=== PATIENT | female | born 1935 | race Caucasian/White ===

== ENCOUNTER 2016-12-05 07:04 | Emergency (ER) | payer OTHER ==
[~2016-12-05] VITALS: Ht 165.1 cm; Wt 64.5 kg
[~2016-12-05 07:04] MED LIST: ACET-1182 PO; ALL100 PO; CHOL100027 PO; GLC/500 PO; GLC5 PO; LISI20TA PO; LPR25 PO; MELO15TA3 PO; SIMV40TA2 PO; WARF2TAB PO
[2016-12-05 07:16] VITALS: TEMP 36.6; Ht 165.1 cm; Wt 64.5 kg
[2016-12-05] MEDS ORDERED: WARF2TAB8 PO (07:37)
[2016-12-05] MEDS ORDERED: LISI-787 PO (07:37)
[2016-12-05] MEDS ORDERED: ZCRT/40 PO (07:37)
[2016-12-05] MEDS ORDERED: ALL100 PO (07:37)
[2016-12-05] MEDS ORDERED: METO25TA56 PO (07:37)
[2016-12-05] MEDS ORDERED: GLIP-199 PO (07:37)
[2016-12-05] MEDS ORDERED: METF500T5 PO (07:37)
[2016-12-05 08:11] LABS: HEMATOCRIT 36.4 % (37-47); MEAN CELL VOLUME 86.7 fL (80-100); MEAN CORPUSCULAR HEMOGLOBIN 29.8 pg (25-34); MEAN CORPUSCULAR HGB CONC 34.3 g/dl (32-36); MEAN PLATELET VOLUME 10.5 fL (7.4-10.4); PLATELET COUNT 131 K/uL (130-400); WHITE BLOOD COUNT 8.12 K/uL (4.8-10.8)
[2016-12-05 08:21] LABS: BLOOD UREA NITROGEN 32 mg/dl (7-18); BUN/CREATININE RATIO 22.7 (10-20); C-REACTIVE PROTEIN < 0.29 mg/dl (0-0.29); CALCIUM 9.8 mg/dl (8.5-10.1); CARBON DIOXIDE 24 mmol/L (21-32); CHLORIDE 105 mmol/L (98-107); GLUCOSE 218 mg/dl (70-99); POTASSIUM 4.7 mmol/L (3.5-5.1); SODIUM 140 mmol/L (136-145); URIC ACID 5.3 mg/dl (2.6-7.2)
--- NOTE | 2016-12-05 08:21 | EMERGENCY ROOM VISIT NOTE ---
History First contact with patient: 07:24 Chief Complaint: FALL Stated Complaint: FELL DOWN STEPS- SWELLING BOTH LEGS R ANKLE R THIG History of Present Illness The patient is a 81 year old female who presents to the Emergency Department by private vehicle for evaluation of her RIGHT ankle pain and swelling. She reports that she fell 2 weeks ago resulting in minimal injury. She reports that she was ambulating down approximately 4 steps when she missed a step residential down causing her to fall onto her buttocks. She denies striking her head or any loss of consciousness. She denies any prefall headaches, dizziness , lightheadedness, chest pain, nausea, or vomiting. She reports she was having no discomfort until yesterday. She noticed pain and swelling to the RIGHT ankle. Her pain is worse with ambulation. She describes some pain to the anterior portion of the RIGHT thigh earlier this morning at approximately 5 AM. She use warm heat and a topical medication with minimal relief of symptoms. She denies any new falls or injuries otherwise. The patient does take Coumadin daily. She is unaware of her last INR. Patient denies any numbness or tingling into the distal extremity. She denies fevers or chills. She denies any redness, discharge, or drainage. She rates her current discomfort as a 6/ 10. She denies any headaches, dizziness, lightheadedness, chest pain, abdominal pain, back pain, hip pain, or knee pain. Review of Systems A complete 10-point Review of Systems was discussed with the patient, with pertinent positives and negatives listed in the History of Present Illness. All remaining Review of Systems questions can be considered negative unless otherwise specified. Past Medical/Surgical History Medical Problems: (1) Atherosclerosis Nos (2) Cholelithiasis Nos (3) Diab Tatyana Wo Compl, Type Ii Or Unspec Type, Not Uncntrld (4) Gouty Arthropathy, Unspecified (5) Hypertension Nos Social History Smoking Status: Never Smoker Smokeless Tobacco Use: No Drug Use: none Marital Status: Housing Status: lives with family Occupation Status: retired Current/Historical Medications Scheduled Allopurinol (Allopurinol), 200 MG PO DAILY Glipizide (Glipizide Er), 1 TAB PO DAILY Lisinopril/Hctz (Zestoretic 20MG/12.5MG), 1 TAB PO DAILY Metformin Hcl Er (Glucophage Er), 500 MG PO BID Metoprolol Tartrate (Lopressor) (Lopressor), 25 MG PO BID Simvastatin (Zocor), 40 MG PO DAILY Warfarin Sod (Jantoven), 2 MG PO DAILY Scheduled PRN Tramadol (Ultram), 1 TAB PO Q6 PRN for Pain Allergies Coded Allergies: No Known Allergies (Unverified , 12/05/16) Physical Exam Vital Signs Date Time Temp Pulse Resp B/P Pulse Ox O2 Delivery O2 Flow Rate FiO2 12/05/16 10:20 55 157/55 96 12/05/16 07:16 36.6 56 18 152/74 97 Room Air Pain Rating (0-10): 6 Physical Exam VITAL SIGNS - Vital signs and nursing notes were reviewed. GENERAL - 81-year-old female appearing her stated age and in noticeable discomfort throughout the exam. EXTREMITIES - mild edema noted to the medial surface of the RIGHT ankle. Tenderness to palpation over this affected area. No tenderness to palpation extending proximally. Full range of motion of the RIGHT lower extremity appreciated. +5/5 strength appreciated bilaterally. Mild tenderness to palpation over the dorsal surface of the LEFT foot. No tenderness to palpation to the hips or lumbar spine bilaterally. NEUROLOGIC/VASCULAR - Neurovascularly intact distally with +3/5 dorsalis pedis pulses palpated bilaterally. Normal sensation to light and sharp touch appreciated distally. Medical Decision & Procedures ER Provider Diagnostic Interpretation: Radiological imaging and reports were reviewed by myself. Radiologist's Interpretation as follows: RIGHT ANKLE MIN 3 VIEWS ROUTINE CLINICAL HISTORY: Right ankle pain following fall. COMPARISON: None FINDINGS: Alignment of the right ankle is anatomic. There is cortical thickening of the distal shaft of the right fibula. This suggests an old fracture. No definite acute fracture is present. Talar dome is intact. There is moderate plantar calcaneal spurring. IMPRESSION: Cortical irregularity of the distal right fibula which favors an old, healed fracture. Associated lucency is likely chronic although an acute nondisplaced fracture would be difficult to exclude on this exam. If persistent pain, short-term radiographic follow up is recommended. RIGHT FEMUR 2 VIEWS ROUTINE CLINICAL HISTORY: Right leg pain following fall. COMPARISON: [employer] tomogram from CT September 17, 2013. FINDINGS: No acute fracture of the right femur is identified. Alignment of the right hip and knee is anatomic. There is mild arthritis of the right hip. There is moderate arthritis of the right knee. There is no right knee joint effusion. No fracture is identified within visualized portions of the right hemipelvis. IMPRESSION: No acute fracture of the right femur. LEFT FOOT MIN 3 VIEWS ROUTINE CLINICAL HISTORY: pain s/p fall trauma. Pain. COMPARISON: None. DISCUSSION: Generalized degenerative change. Heel spur. Degenerative change first metatarsophalangeal joint. IMPRESSION: Degenerative change. Heel spur. No acute bony abnormality. RIGHT LOWER EXTREMITY VENOUS DOPPLER CLINICAL HISTORY: Right lower extremity pain and swelling. COMPARISON STUDY: No previous studies for comparison. TECHNIQUE: Sonography of the deep venous system of the right lower extremity was performed. Compression and augmentation were evaluated. FINDINGS: The right common femoral, superficial femoral and popliteal veins were compressible. Augmentation was normal. Flow was shown within the deep calf vessels. IMPRESSION: No evidence of deep venous thrombus within the right lower extremity. Laboratory Results 12/05/16 07:55 Red Blood Count 4.20, Mean Corpuscular Volume 86.7, Mean Corpuscular Hemoglobin 29.8, Mean Corpuscular Hemoglobin Concent 34.3, Mean Platelet Volume 10.5, Neutrophils (%) (Auto) 72.3, Lymphocytes (%) (Auto) 16.5, Monocytes (%) (Auto) 10.7, Eosinophils (%) (Auto) 0.2, Basophils (%) (Auto) 0.1, Neutrophils # (Auto ) 5.86, Lymphocytes # (Auto) 1.34, Monocytes # (Auto) 0.87, Eosinophils # (Auto ) 0.02, Basophils # (Auto) 0.01 12/05/16 07:55 Test 12/05/16 07:55 White Blood Count 8.12 K/uL (4.8-10.8) Red Blood Count 4.20 M/uL (4.2-5.4) Hemoglobin 12.5 g/dL (12.0-16.0) Hematocrit 36.4 % (37-47) Mean Corpuscular Volume 86.7 fL (80-100) Mean Corpuscular Hemoglobin 29.8 pg (25-34) Mean Corpuscular Hemoglobin Concent 34.3 g/dl (32-36) Platelet Count 131 K/uL (130-400) Mean Platelet Volume 10.5 fL (7.4-10.4) Neutrophils (%) (Auto) 72.3 % Lymphocytes (%) (Auto) 16.5 % Monocytes (%) (Auto) 10.7 % Eosinophils (%) (Auto) 0.2 % Basophils (%) (Auto) 0.1 % Neutrophils # (Auto) 5.86 K/uL (1.4-6.5) Lymphocytes # (Auto) 1.34 K/uL (1.2-3.4) Monocytes # (Auto) 0.87 K/uL (0.11-0.59) Eosinophils # (Auto) 0.02 K/uL (0-0.5) Basophils # (Auto) 0.01 K/uL (0-0.2) RDW Standard Deviation 44.7 fL (36.4-46.3) RDW Coefficient of Variation 14.3 % (11.5-14.5) Immature Granulocyte % (Auto) 0.2 % Immature Granulocyte # (Auto) 0.02 K/uL (0.00-0.02) Erythrocyte Sedimentation Rate 35 mm/hr (0-21) Prothrombin Time 48.9 SECONDS (9.0-12.0) Prothromb Time International Ratio 4.3 (0.9-1.1) Activated Partial Thromboplast Time 47.5 SECONDS (21.0-31.0) Partial Thromboplastin Ratio 1.8 Anion Gap 11.0 mmol/L (3-11) Est Creatinine Clear Calc Drug Dose 27.4 ml/min Estimated GFR () 40.2 Estimated GFR (Non- 34.7 BUN/Creatinine Ratio 22.7 (10-20) Uric Acid 5.3 mg/dl (2.6-7.2) Calcium Level 9.8 mg/dl (8.5-10.1) C-Reactive Protein < 0.29 mg/dl (0-0.29) Medications Administered Medications (Trade) Dose Ordered Sig/Ruthy Route Start Time Stop Time Status Last Admin Dose Admin Acetaminophen (Tylenol Tab) 650 mg NOW STAT PO 12/05/16 09:50 12/05/16 09:51 DC 12/05/16 09:58 650 MG ED Course Patient was seen and evaluated by myself. Labs were drawn, saline lock in place. The patient declines anything for pain while in the emergency department. X-ray of the RIGHT ankle, RIGHT femur, LEFT foot, and ultrasound of the RIGHT lower extremity were obtained. Laboratory results demonstrate no acute leukocytosis, worrisome anemia, or bandemia. The patient has no significant electrolyte abnormalities. Her creatinine was mildly elevated at 1.4, however we've seen this previously. Her INR was significantly elevated at 4.3. She is uncertain of her next INR evaluation. She typically is managed by her primary care provider's office. Imaging results above. Laboratory results and imaging studies were reviewed with the patient who acknowledges understanding. Patient was provided Ultram for breakthrough pain at home. She has a walker to use for comfort. I did speak with case management who will contact the patient's primary care provider and let them know of her INR today as well as my current management for acute gouty arthropathy. Patient will follow-up with her primary care provider from today's visit. She will return for any changing/worsening symptoms. Patient discharged home afebrile and in good condition. Medical Decision Given the patient's presentation and stated complaint, I did elect to perform the above-mentioned workup. The patient resents today complaining of pain to the RIGHT ankle. She had cramping pain to the upper leg earlier this morning. She's had no fevers. There is no leukocytosis. ESR is minimally elevated. CRP is not elevated. Uric acid was not elevated. On review the patient's medications, she does take allopurinol as well as Mobic daily. When questioning , the patient does admit to history of gout, but reports that she typically only experiences it in her great toes. The patient has pain with ambulation. Her INR was found to be elevated at 4.3. This will be addressed by her primary care provider's office with case management facilitating conversation. At this point, I did not feel like placing the patient on prednisone as she currently has a blood glucose in excess of 200. She is not currently on her medications. I do not feel that steroids are the best approach in this situation. In addition, she is currently on a second-generation NSAID for ongoing arthritis. I would not wish to add a second NSAID, particularly in the setting of a patient who is currently taking Coumadin and has an INR of 1.3. Another option certainly could be colchicine, however the patient appears to have him to the store issues already and I would hate to have the patient have diarrhea which may cause a fall or worsening injury otherwise. The patient was provided Ultram for breakthrough pain at home. She'll follow-up with her primary care provider as discussed. She will return to the emergency department in the setting of any changing or worsening symptoms. Patient discharged home afebrile and in good condition. In the evaluation and treatment of this patient, the following differential diagnoses were considered: Ankle Fracture, Ankle Sprain, Distal Fibula Fracture , Distal Tibia Fracture, Foot Fracture, Maisonneuve Fracture. Impression Primary Impression: Acute gouty arthritis Departure Information Dispostion Home / Self-Care Condition GOOD Prescriptions Tramadol (Ultram) 50 Mg Tab 1 TAB PO Q6 Y for Pain, #14 TAB For Initial Treatment Prov: Sergio Mccallum, TOMMIE 12/05/16 Referrals Ned Tomlin M.D. (PCP) Patient Instructions Gout Attack Tx, My [facility] Additional Instructions You have been seen in the emergency department today for your RIGHT ankle pain - acute gouty arthritis. You have been prescribed Ultram to be used for pain control. You cannot drive or consume alcohol while on this medicine. This medicine should only be used for pain that cannot be controlled with [id number] pain medicines. You will be contacted by your primary care provider's office later this afternoon for recommendations on taking her Coumadin. If they do not contact you, please contact their office later today. Please do not take your Coumadin dose today. Use your walker to help with ambulation for the next few days. Watch for worrisome signs and symptoms including worsening pain, redness, fevers , chills, chest pain, shortness of breath, etc. Follow-up with your primary care provider from today's visit. Return for any changing or worsening symptoms.
[2016-12-05 08:28] LABS: PARTIAL THROMBOPLASTIN RATIO 1.8; PROTHROMBIN TIME (PATIENT) 48.9 SECONDS (9.0-12.0)
[2016-12-05 08:29] LABS: BASO % 0.1 %; BASO ABS # 0.01 K/uL (0-0.2); COMPLETE YES; EOS % 0.2 %; IG% 0.2 %; LYMPH % 16.5 %; LYMPH ABS # 1.34 K/uL (1.2-3.4); MONO % 10.7 %; NEUT % 72.3 %
[2016-12-05 08:31] LABS: INR 4.3 (0.9-1.1)
--- NOTE | 2016-12-05 08:59 | DIAGNOSTIC IMAGING REPORT ---
LEFT FOOT MIN 3 VIEWS ROUTINE CLINICAL HISTORY: pain s/p fall trauma. Pain. COMPARISON: None. DISCUSSION: Generalized degenerative change. Heel spur. Degenerative change first metatarsophalangeal joint. IMPRESSION: Degenerative change. Heel spur. No acute bony abnormality. Electronically signed by: Román Abrams M.D. 12/05/2016 8:58 AM Dictated Date/Time: 12/05/2016 8:57 AM
--- NOTE | 2016-12-05 09:00 | DIAGNOSTIC IMAGING REPORT ---
RIGHT ANKLE MIN 3 VIEWS ROUTINE CLINICAL HISTORY: Right ankle pain following fall. COMPARISON: None FINDINGS: Alignment of the right ankle is anatomic. There is cortical thickening of the distal shaft of the right fibula. This suggests an old fracture. No definite acute fracture is present. Talar dome is intact. There is moderate plantar calcaneal spurring. IMPRESSION: Cortical irregularity of the distal right fibula which favors an old, healed fracture. Associated lucency is likely chronic although an acute nondisplaced fracture would be difficult to exclude on this exam. If persistent pain, short-term radiographic follow up is recommended. Electronically signed by: Michael Isaacs M.D. 12/05/2016 8:59 AM Dictated Date/Time: 12/05/2016 8:55 AM
--- NOTE | 2016-12-05 09:02 | DIAGNOSTIC IMAGING REPORT ---
RIGHT FEMUR 2 VIEWS ROUTINE CLINICAL HISTORY: Right leg pain following fall. COMPARISON: [employer] tomogram from CT September 17, 2013. FINDINGS: No acute fracture of the right femur is identified. Alignment of the right hip and knee is anatomic. There is mild arthritis of the right hip. There is moderate arthritis of the right knee. There is no right knee joint effusion. No fracture is identified within visualized portions of the right hemipelvis. IMPRESSION: No acute fracture of the right femur. Electronically signed by: Michael Isaacs M.D. 12/05/2016 9:01 AM Dictated Date/Time: 12/05/2016 8:59 AM
--- NOTE | 2016-12-05 09:30 | DIAGNOSTIC IMAGING REPORT ---
RIGHT LOWER EXTREMITY VENOUS DOPPLER CLINICAL HISTORY: Right lower extremity pain and swelling. COMPARISON STUDY: No previous studies for comparison. TECHNIQUE: Sonography of the deep venous system of the right lower extremity was performed. Compression and augmentation were evaluated. FINDINGS: The right common femoral, superficial femoral and popliteal veins were compressible. Augmentation was normal. Flow was shown within the deep calf vessels. IMPRESSION: No evidence of deep venous thrombus within the right lower extremity. Electronically signed by: Michael Isaacs M.D. 12/05/2016 9:29 AM Dictated Date/Time: 12/05/2016 9:28 AM
[2016-12-05] MEDS ORDERED: ACETAMINOPHEN 325 MG TAB PO STA (09:50)
[2016-12-05] MEDS ORDERED: TRAM-10 PO (10:09)
[2016-12-05 10:20] VITALS: BP 157/55; PULSE 55; O2SAT 96
--- NOTE | 2016-12-06 19:47 | EMERGENCY ROOM VISIT NOTE ---
ED Visit Note First contact with patient: 07:24 I have personally seen and evaluated the patient with the PA. I agree with the diagnosis and management decisions and have been personally involved in the case. Please see Sergio Mccallum PA-C's notes for further details of the history, physical and visit.
== END 2016-12-05 10:22 | disposition home or self-care (01) ==
LOC: C.EDB 07:06 → C.EDA 10:22
DX: M10.9 Gout, unspecified (principal); I70.90 Unspecified atherosclerosis; E11.9 Type 2 diabetes mellitus without complications; I10 Essential (primary) hypertension; Z79.01 Long term (current) use of anticoagulants; M79.651 Pain in right thigh; Z79.899 Other long term (current) drug therapy

== ENCOUNTER 2016-12-11 18:39 | Emergency (ER) | payer OTHER ==
[~2016-12-11] VITALS: Ht 165.1 cm; Wt 65.0 kg
[~2016-12-11 18:39] MED LIST changes: -ACET-1182 PO; -CHOL100027 PO; -GLC/500 PO; -GLC5 PO; +GLIP-199 PO; +LISI-787 PO; -LISI20TA PO; -LPR25 PO; -MELO15TA3 PO; +METF500T5 PO; +METO25TA56 PO; -SIMV40TA2 PO; +TRAM-10 PO; -WARF2TAB PO; +WARF2TAB8 PO; +ZCRT/40 PO
[2016-12-11 18:52] VITALS: BP 138/77; PULSE 77; TEMP 37; O2SAT 93; Ht 165.1 cm; Wt 65.0 kg
--- NOTE | 2016-12-11 19:13 | EMERGENCY ROOM VISIT NOTE ---
History Report prepared by Samson: [place] Under the Supervision of: Dr. Barry Sánchez M.D. First contact with patient: 19:01 Chief Complaint: LEG PAIN,LEG INJURY Stated Complaint: LEG PAIN IN BOTH LEGS History of Present Illness The patient is an 81 year old female who presents to the Emergency Room with complaints of persistent bilateral leg pain that began prior to arrival. She currently rates her discomfort as a 6/10 in severity. The patient's son notes that the patient was evaluated in the emergency department one week ago after a fall and noted ankle swelling that has resolved. He notes that the patient was given Ultram for her discomfort. The patient states that she has been feeling nauseous, but denies any vomiting. She states that she has kept up on her fluid intake, but states that she has had a decrease in appetite. The patient denies any chest pain, shortness of breath, abdominal pain, or urinary symptoms. She notes a history of diabetes, atrial fibrillation, and gout. The patient notes that she has been ambulating with a walker since her last emergency department visit and denies any falls since then. She notes difficulty sleeping with her pain today. Source of History: patient, family, spouse/significant other Onset: prior to arrival Position: leg (bilateral) Symptom Intensity: 6/10 Timing: other (persistent) Associated Symptoms: + nausea, No SOB, No abdominal pain, No chest pain, No urinary symptoms, No vomiting Note: Associated Symptoms: decrease in appetite. Review of Systems See HPI for pertinent positives & negatives. A total of 10 systems reviewed and were otherwise negative. Past Medical & Surgical Medical Problems: (1) Atherosclerosis Nos (2) Cholelithiasis Nos (3) Diab Tatyana Wo Compl, Type Ii Or Unspec Type, Not Uncntrld (4) Gouty Arthropathy, Unspecified (5) Hypertension Nos Old medical records were reviewed. Nurse's notes were reviewed and I agree with. Family History Diabetes mellitus FHx: cancer Social History Smoking Status: Never Smoker Drug Use: none Marital Status: Housing Status: lives with family Occupation Status: retired Current/Historical Medications Scheduled Allopurinol (Allopurinol), 200 MG PO DAILY Glipizide (Glipizide Er), 1 TAB PO DAILY Lisinopril/Hctz (Zestoretic 20MG/12.5MG), 1 TAB PO DAILY Metoprolol Tartrate (Lopressor) (Lopressor), 25 MG PO BID Simvastatin (Zocor), 40 MG PO DAILY Warfarin Sod (Jantoven), 2 MG PO DAILY Scheduled PRN Tramadol (Ultram), 1 TABS PO Q6 PRN for Pain Allergies Coded Allergies: No Known Allergies (Unverified , 12/11/16) Physical Exam Vital Signs Date Time Temp Pulse Resp B/P Pulse Ox O2 Delivery O2 Flow Rate FiO2 12/11/16 18:52 37.0 77 20 138/77 93 Room Air Physical Exam General: Well developed well nourished, non-ill appearing older female in no acute distress, breathing comfortably on room air. Normal speech HEENT: Normal cephalic atraumatic. Pupils are equal round and reactive to light. Extraocular movements are intact. Oropharynx is pink with moist mucous membranes. No swelling of the mouth lips or tongue. Neck: Supple with a midline trachea. No meningeal signs or stiffness, no JVD or bruits. No Stridor. Chest: Clear to auscultation bilaterally. No wheezes or rhonchi. No increased work of breathing. Heart: regular rate and rhythm. Abdomen: Soft nontender, nondistended without rebound guarding or rigidity. Extremities: No tenderness or swelling to the thighs were she complains of pain. No redness or warmth to the ankles. No cyanosis clubbing or edema. No calf tenderness or assymetry Spine/Back. Non tender to palpation. No CVA tenderness Skin: Good turgor without rashes. Neurologic exam: Cranial nerves two through 12 are intact. Motor and sensation are intact and symmetrical throughout. Medical Decision & Procedures Laboratory Results 12/11/16 19:45 Red Blood Count 4.41, Mean Corpuscular Volume 88.9, Mean Corpuscular Hemoglobin 30.4, Mean Corpuscular Hemoglobin Concent 34.2, Mean Platelet Volume 10.8, Neutrophils (%) (Auto) 77.9, Lymphocytes (%) (Auto) 12.2, Monocytes (%) (Auto) 9.6, Eosinophils (%) (Auto) 0.1, Basophils (%) (Auto) 0.1, Neutrophils # (Auto) 5.93, Lymphocytes # (Auto) 0.93, Monocytes # (Auto) 0.73, Eosinophils # (Auto) 0.01, Basophils # (Auto) 0.01 12/11/16 19:45 Test 12/11/16 19:45 White Blood Count 7.62 K/uL (4.8-10.8) Red Blood Count 4.41 M/uL (4.2-5.4) Hemoglobin 13.4 g/dL (12.0-16.0) Hematocrit 39.2 % (37-47) Mean Corpuscular Volume 88.9 fL (80-100) Mean Corpuscular Hemoglobin 30.4 pg (25-34) Mean Corpuscular Hemoglobin Concent 34.2 g/dl (32-36) Platelet Count 128 K/uL (130-400) Mean Platelet Volume 10.8 fL (7.4-10.4) Neutrophils (%) (Auto) 77.9 % Lymphocytes (%) (Auto) 12.2 % Monocytes (%) (Auto) 9.6 % Eosinophils (%) (Auto) 0.1 % Basophils (%) (Auto) 0.1 % Neutrophils # (Auto) 5.93 K/uL (1.4-6.5) Lymphocytes # (Auto) 0.93 K/uL (1.2-3.4) Monocytes # (Auto) 0.73 K/uL (0.11-0.59) Eosinophils # (Auto) 0.01 K/uL (0-0.5) Basophils # (Auto) 0.01 K/uL (0-0.2) RDW Standard Deviation 46.2 fL (36.4-46.3) RDW Coefficient of Variation 14.1 % (11.5-14.5) Immature Granulocyte % (Auto) 0.1 % Immature Granulocyte # (Auto) 0.01 K/uL (0.00-0.02) Anion Gap 12.0 mmol/L (3-11) Est Creatinine Clear Calc Drug Dose 27.4 ml/min Estimated GFR () 40.2 Estimated GFR (Non- 34.7 BUN/Creatinine Ratio 26.0 (10-20) Uric Acid 5.3 mg/dl (2.6-7.2) Calcium Level 8.8 mg/dl (8.5-10.1) Total Bilirubin 1.2 mg/dl (0.2-1) Direct Bilirubin 0.3 mg/dl (0-0.2) Aspartate Amino Transf (AST/SGOT) 25 U/L (15-37) Alanine Aminotransferase (ALT/SGPT) 27 U/L (12-78) Alkaline Phosphatase 111 U/L (45-117) Total Creatine Kinase 59 U/L (26-192) Creatine Kinase MB 0.8 ng/ml (0.5-3.6) Creatine Kinase MB Ratio 1.4 (0-3.0) Total Protein 8.3 gm/dl (6.4-8.2) Albumin 3.9 gm/dl (3.4-5.0) Lipase 292 U/L (73-393) Laboratory studies as stated above per my review. 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 The patient was evaluated in room B6, and a complete history and physical examination were performed. 1917: Ordered Ultram Tab 50 mg PO. 2036: I reevaluated the patient and she is feeling better. I discussed the exam findings with her and I discussed the treatment plan. She verbalized complete understanding and agreement. She is ready to go home. Medical Decision Differentials include, but are not limited to; gout, musculoskeletal pain, infection, electrolyte or metabolic abnormality, rheumatologic process. This patient comes in as described above. She was placed room B6. She's been having leg pain mostly in her thighs bilaterally. She was seen recently for the same and had extensive workup including ultrasound of her right leg. She have any well Ultram but ran out yesterday. Her son thinks that this is why she is having pain. She has an appointment with her doctor on Monday. She's had no fever or chills, chest pain shortness of was breath or any systemic complaints. No bowel or bladder problems. She's had no fall or trauma. No numbness or weakness. Her legs on exam are not swollen and around the thighs there is no hematoma. She is neurologically and neurovascularly intact. She has bounding distal pulses and no arterial compromise. She was given Ultram here and was resting comfortably asking to go home .I did blood work and she has no white count or fever to suggest infection. She has chronic renal insufficiency but nothing acute. This seems a more musculoskeletal pain along her thighs .she will use the Ultram and follow up with her regular doctor and return if: increasing pain, worsening of symptoms, numbness or weakness, any new problems or concerns. Impression Primary Impression: Bilateral leg pain Scribe Attestation The scribe's documentation has been prepared under my direction and personally reviewed by me in its entirety. I confirm that the note above accurately reflects all work, treatment, procedures, and medical decision making performed by me. Departure Information Dispostion Home / Self-Care Prescriptions Tramadol (Ultram) 50 Mg Tab 1 TABS PO Q6 Y for Pain, #20 TAB Prov: Barry Sánchez M.D. 12/11/16 Referrals Ned Tomlin M.D. (PCP) Forms HOME CARE DOCUMENTATION FORM, IMPORTANT VISIT INFORMATION Patient Instructions My [facility] Additional Instructions Rest. Drink plenty of fluids. Use your Ultram 50 mg every 6 hours, take with food Ultram may make you drowsy, be careful getting up and down. Return if: Increasing pain, worsening of symptoms, fever or chills, any new problems or concerns. Keep your appointment with Dr. Tomlin on Monday
[2016-12-11] MEDS ORDERED: TRAMADOL HCL 50 MG TAB PO STA (19:18)
[2016-12-11 19:56] LABS: HEMATOCRIT 39.2 % (37-47); MEAN CELL VOLUME 88.9 fL (80-100); MEAN CORPUSCULAR HEMOGLOBIN 30.4 pg (25-34); MEAN CORPUSCULAR HGB CONC 34.2 g/dl (32-36); MEAN PLATELET VOLUME 10.8 fL (7.4-10.4); PLATELET COUNT 128 K/uL (130-400); RED BLOOD COUNT 4.41 M/uL (4.2-5.4); WHITE BLOOD COUNT 7.62 K/uL (4.8-10.8)
[2016-12-11 20:13] LABS: CALCIUM 8.8 mg/dl (8.5-10.1); CREATININE 1.4 mg/dl (0.60-1.20); POTASSIUM 4.6 mmol/L (3.5-5.1); URIC ACID 5.3 mg/dl (2.6-7.2)
[2016-12-11 20:14] LABS: BASO % 0.1 %; BASO ABS # 0.01 K/uL (0-0.2); COMPLETE YES; EOS % 0.1 %; IG% 0.1 %; LYMPH % 12.2 %; LYMPH ABS # 0.93 K/uL (1.2-3.4); MONO % 9.6 %; NEUT % 77.9 %
[2016-12-11 20:19] LABS: CKMB/CK RATIO 1.4 (0-3.0)
[2016-12-11] MEDS ORDERED: TRAM-10 PO (20:55)
== END 2016-12-11 21:10 | disposition home or self-care (01) ==
LOC: C.EDB 18:39
DX: M79.604 Pain in right leg (principal); M79.605 Pain in left leg; I48.91 Unspecified atrial fibrillation; I10 Essential (primary) hypertension; E11.9 Type 2 diabetes mellitus without complications; M10.00 Idiopathic gout, unspecified site; I25.10 Atherosclerotic heart disease of native coronary artery without angina pectoris; Z79.01 Long term (current) use of anticoagulants; Z79.899 Other long term (current) drug therapy; Z83.3 Family history of diabetes mellitus; Z80.9 Family history of malignant neoplasm, unspecified

== ENCOUNTER → 2016-12-13 | Outpatient (CLI) | payer OTHER ==
[~2016-12-13] MED LIST changes: -METF500T5 PO
[2016-12-13 17:51] LABS: BLOOD UREA NITROGEN 45 mg/dl (7-18); CALCIUM 9.6 mg/dl (8.5-10.1); CARBON DIOXIDE 24 mmol/L (21-32); CHLORIDE 99 mmol/L (98-107); GLUCOSE 106 mg/dl (70-99); POTASSIUM 4.1 mmol/L (3.5-5.1); SODIUM 135 mmol/L (136-145)
[2016-12-14 06:31] LABS: ESTIMATED AVERAGE GLUCOSE 177 mg/dl; HA1C FLAG Normal (Normal)
== END | disposition home or self-care (01) ==
LOC: C.LABBFT 11:03
PROVIDERS: ATTEND Internal Medicine
DX: N18.3 Chronic kidney disease, stage 3 (moderate) (principal); E11.9 Type 2 diabetes mellitus without complications

== ENCOUNTER → 2017-01-27 | Outpatient (CLI) | payer OTHER ==
[2017-01-27 16:53] LABS: BLOOD UREA NITROGEN 16 mg/dl (7-18); BUN/CREATININE RATIO 15.9 (10-20); CALCIUM 9.7 mg/dl (8.5-10.1); CARBON DIOXIDE 24 mmol/L (21-32); CHLORIDE 105 mmol/L (98-107); GLUCOSE 140 mg/dl (70-99); POTASSIUM 4.3 mmol/L (3.5-5.1); SODIUM 140 mmol/L (136-145)
== END | disposition home or self-care (01) ==
LOC: C.LABBFT 15:52
PROVIDERS: ATTEND Physician Assistant Medical
DX: N18.3 Chronic kidney disease, stage 3 (moderate) (principal)

== ENCOUNTER → 2017-06-13 | Outpatient (CLI) | payer OTHER ==
[2017-06-13 17:23] LABS: COMPLETE YES; EOS % 1.2 %; HEMATOCRIT 38.3 % (37-47); IG% 0.2 %; MEAN CELL VOLUME 89.5 fL (80-100); MEAN CORPUSCULAR HEMOGLOBIN 28.3 pg (25-34); MEAN CORPUSCULAR HGB CONC 31.6 g/dl (32-36); MEAN PLATELET VOLUME 10.7 fL (7.4-10.4); MONO % 8.4 %; NEUT % 61.2 %; PLATELET COUNT 143 K/uL (130-400); RED BLOOD COUNT 4.28 M/uL (4.2-5.4); WHITE BLOOD COUNT 6.55 K/uL (4.8-10.8)
[2017-06-13 17:39] LABS: ALT/SGPT 20 U/L (12-78); AST/SGOT 17 U/L (15-37); BLOOD UREA NITROGEN 25 mg/dl (7-18); BUN/CREATININE RATIO 19.3 (10-20); CALCIUM 9.7 mg/dl (8.5-10.1); CARBON DIOXIDE 25 mmol/L (21-32); CHLORIDE 109 mmol/L (98-107); GLUCOSE 129 mg/dl (70-99); POTASSIUM 4.7 mmol/L (3.5-5.1); SODIUM 139 mmol/L (136-145)
[2017-06-13 17:41] LABS: ALB/GLOB RATIO 0.9 (0.9-2); ALKALINE PHOSPHATASE 102 U/L (45-117); CHOLESTEROL 119 mg/dl (0-200); CHOLESTEROL/HDL RATIO 3.2; HDL CHOLESTEROL 37 mg/dl; LDL CHOLESTEROL CALCULATED 42 mg/dl; TRIGLYCERIDES 202 mg/dl (0-150); VERY LOW DENSITY LIPOPROT CALC 40 mg/dl
[2017-06-14 06:39] LABS: ESTIMATED AVERAGE GLUCOSE 171 mg/dl; HA1C FLAG Normal (Normal)
== END | disposition home or self-care (01) ==
LOC: C.LABBFT 12:55
PROVIDERS: ATTEND Internal Medicine
DX: N18.3 Chronic kidney disease, stage 3 (moderate) (principal); E11.9 Type 2 diabetes mellitus without complications; E55.9 Vitamin D deficiency, unspecified

== ENCOUNTER → 2018-02-21 | Outpatient (CLI) | payer OTHER ==
[~2018-02-21] MED LIST changes: -TRAM-10 PO
[2018-02-21 16:47] LABS: ALBUMIN 4.1 gm/dl (3.4-5.0); BLOOD UREA NITROGEN 25 mg/dl (7-18); CARBON DIOXIDE 25 mmol/L (21-32); CREATININE 1.32 mg/dl (0.60-1.20); GLUCOSE 189 mg/dl (70-99); POTASSIUM 4.3 mmol/L (3.5-5.1); SODIUM 134 mmol/L (136-145)
[2018-02-21 16:49] LABS: URIC ACID 4.8 mg/dl (2.6-7.2)
[2018-02-22 06:27] LABS: HEMOGLOBIN A1C 7.2 % (4.5-5.6)
== END | disposition home or self-care (01) ==
LOC: C.LABBFT 12:09
PROVIDERS: ATTEND Internal Medicine
DX: N18.3 Chronic kidney disease, stage 3 (moderate) (principal); E11.9 Type 2 diabetes mellitus without complications; E55.9 Vitamin D deficiency, unspecified; M10.9 Gout, unspecified

== ENCOUNTER 2020-10-19 12:02 | Inpatient (IN) ==
[2020-10-19] MEDS ORDERED: ACETAMINOPHEN 1,000 MG/100 ML VIAL IV STA (12:50)
--- NOTE | 2020-10-19 12:57 | Emergency Department Note ---
Impression & Plan Weakness, Acute UTI, Acute dehydration, COVID-19, Sinusitis, Left leg pain, Fall ED Provider Note NAME: ELIZABETH GILBERT AGE: 85 SEX: F : 1935 ARRIVES VIA: Ambulance INFORMANT: [Patient][ems] ED PROVIDER(S): [Louie Chávez MD] CHIEF COMPLAINT: Leg pain HISTORY OF PRESENT ILLNESS: The patient is an 85-year-old female with dementia. She apparently fell around a week ago. She states that her legs went out from under her. She denies losing consciousness or hitting her head. Since the fall, she has had some left lower leg pain, primarily in the area of the left posterior calf. She is still able to ambulate with a walker from her bed to the bathroom but she is not able to walk as much as before. The patient is being sent in today for concern for fracture versus DVT. The patient herself feels this is may be a muscle pull. She is wondering if there is something that she could have to help give her some support when she tries to walk. The patient denies any headache or neck pain or chest pain. She is not short of breath, no abdominal pain or vomiting. She is asking for a pillow to raise her left leg as this makes it feel better. She also states that she did not receive her typical morning medications. The ambulance crew also mentions that the patient has had a potential Covid exposure although she is not symptomatic. REVIEW OF SYSTEMS: See HPI for pertinent positives and negatives. A total of ten systems were r eviewed and were otherwise negative. PMHx/PSHx: See Below SOCIAL HISTORY: See Below. PHYSICAL EXAM: GENERAL: Patient is in no acute distress. HEENT: No acute trauma, normocephalic atraumatic, mucous membranes dry, no nasal congestion, no scleral icterus. NECK: No stridor, no adenopathy, no meningismus, trachea is midline. Nontender posterior C-spine. LUNGS: Clear to auscultation bilaterally, no wheeze, no rhonchi, breath sounds equal. HEART: Irregular rhythm, normal rate, no obvious murmur. ABDOMEN: Soft, nontender, bowel sounds positive, no hernias, no peritonitis. EXTREMITIES: No cyanosis or edema. The patient does have a contusion that appears older to the back of the proximal left calf. This area is somewhat tender. There is no left lower extremity deformity. She has no real pain to move the area of the left hip, left knee or left ankle. I do not find evidence for neurovascular compromise. NEUROLOGIC: Awake and alert, no acute motor or sensory deficits, no focal weakness. SKIN: No rash, no jaundice, no diaphoresis. DIFFERENTIAL DIAGNOSIS: Infection, dehydration, metabolic abnormality, DVT, fracture, contusion, COVID- 19, intracranial bleeding, hypo/hyperglycemia, electrolyte disturbance, anemia, hypoxia, cardiac sources, intracerebral event, toxicologic, neurologic, as well as other pathologies. EMERGENCY DEPARTMENT COURSE/PROCEDURES: ECG: Indication was weakness. The ECG shows what appears to be atrial fibrillation. There is no ST elevation, there is some baseline artifact and some nonspecific ST change. The rate is 58. The QTc is 463. There is a potential old septal infarct. There is a potential old inferior infarct. Compared to an ECG from 11 December 2016, there is no significant change Continuous Cardiac Monitoring: An order was placed for continuous cardiac monitoring. The monitor shows a rate of 58 with atrial fibrillation. MEDICAL DECISION MAKING: There is no leukocytosis. The hemoglobin was somewhat low but the patient carries a history of anemia. There was a normal platelet count. INR was elevated at 4.2, she is somewhat over anticoagulated. No significant electrolyte abnormality or kidney failure. There were a few subtle liver enzyme elevations. Patient appeared to be in a euthyroid state. ECG shows atrial fibrillation, no acute ischemia. Cardiac enzyme testing x1 is not consistent with acute cardiac injury. Urinalysis does suggest infection. Covid testing returned positive. Left hip and pelvis films did not show any fractures. Left tib-fib film did not show any fracture. Chest film did not show pneumonia or CHF, some chronic findings were seen. Brain CT showed sinusitis, no acute bleed or mass-effect. Abdominal and pelvis CT showed bladder wall thickening consistent with UTI, there was no acute surgical process by CT, no bowel obstruction, no large hematoma within the abdomen. Left leg ultrasound did not show any evidence for DVT. The patient presents with weakness, falling, left leg pain. Work-up here shows a UTI, she appears dehydrated, she is Covid positive and has sinusitis. I suspect all of the above findings have contributed to her weakness and falling. I suspect the left leg pain is from the hematoma to the posterior left calf. The patient is in no condition to be discharged. Her family is aware of the findings. I did speak with the patient at length, I spoke with case management. The on-call hospitalist was consulted. The patient was given IV saline for hydration, a total of 500 cc was administered. She was given IV Tylenol for pain. She was given IV ceftriaxone as antibiotic coverage. Past Med/Surg History Medical History History of abnormal mammogram Pessary maintenance Surgical History (Updated 07/08/19 @ 11:22 by Lalitha Young) S/P cataract surgery Family History (Updated 07/08/19 @ 11:23 by Lalitha Young) Other No pertinent family history Social History Smoking Status: Never smoker Hx Alcohol Use: No Preferred Language: Bengali marital status: current occupational status: retired Feels Safe at Home: Yes Allergies Allergies Allergy/AdvReac Type Severity Reaction Status Date / Time acetaminophen [From [place]] AdvReac Nausea Verified 10/19/20 19:22 atorvastatin [From Lipitor] AdvReac NOT Verified 10/19/20 19:22 TOLERATED fluvastatin [From [place]] AdvReac NOT Verified 10/19/20 19:22 TOLERATED gabapentin AdvReac Nausea Verified 10/19/20 19:22 hydrocodone [From [place]] AdvReac Nausea Verified 10/19/20 19:22 sulfamethoxazole AdvReac Nausea Verified 10/19/20 19:22 [From Bactrim] trimethoprim [From Bactrim] AdvReac Nausea Verified 10/19/20 19:22 Home Meds Home Medications Medication Instructions Recorded Confirmed cholecalciferol (vitamin D3) 25 1,000 units PO DAILY 07/08/19 10/19/20 mcg (1,000 unit) capsule gabapentin 100 mg PO HS 10/19/20 10/19/20 warfarin 2 mg PO .UD 10/19/20 10/19/20 Previous Rx's Medication Instructions Recorded lisinopril 20 mg tablet 20 mg PO DAILY #90 tab 12/31/19 allopurinol 100 mg tablet 200 mg PO DAILY #180 tab 04/10/20 metoprolol tartrate 25 mg tablet 25 mg PO BID #180 tab 04/10/20 simvastatin 40 mg tablet 40 mg PO QPM #90 tab 04/10/20 glipizide 10 mg tablet, extended 10 mg PO BID #180 tab 07/21/20 release 24 hr nystatin 100,000 unit/gram topical 1 applic TOPICAL BID #30 g 09/24/20 powder Results & Data (ED) Vital Signs Vital Signs - 24 hr 10/19/20 12:14 10/19/20 12:26 10/19/20 12:27 Temperature 37.3 C Temperature Source Oral Pulse Rate 51 L 53 L 55 L Pulse Rate from SpO2 Sensor 49 L 53 L Respiratory Rate 21 18 20 Respiratory Effort / Characteristics Non-Labored Spontaneous Respiratory Depth Normal Respiratory Pattern Regular Blood Pressure 172/86 H 172/86 H Blood Pressure Mean 102 114 Pulse Oximetry 97 95 96 Oxygen Delivery Method Room Air Sepsis Recent Fever Within 48 Hours No Sepsis New/Unexplained Change in Mental Status No Sepsis Action Taken by Nursing No Action Required 10/19/20 12:30 10/19/20 13:00 10/19/20 13:13 Temperature Temperature Source Pulse Rate 58 L 52 L 55 L Pulse Rate from SpO2 Sensor 56 L 53 L Respiratory Rate 12 15 20 Respiratory Effort / Characteristics Respiratory Depth Respiratory Pattern Blood Pressure Blood Pressure Mean Pulse Oximetry 97 98 96 Oxygen Delivery Method Room Air Sepsis Recent Fever Within 48 Hours Sepsis New/Unexplained Change in Mental Status Sepsis Action Taken by Nursing 10/19/20 13:30 10/19/20 13:31 10/19/20 14:00 Temperature Temperature Source Pulse Rate 54 L 49 L 74 Pulse Rate from SpO2 Sensor 65 70 Respiratory Rate 14 19 20 Respiratory Effort / Characteristics Respiratory Depth Respiratory Pattern Blood Pressure 176/104 H Blood Pressure Mean 141 Pulse Oximetry 95 95 Oxygen Delivery Method Sepsis Recent Fever Within 48 Hours Sepsis New/Unexplained Change in Mental Status Sepsis Action Taken by Nursing 10/19/20 14:02 10/19/20 14:03 10/19/20 14:43 Temperature Temperature Source Pulse Rate 62 63 92 H Pulse Rate from SpO2 Sensor Respiratory Rate 14 16 18 Respiratory Effort / Characteristics Respiratory Depth Respiratory Pattern Blood Pressure 138/81 Blood Pressure Mean 114 Pulse Oximetry Oxygen Delivery Method Sepsis Recent Fever Within 48 Hours Sepsis New/Unexplained Change in Mental Status Sepsis Action Taken by Nursing 10/19/20 15:00 10/19/20 15:01 10/19/20 15:02 Temperature Temperature Source Pulse Rate 54 L 51 L 55 L Pulse Rate from SpO2 Sensor 58 L 54 L 50 L Respiratory Rate 21 15 18 Respiratory Effort / Characteristics Respiratory Depth Respiratory Pattern Blood Pressure 158/89 H Blood Pressure Mean 105 Pulse Oximetry 98 99 98 Oxygen Delivery Method Sepsis Recent Fever Within 48 Hours Sepsis New/Unexplained Change in Mental Status Sepsis Action Taken by Nursing 10/19/20 15:30 10/19/20 15:31 10/19/20 15:32 Temperature Temperature Source Pulse Rate 55 L 53 L 55 L Pulse Rate from SpO2 Sensor 52 L 47 L 54 L Respiratory Rate 18 14 17 Respiratory Effort / Characteristics Respiratory Depth Respiratory Pattern Blood Pressure 177/80 H Blood Pressure Mean 104 Pulse Oximetry 97 97 97 Oxygen Delivery Method Sepsis Recent Fever Within 48 Hours Sepsis New/Unexplained Change in Mental Status Sepsis Action Taken by Nursing 10/19/20 16:00 10/19/20 16:01 10/19/20 16:02 Temperature Temperature Source Pulse Rate 52 L 57 L Pulse Rate from SpO2 Sensor 65 51 L 58 L Respiratory Rate 24 16 24 Respiratory Effort / Characteristics Respiratory Depth Respiratory Pattern Blood Pressure 149/58 H Blood Pressure Mean 113 Pulse Oximetry 97 98 95 Oxygen Delivery Method Sepsis Recent Fever Within 48 Hours Sepsis New/Unexplained Change in Mental Status Sepsis Action Taken by Nursing 10/19/20 16:30 10/19/20 16:31 10/19/20 16:32 Temperature Temperature Source Pulse Rate 59 L 59 L 69 Pulse Rate from SpO2 Sensor 61 53 L 65 Respiratory Rate 14 18 19 Respiratory Effort / Characteristics Respiratory Depth Respiratory Pattern Blood Pressure 114/50 L Blood Pressure Mean 73 Pulse Oximetry 98 98 98 Oxygen Delivery Method Sepsis Recent Fever Within 48 Hours Sepsis New/Unexplained Change in Mental Status Sepsis Action Taken by Nursing 10/19/20 17:00 10/19/20 17:01 10/19/20 17:30 Temperature Temperature Source Pulse Rate 55 L 52 L 67 Pulse Rate from SpO2 Sensor 60 59 L Respiratory Rate 17 18 14 Respiratory Effort / Characteristics Respiratory Depth Respiratory Pattern Blood Pressure 128/62 128/77 Blood Pressure Mean 81 92 Pulse Oximetry 98 98 98 Oxygen Delivery Method Sepsis Recent Fever Within 48 Hours Sepsis New/Unexplained Change in Mental Status Sepsis Action Taken by Nursing 10/19/20 17:31 Temperature Temperature Source Pulse Rate 55 L Pulse Rate from SpO2 Sensor 68 Respiratory Rate 16 Respiratory Effort / Characteristics Respiratory Depth Respiratory Pattern Blood Pressure Blood Pressure Mean Pulse Oximetry 98 Oxygen Delivery Method Sepsis Recent Fever Within 48 Hours Sepsis New/Unexplained Change in Mental Status Sepsis Action Taken by [facility] Medications Current Medication List: was personally reviewed by me Laboratory Data Attestation: I reviewed the patient's lab results. Result diagrams: 10/19/20 19:21 10/19/20 13:05 Lab Results 10/19/20 10/19/20 10/19/20 Range/Units 13:05 13:05 13:05 WBC 5.79 (4.8-10.8) K/uL RBC 3.77 L (4.2-5.4) M/uL Hgb 11.3 L (12.0-16.0) g/dL Hct 35.6 L (37-47) % MCV 94.4 (80-100) fL MCH 30.0 (25-34) pg MCHC 31.7 L (32-36) g/dL RDW Std Deviation 55.9 H (36.4-46.3) fL RDW Coeff of Benjamin 16.2 H (11.5-14.5) % Plt Count 136 (130-400) K/uL MPV 10.4 (7.4-10.4) fL Immature Gran % (Auto) 0.2 % Neut % (Auto) 67.2 % Lymph % (Auto) 21.9 % [place] % (Auto) 9.5 % Eos % (Auto) 1.0 % Baso % (Auto) 0.2 % Neut # (Auto) 3.89 (1.4-6.5) K/uL Lymph # (Auto) 1.27 (1.2-3.4) K/uL [place] # (Auto) 0.55 (0.11-0.59) K/uL Eos # (Auto) 0.06 (0-0.5) K/uL Baso # (Auto) 0.01 (0-0.2) K/uL Immature Gran # (Auto) 0.01 (0.00-0.02) K/uL PT 40.7 H (9.0-12.0) Seconds INR 4.2 H (0.9-1.1) APTT 47.1 H* (21.0-31.0) Seconds PTT Ratio 1.7 Sodium 143 (136-145) mmol/L Potassium 4.0 (3.5-5.1) mmol/L Chloride 112 H (98-107) mmol/L Carbon Dioxide 24 (21-32) mmol/L Anion Gap 7.0 (3-11) BUN 28 H (7-18) mg/dl Creatinine 1.19 (0.6-1.2) mg/dl Est Cr Clr Drug Dosing 29.8 ml/min Est GFR ( Amer) 47.5 Est GFR (Non-Af Amer) 41.0 BUN/Creatinine Ratio 23.4 H (10-20) Glucose 91 (70-99) mg/dl Calcium 9.2 (8.5-10.1) mg/dl Magnesium 2.0 (1.8-2.4) mg/dl Total Bilirubin 1.3 H (0.2-1) mg/dl AST 24 (15-37) U/L ALT 15 (12-78) U/L Alkaline Phosphatase 120 H (45-117) U/L Total Creatine Kinase 26 (26-192) U/L Troponin I < 0.015 (0-0.045) ng/ml Total Protein 8.0 (6.4-8.2) gm/dl Albumin 3.5 (3.4-5.0) gm/dl Globulin 4.5 H (2.5-4.0) gm/dl Albumin/Globulin Ratio 0.8 L (0.9-2) TSH 1.110 (0.300-4.500) uIu/ml Urine Color Urine Appearance (Clear) Urine pH (4.5-7.5) Ur Specific [place] (1.000-1.030) Urine Protein (Negative) Urine Glucose (UA) (Negative) Urine Ketones (Negative) Urine Blood (Negative) Urine Nitrite (Negative) Urine Bilirubin (Negative) Urine Urobilinogen (Negative) Ur Leukocyte Esterase (Negative) Urine WBC (Auto) (0-5) /hpf Urine RBC (Auto) (0-4) /hpf U Hyaline Cast (Auto) (0-5) /lpf U Epithel Cells (Auto) (0-5) /lpf Urine Bacteria (Auto) (Negative) COVID-19 Eval Order SARS-CoV-2, RNA, NAAT (NEGATIVE) 10/19/20 10/19/20 10/19/20 Range/Units 13:35 13:35 13:45 WBC (4.8-10.8) K/uL RBC (4.2-5.4) M/uL Hgb (12.0-16.0) g/dL Hct (37-47) % MCV (80-100) fL MCH (25-34) pg MCHC (32-36) g/dL RDW Std Deviation (36.4-46.3) fL RDW Coeff of Benjamin (11.5-14.5) % Plt Count (130-400) K/uL MPV (7.4-10.4) fL Immature Gran % (Auto) % Neut % (Auto) % Lymph % (Auto) % [place] % (Auto) % Eos % (Auto) % Baso % (Auto) % Neut # (Auto) (1.4-6.5) K/uL Lymph # (Auto) (1.2-3.4) K/uL [place] # (Auto) (0.11-0.59) K/uL Eos # (Auto) (0-0.5) K/uL Baso # (Auto) (0-0.2) K/uL Immature Gran # (Auto) (0.00-0.02) K/uL PT (9.0-12.0) Seconds INR (0.9-1.1) APTT (21.0-31.0) Seconds PTT Ratio Sodium (136-145) mmol/L Potassium (3.5-5.1) mmol/L Chloride (98-107) mmol/L Carbon Dioxide (21-32) mmol/L Anion Gap (3-11) BUN (7-18) mg/dl Creatinine (0.6-1.2) mg/dl Est Cr Clr Drug Dosing ml/min Est GFR ( Amer) Est GFR (Non-Af Amer) BUN/Creatinine Ratio (10-20) Glucose (70-99) mg/dl Calcium (8.5-10.1) mg/dl Magnesium (1.8-2.4) mg/dl Total Bilirubin (0.2-1) mg/dl AST (15-37) U/L ALT (12-78) U/L Alkaline Phosphatase (45-117) U/L Total Creatine Kinase (26-192) U/L Troponin I (0-0.045) ng/ml Total Protein (6.4-8.2) gm/dl Albumin (3.4-5.0) gm/dl Globulin (2.5-4.0) gm/dl Albumin/Globulin Ratio (0.9-2) TSH (0.300-4.500) uIu/ml Urine Color Yellow Urine Appearance Cloudy A (Clear) Urine pH 7.0 (4.5-7.5) Ur Specific [place] 1.020 (1.000-1.030) Urine Protein 3+ H (Negative) Urine Glucose (UA) Negative (Negative) Urine Ketones Negative (Negative) Urine Blood Trace H (Negative) Urine Nitrite Positive A (Negative) Urine Bilirubin Negative (Negative) Urine Urobilinogen Negative (Negative) Ur Leukocyte Esterase 2+ H (Negative) Urine WBC (Auto) >30 H (0-5) /hpf Urine RBC (Auto) 0-4 (0-4) /hpf U Hyaline Cast (Auto) 0 (0-5) /lpf U Epithel Cells (Auto) 0-5 (0-5) /lpf Urine Bacteria (Auto) 4+ H (Negative) COVID-19 Eval Order Covid19 IDNow atMPAC SARS-CoV-2, RNA, NAAT POSITIVE A* (NEGATIVE) Administered Medications Discontinued Medications Sodium Chloride (Nss) 500 mls @ 999 mls/hr IV .Q31M RHONA Stop: 10/19/20 13:30 Last Infusion: 10/19/20 14:00 Dose: 0 mls/hr Documented by: [id number] Admin: 10/19/20 13:28 Dose: 999 mls/hr Documented by: [id number] Acetaminophen (Ofirmev) 1,000 mg in 100 mls @ 400 mls/hr IV NOW STA Stop: 10/19/20 13:04 Last Infusion: 10/19/20 13:53 Dose: 0 mls/hr Documented by: [id number] Admin: 10/19/20 13:28 Dose: 400 mls/hr Documented by: [id number] Ceftriaxone Sodium (Rocephin) 1,000 mg in 50 mls @ 100 mls/hr IV NOW STA Stop: 10/19/20 14:55 Last Infusion: 10/19/20 16:00 Dose: 0 mls/hr Documented by: [id number] Admin: 10/19/20 15:06 Dose: 100 mls/hr Documented by: [id number] Ioversol (Ioversol 100ml) 94 ml IV ONCE ONE Stop: 10/19/20 14:29 Last Admin: 10/19/20 14:29 Dose: 94 ml Documented by: [id number] Imaging Data Radiologist's Impression: XR hip LT 2V w pelvis HISTORY: 85 years-old Female fall, pain acute pelvic pain status post fall COMPARISON: Left hip radiographs 04/13/2014 TECHNIQUE: AP view of the pelvis with 2 views of the left hip FINDINGS: Demineralized appearance the bones. Mild to moderate osteoarthritis of the hips. Multilevel degenerative changes of the spine. No acute fracture or dislocation identified. There is a T-shaped device projecting of the mid pelvis suggestive of a pessary. IMPRESSION: No acute fracture or dislocation. XR tibia fibula LT 2V HISTORY: 85 years-old Female fall, pain acute left lower leg pain status post fall COMPARISON: None TECHNIQUE: 2 views of the left tibia and fibula FINDINGS: Demineralized appearance of the bones. Arterial calcifications. 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 Spurring of the calcaneus. No acute fracture, dislocation or opaque foreign body. IMPRESSION: No acute fracture or dislocation. XR chest 1V portable CLINICAL HISTORY: weakness COMPARISON STUDY: No previous studies for comparison. FINDINGS: The heart is mildly enlarged. There is no overt failure. There is no lobar consolidation. Increased markings in the right suprahilar region, likely represent a vascular summation.[Linear opacities within the left mid to lower lung zone laterally likely represents subsegmental atelectasis. There is an old proximal right humeral deformity. IMPRESSION: AP portable study. Cardiomegaly. No evidence of focal pulmonary consolidation. HEAD CT NONCONTRAST CT DOSE: 690.05 mGycm HISTORY: fall, confusion TECHNIQUE: Multiaxial CT images of the head were performed without the use of intravenous contrast. Automated exposure control was utilized for this study. A dose lowering technique was utilized adhering to the principles of ALARA. Comparison: None. Findings: The mastoid air cells are clear. Opacified bilateral maxillary sinu ses, left sphenoid sinus, left frontal sinus with associated air-fluid levels. Findings suggest acute or chronic sinusitis. The calvarium and skull base are intact. There is no mass, hematoma, midline shift, acute infarct. White matter hypodensity is nonspecific but suggestive of microvascular ischemic change. The ventricles and sulci demonstrate mild age-related involutional changes. Impression: 1. No acute intracranial abnormality. 2. Acute on chronic sinusitis as described above. CT OF THE ABDOMEN AND PELVIS WITH CONTRAST CLINICAL HISTORY: Lower abdominal and rectal pain. COMPARISON STUDY: CT of the abdomen and pelvis April 11, 2008. TECHNIQUE: Following IV administration of 94 mL of Optiray-320, axial images of the abdomen and pelvis were obtained from the lung bases to the proximal femurs. Images were reviewed in the axial, sagittal, and coronal planes. IV contrast was administered without complication. Automated exposure control was utilized for the study. A dose lowering technique was utilized adhering to the principles of ALARA. CT DOSE: 894.71 mGycm FINDINGS: Moderate cardiomegaly is noted. No pneumatosis, free air or portal venous gas is present. There is no biliary or pancreatic ductal dilatation. There is no peripancreatic or pericholecystic infiltration. There are numerous gallstones within the gallbladder. This exam is mildly compromised by motion artifact. The liver, spleen and adrenal glands are unremarkable. A hypodense 1.7 cm right renal lesion is suboptimally assessed on this unenhanced exam but pro bably reflects a cyst. There are numerous subcentimeter bilateral renal lesions which are too small to characterize. There is no hydronephrosis. There are no ureteral calculi. Note is made of several peripherally calcified splenic artery aneurysms that measure up to 2.5 cm. These are similar to CT of April 11, 2018. Major vasculature is patent. There is colonic diverticulosis without evidence for acute diverticulitis. The appendix is normal. Fat-containing umbilical hernia is present. There are fat-containing bilateral inguinal hernias. Pessary device is in place. There is no lymphadenopathy or ascites. No acute fracture or suspicious lesion is identified within the visualized skeletal structures. Bladder wall thickening is noted. IMPRESSION: 1. Bladder wall thickening which could be correlated with urinalysis to exclude cystitis. 2. No significant change in peripherally calcified splenic artery aneurysms since CT of April 11, 2008. These measure up to 2.5 cm. 3. Colonic diverticulosis without evidence for acute diverticulitis. No bowel obstruction. No bowel wall thickening. 4. Fat-containing bilateral inguinal and umbilical hernias. US venous doppler LE LT CLINICAL HISTORY: Left leg pain COMPARISON STUDY: No previous studies for comparison. FINDINGS: Real-time and color flow Doppler imaging were performed. Flow was seen within the femoral, popliteal and calf veins with no intraluminal thrombus demonstrated. The saphenous vein is patent. IMPRESSION: No evidence of left lower extremity DVT. Discharge Plan Visit Data Chief Complaint: Leg Injury/Pain ED Provider: Louie Chávez Discharge Problem: Weakness, Acute UTI, Acute dehydration, COVID-19, Sinusitis, Left leg pain, Fall Patient Disposition: Admitted As Inpatient Condition: Fair Discharge Problem: Sinusitis Qualifiers: Sinusitis location: unspecified location Chronicity: acute Recurrence: not specified as recurrent Qualified Code(s): J01.90 - Acute sinusitis, unspecified Fall Qualifiers: Encounter type: initial encounter Qualified Code(s): W19.XXXA - Unspecified fall, initial encounter
[2020-10-19] MEDS ORDERED: SODIUM CHLORIDE 0.9% 500 ML IV SCH (13:00)
[2020-10-19 13:18] LABS: Basophils # (auto) 0.01 K/uL (0-0.2); Basophils % (auto) 0.2 %; Eosinophils # (auto) 0.06 K/uL (0-0.5); Hematocrit (blood only) 35.6 % (37-47); Hemoglobin 11.3 g/dL (12.0-16.0); Immature Granulocytes # (auto) 0.01 K/uL (0.00-0.02); Immature Granulocytes % (auto) 0.2 %; Lymphocytes # (auto) 1.27 K/uL (1.2-3.4); Lymphocytes % (auto) 21.9 %; Mean Corpuscular Hgb Conc 31.7 g/dL (32-36); Mean Corpuscular Volume 94.4 fL (80-100); Mean Platelet Volume 10.4 fL (7.4-10.4); Monocytes # (auto) 0.55 K/uL (0.11-0.59); Monocytes % (auto) 9.5 %; Neutrophils # (auto) 3.89 K/uL (1.4-6.5); Neutrophils % (auto) 67.2 %; Platelet Count 136 K/uL (130-400); RDW Coefficient of Variation 16.2 % (11.5-14.5); RDW Standard Deviation 55.9 fL (36.4-46.3); Red Blood Count 3.77 M/uL (4.2-5.4); White Blood Count 5.79 K/uL (4.8-10.8)
[2020-10-19 13:34] LABS: Alanine Aminotransferase 15 U/L (12-78); Albumin Level 3.5 gm/dl (3.4-5.0); Aspartate Aminotransferase 24 U/L (15-37); BUN Creatinine Ratio 23.4 (10-20); Blood Urea Nitrogen 28 mg/dl (7-18); Calcium 9.2 mg/dl (8.5-10.1); Carbon Dioxide 24 mmol/L (21-32); Chloride 112 mmol/L (98-107); Creatinine Clr Calc Pharmacy 29.8 ml/min; Est GFR (African American) 47.5; Glucose 91 mg/dl (70-99); Sodium 143 mmol/L (136-145)
[2020-10-19 13:38] LABS: INR 4.2 (0.9-1.1); Partial Thromboplastin Ratio 1.7; Prothrombin Time 40.7 Seconds (9.0-12.0)
[2020-10-19 13:41] LABS: Partial Thromboplastin Time 47.1 Seconds (21.0-31.0)
[2020-10-19 13:45] LABS: Albumin Globulin Ratio 0.8 (0.9-2); Alkaline Phosphatase 120 U/L (45-117); Bilirubin,Total 1.3 mg/dl (0.2-1); Creatine Kinase 26 U/L (26-192); Globulin 4.5 gm/dl (2.5-4.0); Troponin I < 0.015 ng/ml (0-0.045)
--- NOTE | 2020-10-19 14:11 | XRay Report ---
XR tibia fibula LT 2V HISTORY: 85 years-old Female fall, pain acute left lower leg pain status post fall COMPARISON: None TECHNIQUE: 2 views of the left tibia and fibula FINDINGS: Demineralized appearance of the bones. Arterial calcifications. Chondrocalcinosis of the knee with kn ee and ankle osteoarthritis. Spurring of the calcaneus. No acute fracture, dislocation or opaque fore ign body. IMPRESSION: No acute fracture or dislocation. ACT 112: Negative or not required by law. The above report was generated using voice recognition software. It may contain grammatical, syntax o r spelling errors. Electronically signed by: Dave Duarte M.D. 10/19/2020 2:10 PM
[2020-10-19 14:13] LABS: Appearance Urine Cloudy (Clear); Bacteria Urine Automated 4+ (Negative); Bilirubin Urine Negative (Negative); Blood Urine Trace (Negative); Cast Urine Automated 0 /lpf (0-5); Color Urine Yellow; Epithelial Cell Urine Auto 0-5 /lpf (0-5); Glucose Urine UA Negative (Negative); Ketones Urine Negative (Negative); Leukocyte Esterase Urine 2+ (Negative); Nitrite Urine Positive (Negative); Protein Urine 3+ (Negative); Urobilinogen Urine Negative (Negative); WBC Urine Automated >30 /hpf (0-5)
--- NOTE | 2020-10-19 14:13 | XRay Report ---
XR chest 1V portable CLINICAL HISTORY: weakness COMPARISON STUDY: No previous studies for comparison. FINDINGS: The heart is mildly enlarged. There is no overt failure. There is no lobar consolidation. I ncreased markings in the right suprahilar region, likely represent a vascular summation.[Linear opaci ties within the left mid to lower lung zone laterally likely represents subsegmental atelectasis. The re is an old proximal right humeral deformity. IMPRESSION: AP portable study. Cardiomegaly. No evidence of focal pulmonary consolidation. ACT 112: Negative or not required by law. Electronically signed by: Darryl Fagan M.D. 10/19/2020 2:12 PM
--- NOTE | 2020-10-19 14:15 | XRay Report ---
XR hip LT 2V w pelvis HISTORY: 85 years-old Female fall, pain acute pelvic pain status post fall COMPARISON: Left hip radiographs 04/13/2014 TECHNIQUE: AP view of the pelvis with 2 views of the left hip FINDINGS: Demineralized appearance the bones. Mild to moderate osteoarthritis of the hips. Multilevel degenerat fabby changes of the spine. No acute fracture or dislocation identified. There is a T-shaped device pro jecting of the mid pelvis suggestive of a pessary. IMPRESSION: No acute fracture or dislocation. ACT 112: Negative or not required by law. The above report was generated using voice recognition software. It may contain grammatical, syntax o r spelling errors. Electronically signed by: Dave Duarte M.D. 10/19/2020 2:14 PM
[2020-10-19] MEDS ORDERED: cefTRIAXone SODIUM 1,000 MG/50 ML BAG IV STA (14:26)
[2020-10-19] MEDS ORDERED: IOVERSOL 100ml IV ONE (14:28)
[2020-10-19 14:35] LABS: RBC Urine Automated 0-4 /hpf (0-4)
--- NOTE | 2020-10-19 14:53 | CT Scan Report ---
CT OF THE ABDOMEN AND PELVIS WITH CONTRAST CLINICAL HISTORY: Lower abdominal and rectal pain. COMPARISON STUDY: CT of the abdomen and pelvis April 11, 2008. TECHNIQUE: Following IV administration of 94 mL of Optiray-320, axial images of the abdomen and pelvi s were obtained from the lung bases to the proximal femurs. Images were reviewed in the axial, sagitt al, and coronal planes. IV contrast was administered without complication. Automated exposure contro l was utilized for the study. A dose lowering technique was utilized adhering to the principles of A DEEPAK. CT DOSE: 894.71 mGycm FINDINGS: Moderate cardiomegaly is noted. No pneumatosis, free air or portal venous gas is present. T here is no biliary or pancreatic ductal dilatation. There is no peripancreatic or pericholecystic inf iltration. There are numerous gallstones within the gallbladder. This exam is mildly compromised by m otion artifact. The liver, spleen and adrenal glands are unremarkable. A hypodense 1.7 cm right renal lesion is suboptimally assessed on this unenhanced exam but probably reflects a cyst. There are nume mayi subcentimeter bilateral renal lesions which are too small to characterize. There is no hydroneph rosis. There are no ureteral calculi. Note is made of several peripherally calcified splenic artery a neurysms that measure up to 2.5 cm. These are similar to CT of April 11, 2018. Major vasculature is pa tent. There is colonic diverticulosis without evidence for acute diverticulitis. The appendix is norm al. Fat-containing umbilical hernia is present. There are fat-containing bilateral inguinal hernias. Pessary device is in place. There is no lymphadenopathy or ascites. No acute fracture or suspicious l esion is identified within the visualized skeletal structures. Bladder wall thickening is noted. IMPRESSION: 1. Bladder wall thickening which could be correlated with urinalysis to exclude cystitis. 2. No significant change in peripherally calcified splenic artery aneurysms since CT of April 11, 2008 . These measure up to 2.5 cm. 3. Colonic diverticulosis without evidence for acute diverticulitis. No bowel obstruction. No bowel w all thickening. 4. Fat-containing bilateral inguinal and umbilical hernias. ACT 112: Negative or not required by law. Electronically signed by: Michael Isaacs M.D. 10/19/2020 2:51 PM
--- NOTE | 2020-10-19 14:57 | CT Scan Report ---
HEAD CT NONCONTRAST CT DOSE: 690.05 mGycm HISTORY: fall, confusion TECHNIQUE: Multiaxial CT images of the head were performed without the use of intravenous contrast. A utomated exposure control was utilized for this study. A dose lowering technique was utilized adheri ng to the principles of ALARA. Comparison: None. Findings: The mastoid air cells are clear. Opacified bilateral maxillary sinuses, left sphenoid sinus , left frontal sinus with associated air-fluid levels. Findings suggest acute or chronic sinusitis. T he calvarium and skull base are intact. There is no mass, hematoma, midline shift, acute infarct. Whi te matter hypodensity is nonspecific but suggestive of microvascular ischemic change. The ventricles and sulci demonstrate mild age-related involutional changes. Impression: 1. No acute intracranial abnormality. 2. Acute on chronic sinusitis as described above. ACT 112: Negative or not required by law. Electronically signed by: Justino Sanchez M.D. 10/19/2020 2:56 PM
--- NOTE | 2020-10-19 15:22 | Ultrasound Report ---
US venous doppler LE LT CLINICAL HISTORY: Left leg pain COMPARISON STUDY: No previous studies for comparison. FINDINGS: Real-time and color flow Doppler imaging were performed. Flow was seen within the femoral, popliteal and calf veins with no intraluminal thrombus demonstrated. The saphenous vein is patent. IMPRESSION: No evidence of left lower extremity DVT. ACT 112: Negative or not required by law. Electronically signed by: Darryl Fagan M.D. 10/19/2020 3:21 PM
--- NOTE | 2020-10-19 18:40 | Electrocardiogram Report ---
Test Reason : Blood Pressure : / mmHG Vent. Rate : 058 BPM Atrial Rate : 032 BPM P-R Int : 000 ms QRS Dur : 110 ms QT Int : 472 ms P-R-T Axes : 000 -59 -01 degrees QTc Int : 463 ms Poor data quality, interpretation may be adversely affected Atrial fibrillation Left anterior fascicular block Poor R wave progression, consider anterior FL vs. lead placement vs. LVH Cannot rule out Inferior infarct Abnormal ECG Confirmed by Ned Henry ([id number]) on 10/19/2020 6:39:58 PM Referred By: REFERRED SELF Confirmed By:Dipak Henry
[2020-10-19 19:32] LABS: Hematocrit (blood only) 33.7 % (37-47); Hemoglobin 10.8 g/dL (12.0-16.0)
[2020-10-19] MEDS: GABAPENTIN 100 MG CAP PO SCH (21:04)
[2020-10-19] MEDS: SIMVASTATIN 40 MG TAB PO SCH (21:04)
[2020-10-19] MEDS: METOPROLOL TARTRATE 25 MG TAB PO SCH (21:05)
[2020-10-19] MEDS: NYSTATIN POWDER 15GM BTL EXT SCH (21:05)
[2020-10-19 23:41] LABS: Hematocrit (blood only) 33.3 % (37-47); Hemoglobin 10.8 g/dL (12.0-16.0)
--- NOTE | 2020-10-19 23:46 | History & Physical Report ---
Date of Service October 19, 2020 Assessment & Plan (1) Anemia: Bright red blood per rectum as per son. Will consult GI for possible colonscopy. However this may be considered as an outpatient procedure if hemoglobin remains stable. (2) Weakness: Patient admitted with peceived weakness and falls Patient loida maldonado diagnosed with COVID19 which may be playing a ole. Currently does not require plasma, decadron or remdesevir as she is on room air and not having respiratory symptoms. (3) Acute dehydration: BUN is mildly elevated, with close to baseline creatinine. will give 500 ml of fluids (4) COVID-19: as stated above. (5) Acute UTI: No urinary symptoms, however her UA was positive. ER ordered ceftriaxone, will hold off further anitbiotics for now given lack of symptoms. (6) Atrial fibrillation: rate controlled. on coumadin. INR is eleavted. will old for now. (7) Chronic kidney disease, stage 3: creatine at baseline (8) Hypertension: BP at goal. (9) Anticoagulated on Coumadin: as stated above. Admission and Anticipated Discharge Date Admission Date: October 19, 2020 History of Present Illness Chief Complaint: Left leg pain Primary Care Provider: Ned Tomlin MD Patient is an 85 yo female with dementia. She is a poor hisotian and does not understand why she is in the hospital. She reports falling about a weak ago and she has justina having pain in her left lower leg. She reports though that she is able to ambulate with a walker. Family brought her in to workup her left lower leg pain. Her son also mentioned that she has 2 episodes of bright red blood per rectum when she went to the bathroom. He is unsure when her last colonoscopy was. The patient denies any headache or neck pain or chest pain. She is not short of breath, no abdominal pain or vomiting. She is asking for a pillow to raise her left leg as this makes it feel better. She also states that she did not receive her typical morning medications. The ambulance crew also mentioned to the ER that the patient has had a potential Covid exposure although she is not symptomatic. She did test positive while she was here. Allergies Allergy/AdvReac Type Severity Reaction Status Date / Time acetaminophen [From [place]] AdvReac Nausea Verified 10/19/20 19:22 atorvastatin [From Lipitor] AdvReac NOT Verified 10/19/20 19:22 TOLERATED fluvastatin [From [place]] AdvReac NOT Verified 10/19/20 19:22 TOLERATED gabapentin AdvReac Nausea Verified 10/19/20 19:22 hydrocodone [From [place]] AdvReac Nausea Verified 10/19/20 19:22 sulfamethoxazole AdvReac Nausea Verified 10/19/20 19:22 [From Bactrim] trimethoprim [From Bactrim] AdvReac Nausea Verified 10/19/20 19:22 Home Medications Medication Instructions Recorded Confirmed Type cholecalciferol (vitamin D3) 25 1,000 units PO DAILY 07/08/19 10/19/20 History mcg (1,000 unit) capsule lisinopril 20 mg tablet 20 mg PO DAILY #90 tab 12/31/19 10/19/20 Rx allopurinol 100 mg tablet 200 mg PO DAILY #180 tab 04/10/20 10/19/20 Rx metoprolol tartrate 25 mg tablet 25 mg PO BID #180 tab 04/10/20 10/19/20 Rx simvastatin 40 mg tablet 40 mg PO QPM #90 tab 04/10/20 10/19/20 Rx glipizide 10 mg tablet, extended 10 mg PO BID #180 tab 07/21/20 10/19/20 Rx release 24 hr nystatin 100,000 unit/gram topical 1 applic TOPICAL BID #30 g 09/24/20 10/19/20 Rx powder gabapentin 100 mg PO HS 10/19/20 10/19/20 History warfarin 2 mg PO .UD 10/19/20 10/19/20 History Past Med/Surg History Medical History History of abnormal mammogram Pessary maintenance Surgical History S/P cataract surgery Family History Other No pertinent family history Social History Smoking Status: Never smoker Do You Dip or Chew Tobacco: No; Hx Alcohol Use: No Hx Substance Use: No Preferred Language: Azeri Communication Ability: Effective Qa Auditor Required: No Beliefs That Will Affect Care: None marital status: Current Living Situation: Spouse current occupational status: retired Feels Safe at Home: Yes Safety Concerns: Feels Safe At This Time Assistive Devices: Denture - Upper, Glasses and Walker Review of Systems Review of Systems: Unobtainable due to cognitive status Physical Exam Constitutional: WD/WN, vitals as above Eyes: PERRL, conjunctivae normal, anicteric sclerae ENMT: external ear and nose normal, oropharynx normal Neck: trachea midline, no thyromegaly Respiratory: normal respiratory effort, lungs clear to auscultation Cardiovascular: RRR, no murmur, no edema Gastrointestinal (Abdomen): normal bowel sounds, soft, nontender, no hepatosplenomegaly Musculoskeletal: no cyanosis or clubbing, extremities motor strength 5/5 Skin: no rashes, warm and dry Neurologic: PERRL, EOMI, accommodation nl, no face palsy, no dysarthria Psychiatric: A+Ox3, euthymic affect Lymphatic: no cervical or axillary lymphadenopathy Results & Data Results & Data ([facility]) Vital Signs (Past 12 Hours) Vital Signs Temp Pulse Resp BP Pulse Ox 10/19/20 22:01 60 16 173/92 H 96 10/19/20 21:01 54 L 15 10/19/20 21:00 61 13 177/87 H 10/19/20 20:30 50 L 15 10/19/20 20:02 63 13 10/19/20 20:01 54 L 16 142/84 H 10/19/20 20:00 54 L 15 10/19/20 19:30 19 10/19/20 19:01 59 L 19 97 10/19/20 19:00 50 L 19 144/72 H 98 10/19/20 18:30 54 L 17 98 10/19/20 18:23 79 13 10/19/20 17:31 55 L 16 98 10/19/20 17:30 67 14 128/77 98 10/19/20 17:01 52 L 18 98 10/19/20 17:00 55 L 17 128/62 98 10/19/20 16:32 69 19 98 10/19/20 16:31 59 L 18 114/50 L 98 10/19/20 16:30 59 L 14 98 10/19/20 16:02 57 L 24 95 10/19/20 16:01 52 L 16 149/58 H 98 10/19/20 16:00 24 97 10/19/20 15:32 55 L 17 97 10/19/20 15:31 53 L 14 177/80 H 97 10/19/20 15:30 55 L 18 97 10/19/20 15:02 55 L 18 98 10/19/20 15:01 51 L 15 158/89 H 99 10/19/20 15:00 54 L 21 98 10/19/20 14:43 92 H 18 10/19/20 14:03 63 16 10/19/20 14:02 62 14 138/81 10/19/20 14:00 74 20 10/19/20 13:31 49 L 19 176/104 H 95 10/19/20 13:30 54 L 14 95 10/19/20 13:13 55 L 20 96 10/19/20 13:00 52 L 15 98 10/19/20 12:30 58 L 12 97 10/19/20 12:27 37.3 C 55 L 20 172/86 H 96 10/19/20 12:26 53 L 18 95 10/19/20 12:14 51 L 21 172/86 H 97 PG Care Time/CCT Total # of Minutes Spent Total Time Spent with Patient: Total time spent is greater than 50% in coordination of care (as documented) at patient's floor/unit and/or counseling patient: Coding Level of Care Code 71008 Initial Inpt Care Lvl 3 Diagnoses Anemia D64.9 Weakness R53.1 Acute dehydration E86.0 COVID-19 U07.1 Acute UTI N39.0 Atrial fibrillation I48.91 Chronic kidney disease, stage 3 N18.3 Hypertension I10 Anticoagulated on Coumadin Z79.01 Time Spent (min) 55
[2020-10-20 05:26] LABS: Basophils # (auto) 0.01 K/uL (0-0.2); Basophils % (auto) 0.2 %; Eosinophils # (auto) 0.07 K/uL (0-0.5); Eosinophils % (auto) 1.3 %; Hematocrit (blood only) 33.8 % (37-47); Hemoglobin 10.9 g/dL (12.0-16.0); Immature Granulocytes # (auto) 0.01 K/uL (0.00-0.02); Immature Granulocytes % (auto) 0.2 %; Lymphocytes # (auto) 1.26 K/uL (1.2-3.4); Lymphocytes % (auto) 23.7 %; Mean Corpuscular Hemoglobin 30.4 pg (25-34); Mean Corpuscular Hgb Conc 32.2 g/dL (32-36); Mean Corpuscular Volume 94.2 fL (80-100); Mean Platelet Volume 10.3 fL (7.4-10.4); Monocytes # (auto) 0.54 K/uL (0.11-0.59); Monocytes % (auto) 10.2 %; Neutrophils # (auto) 3.43 K/uL (1.4-6.5); Neutrophils % (auto) 64.4 %; Platelet Count 145 K/uL (130-400); RDW Coefficient of Variation 16.3 % (11.5-14.5); Red Blood Count 3.59 M/uL (4.2-5.4); White Blood Count 5.32 K/uL (4.8-10.8)
[2020-10-20 05:46] LABS: INR 4.3 (0.9-1.1); Partial Thromboplastin Ratio 1.8; Prothrombin Time 41.7 Seconds (9.0-12.0)
[2020-10-20 05:53] LABS: Albumin Globulin Ratio 0.7 (0.9-2); Albumin Level 3.3 gm/dl (3.4-5.0); BUN Creatinine Ratio 21.5 (10-20); Bilirubin,Total 1.1 mg/dl (0.2-1); Calcium 8.7 mg/dl (8.5-10.1); Creatinine Clr Calc Pharmacy 31.4 ml/min; Est GFR (African American) 50.6; Est GFR (Non-African American) 43.7; Globulin 4.4 gm/dl (2.5-4.0); Potassium 3.4 mmol/L (3.5-5.1); Total Protein 7.7 gm/dl (6.4-8.2)
[2020-10-20 06:02] LABS: Partial Thromboplastin Time 50.4 Seconds (21.0-31.0)
--- NOTE | 2020-10-20 08:32 | Communication Note ---
Date of Service: October 20, 2020 GI brief consultation note: 85 yo female with dementia who presented with leg pains and weakness. Found to be covid positive. GI consulted for hematochezia, patient's family reported 2 episodes of BRBPR in the bathroom, hgb is currently stable at baseline 10.9. INR is noted to be supratherapeutic over 4. Recs: --would correct INR and keep within therapeutic range --conservative management, trend H/H, transfuse prn hgb <7 --patient can follow up with us in 1-2 weeks as an outpatient, can discuss the benefits of possible outpatient colonoscopy at that time -PPI protonix daily Thank you for allowing me to participate in the care of this patient. Neto Keyes MD Gastroenterology
[2020-10-20] MEDS: NYSTATIN POWDER 15GM BTL EXT SCH (09:22)
[2020-10-20] MEDS: lisinopril 20 MG TAB PO SCH (09:23)
[2020-10-20] MEDS: CHOLECALCIFEROL 1,000 UNITS 25 MCG TAB PO SCH (09:23)
[2020-10-20] MEDS: allopurinoL 100 MG TAB PO SCH (09:23)
[2020-10-20] MEDS: METOPROLOL TARTRATE 25 MG TAB PO SCH ×3 (09:23→22:39)
--- NOTE | 2020-10-20 11:32 | Hospitalist Progress Note ---
Date of Service October 20, 2020 Assessment & Plan (1) COVID-19: Tested positive 10/19/2020 Primary complaint on admission was weakness and anemia from possible GI Bleed Currently on room air and with SaO2 of 96% and no respiratory complaints No indication for remdesivir, steroids, or convalescent plasma Continue supportive care (2) Weakness: 85 year old with admission for anemia and bright red blood per rectum Hemoglobin has been stable Blood pressure stable Patient will need physical therapy and Occupational Therapy evaluation I spoke with the patient's daughter and she feels the patient will also need some home health attention on discharge Await therapy evaluation reports (3) Anemia: Patient with bright red blood per rectum and toilet I spoke to the daughter and she states that this has been an ongoing problem Hemoglobin is stable No invasive procedures per gastroenterology but patient should follow-up in 1 to 2 weeks after discharge We will trend H&H Patient currently with supratherapeutic INR If patient has bleeding overnight, PRN order for vitamin K is in the MAR (4) Atrial fibrillation: In atrial fibrillation at the time of my exam but rate controlled Patient anticoagulated with Coumadin as an outpatient INR is supratherapeutic at 4.3 Follow daily INR Reversed with vitamin K if further bleeding (5) Chronic kidney disease, stage 3: Creatinine is at baseline Slight elevation in BUN Follow ins and outs Follow serial labs (6) Hypertension: Hemodynamically stable Continue lisinopril, Lopressor Follow on telemetry (7) Type 2 diabetes mellitus: Managed with glipizide at home Random glucose 113 Ordered insulin sliding scale and Accu-Cheks (8) Left leg pain: Strain to the muscle after a fall prior to admission Venous Doppler negative for DVT, x-rays negative for fracture PT/OT Tylenol as needed for pain (9) DVT prophylaxis: Patient currently supratherapeutic on Coumadin Trend daily INR Disposition-await PT/OT evaluations, possibly discharged home versus rehab tomorrow Admission and Anticipated Discharge Date Admission Date: October 19, 2020 Supervising Physician Co-Signing Physician Notes PA Supervision Note: I did not personally see or examine the patient today, but I verified all huntley points of KAMALJIT Harris's assessment and plan with the following exceptions/additions: None Subjective Attending: Dr. Snowden This is a 85-year-old female the lives with her at home. Her currently has a dental case here for subdural hematoma status post fall. The patient presented with pain of her left leg. She was incidentally found to be positive for Covid 10/19/2020. It was also reported that she had bright red blood per rectum with significant blood loss. Hemoglobin this morning is stable at 10.9. INR is supratherapeutic at 4.3. Daughter reports that patient has hemorrhoids that occasionally "open up". When she bleeds, daughter reports that she bleeds heavily. Currently blood pressure is stable at 159/75. Patient reports some minimal bleeding. Patient states that she walks at home with a walker and has no reported falls. She is anxious to be discharged to go home. Patient denies any shortness of breath. She has no complaints of fever or sw eats. She has no nausea or vomiting. She denies any abdominal pain. She has not been out of bed yet today. She has no other acute complaints. Review of Systems Review of Systems: All systems reviewed & are unremarkable except as noted in Subjective Physical Exam Physical Exam: GENERAL : No acute distress EYES: No icterus, gaze conjugate NOSE: No evidence of epistaxis MOUTH: No lesions or candidiasis NECK: Supple LUNGS: CTA B/L, no wheezes, rales or rhonchi. Good inspiratory effort. 96% on room air. HEART: Regular, rate controlled ABDOMEN: Soft, NT, ND, BS Present EXTREMITIES: +3 pitting bilateral LE edema, pedal pulses intact and equal bilaterally NEURO: A&OX3 Results & Data Results & Data ([facility]) Vital Signs (Past 12 Hours) Vital Signs Temp Pulse Resp BP Pulse Ox 10/20/20 08:04 36.8 C 49 L 17 159/75 H 96 10/20/20 04:07 36.9 C 53 L 17 160/99 H 97 10/20/20 00:25 36.9 C 55 L 15 167/82 H 98 Laboratory Results 10/20/20 15:08 10/20/20 05:08 PG Care Time/CCT Total # of Minutes Spent Total Time Spent with Patient: Total time spent is greater than 50% in c oordination of care (as documented) at patient's floor/unit and/or counseling patient: Coding Level of Care Code 94119 Subseq Hosp Care Lvl 2 Diagnoses COVID-19 U07.1 Weakness R53.1 Anemia D64.9 Atrial fibrillation I48.91 Chronic kidney disease, stage 3 N18.3 Hypertension I10 Type 2 diabetes mellitus E11.9 Left leg pain M79.605 DVT prophylaxis Z29.9
[2020-10-20 15:14] LABS: Hemoglobin 10.7 g/dL (12.0-16.0)
[2020-10-20] MEDS ORDERED: PHYTONADIONE 5 MG in SODIUM CHLORIDE 0.9% 50 ML IV ONE (17:26)
[2020-10-20] MEDS: ACETAMINOPHEN 325 MG TAB PO PRN (21:40)
[2020-10-20] MEDS: SIMVASTATIN 40 MG TAB PO SCH (22:36)
[2020-10-20] MEDS: GABAPENTIN 100 MG CAP PO SCH (22:36)
[2020-10-20] MEDS ORDERED: GLUCOSE 10 TABS/TUBE PO PRN (22:38)
[2020-10-20] MEDS ORDERED: GLUCOSE 40% GEL 15 GM TUBE PO PRN (22:38)
[2020-10-20] MEDS ORDERED: GLUCAGON FOR INJ 1 MG VIAL SQ PRN (22:38)
[2020-10-20] MEDS ORDERED: CARBOHYDRATES FOR HYPOGLYCEMIA PO PRN (22:38)
[2020-10-20] MEDS ORDERED: DEXTROSE 50% 50 ML SYRINGE IV PRN (22:38)
[2020-10-20] MEDS: cefTRIAXone SODIUM 1,000 MG in DEXTROSE 5% 50 ML IV SCH (23:54)
[2020-10-21] MEDS: NYSTATIN POWDER 15GM BTL EXT SCH ×3 (00:09→20:10)
[2020-10-21 07:36] LABS: Hematocrit (blood only) 31.6 % (37-47); Hemoglobin 10.3 g/dL (12.0-16.0); Mean Corpuscular Hemoglobin 30.2 pg (25-34); Mean Corpuscular Hgb Conc 32.6 g/dL (32-36); Mean Corpuscular Volume 92.7 fL (80-100); Mean Platelet Volume 10.3 fL (7.4-10.4); Platelet Count 143 K/uL (130-400); RDW Coefficient of Variation 16.1 % (11.5-14.5); RDW Standard Deviation 54.9 fL (36.4-46.3); Red Blood Count 3.41 M/uL (4.2-5.4); White Blood Count 4.03 K/uL (4.8-10.8)
[2020-10-21 07:47] LABS: INR 1.6 (0.9-1.1); Prothrombin Time 16.7 Seconds (9.0-12.0)
[2020-10-21 07:59] LABS: Estimated Average Glucose 160 mg/dl; Hemoglobin A1C 7.2 % (4.5-5.6)
[2020-10-21 08:06] LABS: BUN Creatinine Ratio 27.3 (10-20); Creatinine Clr Calc Pharmacy 33.6 ml/min; Est GFR (African American) 54.7; Est GFR (Non-African American) 47.2; Potassium 3.1 mmol/L (3.5-5.1)
[2020-10-21] MEDS ORDERED: POTASSIUM CHLORIDE CRTAB 20 MEQ TABCR PO STA (08:16)
[2020-10-21] MEDS: METOPROLOL TARTRATE 25 MG TAB PO SCH (08:22)
[2020-10-21] MEDS: CHOLECALCIFEROL 1,000 UNITS 25 MCG TAB PO SCH (08:26)
[2020-10-21] MEDS: lisinopril 20 MG TAB PO SCH (08:26)
[2020-10-21] MEDS: allopurinoL 100 MG TAB PO SCH (08:26)
[2020-10-21] MEDS: ACETAMINOPHEN 325 MG TAB PO PRN (08:43)
[2020-10-21] MEDS: INSULIN ASPART 100 UNITS/ML 3 ML PEN SC SCH ×4 (08:45→21:15)
--- NOTE | 2020-10-21 13:24 | Hospitalist Progress Note ---
Date of Service October 21, 2020 Assessment & Plan (1) COVID-19: Tested positive 10/19/2020 Primary complaint on admission was weakness and anemia from possible GI Bleed Currently on room air and with SaO2 of 96% and no respiratory complaints No indication for remdesivir, steroids, or convalescent plasma Continue supportive care (2) Weakness: 85 year old with admission for anemia and bright red blood per rectum Hemoglobin has been stable Blood pressure stable Physical therapy and Occupational Therapy evaluations ordered and pending I spoke with the patient's daughter and she feels the patient will also need some home health attention on discharge Await therapy evaluation reports (3) Acute UTI: Patient reported be asymptomatic on admission so no antibiotics were started With weakness and some confusion patient was started on ceftriaxone 10/20/2020 but also had been given a dose of ceftriaxone in the ER on 10/19 Urine culture growing pansensitive E. coli Convert to p.o. antibiotics when reliably taking p.o. Follow expectantly (4) Anemia: Patient with bright red blood per rectum and toilet I spoke to the daughter and she states that this has been an ongoing problem Hemoglobin is stable No invasive procedures per gastroenterology but patient should follow-up in 1 to 2 weeks after discharge We will trend H&H -hemoglobin now is 10.3 with a hematocrit of 31.6%. Patient admitted with supratherapeutic INR. Received Vit K last night. INR is now 1.6 (5) Atrial fibrillation: Continues in atrial fibrillation with bradycardia overnight into the 20s with 3 to 4-second pauses Patient anticoagulated with Coumadin as an outpatient INR is now 1.6 Follow daily INR Controlled with metoprolol tartrate 25 mg p.o. twice daily Consider cutting dose to 12.5 mg and is much as patient has some bradycardia -await comment from cardiology (6) Chronic kidney disease, stage 3: Creatinine is at baseline Slight elevation in BUN Follow ins and outs -currently +750 mL this admission Follow serial labs (7) Hypertension: Hemodynamically stable Continue lisinopril, Lopressor may need to cut Lopressor due to bradycardia Follow on telemetry (8) Type 2 diabetes mellitus: Managed with glipizide at home Random glucose is 94 Hemoglobin A1c is 7.2% Follow labs (9) DVT prophylaxis: Patient currently with INR of 1.6 Trend daily INR Hold on further anticoagulation until work-up for bradycardia and pauses is completed Admission and Anticipated Discharge Date Admission Date: October 19, 2020 Supervising Physician Co-Signing Physician Notes PA Supervision Note: I did not personally see or examine the patient today, but I verified all huntley points of KAMALJIT Harris's assessment and plan with the following exceptions/additions: None Subjective Attending: Dr. Snowden Patient seen and examined at bedside in room 278 bed 1.Telemetry was reviewed and shows the patient is having pauses up to 3.3 seconds long. She is also in atrial fibrillation.Review of telemetry overnight shows similar causes 1 to 2 seconds long as well is some bradycardia down to the 20s.Patient denies any chest pain or tightness. She is unaware of any palpitations.She does have some moments of confusion during my discussion with her.She currently is not receiving any anticoagulation.I consulted cardiology and discussed the case with Dr. Henry who will see the patient this afternoon and review her telemetry. Patient denies any shortness of breath. She is oxygenating well on room air. She has no cough. She denies any fever, chills, rigors. She is eating well but states that she does not care for the quality of the food. She has no other acu te complaints. Review of Systems Review of Systems: All systems reviewed & are unremarkable except as noted in Subjective Physical Exam Physical Exam: GENERAL : No acute distress. Pleasant EYES: No icterus, gaze conjugate. Pupils equal round and reactive to light NOSE: No evidence of epistaxis MOUTH: No lesions or candidiasis. Mucosa is moist NECK: Supple LUNGS: CTA B/L, no wheezes, rales or rhonchi. Good inspiratory effort with no induced cough HEART: Irregular, irregular, bradycardic with pauses on telemetry ABDOMEN: Soft, NT, ND, BS Present EXTREMITIES: No LE edema, pedal pulses intact NEURO: Awake and alert. Some periods of confusion. Easily redirected. Moves all 4 extremities. Results & Data Results & Data ([facility]) Vital Signs (Past 12 Hours) Vital Signs Temp Pulse Resp BP BP Pulse Ox 10/21/20 11:30 36.5 C 50 L 18 133/73 97 10/21/20 08:33 37 C 64 16 167/83 H 97 10/21/20 02:37 36.6 C 50 L 20 165/77 H 97 Laboratory Results 10/21/20 07:11 10/21/20 07:11 10/19/20 13:05 Troponin I < 0.015 INR 1.6 (0.9-1.1) H 10/21/20 07:11 PG Care Time/CCT Total # of Minutes Spent Total Time Spent with Patient: Total time spent is greater than 50% in coordination of care (as documented) at patient's floor/unit and/or counseling patient: 40 minutes including discussion with consultants, attending, telemetry clerks, review of telemetry strips Coding Level of Care Code 28300 Subseq Hosp Care Lvl 3 Diagnoses COVID-19 U07.1 Weakness R53.1 Acute UTI N39.0 Anemia D64.9 Atrial fibrillation I48.91 Chronic kidney disease, stage 3 N18.3 Hypertension I10 Type 2 diabetes mellitus E11.9 DVT prophylaxis Z29.9 Time Spent (min) 40
--- NOTE | 2020-10-21 14:22 | XCELERA ---
[id number] \\[id number]_[id number]
--- NOTE | 2020-10-21 16:46 | Cardiology Consultation ---
Date of Consultation October 21, 2020 Assessment & Plan (1) Atrial fibrillation: She has permanent atrial fibrillation. Review of record reveals her to have been on metoprolol 25 mg twice daily for some time. I reviewed her telemetry suggests episodes of low ventricular rates and occasional pauses. She has not had notable symptoms. However, she may be a poor historian overall. There is no history of syncope. She has suffered multiple mechanical falls but no loss of consciousness has been documented. I think we can simply reduce or eliminate her metoprolol to see if her ventricular rates improve and can limit the bradycardia and pauses. For most patients, persistent symptomatic bradycardia in the absence of rate control medications would warrant pacemaker implantation. At this point she would not consent to pacemaker implantation. Currently she has some cognitive defects and if this were truly necessary we could discuss this in more detail. (2) Mitral regurgitation: Fairly significant on her echocardiogram. I do not believe this is resulted in any significant decompensation. Based on her comorbidities and cognitive status she appears to be a poor candidate for valve replacement. 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 She is not appear to have signs or symptoms consistent with an acute infection. In the absence of bacteremia or other concerning symptoms I do not believe this requires any additional evaluation History of Present Illness Reason for Consultation: Bradycardia Requesting Physician: Steven Attending Physician: Gris Snowden MD History of Present Illness The patient is an 85-year-old woman with a history of permanent atrial fibrillation who was admitted to the hospital for progressive weakness. It seems that the patient has been having some difficulty with ambulation. She has sustained some falls recently. At the time of admission she was noted to have a positive COVID-19 test. The patient has some cognitive difficulties, but did appear to answer questions appropriately. She states that she is occasionally aware of some palpitations. Generally speaking she is not. She did report rare episodes of dizziness or lightheadedness that she attributes to hyperglycemia. These episodes appear to be fairly rare and never resulted in syncope. Believes the last episode of that nature occurred over a month ago. She does very little ambulation at home. She has several assistive devices which he uses for ambulation. She has had more difficulty with ambulation due to weakness recently. She has not report symptoms of chest discomfort. She has not report any breathing difficulty. She has not report a cough recently. She denies any recent fevers or chills. She claims have a good appetite and be eating well. No change in her bowel habits. Allergies Allergy/AdvReac Type Severity Reaction Status Date / Time acetaminophen [From [facility]] AdvReac Nausea Verified 10/19/20 19:22 atorvastatin [From Lipitor] AdvReac NOT Verified 10/19/20 19:22 TOLERATED fluvastatin [From [facility]] AdvReac NOT Verified 10/19/20 19:22 TOLERATED gabapentin AdvReac Nausea Verified 10/19/20 19:22 hydrocodone [From [facility]] AdvReac Nausea Verified 10/19/20 19:22 sulfamethoxazole AdvReac Nausea Verified 10/19/20 19:22 [From Bactrim] trimethoprim [From Bactrim] AdvReac Nausea Verified 10/19/20 19:22 Home Medications Medication Instructions Recorded Confirmed Type cholecalciferol (vitamin D3) 25 1,000 units PO DAILY 07/08/19 10/19/20 History mcg (1,000 unit) capsule lisinopril 20 mg tablet 20 mg PO DAILY #90 tab 12/31/19 10/19/20 Rx allopurinol 100 mg tablet 200 mg PO DAILY #180 tab 04/10/20 10/19/20 Rx metoprolol tartrate 25 mg tablet 25 mg PO BID #180 tab 04/10/20 10/19/20 Rx simvastatin 40 mg tablet 40 mg PO QPM #90 tab 04/10/20 10/19/20 Rx glipizide 10 mg tablet, extended 10 mg PO BID #180 tab 07/21/20 10/19/20 Rx release 24 hr nystatin 100,000 unit/gram topical 1 applic TOPICAL BID #30 g 09/24/20 10/19/20 Rx powder gabapentin 100 mg PO HS 10/19/20 10/19/20 History warfarin 2 mg PO .UD 10/19/20 10/19/20 History Patient History Medical History History of abnormal mammogram Pessary maintenance Surgical History S/P cataract surgery Family History Other No pertinent family history Social History Smoking Status: Never smoker Do You Dip or Chew Tobacco: No; Hx Alcohol Use: No Hx Substance Use: No Preferred Language: Marshallese Communication Ability: Impaired Chemical Recovery Operator Required: No Beliefs That Will Affect Care: None marital status: Current Living Situation: Spouse current occupational status: retired Feels Safe at Home: Yes Safety Concerns: Feels Safe At This Time Assistive Devices: Walker Review of Systems Review of Systems: All systems reviewed & are unremarkable except as noted in HPI & below Physical Exam Physical Exam: She is alert and oriented to person only. Mood affect appear normal. She answered all questions appropriately but occasionally made inappropriate statements. HEENT: Sclerae are anicteric. Pupils are equal and reactive to light and accommodation. Extraocular movements were intact. Neuro: Cranial nerves intact Neck: Examination of the submandibular region did not reveal any significant lymphadenopathy. Carotids are palpable bilaterally and free of bruits on auscultation. There was no evidence of jugular venous distention. The thyroid was not enlarged. Lungs: Lungs are clear to auscultation bilaterally. There are no rales wheezes or rhonchi. She has normal respiratory effort without use of accessory muscles. There is normal pulmonary excursion. Cardiac: The rhythm was irregular. S1 and S2 were normal. Soft holosystolic murmur of variable intensity. The PMI was not markedly displaced on palpation. Abdomen: The abdomen was soft and nontender. Extremities: Patient has bilateral radial pulses that are equal in intensity. There is no evidence cyanosis or clubbing. There was no evidence of significant peripheral edema bilaterally. Skin: There are no rashes noted on examination today. Results & Data ([facility]) Vital Signs (Past 12 Hours) Vital Signs Temp Pulse Resp BP BP Pulse Ox 10/21/20 11:30 36.5 C 50 L 18 133/73 97 10/21/20 08:33 37 C 64 16 167/83 H 97 Laboratory Results Abnormal Lab Results 10/21/20 10/21/20 10/21/20 07:11 07:11 07:11 WBC 4.03 L RBC 3.41 L Hgb 10.3 L Hct 31.6 L MCV 92.7 MCH 30.2 MCHC 32.6 RDW Std Deviation 54.9 H RDW Coeff of Benjamin 16.1 H Plt Count 143 MPV 10.3 PT 16.7 H INR 1.6 H Sodium 142 Potassium 3.1 L Chloride 111 H Carbon Dioxide 23 Anion Gap 8.0 BUN 29 H Creatinine 1.06 Est Cr Clr Drug Dosing 33.6 Est GFR ( Amer) 54.7 Est GFR (Non-Af Amer) 47.2 BUN/Creatinine Ratio 27.3 H Glucose 94 POC Glucose Estimat Average Glucose Hemoglobin A1c Calcium 9.0 10/21/20 10/21/20 10/21/20 07:11 08:19 11:42 WBC RBC Hgb Hct MCV MCH MCHC RDW Std Deviation RDW Coeff of Benjamin Plt Count MPV PT INR Sodium Potassium Chloride Carbon Dioxide Anion Gap BUN Creatinine Est Cr Clr Drug Dosing Est GFR ( Amer) Est GFR (Non-Af Amer) BUN/Creatinine Ratio Glucose POC Glucose 100 H 196 H Estimat Average Glucose 160 Hemoglobin A1c 7.2 H Calcium Diagnostic Findings Echocardiogram performed today revealed preserved LV systolic function. Ejection fraction 60-65%. Moderate left atrial dilation. Moderate to severe mitral regurgitation. Pulmonary hypertension. Multiple imaging studies were performed including venous Dopplers of lower extremities, CT scanning of the head, abdomen and pelvis and a chest x-ray. 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 No other acute abnormalities. ECG Additional Comments: EKG obtained the time of admission revealed atrial fibrillation with controlled ventricular response. Poor R-wave progression in the precordial leads and left anterior fascicular block. PG Care Time/CCT Total # of Minutes Spent Total Time Spent with Patient: Total time spent is greater than 50% in coordination of care (as documented) at patient's floor/unit and/or counseling patient: Coding Level of Care Code 09128 Initial Inpt Care Lvl 3 Diagnoses Atrial fibrillation I48.91 Mitral regurgitation I34.0 Aortic valve defect I35.9
[2020-10-21] MEDS: GABAPENTIN 100 MG CAP PO SCH (20:09)
[2020-10-21] MEDS: SIMVASTATIN 40 MG TAB PO SCH (20:09)
[2020-10-21] MEDS: cefTRIAXone SODIUM 1,000 MG in DEXTROSE 5% 50 ML IV SCH (21:53)
[2020-10-22 06:58] LABS: Hematocrit (blood only) 30.7 % (37-47); Mean Corpuscular Hemoglobin 30.4 pg (25-34); Mean Corpuscular Hgb Conc 32.6 g/dL (32-36); Mean Corpuscular Volume 93.3 fL (80-100); Mean Platelet Volume 10.8 fL (7.4-10.4); Platelet Count 140 K/uL (130-400); RDW Coefficient of Variation 16.1 % (11.5-14.5); RDW Standard Deviation 55.2 fL (36.4-46.3); Red Blood Count 3.29 M/uL (4.2-5.4); White Blood Count 4.68 K/uL (4.8-10.8)
[2020-10-22 07:09] LABS: INR 1.2 (0.9-1.1); Prothrombin Time 12.7 Seconds (9.0-12.0)
[2020-10-22 07:32] LABS: BUN Creatinine Ratio 28.4 (10-20); Calcium 8.9 mg/dl (8.5-10.1); Creatinine Clr Calc Pharmacy 22.3 ml/min; Est GFR (African American) 36.8; Est GFR (Non-African American) 31.8; Potassium 4.1 mmol/L (3.5-5.1)
[2020-10-22] MEDS: INSULIN ASPART 100 UNITS/ML 3 ML PEN SC SCH ×2 (08:20→12:37)
[2020-10-22] MEDS: allopurinoL 100 MG TAB PO SCH (08:27)
[2020-10-22] MEDS: lisinopril 20 MG TAB PO SCH (08:30)
[2020-10-22] MEDS: CHOLECALCIFEROL 1,000 UNITS 25 MCG TAB PO SCH (08:30)
[2020-10-22] MEDS: NYSTATIN POWDER 15GM BTL EXT SCH (08:35)
[2020-10-22] MEDS: ACETAMINOPHEN 325 MG TAB PO PRN (09:28)
[2020-10-22 11:13] VITALS: TEMP 98.1; O2SAT 92
[2020-10-22 12:01] VITALS: BP 145/71; PULSE 55
--- NOTE | 2020-10-22 12:06 | Discharge Summary ---
Date of Service October 22, 2020 Admission HPI Per Admitting Provider Patient is an 85 yo female with dementia. She is a poor hisotian and does not understand why she is in the hospital. She reports falling about a weak ago and she has justina having pain in her left lower leg. She reports though that she is able to ambulate with a walker. Family brought her in to workup her left lower leg pain. Her son also mentioned that she has 2 episodes of bright red blood per rectum when she went to the bathroom. He is unsure when her last colonoscopy was. The patient denies any headache or neck pain or chest pain. She is not short of breath, no abdominal pain or vomiting. She is asking for a pillow to raise her left leg as this makes it feel better. She also states that she did not receive her typical morning medications. The ambulance crew also mentioned to the ER that the patient has had a potential Covid exposure although she is not symptomatic. She did test positive while she was here. Admission Exam Per Admitting Provider Constitutional: WD/WN, vitals as above Eyes: PERRL, conjunctivae normal, anicteric sclerae ENMT: external ear and nose normal, oropharynx normal Neck: trachea midline, no thyromegaly Respiratory: normal respiratory effort, lungs clear to auscultation Cardiovascular: RRR, no murmur, no edema Gastrointestinal (Abdomen): normal bowel sounds, soft, nontender, no hepatosplenomegaly Musculoskeletal: no cyanosis or clubbing, extremities motor strength 5/5 Skin: no rashes, warm and dry Neurologic: PERRL, EOMI, accommodation nl, no face palsy, no dysarthria Psychiatric: A+Ox3, euthymic affect Lymphatic: no cervical or axillary lymphadenopathy Principal Diagnosis COVID-19 positive Possible GI bleed Generalized weakness UTI-simple Discharge Exam GENERAL : No acute distress. Pleasant EYES: No icterus, gaze conjugate. Pupils equal round and reactive to light NOSE: No evidence of epistaxis MOUTH: No lesions or candidiasis. Mucosa is moist NECK: Supple LUNGS: CTA B/L, no wheezes, rales or rhonchi. Good inspiratory effort with no induced cough HEART: Irregular, irregular, bradycardic in the 50s ABDOMEN: Soft, NT, ND, BS Present EXTREMITIES: No LE edema, pedal pulses intact NEURO: Awake and alert. Some periods of confusion. Easily redirected. Moves all 4 extremities. Discharge Data Allergies Allergy/AdvReac Type Severity Reaction Status Date / Time acetaminophen [From [place]] AdvReac Nausea Verified 10/19/20 19:22 atorvastatin [From Lipitor] AdvReac NOT Verified 10/19/20 19:22 TOLERATED fluvastatin [From [place]] AdvReac NOT Verified 10/19/20 19:22 TOLERATED gabapentin AdvReac Nausea Verified 10/19/20 19:22 hydrocodone [From [place]] AdvReac Nausea Verified 10/19/20 19:22 sulfamethoxazole AdvReac Nausea Verified 10/19/20 19:22 [From Bactrim] trimethoprim [From Bactrim] AdvReac Nausea Verified 10/19/20 19:22 Consultations 10/19/20 16:22 ED Decision to Admit Stat 10/19/20 18:02 Consult Gastroenterology Routine 10/21/20 12:38 Consult Cardiology Routine Ordered Studies 10/19/20 12:50 CT abd pelvis IV con only Stat CT OF THE ABDOMEN AND PELVIS WITH CONTRAST CLINICAL HISTORY: Lower abdominal and rectal pain. COMPARISON STUDY: CT of the abdomen and pelvis April 11, 2008. TECHNIQUE: Following IV administration of 94 mL of Optiray-320, axial images of the abdomen and pelvis were obtained from the lung bases to the proximal femurs. Images were reviewed in the axial, sagittal, and coronal planes. IV contrast was administered without complication. Automated exposure control was utilized for the study. A dose lowering technique was utilized adhering to the principles of ALARA. CT DOSE: 894.71 mGycm FINDINGS: Moderate cardiomegaly is noted. No pneumatosis, free air or portal venous gas is present. There is no biliary or pancreatic ductal dilatation. There is no peripancreatic or pericholecystic infiltration. There are numerous gallstones within the gallbladder. This exam is mildly compromised by motion artifact. The liver, spleen and adrenal glands are unremarkable. A hypodense 1.7 cm right renal lesion is suboptimally assessed on this unenhanced exam but probably reflects a cyst. There are numerous subcentimeter bilateral renal les ions which are too small to characterize. There is no hydronephrosis. There are no ureteral calculi. Note is made of several peripherally calcified splenic artery aneurysms that measure up to 2.5 cm. These are similar to CT of April 11, 2018. Major vasculature is patent. There is colonic diverticulosis without evidence for acute diverticulitis. The appendix is normal. Fat-containing umbilical hernia is present. There are fat-containing bilateral inguinal hernias. Pessary device is in place. There is no lymphadenopathy or ascites. No acute fracture or suspicious lesion is identified within the visualized skeletal structures. Bladder wall thickening is noted. IMPRESSION: 1. Bladder wall thickening which could be correlated with urinalysis to exclude cystitis. 2. No significant change in peripherally calcified splenic artery aneurysms since CT of April 11, 2008. These measure up to 2.5 cm. 3. Colonic diverticulosis without evidence for acute diverticulitis. No bowel obstruction. No bowel wall thickening. 4. Fat-containing bilateral inguinal and umbilical hernias. ACT 112: Negative or not required by law. Electronically signed by: Michael Isaacs M.D. 10/19/2020 2:[address] head/brain wo con Stat HEAD CT NONCONTRAST CT DOSE: 690.05 mGycm HISTORY: fall, confusion TECHNIQUE: Multiaxial CT images of the head were performed without the use of intravenous contrast. Automated exposure control was utilized for this study. A dose lowering technique was utilized adhering to the principles of ALARA. Comparison: None. Findings: The mastoid air cells are clear. Opacified bilateral maxillary sinuses, left sphenoid sinus, left frontal sinus with associated air-fluid levels. Findings suggest acute or chronic sinusitis. The calvarium and skull base are intact. There is no mass, hematoma, midline shift, acute infarct. White matter hypodensity is nonspecific but suggestive of microvascular ischemic michelle e. The ventricles and sulci demonstrate mild age-related involutional changes. Impression: 1. No acute intracranial abnormality. 2. Acute on chronic sinusitis as described above. ACT 112: Negative or not required by law. Electronically signed by: Justino Sanchez M.D. 10/19/2020 2:56 PM 10/19/20 12:57 US venous doppler LE LT Stat US venous doppler LE LT CLINICAL HISTORY: Left leg pain COMPARISON STUDY: No previous studies for comparison. FINDINGS: Real-time and color flow Doppler imaging were performed. Flow was seen within the femoral, popliteal and calf veins with no intraluminal thrombus demonstrated. The saphenous vein is patent. IMPRESSION: No evidence of left lower extremity DVT. ACT 112: Negative or not required by law. Electronically signed by: Darryl Fagan M.D. 10/19/2020 3:21 PM Hospital Course (1) COVID-19: Tested positive 10/19/2020 Primary complaint on admission was weakness and anemia from possible GI Bleed Currently on room air and with SaO2 of 96% and no respiratory complaints No indication for remdesivir, steroids, or convalescent plasma Patient being discharged home today. Family to arrange home health services as needed [place] handouts were sent with the patient including how to care for Covid patient at home as well as COVID-19 information regarding the virus. (2) Weakness: 85 year old with admission for anemia and bright red blood per rectum Hemoglobin has been stable Blood pressure stable Physical therapy and Occupational Therapy completed. Patient with max assist out of bed but then does well. Patient may benefit from home health and physical therapy at home. This will be deferred to the family to arrange with primary care physician. (3) Acute UTI: Patient reported be asymptomatic on admission so no antibiotics were started With weakness and some confusion patient was started on ceftriaxone and received 3 days worth-no further antibiotics needed on discharge Urine cultures growing pansensitive E. coli (4) Anemia: Patient with bright red blood per rectum and toilet I spoke to the daughter and she states that this has been an ongoing problem Hemoglobin is stable No invasive procedures per gastroenterology but patient should follow-up in 1 to 2 weeks after discharge H&H remained stable during this hospital stay Patient admitted with supratherapeutic INR. Received Vit K last night. INR is now 1.2 Send home on Coumadin 1mg PO Daily which is a lower dose than her usual Discharge home on Colace to prevent straining if bleeding was from hemorrhoids D/C summary with advice to not sit on toilet for long periods of time (5) Atrial fibrillation: Continues in atrial fibrillation Patient anticoagulated with Coumadin as an outpatient INR is now 1.2 Follow INR as an outpatient Controlled with metoprolol tartrate 25 mg p.o. twice daily at home Patient had pauses and bradycardia into the 20s while on telemetry Will hold Lopressor on discharge and follow blood pressure and heart rate as an outpatient-rates were improved on the day of discharge Echocardiogram with no wall motion abnormalities Appreciate cardiology consultation (6) Chronic kidney disease, stage 3: Creatinine is at baseline Slight elevation in BUN and creatinine on the day of discharge Follow ins and outs -currently +1320 mL this admission Patient did not appear dehydrated at the time of discharge (7) Hypertension: Hemodynamically stable Continue lisinopril. Hold Lopressor on discharge secondary to bradycardia Was on telemetry in the hospital (8) Type 2 diabetes mellitus: Managed with glipizide at home Random glucose is 94 Hemoglobin A1c is 7.2% Resume Glipizide in discharge (9) DVT prophylaxis: Patient currently with INR of 1.2 Trend INR. Being discharged home today Total Time Total Time Spent Total Time Spent (In Minutes): 45 Total Time Includes: Examination of the Patient, Discharge Planning, Medication Reconciliation and Communication With Other Providers Discharge Plan Discharge Items Patient Disposition: Home - Home Health Services Reason For Visit: BLOOD IN STOOL,WEAKNESS Discharge Diagnosis: COVID-19 positive Generalized weakness Condition on Discharge: Fair Activity: Resume your previous activity Activity Comment: As tolerated Lifting: Gradually increase as tolerated Bathing: No limitations Driving/Machine Use: Do not drive until cleared by PCP Weightbearing: Full weightbearing Non-emergency contact: Primary Care Provider Call non-emergency contact if: you have a fever Follow-up/Referrals: Juan Tomlin MD [Primary Care Provider] - 10/29/20 2:30 pm (We have set up for vitrual appt with Dr. Tomlin on 10/29 at 2:30pm. The office will contact you for this appt. If for any reason this appt does not fit into your schedule, please call [phone] to reschedule. ) Diet: Heart Healthy Addtl Attending Provider Instructions: You were admitted for generalized weakness and found incidentally to have COVID- 19. During this hospital stay you did not require any steroids or any antiviral drugs. If you develop fever, chills, sweats or uncontrollable shakes, please go to the emergency department or contact your primary care provider for further evaluation. Sometimes symptoms for COVID-19 develop over 7 or 14 days and your symptoms could get worse once you are discharged home. Please continue to wear a mask and social distance see do not contaminate family members or friends. You should remain in isolation for 10 days starting 10/19/2020 (the date that you were found to be positive). You were also found to have bright red blood from the rectum. This most likely is from your hemorrhoids. We are suggesting you take stool softeners and do not sit on the toilet for long periods of time. You should have further follow-up with [facility] gastroenterology for consideration of colonoscopy and/or EGD within the next 1 to 2 weeks. He did not require blood transfusion and your blood levels remained stable throughout the course of your hospitalization. You were evaluated by physical therapy and Occupational Therapy and required maximal assist to get out of bed. Please be aware of this and ask for help before getting out of bed or out of a chair in order to avoid falls. Over the last 2 days you are also found to have some pauses on your EKG. You had an echocardiogram which did not show any heart damage. You are also seen by cardiology who recommended that we hold your Lopressor. Please do not take Lopressor (metoprolol tartrate) on discharge. Please follow-up with your primary care provider/cardiology for further advice on restarting your heart medicine. On admission, you were found to have a very high INR. You were given medicine to reverse that and when you were discharged your INR was 1.2. You should restart your Coumadin (warfarin) at 1 mg by mouth daily and follow up with your primary care physician. Pending Studies at Discharge: No Stand-Alone Forms: My [facility] management, Smoking Cessation Medications and DC Order Prescriptions: New warfarin 1 mg tablet 1 mg PO DAILY Qty: 30 RF: 0 docusate sodium [Colace] 100 mg capsule 100 mg PO BID Qty: 60 RF: 0 Continued lisinopril 20 mg tablet 20 mg PO DAILY Qty: 90 RF: 3 allopurinol 100 mg tablet 200 mg PO DAILY Qty: 180 RF: 3 simvastatin 40 mg tablet 40 mg PO QPM Qty: 90 RF: 3 glipizide 10 mg tablet extended release 24hr 10 mg PO BID Qty: 180 RF: 3 nystatin 100,000 unit/gram powder 1 applic topical BID Qty: 30 RF: 1 cholecalciferol (vitamin D3) 1,000 unit capsule 1,000 units PO DAILY RF: 0 gabapentin 100 mg capsule 100 mg PO HS RF: 0 Discontinued metoprolol tartrate 25 mg tablet 25 mg PO BID Qty: 180 RF: 3 warfarin 2 mg tablet 2 mg PO .UD RF: 0 Discharge Orders: Discharge Order (Routine); Ordered 10/22/20 Ordered By: Louie Zabala/Other Patient Handouts: 2019-nCoV, COVID-19 Home Care, High Blood Sugar (Hyperglycemia), Hypoglycemia (Low Blood Sugar), Managing Type 2 Diabetes, Caring for Someone Who Has COVID-19 Admission Data Admit Date/Time: 10/19/20 18:02 Attending Provider: Gris Snowden Admit Provider: Franky Bower Primary Care Provider: Juan Tomlin Other Providers: Franky Bower ; Aiden Mcdaniel ; Juan Henry ; [facility],Home Healthcare Other Interventions: Discharge Summary Assessment (RN) Last Done: 10/22/20 11:58 Supervising Physician Co-Signing Physician Notes PA Supervision Note: I personally saw and examined the patient. I verified all huntley points and agree with KAMALJIT elliott with the following exceptions and/or additions: Patient was doing very well, out of bed to chair, eating, no shortness of breath or chest pain. Reported her left leg pain was improved which was the original reason she came to the hospital. She is anxious to get home. No further bleeding Vitals reviewed Gen: Alert awake and oriented x2, NAD HEENT: Anicteric sclerae, EOMI CV: Irregularly irregular, normal rate no mgr nl S1S2 Pulm: CTAB no wcr Abd: +BS soft NT ND no masses or hernias Ext: No edema, no tenderness to palpation of the left calf Skin: No rashes, warm/dry Neuro: Full strength throughout 85-year-old female here with weakness in left leg pain after a recent fall. Found to also have rectal bleeding likely hemorrhoidal and Covid-19 infection. Significantly improved, bradycardia improved with holding metoprolol and this will be discontinued on discharge Continue stool softeners to prevent constipation and follow-up with GI as an outpatient Stable for discharge to home UTI was adequately treated with 3 days of IV antibiotics here Coding Level of Care Code D/C Day Management >30 mins Diagnoses COVID-19 U07.1 Weakness R53.1 Acute UTI N39.0 Anemia D64.9 Atrial fibrillation I48.91 Chronic kidney disease, stage 3 N18.3 Hypertension I10 Type 2 diabetes mellitus E11.9 DVT prophylaxis Z29.9 Time Spent (min) 45
== END 2020-10-22 13:00 | disposition home health service (06) | DRG 377 ==
LOC: ED 12:02 → SUATTDRO 18:02 → EDINP 18:02 → 2N 10-20 22:59

== ENCOUNTER 2022-02-05 23:56 | Inpatient (IN) ==
--- NOTE | 2022-02-06 00:34 | Emergency Department Note ---
Impression & Plan Hypoglycemia, Anemia Admit to the [facility]ist ED Provider Note NAME: ELIZABETH GILBERT AGE: 86 SEX: F ARRIVES VIA: Walk-In INFORMANT: Patient and the patient's son ED PROVIDER(S): Kathryn Carvalho DO CHIEF COMPLAINT: Hypo-glycemia PLAN: Disposition: Admit to the [facility] Condition: Stable MEDICAL DECISION MAKING: This is an 86-year-old female patient who presents to the emergency department with persistent hypoglycemia. The patient's son is concerned because the patient is having episodes of persistent hypoglycemia despite eating foods high in sugar and stopping her glipizide more than 24 hours ago. Upon arrival here in the emergency department, the patient's blood sugar was 58 and dropped into the 40s. She was encouraged to drink and eat foods high in sugar here and it rebounded into the 70s. Laboratory testing, the patient's hemoglobin had kobe pped below 8. She had recently had a blood loss from a pessary placement. On physical exam, the patient had no obvious blood coming from the vagina and her stool was heme-occult tested and found to be negative. She was typed and crossed for 1 unit of packed red blood cells and transfused. The patient describes taking 1000 mg of Tylenol every 4 hours for bilateral knee pain. I was somewhat concerned about the possibility of an acetaminophen overdose. However Tylenol level was within normal limits. On physical exam, the patient had 4-5+ pitting edema in both lower extremities and on chest x-ray, she had evidence of pulmonary edema. This is a new finding for the patient according to the patient's son. The patient may require diuretic therapy during the blood transfusion. I discussed the case with the [facility]ist and they will evaluate for further management. Triage Nursing notes reviewed and agree with them. Additional history obtained from the son who is at the bedside Prior medical records reviewed recent ER visit Vital Signs: reviewed and remarkable for hypertension Differential diagnosis: Medication mixup; Tylenol overdose ER treatment provided: Transfusion of packed red blood cells. Diagnostics interpreted by me: ECG: Atrial fibrillation at 75 bpm with a right bundle branch block. There is no ST segment elevation or signs of ischemia. There is no ectopy. Cardiac Monitoring: A. fib at a rate of 72 Laboratory studies: See below Imaging studies: As per my interpretation Chest x-ray: Pulmonary edema HPI: 86/F arrives for evaluation of hypoglycemia. The patient has been having episodes of hypoglycemia throughout the day today despite her family giving her foods high in glucose and not taking any of her glipizide. The son is also concerned about the patient's lower extremity edema and increasing weakness. ROS: See above HPI for pertinent positives & negatives. A total of 10 systems reviewed and were otherwise negative. PAST MEDICAL HISTORY:See Below PAST SURGICAL HISTORY:See Below FAMILY HISTORY:See Below SOCIAL HISTORY:See Below HOME MEDICATIONS:See list ALLERGIES:See list VITALS:See Below PHYSICAL EXAMINATION: HEENT: Head - normocephalic and atraumatic Pupils are equal, round, and reactive to light. Extraocular eye muscles are intact, and sclera are anicteric. Nose - moist nasal mucosa without discharge. Mouth - moist buccal mucosa. Oropharynx is nonerythematous and there is no tonsillar exudate or edema noted. Neck: Supple; no cervical lymphadenopathy or JVD Heart: Irregularly irregular rhythm with a controlled rate there is a normal S1 and S2 with no murmurs, clicks, or gallops appreciated. Lungs: Faint rales heard in all lung nunez Abdomen: Soft, completely nontender, nondistended, with good bowel sounds. There are no palpable pulsatile masses or hepatosplenomegaly. There is no guarding, rigidity, or rebound noted. Extremities: 4-5+ pitting edema both lower extremities. there are easily palpable peripheral pulses. Skin: Pale, warm and dry with good turgor and no rashes. GI/: A rectal exam was performed and there was brown stool present which was Hemoccult tested negative. A visual exam of the vagina was performed and was unremarkable. There was no bleeding. ED COURSE: Times/Reassessments: 0010: The patient was evaluated in room C7. A complete history and physical was performed. Laboratory studies were drawn as above. A twelve-lead EKG was obtained as described above. An order was placed for continuous cardiac monitoring. The patient was in atrial fibrillation at a rate of 72. Portable chest x-ray was performed. BSG's were performed every 30 minutes. Initially they had dropped down into the 40s but the patient was encouraged to drink orange juice and eat alcides crackers with peanut butter. This brought the blood sugars back up into the 70s. The patient was typed and crossed for 1 unit of packed red blood cells and this will be transfused. I discussed the case with the [facility] hospitalist and they will evaluate for further management. The patient was consented for blood transfusion and it was initiated. I have personally spent greater than 30 minutes of critical care time in the direct management of this patient. This includes bedside care, interpretation of diagnostic studies, and testing, discussion with consultants, patient, and family members, and other required patient management activities. This 30 minutes is in excess of all separately billable procedures. Kathryn Carvalho DO Past Med/Surg History Medical History Acute dehydration Acute UTI Atrial fibrillation Chronic kidney disease, stage 3 Fall History of abnormal mammogram Hypertension Pessary maintenance Second degree uterine prolapse Sinusitis Type 2 diabetes mellitus Surgical History S/P cataract surgery Family History Mother Diabetes Breast cancer Brother Stroke Denies family history of Ovarian cancer Prostate cancer Myocardial infarction Colorectal cancer Social History Smoking Status: Never smoker Second Hand Exposure: No; Hx Alcohol Use: No Hx Substance Use: No Preferred Language: Bolivian Communication Ability: Impaired Visual Impairment: No Limitations Hearing Ability: Normal Blocker Hand Required: No Beliefs That Will Affect Care: None marital status: / Current Living Situation: Alone and Spouse Current Living Situation Comment: Family lives nearby and checks on her current occupational status: retired current occupation: retired from working at [employer] How many Children do You have: 6 How many Children do You have Comment: 1 Feels Safe at Home: Yes Childhood Exposure to Second-Hand Smoke: Yes during the past year weight has: remained stable Dental Care, Regularly: No Physical Activity Frequency: Daily Seatbelt Use: never Sunscreen Use: Yes Assistive Devices: Walker Allergies Allergies Allergy/AdvReac Type Severity Reaction Status Date / Time acetaminophen [From Gallitzin] AdvReac Nausea Verified 02/06/22 02:05 atorvastatin [From Lipitor] AdvReac NOT Verified 02/06/22 02:05 TOLERATED fluvastatin [From Lescol] AdvReac NOT Verified 02/06/22 02:05 TOLERATED gabapentin AdvReac Nausea Verified 02/06/22 02:05 hydrocodone [From Gallitzin] AdvReac Nausea Verified 02/06/22 02:05 sulfamethoxazole AdvReac Nausea Verified 02/06/22 02:05 [From Bactrim] trimethoprim [From Bactrim] AdvReac Nausea Verified 02/06/22 02:05 Home Meds Previous Rx's Medication Instructions Recorded hydrocortisone 2.5 % topical cream 1 applic NH TID PRN 14 Days #30 g 12/28/20 with perineal applicator lisinopril 20 mg tablet 20 mg PO DAILY #90 tab 11/04/21 warfarin 1 mg tablet 1 mg PO DAILY #90 tab 11/05/21 allopurinol 100 mg tablet 200 mg PO DAILY #180 tab 11/19/21 simvastatin 40 mg tablet 40 mg PO QPM #90 tab 11/19/21 nystatin 100,000 unit/gram topical 1 applic TOPICAL BID #30 g 01/10/22 powder Results & Data (ED) Vital Signs Vital Signs - 24 hr 02/05/22 23:59 02/06/22 00:38 02/06/22 02:09 Temperature 37.2 C Temperature Source Temporal Artery Scan Pulse Rate 82 Pulse Rate [Finger] 80 81 Respiratory Rate 18 20 20 Respiratory Effort / Characteristics Non-Labored Spontaneous Non-Labored Non-Labored Spontaneous Respiratory Depth Normal Normal Normal Blood Pressure 160/71 H Blood Pressure [Right Arm] 155/73 H 169/77 H Blood Pressure Mean 100 Blood Pressure Mean [Right Arm] 100 107 Blood Pressure Position Sitting Blood Pressure Position [Right Arm] Sitting Lying Pulse Oximetry 98 95 94 Oxygen Delivery Method Room Air Room Air Room Air Sepsis Recent Fever Within 48 Hours No Sepsis New/Unexplained Change in Mental Status No Sepsis Action Taken by Nursing No Action Required 02/06/22 02:40 02/06/22 03:00 02/06/22 03:15 Temperature 36.6 C 36.5 C 36.6 C Temperature Source Oral Oral Oral Pulse Rate 79 78 73 Pulse Rate [Finger] Respiratory Rate 19 20 20 Respiratory Effort / Characteristics Respiratory Depth Blood Pressure 169/77 H 156/84 H 162/92 H Blood Pressure [Right Arm] Blood Pressure Mean 107 108 115 Blood Pressure Mean [Right Arm] Blood Pressure Position Lying Blood Pressure Position [Right Arm] Pulse Oximetry 96 95 95 Oxygen Delivery Method Sepsis Recent Fever Within 48 Hours Sepsis New/Unexplained Change in Mental Status Sepsis Action Taken by Nursing 02/06/22 03:32 02/06/22 03:45 Temperature 36.4 C L 36.4 C L Temperature Source Oral Oral Pulse Rate 73 78 Pulse Rate [Finger] Respiratory Rate 20 19 Respiratory Effort / Characteristics Respiratory Depth Blood Pressure 153/82 H 164/91 H Blood Pressure [Right Arm] Blood Pressure Mean 105 115 Blood Pressure Mean [Right Arm] Blood Pressure Position Lying Lying Blood Pressure Position [Right Arm] Pulse Oximetry 95 95 Oxygen Delivery Method Sepsis Recent Fever Within 48 Hours Sepsis New/Unexplained Change in Mental Status Sepsis Action Taken by Nursing Laboratory Data Result diagrams: 02/06/22 00:25 02/06/22 00:25 Lab Results 02/06/22 02/06/22 02/06/22 Range/Units 00:05 00:25 00:25 WBC 5.48 (4.8-10.8) K/uL RBC 2.83 L (4.2-5.4) M/uL Hgb 7.8 L (12.0-16.0) g/dL Hct 26.1 L (37-47) % MCV 92.2 (80-100) fL MCH 27.6 (25-34) pg MCHC 29.9 L (32-36) g/dL RDW Std Deviation 58.9 H (36.4-46.3) fL RDW Coeff of Benjamin 17.5 H (11.5-14.5) % Plt Count 101 L (130-400) K/uL MPV 9.1 (7.4-10.4) fL Immature Gran % (Auto) 0.2 % Neut % (Auto) 69.8 % Lymph % (Auto) 18.1 % Salem % (Auto) 9.9 % Eos % (Auto) 1.5 % Baso % (Auto) 0.5 % Neut # (Auto) 3.83 (1.4-6.5) K/uL Lymph # (Auto) 0.99 L (1.2-3.4) K/uL Salem # (Auto) 0.54 (0.11-0.59) K/uL Eos # (Auto) 0.08 (0-0.5) K/uL Baso # (Auto) 0.03 (0-0.2) K/uL Immature Gran # (Auto) 0.01 (0.00-0.02) K/uL Polychromasia 1+ Hypochromasia Present Schistocytes 1+ PT (9.0-12.0) Seconds INR (0.9-1.1) Sodium (136-145) mmol/L Potassium (3.5-5.1) mmol/L Chloride (98-107) mmol/L Carbon Dioxide (21-32) mmol/L Anion Gap (3-11) BUN (6-23) mg/dl Creatinine (0.6-1.2) mg/dl Est Cr Clr Drug Dosing ml/min Est GFR ( Amer) ml/min Est GFR (Non-Af Amer) ml/min BUN/Creatinine Ratio (10-20) Glucose (70-99(Fasting)) mg/dl POC Glucose 58 L* (70-99) mg/dl Calcium (8.5-10.1) mg/dl Total Bilirubin (0.2-1.0) mg/dl AST (13-39) U/L ALT (7-52) U/L Alkaline Phosphatase (34-104) U/L Total Protein (6.0-8.3) gm/dl Albumin (3.4-5.0) gm/dl Globulin (2.5-4.0) gm/dl Albumin/Globulin Ratio (0.9-2) TSH (0.300-4.500) uIu/ml Acetaminophen 24 (10-30) ug/ml Blood Type Blood Type Recheck Antibody Screen Crossmatch 02/06/22 02/06/22 02/06/22 Range/Units 00:25 00:25 01:11 WBC (4.8-10.8) K/uL RBC (4.2-5.4) M/uL Hgb (12.0-16.0) g/dL Hct (37-47) % MCV (80-100) fL MCH (25-34) pg MCHC (32-36) g/dL RDW Std Deviation (36.4-46.3) fL RDW Coeff of Benjamin (11.5-14.5) % Plt Count (130-400) K/uL MPV (7.4-10.4) fL Immature Gran % (Auto) % Neut % (Auto) % Lymph % (Auto) % Salem % (Auto) % Eos % (Auto) % Baso % (Auto) % Neut # (Auto) (1.4-6.5) K/uL Lymph # (Auto) (1.2-3.4) K/uL Salem # (Auto) (0.11-0.59) K/uL Eos # (Auto) (0-0.5) K/uL Baso # (Auto) (0-0.2) K/uL Immature Gran # (Auto) (0.00-0.02) K/uL Polychromasia Hypochromasia Schistocytes PT (9.0-12.0) Seconds INR (0.9-1.1) Sodium 142 (136-145) mmol/L Potassium 4.4 (3.5-5.1) mmol/L Chloride 115 H (98-107) mmol/L Carbon Dioxide 21 (21-32) mmol/L Anion Gap 6 (3-11) BUN 27 H (6-23) mg/dl Creatinine 1.34 H (0.6-1.2) mg/dl Est Cr Clr Drug Dosing 27.2 ml/min Est GFR ( Amer) 40.9 ml/min Est GFR (Non-Af Amer) 35.3 ml/min BUN/Creatinine Ratio 20.1 H (10-20) Glucose 45 L* (70-99(Fasting)) mg/dl POC Glucose 46 L* (70-99) mg/dl Calcium 9.2 (8.5-10.1) mg/dl Total Bilirubin 0.6 (0.2-1.0) mg/dl AST 28 (13-39) U/L ALT 16 (7-52) U/L Alkaline Phosphatase 116 H (34-104) U/L Total Protein 6.7 (6.0-8.3) gm/dl Albumin 3.6 (3.4-5.0) gm/dl Globulin 3.1 (2.5-4.0) gm/dl Albumin/Globulin Ratio 1.2 (0.9-2) TSH 3.930 (0.300-4.500) uIu/ml Acetaminophen (10-30) ug/ml Blood Type Blood Type Recheck Antibody Screen Crossmatch 02/06/22 02/06/22 02/06/22 Range/Units 01:26 01:32 02:08 WBC (4.8-10.8) K/uL RBC (4.2-5.4) M/uL Hgb (12.0-16.0) g/dL Hct (37-47) % MCV (80-100) fL MCH (25-34) pg MCHC (32-36) g/dL RDW Std Deviation (36.4-46.3) fL RDW Coeff of Benjamin (11.5-14.5) % Plt Count (130-400) K/uL MPV (7.4-10.4) fL Immature Gran % (Auto) % Neut % (Auto) % Lymph % (Auto) % [place] % (Auto) % Eos % (Auto) % Baso % (Auto) % Neut # (Auto) (1.4-6.5) K/uL Lymph # (Auto) (1.2-3.4) K/uL [place] # (Auto) (0.11-0.59) K/uL Eos # (Auto) (0-0.5) K/uL Baso # (Auto) (0-0.2) K/uL Immature Gran # (Auto) (0.00-0.02) K/uL Polychromasia Hypochromasia Schistocytes PT (9.0-12.0) Seconds INR (0.9-1.1) Sodium (136-145) mmol/L Potassium (3.5-5.1) mmol/L Chloride (98-107) mmol/L Carbon Dioxide (21-32) mmol/L Anion Gap (3-11) BUN (6-23) mg/dl Creatinine (0.6-1.2) mg/dl Est Cr Clr Drug Dosing ml/min Est GFR ( Amer) ml/min Est GFR (Non-Af Amer) ml/min BUN/Creatinine Ratio (10-20) Glucose (70-99(Fasting)) mg/dl POC Glucose 75 (70-99) mg/dl Calcium (8.5-10.1) mg/dl Total Bilirubin (0.2-1.0) mg/dl AST (13-39) U/L ALT (7-52) U/L Alkaline Phosphatase (34-104) U/L Total Protein (6.0-8.3) gm/dl Albumin (3.4-5.0) gm/dl Globulin (2.5-4.0) gm/dl Albumin/Globulin Ratio (0.9-2) TSH (0.300-4.500) uIu/ml Acetaminophen (10-30) ug/ml Blood Type O Negative Blood Type Recheck O Negative Antibody Screen NEGATIVE Crossmatch See Detail 02/06/22 02/06/22 Range/Units 02:40 03:48 WBC (4.8-10.8) K/uL RBC (4.2-5.4) M/uL Hgb (12.0-16.0) g/dL Hct (37-47) % MCV (80-100) fL MCH (25-34) pg MCHC (32-36) g/dL RDW Std Deviation (36.4-46.3) fL RDW Coeff of Benjamin (11.5-14.5) % Plt Count (130-400) K/uL MPV (7.4-10.4) fL Immature Gran % (Auto) % Neut % (Auto) % Lymph % (Auto) % [place] % (Auto) % Eos % (Auto) % Baso % (Auto) % Neut # (Auto) (1.4-6.5) K/uL Lymph # (Auto) (1.2-3.4) K/uL [place] # (Auto) (0.11-0.59) K/uL Eos # (Auto) (0-0.5) K/uL Baso # (Auto) (0-0.2) K/uL Immature Gran # (Auto) (0.00-0.02) K/uL Polychromasia Hypochromasia Schistocytes PT 47.8 H (9.0-12.0) Seconds INR 4.9 H (0.9-1.1) Sodium (136-145) mmol/L Potassium (3.5-5.1) mmol/L Chloride (98-107) mmol/L Carbon Dioxide (21-32) mmol/L Anion Gap (3-11) BUN (6-23) mg/dl Creatinine (0.6-1.2) mg/dl Est Cr Clr Drug Dosing ml/min Est GFR ( Amer) ml/min Est GFR (Non-Af Amer) ml/min BUN/Creatinine Ratio (10-20) Glucose (70-99(Fasting)) mg/dl POC Glucose 55 L* (70-99) mg/dl Calcium (8.5-10.1) mg/dl Total Bilirubin (0.2-1.0) mg/dl AST (13-39) U/L ALT (7-52) U/L Alkaline Phosphatase (34-104) U/L Total Protein (6.0-8.3) gm/dl Albumin (3.4-5.0) gm/dl Globulin (2.5-4.0) gm/dl Albumin/Globulin Ratio (0.9-2) TSH (0.300-4.500) uIu/ml Acetaminophen (10-30) ug/ml Blood Type Blood Type Recheck Antibody Screen Crossmatch Administered Medications Dextrose/Sodium Chloride (D5w And 1/2nss) 1,000 mls @ 80 mls/hr IV .[id number] Stop: 02/06/22 17:44 Last Admin: 02/06/22 06:10 Dose: 80 mls/hr Documented by: [id number] Discharge Plan Visit Data Chief Complaint: Hypoglycemia Stated Complaint: LOW SUGAR,SWOLLEN LEGS ED Provider: Kathryn Carvalho Discharge Problem: Hypoglycemia, Anemia Patient Disposition: Admitted As Inpatient Discharge Instructions Interventions: ED Discharge Assessment Last Done: 02/06/22 05:04 Discharge Problem: Anemia Qualifiers: Anemia type: unspecified type Qualified Code(s): D64.9 - Anemia, unspecified
[2022-02-06 00:35] LABS: Basophils # (auto) 0.03 K/uL (0-0.2); Basophils % (auto) 0.5 %; Eosinophils # (auto) 0.08 K/uL (0-0.5); Eosinophils % (auto) 1.5 %; Hematocrit (blood only) 26.1 % (37-47); Hemoglobin 7.8 g/dL (12.0-16.0); Immature Granulocytes # (auto) 0.01 K/uL (0.00-0.02); Immature Granulocytes % (auto) 0.2 %; Lymphocytes # (auto) 0.99 K/uL (1.2-3.4); Lymphocytes % (auto) 18.1 %; Mean Corpuscular Hemoglobin 27.6 pg (25-34); Mean Corpuscular Hgb Conc 29.9 g/dL (32-36); Mean Corpuscular Volume 92.2 fL (80-100); Mean Platelet Volume 9.1 fL (7.4-10.4); Monocytes # (auto) 0.54 K/uL (0.11-0.59); Monocytes % (auto) 9.9 %; Neutrophils # (auto) 3.83 K/uL (1.4-6.5); Neutrophils % (auto) 69.8 %; Platelet Count 101 K/uL (130-400); RDW Coefficient of Variation 17.5 % (11.5-14.5); RDW Standard Deviation 58.9 fL (36.4-46.3); Red Blood Count 2.83 M/uL (4.2-5.4); White Blood Count 5.48 K/uL (4.8-10.8)
[2022-02-06 00:53] LABS: Hypochromasia Present; Polychromasia 1+; Schistocytes 1+
[2022-02-06 00:58] LABS: Albumin Globulin Ratio 1.2 (0.9-2); Albumin Level 3.6 gm/dl (3.4-5.0); BUN Creatinine Ratio 20.1 (10-20); Bilirubin,Total 0.6 mg/dl (0.2-1.0); Calcium 9.2 mg/dl (8.5-10.1); Creatinine Clr Calc Pharmacy 27.2 ml/min; Est GFR (African American) 40.9 ml/min; Est GFR (Non-African American) 35.3 ml/min; Globulin 3.1 gm/dl (2.5-4.0); Potassium 4.4 mmol/L (3.5-5.1); Total Protein 6.7 gm/dl (6.0-8.3)
[2022-02-06] MEDS ORDERED: SODIUM CHLORIDE 0.9% 250 ML IV PRN (01:17)
--- NOTE | 2022-02-06 02:17 | History & Physical Report ---
Date of Service February 06, 2022 Assessment & Plan (1) Hypoglycemia: Plan: 86 year old female w/ DM2 on glipizide, afib on warfarin, and HLD here for hypoglycemia most likely secondary to sulfonylurea in context of CKD. Stable. Asymptomatic. - Considered 2/2 glipizide extended release use in context of CKD, last dose of 10mg was 8pm 02/04/22. Effects may last several days - Consider d/c glipizide upon discharge - Lower suspicion for infection. UA deferred in absence of urinary symptoms. Not suspecting insulinoma. - Hypoglycemia protocol ordered. - D5 1/2 NSS 80mL/hr x 1 bag as BSG 45->75->55->59. - DM2 diet. - Check BSG ACHS - Home glipizide held. No SSI ordered. - TSH wnl - check AM cortisol - check A1c (2) Type 2 diabetes mellitus: Plan: - last a1c 09/2020 7.2. - was decreased from glipizide ER 10mg BID to qam. per patient, last dose was 10mg 8pm of 02/04/22. may have increased levels 2/2 egfr of 30s (3) Anemia: Plan: - Hb 7.8. Downtrended from 9.9 (01/07/22), 8.5 (02/03/22). - transfused 1u prbc in ED for Hb<8 - etiology unknown at this time. asymptomatic. normocytic. - check iron studies - no symptoms or signs of active bleeding at this time. ordered fecal occult (4) Chronic kidney disease, stage 3: Plan: baseline ~1.3, egfr 30s. at baseline - follow BMP (5) Anticoagulated on Coumadin: Plan: - supratherapeutic INR 4.9 today, 4.7 on 02/03/22 - hold warfarin (6) Atrial fibrillation: Plan: - permanent afib. warfarin currently held (7) Hypertension: Plan: - ok to continue home lisinopril w/ CKD in absence of PAMELA (8) Vaginal bleeding: Plan: - had issues w/ bleeding 2/2 pessary change several weeks ago and required stitches. likely 2/2 supratherapeutic INR (9) External hemorrhoids: Plan: - had bleeding hemorrhoids several wks ago. likely 2/2 supratherapeutic INR. May be contributory to subacute drop in Hb Plan: FEN/GI: DM2 diet. D5 1/2 NSS 80/hr. Hypoglycemic protocol. Anticoag: Hold home warfarin. code: full dispo: med tele History of Present Illness Chief Complaint: hypoglycemia Primary Care Provider: Ned Tomlin MD 86 year old female w/ DM2 on glipizide, parox afib on warfarin, and HLD here for hypoglycemia. She was discharged from [facility] ED 02/03/22 for a similar hypoglycemia though was more fatigued at that visit. She denies any symptoms during her current round of episodes. Family had checked her sugars at least once a day since the last ED visit. Per PCP wagon winder telephone note on 02/05/22 plan was to decrease her glipizide 10mg ER BID to qam and to hold if bsg <130. Per patient and family, her last dose of glipizide was 8pm on 02/04/22. Patient was not hypoglycemic prior to going to bed. Patient has had multiple episodes of BSGs in the 40s on 02/05/22. Family gave juices but were largely unsuccessful in treating the hypoglycemia so they presented to the ED in the evening. In the ED, patient's BSG was 45 and increased to 75 after juices and crackers. Patient has had mild chronic memory impairment, but per son, there is low suspicion for inappropriate medication intake. Patient lives w/ daughter and has family prearrange her medications in a pill box. History obtained from patient and son at bedside. Allergies Allergy/AdvReac Type Severity Reaction Status Date / Time acetaminophen [From Buchtel] AdvReac Nausea Verified 02/06/22 02:05 atorvastatin [From Lipitor] AdvReac NOT Verified 02/06/22 02:05 TOLERATED fluvastatin [From Lescol] AdvReac NOT Verified 02/06/22 02:05 TOLERATED gabapentin AdvReac Nausea Verified 02/06/22 02:05 hydrocodone [From Buchtel] AdvReac Nausea Verified 02/06/22 02:05 sulfamethoxazole AdvReac Nausea Verified 02/06/22 02:05 [From Bactrim] trimethoprim [From Bactrim] AdvReac Nausea Verified 02/06/22 02:05 Home Medications Medication Instructions Recorded Confirmed Type hydrocortisone 2.5 % topical cream 1 applic [place] TID PRN 14 Days #30 g 12/28/20 02/06/22 Rx with perineal applicator lisinopril 20 mg tablet 20 mg PO DAILY #90 tab 11/04/21 02/06/22 Rx warfarin 1 mg tablet 1 mg PO DAILY #90 tab 11/05/21 02/06/22 Rx allopurinol 100 mg tablet 200 mg PO DAILY #180 tab 11/19/21 02/06/22 Rx simvastatin 40 mg tablet 40 mg PO QPM #90 tab 11/19/21 02/06/22 Rx nystatin 100,000 unit/gram topical 1 applic TOPICAL BID #30 g 01/10/22 02/06/22 Rx powder Past Med/Surg History Medical History Acute dehydration Acute UTI Atrial fibrillation Chronic kidney disease, stage 3 Fall History of abnormal mammogram Hypertension Pessary maintenance Second degree uterine prolapse Sinusitis Type 2 diabetes mellitus Surgical History S/P cataract surgery Family History Mother Diabetes Breast cancer Brother Stroke Denies family history of Ovarian cancer Prostate cancer Myocardial infarction Colorectal cancer Social History Smoking Status: Never smoker Second Hand Exposure: No; Hx Alcohol Use: No Hx Substance Use: No Preferred Language: Syriac Communication Ability: Impaired Visual Impairment: No Limitations Hearing Ability: Normal Sugar Reprocess Operator Head Required: No Beliefs That Will Affect Care: None marital status: / Current Living Situation: Alone and Spouse Current Living Situation Comment: Family lives nearby and checks on her current occupational status: retired current occupation: retired from working at [employer] How many Children do You have: 6 How many Children do You have Comment: 1 Other Information That Helps Us Care for You: No Feels Safe at Home: Yes Childhood Exposure to Second-Hand Smoke: Yes during the past year weight has: remained stable Dental Care, Regularly: No Physical Activity Frequency: Daily Seatbelt Use: never Sunscreen Use: Yes Assistive Devices: Walker Review of Systems Review of Systems: All systems reviewed & are unremarkable except as noted in HPI & below Physical Exam Physical Exam: General: A&Ox4. NAD. Cooperative. Conversational. No confusion. HEENT: Atraumatic, normocephalic. EOMI Pulm: CTAB. -wheezes, -rales, -rhonchi. No respiratory distress. Cardiac: RRR, -mrg. Radial pulses intact and symmetrical. 2+ LE pretibial edema on L. Abdominal: Nontender, nondistended, soft. Integ: Warm, dry, intact Msk: Moving all extremities Results & Data Results & Data ([facility]) Vital Signs (Past 12 Hours) Vital Signs Temp Pulse Pulse Resp BP BP Pulse Ox 02/06/22 02:09 81 20 169/77 H 94 02/06/22 00:38 80 20 155/73 H 95 02/05/22 23:59 37.2 C 82 18 160/71 H 98 Laboratory Results Hb 7.8. Downtrended from 9.9 (01/07/22), 8.5 (02/03/22). INR 4.9. TSH wnl. 02/06/22 00:25 02/06/22 00:25 Cardiac Enzymes 02/06/22 Range/Units 00:25 AST 28 (13-39) U/L CBC 02/06/22 Range/Units 00:25 WBC 5.48 (4.8-10.8) K/uL RBC 2.83 L (4.2-5.4) M/uL Hgb 7.8 L (12.0-16.0) g/dL Hct 26.1 L (37-47) % Plt Count 101 L (130-400) K/uL Neut # (Auto) 3.83 (1.4-6.5) K/uL Lymph # (Auto) 0.99 L (1.2-3.4) K/uL Woods # (Auto) 0.54 (0.11-0.59) K/uL Eos # (Auto) 0.08 (0-0.5) K/uL Baso # (Auto) 0.03 (0-0.2) K/uL Comprehensive Metabolic Panel 02/06/22 Range/Units 00:25 Sodium 142 (136-145) mmol/L Potassium 4.4 (3.5-5.1) mmol/L Chloride 115 H (98-107) mmol/L Carbon Dioxide 21 (21-32) mmol/L BUN 27 H (6-23) mg/dl Creatinine 1.34 H (0.6-1.2) mg/dl Glucose 45 L* (70-99(Fasting)) mg/dl Calcium 9.2 (8.5-10.1) mg/dl AST 28 (13-39) U/L ALT 16 (7-52) U/L Alkaline Phosphatase 116 H (34-104) U/L Total Protein 6.7 (6.0-8.3) gm/dl Albumin 3.6 (3.4-5.0) gm/dl Intake and Output 02/05/22 02/05/22 02/06/22 14:59 22:59 06:59 Other: Weight 70 kg Weight Measurement Method [facility] Patient Weight 02/06/22 06:59 Weight 70 kg Diagnostic Findings cxr reviewed. Slightly decreased inspiratory effort compared to 09/2020 cxr. ECG Additional Comments: afib rate ~75. Code Status & VTE Plan Code Status full VTE Prophylaxis Plan VTE Prophylaxis will be ordered: Yes Reason for no VTE mechanical prophylaxis: Contraindicated Supervising Physician Co-Signing Physician Notes Attending addendum: I have physically seen this patient, have supervised the medical residents ac tivities, and agree with the H&P unless as otherwise noted. Assessment and Plan: Hypoglycemia, persistent- Hold glipizide as the likely cause Continue every hour Accu-Cheks Due to persistent lowering her blood sugar in the 50s in spite of adequate oral intake, will place on D10 half-normal saline at 80 mils per hour, and continue until hypoglycemia resolved Check hemoglobin A1c Continue liberalize diet for now Chronic anticoagulation with warfarin- INR supratherapeutic at 4.9 Hold warfarin and check serially, resume when INR is between 2-2.5 Anemia- Hemoglobin 7.8 previously trending down from 9.9-8.5 now 7.8 May just be secondary to a chronically supratherapeutic INR Transfuse 1 unit PRBCs in the ED Check appropriate studies as noted Remaining orders and notations as noted Resident Activity Tracking Resident Involvement: Resident Care Provided Care Provided: Adult Hospital Medicine (1) Anemia Anemia type: unspecified type Qualified Code(s): D64.9 - Anemia, unspecified
[2022-02-06 03:09] LABS: INR 4.9 (0.9-1.1); Prothrombin Time 47.8 Seconds (9.0-12.0)
[2022-02-06] MEDS ORDERED: GLUCOSE 40% GEL 15 GM TUBE PO PRN ×2 (05:04→06:07)
[2022-02-06] MEDS ORDERED: DEXTROSE 50% 50 ML SYRINGE IV PRN ×2 (05:04→06:07)
[2022-02-06] MEDS ORDERED: GLUCOSE 10 TABS/TUBE PO PRN ×2 (05:04→06:07)
[2022-02-06] MEDS ORDERED: CARBOHYDRATES FOR HYPOGLYCEMIA PO PRN ×2 (05:04→06:07)
[2022-02-06] MEDS ORDERED: D5W AND 1/2NSS 1,000 ML IV SCH (05:15)
[2022-02-06] MEDS ORDERED: ONDANSETRON INJ 2 MG/ML 2 ML VIAL IV PRN (06:07)
--- NOTE | 2022-02-06 07:36 | Electrocardiogram Report ---
Test Reason : Blood Pressure : / mmHG Vent. Rate : 075 BPM Atrial Rate : 073 BPM P-R Int : 000 ms QRS Dur : 124 ms QT Int : 418 ms P-R-T Axes : 000 -54 024 degrees QTc Int : 466 ms Poor data quality, interpretation may be adversely affected Atrial fibrillation Left axis deviation Right bundle branch block Inferior infarct , age undetermined Abnormal ECG When compared with ECG of 03-FEB-2022 13:51, QRS duration has decreased T wave inversion no longer evident in Lateral leads Confirmed by Ned Henry ([id number]) on 02/06/2022 7:36:42 AM Referred By: REFERRED SELF Confirmed By:Dipak Henry
[2022-02-06 07:37] LABS: Hemoglobin 8.2 g/dL (12.0-16.0); Mean Corpuscular Hemoglobin 27.8 pg (25-34); Mean Corpuscular Hgb Conc 30.4 g/dL (32-36); Mean Corpuscular Volume 91.5 fL (80-100); RDW Coefficient of Variation 18.1 % (11.5-14.5); RDW Standard Deviation 60.6 fL (36.4-46.3); Red Blood Count 2.95 M/uL (4.2-5.4); White Blood Count 5.66 K/uL (4.8-10.8)
--- NOTE | 2022-02-06 07:41 | XRay Report ---
XR chest 1V portable CLINICAL HISTORY: weakness. Evaluate cardiopulmonary status COMPARISON STUDY: 10/11/2020 TECHNIQUE: 1 view of the chest FINDINGS: Single frontal view of the chest demonstrates the heart to be enlarged. There is a decreased inspirat ory effort with elevation of the hemidiaphragms and crowding of the bronchovascular markings at the l fransisco bases and centrally. There is haziness at the left lung base with blunting the left costophrenic angle characteristic of a small pleural effusion. There are no alveolar opacities. There is no defini te right pleural effusion. There is no evidence for vascular congestion. There is no acute osseous pa thology. IMPRESSION: 1. Decreased inspiration with suspicion of small left pleural effusion. Follow-up PA and lateral radi ographs would be helpful for further evaluation. ACT 112: Negative or not required by law. Electronically signed by: Patrick Kay M.D. 02/06/2022 7:40 AM
[2022-02-06 08:00] LABS: Platelet Count 96 K/uL (130-400); Platelet Estimate Decreased (Normal)
[2022-02-06 08:16] LABS: Troponin I High Sensitivity 19.8 pg/ml (0-14)
[2022-02-06 08:25] LABS: BUN Creatinine Ratio 20.7 (10-20); Calcium 8.9 mg/dl (8.5-10.1); Creatinine Clr Calc Pharmacy 30.2 ml/min; Est GFR (African American) 46.3 ml/min; Est GFR (Non-African American) 39.9 ml/min; Potassium 4.9 mmol/L (3.5-5.1)
[2022-02-06 08:29] LABS: Ferritin 43.4 ng/ml (8-388)
[2022-02-06] MEDS: lisinopril 20 MG TAB PO SCH (08:44)
[2022-02-06] MEDS ORDERED: DEXTROSE 50% 50 ML SYRINGE IV ONE (11:40)
[2022-02-06] MEDS: SODI CHLOR 2.5MEQ/ML 14.6% 77 MEQ in DEXTROSE 10% 1,000 ML IV SCH (12:03)
--- NOTE | 2022-02-06 12:17 | Hospitalist Progress Note ---
Date of Service February 06, 2022 Assessment & Plan (1) Hypoglycemia: Plan: 86 year old female w/ DM2 on glipizide, afib on warfarin, CKD and HLD here for hypoglycemia - Most likely due to sulfonylurea adverse effect. Workup and clinical history do not suggest infection or acute process - TSH, cortisol wnl - A1C pending, most recent 09/2020 of 7.2% - Holding home glipizide. No SSI or basal insulin ordered - Hypoglycemic protocol and PRNs ordered - Currently D10 1/2 NSS at maintenance with D50 ampule ordered for persistent hypoglycemia (2) Fluid overload: Plan: -Clinical exam significant for increased peripheral edema + mildly rhonchorous breath sounds. Suspect peripheral edema has element of venous stasis -CXR without pulmonary edema but small left pleural effusion -EF 09/2020 of 60-65% -Repeat echocardiogram ordered -Encouraged ambulation. Will begin diuresis pending volume status and echocardiogram results -Trend BMP -Daily weights, I's/O's (3) Type 2 diabetes mellitus: Plan: - last a1c 09/2020 7.2. - was decreased from glipizide ER 10mg BID to qam. per patient, last dose was 10mg 8pm of 02/04/22. may have increased levels 2/2 egfr of 30s - Currently holding basal + SSI insulin for hypoglycemia (4) Anemia: Plan: - Hb 7.8. Downtrended from 9.9 (01/07/22), 8.5 (02/03/22). - transfused 1u prbc in ED for Hb<8. 8.2 after transfusion - likely secondary to recent bleeding from pessary placement - currently asymptomatic. normocytic. no signs or symptoms of active bleeding now - iron studies, fecal occult blood pending - B12, folate ordered- also may be related to her thrombocytopenia of 96 (5) Chronic kidney disease, stage 3: Plan: baseline ~1.3, egfr 30s. at baseline - follow BMP (6) Anticoagulated on Coumadin: Plan: - supratherapeutic INR 4.9 today, 4.7 on 02/03/22 - hold warfarin - trend INR, resume warfarin once therapeutic range and stable (7) Atrial fibrillation: Plan: - permanent afib. warfarin currently held due to supratherapeutic INR (8) Hypertension: Plan: - ok to continue home lisinopril w/ CKD in absence of PAMELA (9) Vaginal bleeding: Plan: - had issues w/ bleeding 2/2 pessary change several weeks ago and required stitches. likely 2/2 supratherapeutic INR (10) External hemorrhoids: Plan: - had bleeding hemorrhoids several wks ago. likely 2/2 supratherapeutic INR. May be contributory to subacute drop in Hb Plan: FEN/GI: DM2 diet. D10 1/2 NSS 80/hr. Hypoglycemic protocol. Anticoag: Hold home warfarin. SCDs code: full dispo: med tele Admission and Anticipated Discharge Date Admission Date: February 06, 2022 Supervising Physician Co-Signing Physician Notes I personally examined the patient and verified all huntley points of history and exam, discussed case, and agree with decision making with Dr German. Notes that she ate okay, but did not 28 more because she was afraid it would make her nauseated. Otherwise feeling okay. Vitals noted, in general she is awake and alert otherwise no distress. HEENT normocephalic atraumatic mucous membranes moist. Breathing unlabored no accessory muscle use good effort. Skin shows no rashes no pallor or icterus. Neuro without focal deficits. Hypoglycemialikely sulfonylurea induced. It has been heldit may take a while to washoutwould definitely want quite a while of glucose stability before assuming she is safe for home. Continue IV dextrose titrating as needed to maintain euglycemia. Encourage diet. Appearance of CHFuncertain typeecho pending. Fortunately on room air. Otherwise as above. Thrombocytopeniauncertain etiology, consider further lab work-up for "building blocks" such as iron/B12/folate, consider follow and outpatient hematology. Supratherapeutic INRno bleedingcontinue to hold Coumadin and follow. Otherwise as above Subjective Had multiple incidents of hypoglycemia since admission- in 60s, no significant symptoms. Has been eating snacks, on D5 maintenance fluids. Pt evaluated with daughter at bedside. Pt denies any symptoms aside from some fatigue but otherwise feels well. Denies dyspnea but notes her legs have been more swollen over past few days- they improve with elevation and heating pad. Daughter concerned about pt's nutrition. Review of Systems Review of Systems: Per Subjective Physical Exam Physical Exam: General: A&Ox4. NAD. Cooperative. Conversational. No confusion. HEENT: Atraumatic, normocephalic. EOMI Pulm: Faint crackles along bases. -wheezes, -rales, -rhonchi. No respiratory distress. Cardiac: Irregularly irregular rate and rhythm, -mrg. Radial pulses intact and symmetrical. 2+ LE pretibial edema b/l Abdominal: Nontender, nondistended, soft. Integ: Warm, dry, intact Msk: Moving all extremities Results & Data Results & Data ([facility]) Vital Signs (Past 12 Hours) Vital Signs Temp Pulse Pulse Resp BP BP Pulse Ox 02/06/22 07:34 36.3 C L 81 16 166/92 H 93 02/06/22 07:30 36.3 C L 81 18 154/70 H 94 02/06/22 04:45 36.6 C 72 19 139/87 96 02/06/22 04:05 76 20 156/95 H 96 02/06/22 03:45 36.4 C L 78 19 164/91 H 95 02/06/22 03:32 36.4 C L 73 20 153/82 H 95 02/06/22 03:15 36.6 C 73 20 162/92 H 95 02/06/22 03:00 36.5 C 78 20 156/84 H 95 02/06/22 02:40 36.6 C 79 19 169/77 H 96 02/06/22 02:09 81 20 169/77 H 94 02/06/22 00:38 80 20 155/73 H 95 Resident Activity Tracking Resident Involvement: Resident Care Provided Care Provided: Adult Hospital Medicine (1) Anemia Anemia type: unspecified type Qualified Code(s): D64.9 - Anemia, unspecified
[2022-02-06 12:59] LABS: Folate (Folic Acid) > 22.30 ng/ml (>5.38)
[2022-02-06 13:00] LABS: Vitamin B12 442 pg/ml (180-914)
--- NOTE | 2022-02-06 17:17 | Billing Data ---
Date of Service February 06, 2022 Coding Level of Care Code 06279 Subseq Obs Care Lvl 3
--- NOTE | 2022-02-06 18:25 | XCELERA ---
[id number]
[2022-02-06] MEDS: SIMVASTATIN 40 MG TAB PO SCH (20:21)
[2022-02-07] MEDS: SODI CHLOR 2.5MEQ/ML 14.6% 77 MEQ in DEXTROSE 10% 1,000 ML IV SCH (00:14)
--- NOTE | 2022-02-07 05:21 | Billing Data ---
Date of Service February 07, 2022 Coding Level of Care Code INT OBSERVATION CARE 70M LVL 3
[2022-02-07 06:45] LABS: Hematocrit (blood only) 27.2 % (37-47); Hemoglobin 8.3 g/dL (12.0-16.0); Mean Corpuscular Hemoglobin 27.7 pg (25-34); Mean Corpuscular Hgb Conc 30.5 g/dL (32-36); Mean Corpuscular Volume 90.7 fL (80-100); RDW Coefficient of Variation 18.1 % (11.5-14.5); RDW Standard Deviation 59.8 fL (36.4-46.3); White Blood Count 5.46 K/uL (4.8-10.8)
[2022-02-07 06:58] LABS: Mean Platelet Volume 10.1 fL (7.4-10.4); Platelet Count 90 K/uL (130-400)
[2022-02-07 07:07] LABS: BUN Creatinine Ratio 17.2 (10-20); Calcium 8.7 mg/dl (8.5-10.1); Creatinine Clr Calc Pharmacy 29.9 ml/min; Est GFR (African American) 45.8 ml/min; Est GFR (Non-African American) 39.5 ml/min; Potassium 4.9 mmol/L (3.5-5.1)
[2022-02-07 07:27] LABS: Estimated Average Glucose 126 mg/dl
[2022-02-07 07:31] LABS: Prothrombin Time 39.7 Seconds (9.0-12.0)
[2022-02-07] MEDS: lisinopril 20 MG TAB PO SCH (07:58)
--- NOTE | 2022-02-07 09:45 | Hospitalist Progress Note ---
Date of Service February 07, 2022 Assessment & Plan (1) Hypoglycemia: Plan: 86 year old female w/ DM2 on glipizide, afib on warfarin, CKD and HLD here for hypoglycemia - Most likely due to sulfonylurea adverse effect. Workup and clinical history do not suggest infection or acute process - TSH, cortisol wnl - A1C of 6.0% - Holding home glipizide. No SSI or basal insulin ordered - Hypoglycemic protocol and PRNs ordered - Currently D10 1/2 NSS at maintenance with D50 ampule ordered for persistent hypoglycemia - Will order regular diet and decrease fluids pending improvement of PO intake, goal to stop IVF in evening if eating lunch/dinner fully - Will order SSI once PO intake adequate + sugars stable (2) Fluid overload: Plan: -Clinical exam on admission significant for increased peripheral edema + mildly rhonchorous breath sounds. Suspect peripheral edema has element of venous stasis -CXR without pulmonary edema but small left pleural effusion -EF 09/2020 of 60-65%. Repeat echo this admission with EF 50-55% and moderate to severe tricuspid regurgitation, this may have contributed to her pleural effusion -Encourage continued ambulation. Unlikely to require diuresis currently given improving fluid status without diuretic therapy -Trend BMP -Daily weights, I's/O's (3) Type 2 diabetes mellitus: Plan: - last a1c 09/2020 7.2. A1C currently 6.0% - was decreased from glipizide ER 10mg BID to qam. per patient, last dose was 10mg 8pm of 02/04/22. may have increased levels 2/2 egfr of 30s - Currently holding basal + SSI insulin for hypoglycemia - Will d/c glipizide on discharge, consider alternative oral diabetic agent with less risk of hypoglycemia (4) Anemia: Plan: - Hb 7.8, transfused 1u prbc in ED for Hb<8. 8.2 after transfusion. Stable now at 8.3 - likely secondary to recent bleeding from recent pessary placement - currently asymptomatic. normocytic. no signs or symptoms of active bleeding now - iron level, B12, folate wnl (5) Chronic kidney disease, stage 3: Plan: baseline ~1.3, egfr 30s. at baseline - continue lisinopril - follow BMP (6) Thrombocytopenia: Plan: -Plts 110 on admission, downtrending to 90 today -Do not suspect infection at this time -Currently no suspicion for bleeding or noted signs of bleeding/bruising on exam -B12, folate, iron wnl -Peripheral smear ordered (7) Anticoagulated on Coumadin: Plan: - supratherapeutic INR 4.9 today, remains supratherapeutic - hold warfarin - trend INR, resume warfarin once therapeutic range and stable (8) Atrial fibrillation: Plan: - permanent afib. warfarin currently held due to supratherapeutic INR - Currently rate controlled in 80s (9) Hypertension: Plan: - Continue home lisinopril w/ CKD in absence of PAMELA (10) Vaginal bleeding: Plan: - had issues w/ bleeding 2/2 pessary change several weeks ago and required stitches. likely 2/2 supratherapeutic INR (11) External hemorrhoids: Plan: - had bleeding hemorrhoids several wks ago. likely 2/2 supratherapeutic INR. May be contributory to subacute drop in Hb Plan: FEN/GI: Regular diet. D10 1/2 NSS 80/hr. Hypoglycemic protocol. Anticoag: Hold home warfarin. SCDs code: full dispo: med tele Admission and Anticipated Discharge Date Admission Date: February 06, 2022 Supervising Physician Co-Signing Physician Notes Patient seen and examined with PGY-1 Dr. German. Agree with history, exam findings, assessment and plan of care as outlined. In brief, Ms Woodard is an 86 year old female with hx of DM2, afib (AC with coumadin), CKD and HLD admitted with hypoglycemia. Today, feeling well. She was able to eat and tolerate both breakfast and lunch without nausea or vomiting. Mid-day glucose level was ~200 (she was on D10 and had just eaten breakfast). Her daughter, who is staying with her but typically lives in [place], is concerned about the lower extremity edema. Prior to 3 weeks ago, Rob legs were not swollen at all. Daughter reports that she noticed that mom also had swelling of the soft tissue around the abdomen. Vital signs and nursing notes reviewed. Alert and oriented. Heart with regular rate and rhythm. No murmur. +1 edema to the knee bilaterally. Lungs with decreased breath sounds at the bases. 1. Hypoglycemia. Likely secondary to sulfonylurea (on glipizide at home). Stop glipizide. Consider a different glycemic control agent to minimize risk of hypoglycemia. Liberalized diet today. 2. DM2. A1C 7.2%. Goal A1C for her would be ~8%. 3. Peripheral edema with small left pleural effusion on CXR. Likely secondary to right sided heart failure in the setting of moderate to severe tricuspid regurgitation. Will do 20mg IV Lasix today. Reassess volume status in the AM. She can follow up with outpatient shorer after discharge. 4. Anemia. Received 1unit PRBCs on admission. Iron studies, folate and B12 in a normal range. 5. CKD. Cr 1.21 (at baseline). 6. Thrombocytopenia. 7. Afib. Holding coumadin, INR at 4.9 on admission; now 4.0 8. HTN. Continue home lisinopril. Dispo: PT/OT eval; possible discharge in the next day or two. Subjective No acute events overnight, BSGs have been stable and in range. Still not eating too much, says she didn't have much for dinner but is eager for breakfast. Denies any chest pain, dyspnea. Was able to walk around unit a few times yesterday without much difficulty. Denies any acute complaints at present, states sleeping with her head elevated provides relief of the leg swelling she's had Review of Systems Review of Systems: Per Subjective Physical Exam Physical Exam: General: NAD. Cooperative. Conversational. No confusion. HEENT: Mildly dry mucous membranes, no lymphadenopathy b/l Pulm: Faint crackles along bases. -wheezes, -rales, -rhonchi. No respiratory distress. Cardiac: Irregularly irregular rate and rhythm, -mrg. Radial pulses intact and symmetrical. 1+ LE pretibial edema b/l Abdominal: Nontender, nondistended, soft. Skin: Warm, dry, intact Results & Data Results [facility] ([facility]) Vital Signs (Past 12 Hours) Vital Signs Temp Pulse Pulse Resp BP Pulse Ox 02/07/22 07:49 36.7 C 88 18 167/84 H 93 02/07/22 07:22 59 L 02/07/22 03:36 36.6 C 76 16 146/70 H 95 02/06/22 23:00 37 C 84 18 148/77 H 93 Resident Activity Tracking Resident Involvement: Resident Care Provided Care Provided: Adult Hospital Medicine (1) Anemia Anemia type: unspecified type Qualified Code(s): D64.9 - Anemia, unspecified
[2022-02-07] MEDS ORDERED: DEXTROSE 50% 50 ML SYRINGE IV PRN (12:53)
[2022-02-07] MEDS ORDERED: CARBOHYDRATES FOR HYPOGLYCEMIA PO PRN (12:53)
[2022-02-07] MEDS ORDERED: GLUCOSE 10 TABS/TUBE PO PRN (12:53)
[2022-02-07] MEDS ORDERED: GLUCAGON FOR INJ 1 MG VIAL SQ PRN (12:53)
[2022-02-07] MEDS ORDERED: GLUCOSE 40% GEL 15 GM TUBE PO PRN (12:53)
[2022-02-07] MEDS ORDERED: FUROSEMIDE INJ 20 MG/2 ML VIAL IV ONE (13:28)
[2022-02-07] MEDS: DICLOFENAC SOD 1% GEL 100 GM TUBE EXT SCH ×2 (15:01→20:40)
[2022-02-07] MEDS: INSULIN ASPART PER UNIT SC SCH ×2 (17:12→20:42)
[2022-02-07 17:49] LABS: Appearance Urine Clear (Clear); Bacteria Urine Automated 4+ (Negative); Bilirubin Urine Negative (Negative); Blood Urine Trace (Negative); Color Urine Yellow; Glucose Urine UA Negative (Negative); Ketones Urine Negative (Negative); Leukocyte Esterase Urine 2+ (Negative); Nitrite Urine Positive (Negative); Protein Urine 1+ (Negative); RBC Urine Automated 0-4 /hpf (0-4); Specific Gravity Urine 1.007 (1.000-1.030); Urobilinogen Urine Negative (Negative)
[2022-02-07] MEDS: SIMVASTATIN 40 MG TAB PO SCH (20:39)
[2022-02-07] MEDS: ACETAMINOPHEN 325 MG TAB PO PRN (22:22)
[2022-02-08] MEDS: DICLOFENAC SOD 1% GEL 100 GM TUBE EXT SCH ×4 (03:19→20:41)
[2022-02-08] MEDS: lisinopril 20 MG TAB PO SCH (08:12)
[2022-02-08] MEDS: ACETAMINOPHEN 325 MG TAB PO PRN (08:14)
[2022-02-08] MEDS: INSULIN ASPART PER UNIT SC SCH ×4 (08:15→20:46)
[2022-02-08 08:34] LABS: Hemoglobin 8.3 g/dL (12.0-16.0); Mean Corpuscular Hemoglobin 27.8 pg (25-34); Mean Corpuscular Hgb Conc 30.7 g/dL (32-36); Mean Corpuscular Volume 90.3 fL (80-100); RDW Coefficient of Variation 17.5 % (11.5-14.5); RDW Standard Deviation 57.8 fL (36.4-46.3); Red Blood Count 2.99 M/uL (4.2-5.4); White Blood Count 5.24 K/uL (4.8-10.8)
[2022-02-08 08:43] LABS: INR 2.5 (0.9-1.1); Prothrombin Time 25.8 Seconds (9.0-12.0)
[2022-02-08 08:52] LABS: BUN Creatinine Ratio 16.4 (10-20); Creatinine Clr Calc Pharmacy 24.9 ml/min; Est GFR (African American) 36.9 ml/min; Est GFR (Non-African American) 31.8 ml/min; Potassium 4.8 mmol/L (3.5-5.1)
[2022-02-08 09:08] LABS: Mean Platelet Volume 9.5 fL (7.4-10.4); Platelet Count 93 K/uL (130-400)
--- NOTE | 2022-02-08 11:34 | Hospitalist Progress Note ---
Date of Service February 08, 2022 Assessment & Plan (1) Hypoglycemia: Plan: 86 year old female w/ DM2 on glipizide, afib on warfarin, CKD and HLD here for hypoglycemia - Most likely due to sulfonylurea adverse effect. Workup and clinical history do not suggest infection or acute process - TSH, cortisol wnl - A1C of 6.0% - Holding home glipizide. Hypoglycemic protocol and PRNs ordered - Regular diet, SSI - BSGs in low-mid 100s, stable (2) Fluid overload: Plan: -Clinical exam on admission significant for increased peripheral edema + mildly rhonchorous breath sounds. Suspect peripheral edema has element of venous stasis -CXR without pulmonary edema but small left pleural effusion -EF 09/2020 of 60-65%. Repeat echo this admission with EF 50-55% and moderate to severe tricuspid regurgitation, this may have contributed to her pleural effusion -Encourage continued ambulation -Volume status improving but Cr 1.22 -> 1.46 today. ok to give lower dose of lasix 20mg PO. -Trend BMP -Daily weights, I's/O's (3) Type 2 diabetes mellitus: Plan: - last a1c 09/2020 7.2. A1C currently 6.0% - was decreased from glipizide ER 10mg BID to qam. per patient, last dose was 10mg 8pm of 02/04/22. may have increased levels 2/2 egfr of 30s - SSI, currently holding basal insulin - Will d/c glipizide on discharge, consider alternative oral diabetic agent with less risk of hypoglycemia. This can be decided by PCP (4) Anemia: Plan: - Hb 7.8, transfused 1u prbc in ED for Hb<8. 8.2 after transfusion. Stable now at 8.3 - likely secondary to recent bleeding from recent pessary placement - currently asymptomatic. normocytic. no signs or symptoms of active bleeding now - iron level, B12, folate wnl (5) Chronic kidney disease, stage 3: Plan: baseline ~1.3, egfr 30s. at baseline - Cr 1.22 -> 1.46 today, mild PAMELA 2/2 diuresis - continue lisinopril - follow BMP (6) Thrombocytopenia: Plan: -Plts 110 on admission, downtrending to 90 but 93 today -Do not suspect infection at this time -Currently no suspicion for bleeding or noted signs of bleeding/bruising on exam -B12, folate, iron studies wnl. Peripheral smear without acute findings (7) Anticoagulated on Coumadin: Plan: - warfarin 1 mg daily held on admission due to supratherapeutic INR 4.9 but INR 2.5 on 02/08 - Given thrombocytopenia, age and fall risk, there is concern about resuming warfarin despite its stroke risk reduction benefit - [id number] score of 6 with 9.7% risk per year of stroke - HAS-BLED score of 5 with 12.5% risk per year of major bleed - Risk/benefit discussion to be held with pt and family about continuing anticoagulation, will hold off on resuming warfarin until then - If warfarin will be resumed, will lower dose to 0.5 mg daily (8) Atrial fibrillation: Plan: - permanent afib, currently rate controlled in 80s - Anticoagulation as above (9) Hypertension: Plan: - Continue home lisinopril w/ CKD in absence of PAMELA (10) Vaginal bleeding: Plan: - had issues w/ bleeding 2/2 pessary change several weeks ago and required stitches. likely 2/2 supratherapeutic INR (11) External hemorrhoids: Plan: - had bleeding hemorrhoids several wks ago. likely 2/2 supratherapeutic INR. May be contributory to subacute drop in Hb Plan: FEN/GI: Regular diet. D10 1/2 NSS 80/hr. Hypoglycemic protocol. Anticoag: Hold home warfarin. SCDs code: full dispo: med tele Admission and Anticipated Discharge Date Admission Date: February 07, 2022 Supervising Physician Co-Signing Physician Notes Patient seen and examined with PGY-1 Dr. German. Agree with history, exam findings, assessment and plan of care as outlined. In brief, Ms Woodard is an 86 year old female with hx of DM2, afib (AC with coumadin), CKD and HLD admitted with hypoglycemia. Today, feeling well. She was able to eat and tolerate both breakfast and lunch without nausea or vomiting. Mid-day glucose level was ~140s. Daughter feels that the swelling in the legs and arms is improved following the IV Lasix dose yesterday. Vital signs and nursing notes reviewed. Alert and oriented. Heart with regular rate and rhythm. No murmur. +1 edema to the mid-gomez bilaterally. Lungs with decreased breath sounds at the bases. 1. Hypoglycemia. Likely secondary to sulfonylurea (on glipizide at home). Stop glipizide. Consider a different glycemic control agent to minimize risk of hypoglycemia. 2. DM2. A1C 7.2%. Goal A1C for her would be ~8%. 3. Peripheral edema with small left pleural effusion on CXR. Likely secondary to right sided heart failure/HFpEF in the setting of moderate to severe tricuspid regurgitation. s/p IV Lasix yesterday. She can follow up with outpatient contour path tape mill operator after discharge. Did have a small bump in Cr from 1.2 to 1.4 today following IV Lasix administration. 4. Anemia. Received 1unit PRBCs on admission. Iron studies, folate and B12 in a normal range. 5. CKD. Cr 1.21 (at baseline). 6. Thrombocytopenia. 7. Afib. Holding coumadin, INR at 4.9 on admission; now 2.5. Discussed with family risks/benefits of continuing anticoagulation. She has had prior admission with supratherapeutic INR and is on extremely low dose warfarin (1mg daily) and was still supratherapeutic on this admissionprobably due to decreased oral intake. CHADS-VASC score is 6, HAS-BLED score is 5. Will hold off on restarting warfarin for now, especially in light of recent episodes of supratherapeutic INRs. 8. HTN. Continue home lisinopril. Dispo: Possible discharge tomorrow with home health. Subjective No acute events overnight, BSGs have been stable and in range. Eating her meals fully. Denies any chest pain, dyspnea, lightheadedness. Notes her leg swelling has improved. Review of Systems Review of Systems: Per Subjective Physical Exam Physical Exam: General: NAD. Cooperative. Conversational. No confusion. HEENT: Mildly dry mucous membranes, no lymphadenopathy b/l Pulm: Faint crackles along bases. -wheezes, -rales, -rhonchi. No respiratory distress. Cardiac: Irregular rhythm, -mrg. Radial pulses intact and symmetrical. 1+ LE pretibial edema and trace peripheral edema b/l but R > L, improved from day prior Abdominal: Nontender, nondistended, soft. Skin: Warm, dry, intact Results & Data Results & Data ([facility]) Vital Signs (Past 12 Hours) Vital Signs Temp Pulse Pulse Pulse Resp BP Pulse Ox 02/08/22 08:00 36.7 C 61 18 134/62 97 02/08/22 07:07 50 L 02/08/22 03:00 36.5 C 63 20 163/86 H 95 02/07/22 23:40 36.9 C 74 16 146/80 H 93 Resident Activity Tracking Resident Involvement: Resident Care Provided Care Provided: Adult Hospital Medicine (1) Anemia Anemia type: unspecified type Qualified Code(s): D64.9 - Anemia, unspecified
[2022-02-08] MEDS: SIMVASTATIN 40 MG TAB PO SCH (20:44)
[2022-02-09] MEDS: DICLOFENAC SOD 1% GEL 100 GM TUBE EXT SCH ×3 (02:07→15:29)
[2022-02-09] MEDS: ACETAMINOPHEN 325 MG TAB PO PRN (05:06)
[2022-02-09] MEDS: lisinopril 20 MG TAB PO SCH (08:02)
[2022-02-09] MEDS: INSULIN ASPART PER UNIT SC SCH ×3 (08:05→16:55)
[2022-02-09 08:08] LABS: Hematocrit (blood only) 25.5 % (37-47); Hemoglobin 8.4 g/dL (12.0-16.0); Mean Corpuscular Hemoglobin 29.8 pg (25-34); Mean Corpuscular Hgb Conc 32.9 g/dL (32-36); Mean Corpuscular Volume 90.4 fL (80-100); RDW Coefficient of Variation 17.3 % (11.5-14.5); RDW Standard Deviation 57.4 fL (36.4-46.3); Red Blood Count 2.82 M/uL (4.2-5.4); White Blood Count 5.15 K/uL (4.8-10.8)
[2022-02-09 08:28] LABS: BUN Creatinine Ratio 21.1 (10-20); Calcium 8.5 mg/dl (8.5-10.1); Est GFR (African American) 35.1 ml/min; Est GFR (Non-African American) 30.3 ml/min; Potassium 4.5 mmol/L (3.5-5.1)
[2022-02-09 08:53] LABS: Mean Platelet Volume 10.7 fL (7.4-10.4); Platelet Count 99 K/uL (130-400)
[2022-02-09 08:54] LABS: Platelet Estimate Decreased (Normal)
[2022-02-09 08:57] LABS: INR 1.8 (0.9-1.1); Prothrombin Time 18.4 Seconds (9.0-12.0)
[2022-02-09] MEDS ORDERED: FUROSEMIDE 20 MG TAB PO SCH (09:00)
--- NOTE | 2022-02-09 13:29 | Discharge Summary ---
Date of Service February 09, 2022 Admission HPI Per Admitting Provider 86 year old female w/ DM2 on glipizide, parox afib on warfarin, and HLD here for hypoglycemia. She was discharged from [facility] ED 02/03/22 for a similar hypoglycemia though was more fatigued at that visit. She denies any symptoms during her current round of episodes. Family had checked her sugars at least once a day since the last ED visit. Per PCP news production supervisor telephone note on 02/05/22 plan was to decrease her glipizide 10mg ER BID to qam and to hold if bsg <130. Per patient and family, her last dose of glipizide was 8pm on 02/04/22. Patient was not hypoglycemic prior to going to bed. Patient has had multiple episodes of BSGs in the 40s on 02/05/22. Family gave juices but were largely unsuccessful in treating the hypoglycemia so they presented to the ED in the evening. In the ED, patient's BSG was 45 and increased to 75 after juices and crackers. Patient has had mild chronic memory impairment, but per son, there is low suspicion for inappropriate medication intake. Patient lives w/ daughter and has family prearrange her medications in a pill box. History obtained from patient and son at bedside. Admission Exam Per Admitting Provider General: A&Ox4. NAD. Cooperative. Conversational. No confusion. HEENT: Atraumatic, normocephalic. EOMI Pulm: CTAB. -wheezes, -rales, -rhonchi. No respiratory distress. Cardiac: RRR, -mrg. Radial pulses intact and symmetrical. 2+ LE pretibial edema on L. Abdominal: Nontender, nondistended, soft. Integ: Warm, dry, intact Msk: Moving all extremities Principal Diagnosis Hypoglycemia, fluid overload Discharge Exam General: NAD. Cooperative. Conversational. No confusion. HEENT: Mildly dry mucous membranes, no lymphadenopathy b/l Pulm: Faint crackles along bases. -wheezes, -rales, -rhonchi. No respiratory distress. Cardiac: Irregular rhythm, no murmurs, rubs or gallops. Radial pulses intact and symmetrical. 1+ LE pretibial edema b/l Abdominal: Nontender, nondistended, soft. Skin: Warm, dry, intact Discharge Data Allergies Allergy/AdvReac Type Severity Reaction Status Date / Time acetaminophen [From [place]] AdvReac Nausea Verified 02/06/22 02:05 atorvastatin [From Lipitor] AdvReac NOT Verified 02/06/22 02:05 TOLERATED fluvastatin [From [place]] AdvReac NOT Verified 02/06/22 02:05 TOLERATED gabapentin AdvReac Nausea Verified 02/06/22 02:05 hydrocodone [From [place]] AdvReac Nausea Verified 02/06/22 02:05 sulfamethoxazole AdvReac Nausea Verified 02/06/22 02:05 [From Bactrim] trimethoprim [From Bactrim] AdvReac Nausea Verified 02/06/22 02:05 Consultations 02/06/22 01:55 ED Decision to Admit Stat Hospital Course (1) Hypoglycemia: 86 year old female w/ DM2 on glipizide, afib on warfarin, CKD and HLD here for hypoglycemia - Most likely due to sulfonylurea adverse effect. Workup and clinical history do not suggest infection or acute process - TSH, cortisol wnl - A1C of 6.0% - S/p D10 IVF and one ampule of D50 during stay, transitioned to regular diet early in hospital course and noted no further incidents of hypoglycemia - BSGs have been stable in 100s - Discontinued home glipizide. Continue diabetic diet on discharge (2) Fluid overload: -Clinical exam on admission significant for increased peripheral edema + mildly rhonchorous breath sounds. Suspect peripheral edema has element of venous stasis -CXR without pulmonary edema but small left pleural effusion -EF 09/2020 of 60-65%. Repeat echo this admission with EF 50-55% and moderate to severe tricuspid regurgitation, this may have contributed to her pleural effusion -Minimal diuresis during stay, encouraged ambulation to help reduce volume overload -At time of discharge, still some significant 1+ pitting edema up to thighs b/l and attenuating abdominal wall firmness -Encouraged pt to continue ambulating to assist in clearing remainder of hypervolemia -Cr 1.46 -> 1.52 at time of discharge today. Hold off on continued diuresis at discharge -Repeat BMP on 02/11 -Close f/u with PCP on discharge, cardiology outpatient f/u as well (3) Type 2 diabetes mellitus: - last a1c 09/2020 7.2. A1C currently 6.0% - was decreased from glipizide ER 10mg BID to qam. per patient, last dose was 10mg 8pm of 02/04/22. may have increased levels 2/2 egfr of 30s - SSI, did not give any basal insulin during stay - D/c glipizide on discharge, consider alternative oral diabetic agent with less risk of hypoglycemia as outpatient (4) Anemia: - Hb 7.8, transfused 1u prbc in ED for Hb<8. 8.2 after transfusion. Stable now at 8.4 at time of discharge - likely secondary to recent bleeding from recent pessary placement - currently asymptomatic. normocytic. no signs or symptoms of active bleeding now - iron level, B12, folate wnl - Repeat CBC on 02/11 (5) Chronic kidney disease, stage 3: baseline ~1.3, egfr 30s. at baseline - Cr 1.46 -> 1.52 today, Cr stable - Continue home lisinopril on discharge due to CKD benefit - Repeat BMP on 02/11 (6) Thrombocytopenia: -Plts 110 on admission, downtrending to 90s -Do not suspect infection at this time -Currently no suspicion for bleeding or noted signs of bleeding/bruising on exam -B12, folate, iron studies wnl. Peripheral smear without acute findings -Platelets uptrending to 99 at time of discharge, repeat CBC as outpatient (7) Anticoagulated on Coumadin: - home warfarin 1 mg daily held on admission due to supratherapeutic INR 4.9 but INR 1.8 on 02/09 - Given thrombocytopenia, age and fall risk, there is concern about resuming warfarin despite its stroke risk reduction benefit - [id number] score of 6 with 9.7% risk per year of stroke - HAS-BLED score of 5 with 12.5% risk per year of major bleed - Risk/benefit discussion to be held with pt and family about continuing anticoagulation, family has decided to continue - Warfarin 1 mg reduced to 0.5 mg daily on discharge due to chronically supratherapeutic INR - Repeat INR on 02/11, will need weekly INR monitoring until therapeutic range (8) Atrial fibrillation: - permanent afib, was rate controlled in 80s - Anticoagulated with heparin during hospitalization. Home warfarin resumed on discharge. (9) Hypertension: - Continued home lisinopril w/ CKD in absence of PAMELA (10) Vaginal bleeding: - had issues w/ bleeding 2/2 pessary change several weeks ago and required stitches. likely 2/2 supratherapeutic INR (11) External hemorrhoids: - had bleeding hemorrhoids several wks ago. likely 2/2 supratherapeutic INR. May have been contributory to subacute drop in Hgb on presentation (12) Asymptomatic bacteriuria: -UA 02/07 grossly infected with +nitrites, leukocyte esterase, epithelial cells, WBCs, bacteria -Positive UCx for E Coli -No urinary symptoms noted as pt denied dysuria, urgency -Deferred treatment given lack of symptoms Total Time Total Time Spent Total Time Spent (In Minutes): 30 Discharge Plan Discharge Items Patient Disposition: Home - Home Health Services Reason For Visit: HYPOGLYCEMIA Discharge Diagnosis: Hypoglycemia, fluid overload Activity: Resume your previous activity Non-emergency contact: Primary Care Provider and [facility] Call non-emergency contact if: you have any medication questions, your symptoms worsen, your pain is worsening and you have a fever Follow-up/Referrals: Ned Tomlin MD [Primary Care Provider] - 02/10/22 4:00 pm Ned Henry MD [Physician] - 02/16/22 11:15 am (F/u in 1-2 weeks) Diet: Carb Consistent or DM2 Ambulatory Orders: Basic Metabolic Panel (Routine) Timeframe: 2 Days Location: Determined by Patient Ordered By: Lavonne Lassiter Complete Blood Count with Diff (Routine) Timeframe: 2 Days Location: Determined by Patient Ordered By: Lavonne Lassiter Prothrombin Time INR (Routine) Timeframe: 2 Days Location: Determined by Patient Ordered By: Lavonne Patricia Attending Provider Instructions: You were admitted to the hospital for low blood sugar and increased fluid in your legs. We stopped your diabetes medication because it can cause low sugars, and your sugars got better. Please see the directions below for medicine changes. We also gave you water pills to get some of the fluid off of your legs. While the fluid amount has improved, it is not completely resolved. We have to be careful with how much water pill you get because too much can damage your kidneys, so you will not be going home on a water pill. It is very important that you walk as much as possible to move the fluid out of your legs that collects when you sit. Follow up labwork: You have ordered labwork for Monday. You will have a BMP which will check your kidneys, a CBC which will check your blood count, and an INR to check if your warfarin dose needs to be changed. These levels will be sent to Dr. Tomlin's office. Follow-up appointments: Make a follow-up appointment with your PCP within the next week. It is very important that you follow up with them shortly after discharge from the hospital. We have requested a follow-up appointment with Cardiology within a few weeks of discharge. This is because one of the valves in your heart does not function well, and a [facility] Car[facility] should review your records. Please call their office if you do not hear from them at [phone]. Keep all your follow-up appointments as already scheduled. If you cannot make an appointment, notify your provider. Medications: Your medication list has been reviewed and reconciled upon discharge to ensure accuracy and continuity of care. An updated list of all your medications is included with your hospital discharge paperwork. Please review this list closely, and make note of any changes Your allopurinol dose was adjusted this visit. This is because of your age and current guidelines for dosing. Your new dose is 50 milligrams daily. Your warfarin dose was adjusted this visit. This is because of bleeding and having INR that was too high on 1 milligram daily. Your new dose is 0.5 milligrams (one half of a 1 milligram pill) daily. Your glipizide was stopped. You should discuss diabetes management with your doctor. Take your medications as instructed; do not skip a dose of your medicines. Make sure all of your doctors know every medicine you are taking (including epas-nbj-fokjcji medicines, vitamins, and supplements). Call your primary care provider before taking any new medicines (including mjhn-ijq-cuuaalw medicines, vitamins, and supplements), because some of these may interact with your current medications, or may make your symptoms worse. Tell your primary care provider if you cannot afford your medications. CONTACT YOUR PRIMARY CARE PROVIDER if you experience any of the following: Lightheadedness Worsening of leg swelling Belly swelling Chest pain Difficulty breathing Urinary problems Difficulty following your treatment plan, or difficulty taking medications CALL 911 OR GO TO THE EMERGENCY DEPARTMENT if you experience any of the following: Sudden, severe abdominal pain or nausea/vomiting Severe chest pain, or chest pain that radiates (moves) to your jaw or arm Sudden, severe shortness of breath or difficulty breathing A discharge summary will be sent to your primary care physician to ensure continuity of care. Please bring this discharge paperwork with you to your next office appointment so that your provider can review it at that time. Thank you for allowing us to participate in your care. Pending Studies at Discharge: No Stand-Alone Forms: My [facility] Medications and DC Order Prescriptions: New warfarin 1 mg Tablet 0.5 mg PO DAILY@1600 30 Days RF: 0 allopurinol 100 mg tablet 50 mg PO DAILY 30 Days Qty: 15 RF: 0 Continued hydrocortisone 2.5 % cream with perineal applicator 1 applic [place] TID PRN (Reason: hemorrhoids) 14 Days Qty: 30 RF: 2 lisinopril 20 mg tablet 20 mg PO DAILY Qty: 90 RF: 3 simvastatin 40 mg tablet 40 mg PO QPM Qty: 90 RF: 3 nystatin 100,000 unit/gram powder 1 applic topical BID Qty: 30 RF: 5 Discontinued warfarin 1 mg tablet 1 mg PO DAILY Qty: 90 RF: 3 allopurinol 100 mg tablet 200 mg PO DAILY Qty: 180 RF: 3 Discharge Orders: Discharge Order (Routine); Ordered 02/09/22 Ordered By: Lavonne Zabala/Other Patient Handouts: What to Know When TakingWarfarin, Hypoglycemia (Low Blood Sugar), Managing Type 2 Diabetes, Low Salt Diet Dc Admission Data Admit Date/Time: 02/07/22 16:07 Attending Provider: Jean-Claude Schneider Admit Provider: Janie German Primary Care Provider: Ned Tomlin Other Providers: Zane Lopez ; [facility] Other Interventions: Discharge Summary Assessment (RN) Last Done: 02/09/22 13:24 Supervising Physician Co-Signing Physician Notes Patient seen and examined with PGY-1 Dr. German. Agree with history, exam findings, assessment and plan of care as outlined. In brief, Ms Woodard is an 86 year old female with hx of DM2, afib (AC with coumadin), CKD and HLD admitted with hypoglycemia. Daughter is at the bedside. Today, feeling well. Swelling in the legs continues, but is a bit better than before. She did get an oral dose of Lasix 20mg this morning. Vital signs and nursing notes reviewed. Alert and oriented. Heart with regular rate and rhythm. No murmur. +1 edema to the mid-gomez bilaterally. Lungs with decreased breath sounds at the bases. 1. Hypoglycemia. Likely secondary to sulfonylurea (on glipizide at home). Stop glipizide. Consider a different glycemic control agent to minimize risk of hypoglycemia. 2. DM2. A1C 7.2%. Goal A1C for her would be ~8%. 3. Peripheral edema with small left pleural effusion on CXR. Likely secondary to right sided heart failure/HFpEF in the setting of moderate to severe tricuspid regurgitation. s/p IV Lasix yesterday and PO Lasix today. Continue with FAUSTINO hose/compression stockings to help with some fluid mobilization. She can follow up with outpatient rubber heel and sole press tender after discharge with regard to her valve and also her PCP re: Lasix and monitoring of renal function. 4. Anemia and thrombocytopenia. Received 1unit PRBCs on admission. Iron studies, folate and B12 in a normal range. Repeat CBC on Monday. 5. CKD. Slight bump with diuresis. Repeat BMP on Monday. 6. Thrombocytopenia. 7. Afib. Holding coumadin, INR at 4.9 on admission; now 2.5. Discussed with family risks/benefits of continuing anticoagulation. She has had prior admission with supratherapeutic INR and is on extremely low dose warfarin (1mg daily) and was still supratherapeutic on this admissionprobably due to decreased oral intake. CHADS-VASC score is 6, HAS-BLED score is 5. Discussed with familythey would like to continue warfarin after risks/benefit discussion. Encourage that family continue to be educated on risks/benefits of continued anticoagulation and bleeding risks/supratherapeutic INR with PO intake being up and down. Restart at 0.5mg. Repeat INR on Monday. 8. HTN. Continue home lisinopril. Dispo: Discharged home today. I personally spent 35 minutes discharge planning for this patient. Resident Activity Tracking Resident Involvement: Resident Care Provided Care Provided: Adult Hospital Medicine
[2022-02-09] MEDS ORDERED: WARFARIN SOD 0.5 MG TAB PO SCH (16:00)
== END 2022-02-09 17:12 | disposition home health service (06) | DRG 638 ==
LOC: 2W 23:56 → ED 23:56 → SUATTDRO 02-06 03:57 → 2W 02-06 05:04

== ENCOUNTER 2022-03-04 20:32 | Inpatient (IN) ==
[2022-03-04] MEDS ORDERED: SODIUM CHLORIDE 0.9% 1000ML 250 ML IV ONE (21:23)
[2022-03-04] MEDS ORDERED: ONDANSETRON INJ 2 MG/ML 2 ML VIAL IV STA (21:23)
--- NOTE | 2022-03-04 21:29 | Emergency Department Note ---
History of Present Illness General Chief complaint: Illness Stated complaint: TROUBLE EATING, TROUBLE SLEEPING, INCONTINENT Time Seen by Provider: 03/04/22 21:06 Source: patient and family (Son who is at the bedside) Mode of arrival: ambulatory Limitations: no limitations History of Present Illness This patient is brought in by her son after she has been having vomiting. She started having a deep cough about a week ago she was seen here about 2 nights ago and was started on Lasix as well as 2 different antibiotics and potassium. She started the medications yesterday around 430 and by 6 or 630 she felt deathly ill she was nauseated and vomited. She says she feels very sick and cannot keep anything down. No fever or chills. She does have a cough still but [place] any shortness of breath or chest pain she feels weak all over no headache neck pain or stiffness no fall no blood or melena in her stool or vomit. She has no hemoptysis. She is convinced that the medications were making her sick and she feels deathly ill Home Medications Medication Instructions Recorded Confirmed Type hydrocortisone 2.5 % topical cream 1 applic [place] TID PRN 14 Days #30 g 12/28/20 03/04/22 Rx with perineal applicator lisinopril 20 mg tablet 20 mg PO DAILY #90 tab 11/04/21 03/04/22 Rx simvastatin 40 mg tablet 40 mg PO QPM #90 tab 11/19/21 03/04/22 Rx allopurinol 100 mg tablet 50 mg PO DAILY 30 Days #15 tab 02/09/22 03/04/22 Rx blood sugar diagnostic (Accu-Chek #50 ea 02/23/22 02/24/22 Rx Cheryl Plus test strp) blood-glucose meter (Accu-Chek #1 ea 02/23/22 02/24/22 Rx Cheryl Plus Meter) lancets (Accu-Chek Softclix #100 ea 02/23/22 02/24/22 Rx Lancets) Saccharomyces boulardii 250 mg 250 mg PO BID #20 cap 03/02/22 03/04/22 Rx capsule (Florastor) azithromycin 250 mg tablet 250 mg PO DAILY 4 Days #4 tab 03/02/22 03/04/22 Rx cefdinir 300 mg capsule 300 mg PO BID 7 Days #14 cap 03/02/22 03/04/22 Rx furosemide 20 mg tablet (Lasix) 20 mg PO DAILY #7 tab 03/02/22 03/04/22 Rx glipizide 2.5 mg tablet, extended 5 mg PO DAILY 03/02/22 03/04/22 History release 24 hr nystatin 100,000 unit/gram topical 1 applic TOPICAL BID PRN 03/02/22 03/04/22 History powder potassium chloride 20 mEq 20 meq PO DAILY #7 tab 03/02/22 03/04/22 Rx tablet,extended release(part/cryst) (Klor-Con M) warfarin 1 mg tablet 1 mg PO DAILY@1600 30 Days tab 03/03/22 03/04/22 Rx Allergies Allergy/AdvReac Type Severity Reaction Status Date / Time acetaminophen [From [place]] AdvReac Intermediate Nausea Verified 03/04/22 22:10 atorvastatin [From Lipitor] AdvReac Intermediate NOT Verified 03/04/22 22:10 TOLERATED fluvastatin [From [place]] AdvReac Intermediate NOT Verified 03/04/22 22:10 TOLERATED gabapentin AdvReac Intermediate Nausea Verified 03/04/22 22:10 hydrocodone [From [place]] AdvReac Intermediate Nausea Verified 03/04/22 22:10 sulfamethoxazole AdvReac Intermediate Nausea Verified 03/04/22 22:10 [From Bactrim] trimethoprim [From Bactrim] AdvReac Intermediate Nausea Verified 03/04/22 22:10 Past Med/Surg History Medical History Acute dehydration Acute UTI Atrial fibrillation Chronic kidney disease, stage 3 Fall History of abnormal mammogram Hypertension Pessary maintenance Second degree uterine prolapse Sinusitis Type 2 diabetes mellitus Surgical History S/P cataract surgery Family History Mother Diabetes Breast cancer Brother Stroke Denies family history of Ovarian cancer Prostate cancer Myocardial infarction Colorectal cancer Social History Smoking Status: Never smoker Second Hand Exposure: No; Hx Alcohol Use: No Hx Substance Use: No Preferred Language: Kyrgyz Communication Ability: Impaired Visual Impairment: No Limitations Hearing Ability: Normal Hospice Nurse Required: No Beliefs That Will Affect Care: None marital status: / Current Living Situation: Alone and Spouse Current Living Situation Comment: Family lives nearby and checks on her current occupational status: retired current occupation: retired from working at [employer] How many Children do You have: 5 How many Children do You have Comment: 1 Feels Safe at Home: Yes Childhood Exposure to Second-Hand Smoke: Yes during the past year weight has: remained stable Dental Care, Regularly: No Physical Activity Frequency: Daily Seatbelt Use: never Sunscreen Use: Yes Assistive Devices: Walker Review of Systems A total of 10 systems reviewed and were otherwise negative Physical Exam Vital Signs Vital Signs - 24 hr 03/04/22 20:33 03/04/22 20:37 03/04/22 21:01 Temperature 36.5 C Temperature Source Temporal Artery Scan Pulse Rate 80 90 Pulse Rate from SpO2 Sensor 86 Respiratory Rate 18 18 17 Respiratory Effort / Characteristics Non-Labored Spontaneous Respiratory Depth Normal Blood Pressure 166/77 H Blood Pressure Mean 106 Blood Pressure Position Sitting Pulse Oximetry 95 94 Oxygen Delivery Method Room Air Oxygen Flow Rate Sepsis Recent Fever Within 48 Hours No Sepsis New/Unexplained Change in Mental Status N/A Sepsis Action Taken by Nursing No Action Required 03/04/22 21:10 03/04/22 21:20 03/04/22 21:30 Temperature Temperature Source Pulse Rate 81 76 82 Pulse Rate from SpO2 Sensor 81 83 Respiratory Rate 17 18 18 Respiratory Effort / Characteristics Respiratory Depth Blood Pressure Blood Pressure Mean Blood Pressure Position Pulse Oximetry 96 90 85 L Oxygen Delivery Method Oxygen Flow Rate Sepsis Recent Fever Within 48 Hours Sepsis New/Unexplained Change in Mental Status Sepsis Action Taken by Nursing 03/04/22 21:40 03/04/22 21:50 03/04/22 22:00 Temperature Temperature Source Pulse Rate 77 74 81 Pulse Rate from SpO2 Sensor Respiratory Rate 22 17 19 Respiratory Effort / Characteristics Respiratory Depth Blood Pressure Blood Pressure Mean Blood Pressure Position Pulse Oximetry Oxygen Delivery Method Oxygen Flow Rate Sepsis Recent Fever Within 48 Hours Sepsis New/Unexplained Change in Mental Status Sepsis Action Taken by Nursing 03/04/22 22:10 03/04/22 22:20 03/04/22 22:33 Temperature Temperature Source Pulse Rate 69 82 Pulse Rate from SpO2 Sensor Respiratory Rate 16 24 Respiratory Effort / Characteristics Respiratory Depth Normal Blood Pressure Blood Pressure Mean Blood Pressure Position Pulse Oximetry Oxygen Delivery Method Oxygen Flow Rate Sepsis Recent Fever Within 48 Hours Sepsis New/Unexplained Change in Mental Status Sepsis Action Taken by Nursing 03/04/22 23:24 03/04/22 23:28 03/04/22 23:30 Temperature Temperature Source Pulse Rate 79 64 63 Pulse Rate from SpO2 Sensor 64 60 Respiratory Rate 25 H 20 21 Respiratory Effort / Characteristics Respiratory Depth Blood Pressure 146/80 H Blood Pressure Mean 102 Blood Pressure Position Pulse Oximetry 88 L 91 Oxygen Delivery Method Nasal Cannula Oxygen Flow Rate 2 Sepsis Recent Fever Within 48 Hours Sepsis New/Unexplained Change in Mental Status Sepsis Action Taken by Nursing 03/04/22 23:40 03/04/22 23:50 03/05/22 00:00 Temperature Temperature Source Pulse Rate 61 67 63 Pulse Rate from SpO2 Sensor 54 L 64 60 Respiratory Rate 21 21 16 Respiratory Effort / Characteristics Non-Labored Respiratory Depth Normal Blood Pressure Blood Pressure Mean Blood Pressure Position Pulse Oximetry 99 100 100 Oxygen Delivery Method Oxygen Flow Rate Sepsis Recent Fever Within 48 Hours Sepsis New/Unexplained Change in Mental Status Sepsis Action Taken by Nursing General: Well developed well nourished older female who appears mildly ill but in no respiratory acute distress, breathing comfortably on room air. Normal speech HEENT: Normal cephalic atraumatic. Pupils are equal round and reactive to light. Extraocular movements are intact. Oropharynx is pink with moist mucous membranes. No swelling of the mouth lips or tongue. Neck: Supple with a midline trachea. No meningeal signs or stiffness, no JVD or bruits. No Stridor. Chest: Clear to auscultation bilaterally. No wheezes or rhonchi. No increased work of breathing. Heart: Regular rate and rhythm without murmurs or gallops. Abdomen: Soft nontender, nondistended without rebound guarding or rigidity. Extremities: No cyanosis clubbing. Trace bilateral lower extremity. No calf tenderness or assymetry Spine/Back. Non tender to palpation. No CVA tenderness Skin: Good turgor without rashes. Neurologic exam: Cranial nerves two through 12 are intact. Motor and sensation are intact and symmetrical throughout. Course Administered Medications Discontinued Medications Sodium Chloride (Nss 1000ml) 250 mls @ 999 mls/hr IV .Q16M ONE Stop: 03/04/22 21:38 Last Infusion: 03/04/22 23:34 Dose: 0 mls/hr Documented by: [id number] Admin: 03/04/22 21:52 Dose: 999 mls/hr Documented by: [id number] Ondansetron HCl (Ondansetron Inj 2 Mg/Ml 2 Ml Vial) 4 mg IV NOW STA Stop: 03/04/22 21:24 Last Admin: 03/04/22 21:51 Dose: 4 mg Documented by: [id number] Medical Decision Making Differential Diagnosis Pneumonia, medication side effect, cardiac disease, CHF, electrolyte or metabolic abnormality, anemia Medical Records Attestation: I reviewed the patient's medical records. Home Medications Current Medication List: was personally reviewed by me Laboratory Data Result diagrams: 03/04/22 21:46 03/04/22 21:46 Lab Results 03/04/22 03/04/22 03/04/22 Range/Units 21:46 21:46 21:46 WBC 5.86 (4.8-10.8) K/uL RBC 3.60 L (4.2-5.4) M/uL Hgb 9.5 L (12.0-16.0) g/dL Hct 31.2 L (37-47) % MCV 86.7 (80-100) fL MCH 26.4 (25-34) pg MCHC 30.4 L (32-36) g/dL RDW Std Deviation 55.3 H (36.4-46.3) fL RDW Coeff of Benjamin 17.3 H (11.5-14.5) % Plt Count 167 (130-400) K/uL MPV 9.1 (7.4-10.4) fL Immature Gran % (Auto) 0.3 % Neut % (Auto) 81.8 % Lymph % (Auto) 12.5 % Centre % (Auto) 4.9 % Eos % (Auto) 0.2 % Baso % (Auto) 0.3 % Neut # (Auto) 4.79 (1.4-6.5) K/uL Lymph # (Auto) 0.73 L (1.2-3.4) K/uL Centre # (Auto) 0.29 (0.11-0.59) K/uL Eos # (Auto) 0.01 (0-0.5) K/uL Baso # (Auto) 0.02 (0-0.2) K/uL Immature Gran # (Auto) 0.02 (0.00-0.02) K/uL PT (9.0-12.0) Seconds INR (0.9-1.1) APTT (21.0-31.0) Seconds PTT Ratio Sodium 138 (136-145) mmol/L Potassium 4.4 (3.5-5.1) mmol/L Chloride 108 H (98-107) mmol/L Carbon Dioxide 20 L (21-32) mmol/L Anion Gap 10 (3-11) BUN 26 H (6-23) mg/dl Creatinine 1.30 H (0.6-1.2) mg/dl Est Cr Clr Drug Dosing Not Reportable Est GFR ( Amer) 42.4 ml/min Est GFR (Non-Af Amer) 36.6 ml/min BUN/Creatinine Ratio 20.0 (10-20) Glucose 145 H (70-99(Fasting)) mg/dl Calcium 9.4 (8.5-10.1) mg/dl Total Bilirubin 0.9 (0.2-1.0) mg/dl AST 22 (13-39) U/L ALT 12 (7-52) U/L Alkaline Phosphatase 138 H (34-104) U/L Troponin I High Sens 22.9 H (0-14) pg/ml Total Protein 7.7 (6.0-8.3) gm/dl Albumin 3.8 (3.4-5.0) gm/dl Globulin 3.9 (2.5-4.0) gm/dl Albumin/Globulin Ratio 1.0 (0.9-2) Lipase (11-82) U/L Urine Color Urine Appearance (Clear) Urine pH (4.5-7.5) Ur Specific Lucas (1.000-1.030) Urine Protein (Negative) Urine Glucose (UA) (Negative) Urine Ketones (Negative) Urine Blood (Negative) Urine Nitrite (Negative) Urine Bilirubin (Negative) Urine Urobilinogen (Negative) Ur Leukocyte Esterase (Negative) Urine WBC (Auto) (0-5) /hpf Urine RBC (Auto) (0-4) /hpf U Hyaline Cast (Auto) U Epithel Cells (Auto) (0-5) /lpf Urine Bacteria (Auto) (Negative) Ur Renal Epithelial Cell Urine Yeast (None Prsent) 03/04/22 03/04/22 03/04/22 Range/Units 21:46 21:46 22:35 WBC (4.8-10.8) K/uL RBC (4.2-5.4) M/uL Hgb (12.0-16.0) g/dL Hct (37-47) % MCV (80-100) fL MCH (25-34) pg MCHC (32-36) g/dL RDW Std Deviation (36.4-46.3) fL RDW Coeff of Benjamin (11.5-14.5) % Plt Count (130-400) K/uL MPV (7.4-10.4) fL Immature Gran % (Auto) % Neut % (Auto) % Lymph % (Auto) % Centre % (Auto) % Eos % (Auto) % Baso % (Auto) % Neut # (Auto) (1.4-6.5) K/uL Lymph # (Auto) (1.2-3.4) K/uL Centre # (Auto) (0.11-0.59) K/uL Eos # (Auto) (0-0.5) K/uL Baso # (Auto) (0-0.2) K/uL Immature Gran # (Auto) (0.00-0.02) K/uL PT 14.0 H (9.0-12.0) Seconds INR 1.3 H (0.9-1.1) APTT 29.1 (21.0-31.0) Seconds PTT Ratio 1.1 Sodium (136-145) mmol/L Potassium (3.5-5.1) mmol/L Chloride (98-107) mmol/L Carbon Dioxide (21-32) mmol/L Anion Gap (3-11) BUN (6-23) mg/dl Creatinine (0.6-1.2) mg/dl Est Cr Clr Drug Dosing Est GFR ( Amer) ml/min Est GFR (Non-Af Amer) ml/min BUN/Creatinine Ratio (10-20) Glucose (70-99(Fasting)) mg/dl Calcium (8.5-10.1) mg/dl Total Bilirubin (0.2-1.0) mg/dl AST (13-39) U/L ALT (7-52) U/L Alkaline Phosphatase (34-104) U/L Troponin I High Sens (0-14) pg/ml Total Protein (6.0-8.3) gm/dl Albumin (3.4-5.0) gm/dl Globulin (2.5-4.0) gm/dl Albumin/Globulin Ratio (0.9-2) Lipase 46 (11-82) U/L Urine Color Yellow Urine Appearance Cloudy A (Clear) Urine pH 5.0 (4.5-7.5) Ur Specific Lucas 1.018 (1.000-1.030) Urine Protein 3+ H (Negative) Urine Glucose (UA) Negative (Negative) Urine Ketones Trace H (Negative) Urine Blood Negative (Negative) Urine Nitrite Negative (Negative) Urine Bilirubin Negative (Negative) Urine Urobilinogen Negative (Negative) Ur Leukocyte Esterase 1+ H (Negative) Urine WBC (Auto) >30 H (0-5) /hpf Urine RBC (Auto) 0-4 (0-4) /hpf U Hyaline Cast (Auto) Not Reportable U Epithel Cells (Auto) >30 H (0-5) /lpf Urine Bacteria (Auto) Negative (Negative) Ur Renal Epithelial Cell Not Reportable Urine Yeast Present A (None Prsent) Imaging Data Attestation: I personally reviewed and interpreted this imaging study as follows: My Impression: Chest x-raycardiomegaly but no acute infiltrate, failure, pneumothorax seen. Mild increased interstitial edema CT of the headno acute hemorrhage or mass-effect CT of the abdomen and pelvis. There. B pleural effusions on both sides. There is some fluid in the pelvis. There is a calcified gallbladder Radiologist's Impression: CT HEAD: Comparison: CT head 10/19/20 Senescent changes. No ICH, mass-effect, or edema. Paranasal sinus disease, similar to prior. No skull fracture. CT ABDOMEN & PELVIS Without Contrast: Comparison: CT abdomen and pelvis 10/19/20 Cardiomegaly and coronary artery atherosclerosis. Low attenuation of the cardiac blood pool suggesting anemia. Small bilateral pleural effusions. Bibasilar atelectasis. Mild ascites. Mesenteric edema. Anasarca. No free air. Mild liver surface nodularity could represent cirrhosis. Cholelithiasis. No biliary dilatation. 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 Spleen, pancreas, adrenal glands are unremarkable. No hydronephrosis or radiopaque stones. No bowel obstruction. Diverticulosis without diverticulitis. Uterus and urinary bladder are unremarka ble. Bilateral inguinal hernias containing fat and ascites. Small fat-containing umbilical hernia. Osteopenia and lumbar spondylosis. No acute osseous findings. Radiologist: Althea Carver M.D. ECG Data Attestation: I personally reviewed and interpreted this ECG as follows: Indication: + vomiting and + weakness Rate (beats per minute): 80 Rhythm: + atrial fibrillation ECG Intervals/blocks: + Right Bundle branch block ECG [place]: + Left axis deviation ECG ST segments: + Nonspecific ST abnormalities Comparison ECG Date: from (03/02/22) Change: no significant change MDM Narrative This patient comes in as described above. She was placed in room B7. She is here for treatment and evaluation of nausea vomiting not feeling well. She started some medications yesterday it could be this but she also has multiple risk factors for other diseases and EKG chest x-ray multiple blood testing was obtained. She was reassessed frequently. Her chest x-ray does not show any focal infiltrate. She may be slightly fluid overloaded but clinically looks dry. EKG shows chronic A. fib with out any definite ischemic changes. She does have mildly elevated initial troponin so second 1 was done. She does have anemia which is baseline. She is no elevation of white count. Her BUN and creatinine are mildly elevated consistent with dehydration. She was gently rehydrated with IV normal saline. She also was given some IV Zofran she says she still feels very ill I did do a CAT scan of her head as well as her abdomen without contrast she does have a reducible ventral hernia on exam that is unchanged. CAT scan of her head is unremarkable. CAT scan of the abdomen shows some bilateral pleural effusions. She does have some mild ascites and anasarca. She also has cholelithiasis. She is feeling a little better. Her second troponin is pending. Her COVID test 2 days ago was negative but I did repeat it which is also pending. She does not feel well and I think needs to be admitted for gentle rehydration further treatment and evaluation for her dehydration and weakness. She has a very complex medical history and it could also be that this still is cardiac. I have consulted Dr. Sargent to see the patient in ER for these measures. Continuous cardiac monitoring: Order was placed in EMR for continuous cardiac monitoring. Upon my interpretation she was noted to be in A. fib with a rate of 70 Impression & Plan Weakness, A-fib, Vomiting, Acute dehydration, Acute renal insufficiency Discharge Plan Visit Data Chief Complaint: Illness Stated Complaint: TROUBLE EATING, TROUBLE SLEEPING, INCONTINENT ED Provider: Barry Sánchez Discharge Problem: Weakness, A-fib, Vomiting, Acute dehydration, Acute renal insufficiency Forms Stand Alone Forms: [facility] Prescriptions Prescriptions: No Action hydrocortisone 2.5 % cream with perineal applicator 1 applic [place] TID PRN (Reason: hemorrhoids) 14 Days Qty: 30 RF: 2 lisinopril 20 mg tablet 20 mg PO DAILY Qty: 90 RF: 3 simvastatin 40 mg tablet 40 mg PO QPM Qty: 90 RF: 3 (DME) Accu-Chek Cheryl Plus test strp Strip See Rx Instructions .Route Qty: 50 RF: 5 (DME) blood-glucose meter [Accu-Chek Cheryl Plus Meter] Misc See Rx Instructions .Route Qty: 1 RF: 0 (DME) lancets [Accu-Chek Softclix Lancets] Misc See Rx Instructions .Route Qty: 100 RF: 5 warfarin 1 mg tablet 1 mg PO DAILY@1600 30 Days RF: 0 glipizide 2.5 mg tablet extended release 24 hr 5 mg PO DAILY RF: 0 nystatin 100,000 unit/gram powder 1 applic topical BID PRN (Reason: Rash) RF: 0 azithromycin 250 mg tablet 250 mg PO DAILY 4 Days Qty: 4 RF: 0 cefdinir 300 mg capsule 300 mg PO BID 7 Days Qty: 14 RF: 0 Saccharomyces boulardii [Florastor] 250 mg capsule 250 mg PO BID Qty: 20 RF: 0 furosemide [Lasix] 20 mg tablet 20 mg PO DAILY Qty: 7 RF: 0 potassium chloride [Klor-Con M20] 20 mEq tablet,ER particles/crystals 20 meq PO DAILY Qty: 7 RF: 0 allopurinol 100 mg tablet 50 mg PO DAILY 30 Days Qty: 15 RF: 0 Referrals Referrals: Ned Tomlin MD [Primary Care Provider] - Discharge Problem: A-fib Qualifiers: Atrial fibrillation type: longstanding persistent Qualified Code(s): I48.11 - Longstanding persistent atrial fibrillation Vomiting Qualifiers: Vomiting type: unspecified Nausea presence: with nausea Qualified Code(s): R11.2 - Nausea with vomiting, unspecified
[2022-03-04 21:58] LABS: Basophils # (auto) 0.02 K/uL (0-0.2); Basophils % (auto) 0.3 %; Eosinophils # (auto) 0.01 K/uL (0-0.5); Eosinophils % (auto) 0.2 %; Hematocrit (blood only) 31.2 % (37-47); Hemoglobin 9.5 g/dL (12.0-16.0); Immature Granulocytes # (auto) 0.02 K/uL (0.00-0.02); Immature Granulocytes % (auto) 0.3 %; Lymphocytes # (auto) 0.73 K/uL (1.2-3.4); Lymphocytes % (auto) 12.5 %; Mean Corpuscular Hemoglobin 26.4 pg (25-34); Mean Corpuscular Hgb Conc 30.4 g/dL (32-36); Mean Corpuscular Volume 86.7 fL (80-100); Mean Platelet Volume 9.1 fL (7.4-10.4); Monocytes # (auto) 0.29 K/uL (0.11-0.59); Monocytes % (auto) 4.9 %; Neutrophils # (auto) 4.79 K/uL (1.4-6.5); Neutrophils % (auto) 81.8 %; Platelet Count 167 K/uL (130-400); RDW Coefficient of Variation 17.3 % (11.5-14.5); RDW Standard Deviation 55.3 fL (36.4-46.3); White Blood Count 5.86 K/uL (4.8-10.8)
[2022-03-04 22:27] LABS: Alanine Aminotransferase 12 U/L (7-52); Albumin Level 3.8 gm/dl (3.4-5.0); Alkaline Phosphatase 138 U/L (34-104); Anion Gap 10 (3-11); Aspartate Aminotransferase 22 U/L (13-39); Bilirubin,Total 0.9 mg/dl (0.2-1.0); Blood Urea Nitrogen 26 mg/dl (6-23); Calcium 9.4 mg/dl (8.5-10.1); Carbon Dioxide 20 mmol/L (21-32); Chloride 108 mmol/L (98-107); Est GFR (African American) 42.4 ml/min; Est GFR (Non-African American) 36.6 ml/min; Globulin 3.9 gm/dl (2.5-4.0); Glucose 145 mg/dl (70-99(Fasting)); Potassium 4.4 mmol/L (3.5-5.1); Sodium 138 mmol/L (136-145); Total Protein 7.7 gm/dl (6.0-8.3)
[2022-03-04 23:10] LABS: Appearance Urine Cloudy (Clear); Bacteria Urine Automated Negative (Negative); Bilirubin Urine Negative (Negative); Blood Urine Negative (Negative); Color Urine Yellow; Epithelial Cell Urine Auto >30 /lpf (0-5); Glucose Urine UA Negative (Negative); Ketones Urine Trace (Negative); Leukocyte Esterase Urine 1+ (Negative); Nitrite Urine Negative (Negative); Protein Urine 3+ (Negative); RBC Urine Automated 0-4 /hpf (0-4); Specific Gravity Urine 1.018 (1.000-1.030); Urobilinogen Urine Negative (Negative); WBC Urine Automated >30 /hpf (0-5)
[2022-03-04 23:39] LABS: INR 1.3 (0.9-1.1); Partial Thromboplastin Ratio 1.1; Partial Thromboplastin Time 29.1 Seconds (21.0-31.0)
[2022-03-05 01:24] LABS: Influenza A virus by PCR Negative (Neg); Influenza B virus by PCR Negative (Neg); RSV by PCR Negative (Neg); SARS CoV2 RNA(COVID-19) InHosp NEGATIVE (Negative)
--- NOTE | 2022-03-05 02:03 | History & Physical Report ---
Date of Service March 05, 2022 Assessment & Plan (1) Acute kidney injury: Plan: Creatinine 1.30 upon admission, with base 1.12 Hold furosemide, hold lisinopril and potassium chloride NSS at 80 mils per hour x1 L Repeat laboratories in a.m. (2) Nausea and vomiting: Plan: Secondary to combination of new medications given all at once Stop furosemide, azithromycin, cefdinir and potassium chloride Zofran 4 mg IV every 6 hours as needed (3) Type 2 diabetes mellitus: Plan: Hold glipizide Place on Accu-Cheks before meals and at bedtime with NovoLog coverage per scale (4) Atrial fibrillation: Plan: Elevated troponin I/ fibrillation/hypertension/chronic anticoagulation with warfarin- Warfarin dose was decreased at last hospitalization in January due to bleeding and a supratherapeutic INR on 1 mg daily Patient's warfarin dose had been decreased to 1/2 mg daily INR subtherapeutic at 1.3 Placed on Lovenox 1 mg kilogram subcu every 12 hours until INR therapeutic again with increased dose of 1 mg Holding lisinopril, furosemide and potassium chloride as noted Troponin 22.9. Follow serially. In a similar range during last admission in January. Doubt acute heart event (5) Hypertension: Plan: See above (6) Anticoagulated on Coumadin: Plan: See above History of Present Illness Chief Complaint: The patient presents to the emergency department after an episode of nausea and vomiting that she feels occurred after getting new medications including Lasix a nd 2 antibiotics and potassium Primary Care Provider: Ned Tomlin MD The patient is an 86-year-old female with a past medical history including atrial fibrillation, chronic anticoagulation with warfarin, pneumonia, thrombocytopenia, aortic valve defect, mitral regurgitation, carotid artery stenosis, CKD stage III, gout, hypertension, diabetes mellitus, tricuspid regurgitation, rectocele, cystocele and osteoarthritis. The patient was seen in the emergency department on 03/02, and was started on furosemide, azithromycin, cefdinir and potassium. She reports that shortly after taking these medications her stomach became upset and she started with nausea and vomiting and now feels somewhat dehydrated. Allergies Allergy/AdvReac Type Severity Reaction Status Date / Time acetaminophen [From Hilton] AdvReac Intermediate Nausea Verified 03/04/22 22:10 atorvastatin [From Lipitor] AdvReac Intermediate NOT Verified 03/04/22 22:10 TOLERATED fluvastatin [From Lescol] AdvReac Intermediate NOT Verified 03/04/22 22:10 TOLERATED gabapentin AdvReac Intermediate Nausea Verified 03/04/22 22:10 hydrocodone [From Hilton] AdvReac Intermediate Nausea Verified 03/04/22 22:10 sulfamethoxazole AdvReac Intermediate Nausea Verified 03/04/22 22:10 [From Bactrim] trimethoprim [From Bactrim] AdvReac Intermediate Nausea Verified 03/04/22 22:10 Home Medications Medication Instructions Recorded Confirmed Type hydrocortisone 2.5 % topical cream 1 applic NC TID PRN 14 Days #30 g 12/28/20 03/04/22 Rx with perineal applicator lisinopril 20 mg tablet 20 mg PO DAILY #90 tab 11/04/21 03/04/22 Rx simvastatin 40 mg tablet 40 mg PO QPM #90 tab 11/19/21 03/04/22 Rx allopurinol 100 mg tablet 50 mg PO DAILY 30 Days #15 tab 02/09/22 03/04/22 Rx blood sugar diagnostic (Accu-Chek #50 ea 02/23/22 02/24/22 Rx Cheryl Plus test strp) blood-glucose meter (Accu-Chek #1 ea 02/23/22 02/24/22 Rx Cheryl Plus Meter) lancets (Accu-Chek Softclix #100 ea 02/23/22 02/24/22 Rx Lancets) Saccharomyces boulardii 250 mg 250 mg PO BID #20 cap 03/02/22 03/04/22 Rx capsule (Florastor) azithromycin 250 mg tablet 250 mg PO DAILY 4 Days #4 tab 03/02/22 03/04/22 Rx cefdinir 300 mg capsule 300 mg PO BID 7 Days #14 cap 03/02/22 03/04/22 Rx furosemide 20 mg tablet (Lasix) 20 mg PO DAILY #7 tab 03/02/22 03/04/22 Rx glipizide 2.5 mg tablet, extended 5 mg PO DAILY 03/02/22 03/04/22 History release 24 hr nystatin 100,000 unit/gram topical 1 applic TOPICAL BID PRN 03/02/22 03/04/22 History powder potassium chloride 20 mEq 20 meq PO DAILY #7 tab 03/02/22 03/04/22 Rx tablet,extended release(part/cryst) (Klor-Con M) warfarin 1 mg tablet 1 mg PO DAILY@1600 30 Days tab 03/03/22 03/04/22 Rx Past Med/Surg History Medical History Acute dehydration Acute UTI Atrial fibrillation Chronic kidney disease, stage 3 Fall History of abnormal mammogram Hypertension Pessary maintenance Second degree uterine prolapse Sinusitis Type 2 diabetes mellitus Surgical History S/P cataract surgery Family History Mother Diabetes Breast cancer Brother Stroke Denies family history of Ovarian cancer Prostate cancer Myocardial infarction Colorectal cancer Social History Smoking Status: Never smoker Second Hand Exposure: No; Hx Alcohol Use: No Hx Substance Use: No Preferred Language: Bulgarian Communication Ability: Impaired Visual Impairment: No Limitations Hearing Ability: Normal Historic Site Administrator Required: No Beliefs That Will Affect Care: None marital status: / Current Living Situation: Alone and Spouse Current Living Situation Comment: Family lives nearby and checks on her current occupational status: retired current occupation: retired from working at [employer] How many Children do You have: 5 How many Children do You have Comment: 1 Feels Safe at Home: Yes Childhood Exposure to Second-Hand Smoke: Yes during the past year weight has: remained stable Dental Care, Regularly: No Physical Activity Frequency: Daily Seatbelt Use: never Sunscreen Use: Yes Assistive Devices: Walker Review of Systems Review of Systems: The patient denies chest pain, palpitations, shortness of breath, dyspnea on exertion, cough, lower extremity swelling, sore throat, fevers, chills, sweats, diarrhea , constipation, abdominal pain, pelvic pain, blood in urine or stool, dysuria, urinary frequency or urgency, memory loss, loss of consciousness, rash, abnormal bruising or bleeding, imbalance, focal weakness, numbness or tingling in arms or legs, back or neck pain, or night sweats. The review of systems is otherwise negative other than for that already noted above, and at least 10 systems have been reviewed. Physical Exam Physical Exam: The patient is awake, alert and oriented 3, well developed and well nourished, normocephalic and atraumatic, lying in bed and in no acute distress. HEENT--PERRL, EOMI, mucous membranes and oropharynx mildly dry. Neck--supple. No JVD. No bruits. Thyroid normal, trachea midline, no adenopathy. Heart--normal S1 and S2. No murmurs, rubs or gallops. Lungs--clear bilaterally, no respiratory distress, no accessory muscle use. Abdomen--normal bowel sounds and soft. Nontender. Nondistended Extremities--no cyanosis or clubbing. No edema. Dermatologic--normal skin turgor, normal color, no abnormal lymph nodes, no rash. Neurologic--cranial nerves II through XII grossly intact. Rheumatologic--normal range of motion. Psychiatric--normal affect. Results & Data Results & Data ([facility]) Vital Signs (Past 12 Hours) Vital Signs Temp Pulse Resp BP Pulse Ox 03/05/22 00:00 63 16 100 03/04/22 23:50 67 21 100 03/04/22 23:40 61 21 99 03/04/22 23:30 63 21 91 03/04/22 23:28 64 20 146/80 H 88 L 03/04/22 23:24 79 25 H 03/04/22 22:20 82 24 03/04/22 22:10 69 16 03/04/22 22:00 81 19 03/04/22 21:50 74 17 03/04/22 21:40 77 22 03/04/22 21:30 82 18 85 L 03/04/22 21:20 76 18 90 03/04/22 21:10 81 17 96 03/04/22 21:01 90 17 94 03/04/22 20:37 36.5 C 80 18 166/77 H 95 03/04/22 20:33 18 Laboratory Results Laboratory Results WBC 5.86 K/uL (4.8-10.8) 03/04/22 21:46 RBC 3.60 M/uL (4.2-5.4) L 03/04/22 21:46 Hgb 9.5 g/dL (12.0-16.0) L 03/04/22 21:46 Hct 31.2 % (37-47) L 03/04/22 21:46 MCV 86.7 fL (80-100) 03/04/22 21:46 MCH 26.4 pg (25-34) 03/04/22 21:46 MCHC 30.4 g/dL (32-36) L 03/04/22 21:46 RDW Std Deviation 55.3 fL (36.4-46.3) H 03/04/22 21:46 RDW Coeff of Benjamin 17.3 % (11.5-14.5) H 03/04/22 21:46 Plt Count 167 K/uL (130-400) 03/04/22 21:46 MPV 9.1 fL (7.4-10.4) 03/04/22 21:46 Immature Gran % (Auto) 0.3 % 03/04/22 21: Neut % (Auto) 81.8 % 03/04/22 21:46 Lymph % (Auto) 12.5 % 03/04/22 21:46 Hamilton % (Auto) 4.9 % 03/04/22 21:46 Eos % (Auto) 0.2 % 03/04/22 21:46 Baso % (Auto) 0.3 % 03/04/22 21:46 Neut # (Auto) 4.79 K/uL (1.4-6.5) 03/04/22 21:46 Lymph # (Auto) 0.73 K/uL (1.2-3.4) L 03/04/22 21:46 Hamilton # (Auto) 0.29 K/uL (0.11-0.59) 03/04/22 21:46 Eos # (Auto) 0.01 K/uL (0-0.5) 03/04/22 21:46 Baso # (Auto) 0.02 K/uL (0-0.2) 03/04/22 21:46 Immature Gran # (Auto) 0.02 K/uL (0.00-0.02) 03/04/22 21:46 PT 14.0 Seconds (9.0-12.0) H 03/04/22 21:46 INR 1.3 (0.9-1.1) H 03/04/22 21:46 APTT 29.1 Seconds (21.0-31.0) 03/04/22 21: PTT Ratio 1.1 03/04/22 21:46 Sodium 138 mmol/L (136-145) 03/04/22 21:46 Potassium 4.4 mmol/L (3.5-5.1) 03/04/22 21:46 Chloride 108 mmol/L (98-107) H 03/04/22 21:46 Carbon Dioxide 20 mmol/L (21-32) L 03/04/22 21:46 Anion Gap 10 (3-11) 03/04/22 21:46 BUN 26 mg/dl (6-23) H 03/04/22 21:46 Creatinine 1.30 mg/dl (0.6-1.2) H 03/04/22 21:46 Est Cr Clr Drug Dosing Not Reportable 03/04/22 21:46 Est GFR ( Amer) 42.4 ml/min 03/04/22 21:46 Est GFR (Non-Af Amer) 36.6 ml/min 03/04/22 21:46 BUN/Creatinine Ratio 20.0 (10-20) 03/04/22 21:46 Glucose 145 mg/dl (70-99(Fasting)) H 03/04/22 21:46 Calcium 9.4 mg/dl (8.5-10.1) 03/04/22 21:46 Total Bilirubin 0.9 mg/dl (0.2-1.0) 03/04/22 21:46 AST 22 U/L (13-39) 03/04/22 21:46 ALT 12 U/L (7-52) 03/04/22 21:46 Alkaline Phosphatase 138 U/L (34-104) H 03/04/22 21:46 Troponin I High Sens 22.2 pg/ml (0-14) H 03/05/22 00:26 Total Protein 7.7 gm/dl (6.0-8.3) 03/04/22 21:46 Albumin 3.8 gm/dl (3.4-5.0) 03/04/22 21:46 Globulin 3.9 gm/dl (2.5-4.0) 03/04/22 21:46 Albumin/Globulin Ratio 1.0 (0.9-2) 03/04/22 21:46 Lipase 46 U/L (11-82) 03/04/22 21:46 Urine Color Yellow 03/04/22 22:35 Urine Appearance Cloudy (Clear) A 03/04/22 22:35 Urine pH 5.0 (4.5-7.5) 03/04/22 22:35 Ur Specific [place] 1.018 (1.000-1.030) 03/04/22 22:35 Urine Protein 3+ (Negative) H 03/04/22 22:35 Urine Glucose (UA) Negative (Negative) 03/04/22 22:35 Urine Ketones Trace (Negative) H 03/04/22 22:35 Urine Blood Negative (Negative) 03/04/22 22:35 Urine Nitrite Negative (Negative) 03/04/22 22:35 Urine Bilirubin Negative (Negative) 03/04/22 22:35 Urine Urobilinogen Negative (Negative) 03/04/22 22: Ur Leukocyte Esterase 1+ (Negative) H 03/04/22 22:35 Urine WBC (Auto) >30 /hpf (0-5) H 03/04/22 22:35 Urine RBC (Auto) 0-4 /hpf (0-4) 03/04/22: U Hyaline Cast (Auto) Not Reportable 03/04/22 22:35 U Epithel Cells (Auto) >30 /lpf (0-5) H 03/04/22 22:35 Urine Bacteria (Auto) Negative (Negative) 03/04/22 22:35 Ur Renal Epithelial Cell Not Reportable 03/04/22 22:35 Urine Yeast Present (None Prsent) A 03/04/22 22:35 SARS-CoV-2 (PCR) NEGATIVE (Negative) 03/05/22 00:30 Influenza Type A (PCR) Negative (Neg) 03/05/22 00:30 Influenza Type B (PCR) Negative (Neg) 03/05/22 00:30 RSV (RT-PCR) Negative (Neg) 03/05/22 00:30 Code Status & VTE Plan Code Status Full code VTE Prophylaxis Plan VTE Prophylaxis will be ordered: Yes PG Care Time/CCT Total # of Minutes Spent Total Time Spent with Patient: Total time spent is greater than 50% in coordination of care (as documented) at patient's floor/unit and/or counseling patient: Coding Level of Care Code INT OBSERVATION CARE 70M LVL 3 Diagnoses Acute kidney injury N17.9 Nausea and vomiting R11.2 Anticoagulated on Coumadin Z79.01 Type 2 diabetes mellitus E11.9 Hypertension I10 Atrial fibrillation I48.91
[2022-03-05] MEDS ORDERED: SODIUM CHLORIDE 0.9% 1000ML 1,000 ML IV SCH (02:15)
[2022-03-05] MEDS ORDERED: GLUCAGON FOR INJ 1 MG VIAL SQ PRN (03:05)
[2022-03-05] MEDS ORDERED: DEXTROSE 50% 50 ML SYRINGE IV PRN (03:05)
[2022-03-05] MEDS ORDERED: GLUCOSE 10 TABS/TUBE PO PRN (03:05)
[2022-03-05] MEDS ORDERED: GLUCOSE 40% GEL 15 GM TUBE PO PRN (03:05)
[2022-03-05] MEDS ORDERED: CARBOHYDRATES FOR HYPOGLYCEMIA PO PRN (03:05)
[2022-03-05 05:46] LABS: Basophils # (auto) 0.01 K/uL (0-0.2); Basophils % (auto) 0.2 %; Eosinophils # (auto) 0.01 K/uL (0-0.5); Eosinophils % (auto) 0.2 %; Hematocrit (blood only) 28.5 % (37-47); Hemoglobin 8.5 g/dL (12.0-16.0); Lymphocytes # (auto) 0.87 K/uL (1.2-3.4); Lymphocytes % (auto) 15.9 %; Mean Corpuscular Hemoglobin 26.5 pg (25-34); Mean Corpuscular Hgb Conc 29.8 g/dL (32-36); Mean Corpuscular Volume 88.8 fL (80-100); Mean Platelet Volume 9.1 fL (7.4-10.4); Monocytes # (auto) 0.51 K/uL (0.11-0.59); Monocytes % (auto) 9.3 %; Neutrophils # (auto) 4.08 K/uL (1.4-6.5); Neutrophils % (auto) 74.4 %; Nucleated RBC # (auto) 0.02 K/uL (0-0); Nucleated RBC % (auto) 0.3 %; Platelet Count 139 K/uL (130-400); RDW Coefficient of Variation 17.3 % (11.5-14.5); Red Blood Count 3.21 M/uL (4.2-5.4); White Blood Count 5.48 K/uL (4.8-10.8)
[2022-03-05 06:17] LABS: Albumin Level 3.3 gm/dl (3.4-5.0); Calcium 8.8 mg/dl (8.5-10.1); Creatinine Clr Calc Pharmacy 26.9 ml/min; Est GFR (African American) 42.4 ml/min; Est GFR (Non-African American) 36.6 ml/min; Phosphorus 3.6 mg/dl (2.5-4.9); Potassium 4.6 mmol/L (3.5-5.1); Troponin I High Sensitivity 23.5 pg/ml (0-14)
--- NOTE | 2022-03-05 08:10 | CT Scan Report ---
HEAD CT NONCONTRAST CT DOSE: 890.68 mGy.cm HISTORY: weakness TECHNIQUE: Multiaxial CT images of the head were performed without the use of intravenous contrast. A utomated exposure control was utilized for this study. A dose lowering technique was utilized adheri ng to the principles of ALARA. Comparison: Head CT 02/03/2022. Findings: Fluid levels again noted within the maxillary sinuses. This is similar to the prior study. The mastoid air cells are clear. The calvarium and skull base are intact. There is no mass, hematoma, midline shift, acute infarct. White matter hypodensity is nonspecific but suggestive of microvascula r ischemic change. The ventricles and sulci demonstrate mild age-related involutional changes. Impression: 1. No acute intracranial abnormality. 2. Acute maxillary sinusitis again noted. ACT 112: Negative or not required by law. Electronically signed by: Justino Sanchez M.D. 03/05/2022 8:08 AM
[2022-03-05] MEDS: allopurinoL 100 MG TAB PO SCH (08:19)
[2022-03-05] MEDS: ENOXAPARIN INJ 60 MG/0.6 ML SYR SQ SCH (08:20)
[2022-03-05] MEDS: INSULIN ASPART PER UNIT SC SCH ×4 (08:22→20:36)
[2022-03-05] MEDS ORDERED: FUROSEMIDE 20 MG TAB PO SCH (09:00)
--- NOTE | 2022-03-05 09:15 | CT Scan Report ---
CT abd pelvis wo con CLINICAL HISTORY: abd pain, vomiting TECHNIQUE: Helical axial images of the abdomen and pelvis were obtained. Automated dose lowering tech niques and/or adjustment according to patient size were utilized for this exam. This exam was perfor med without intravenous contrast. COMPARISON: Comparison is made to CT abdomen pelvis 10/19/2020 FINDINGS: Lower chest: Bilateral pleural effusions and atelectasis are seen with cardiomegaly. Incidentally no deyvi, hypoattenuation of the cardiac blood pool is suggestive of anemia. Liver: Unremarkable. No focal lesions are seen. Gallbladder and biliary tree: Numerous calcified stones are in the gallbladder. No intra- or extrahep atic biliary ductal dilation. Pancreas: Unremarkable, no focal lesions. Spleen: Unremarkable. Adrenals: Unremarkable. Kidneys and ureters: Unremarkable. Bladder: Unremarkable. Reproductive organs: Unremarkable. Bowel: Unremarkable appearance of the bowel. The appendix is normal. Lymph nodes Retroperitoneal: Unremarkable. Mesenteric: Unremarkable. Pelvic: Unremarkable. Peritoneum: Small ascites is seen. 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 Atherosclerotic calcifications are seen. Abdominal wall: Bilateral inguinal hernias are seen which contain ascites and fat. Fat-containing umb ilical hernias are seen. A small amount of body wall edema is noted. Bones: Degenerative changes in the visualized spine. IMPRESSION: 1. No evidence of bowel obstruction. 2. Cholelithiasis without evidence of cholecystitis. 3. Mild ascites and anasarca along with bilateral pleural effusions, congestive of fluid overload. C ardiomegaly and anemia. 4. Additional findings as above. ACT 112: Negative or not required by law. Electronically signed by: King Diaz M.D. 03/05/2022 9:14 AM
--- NOTE | 2022-03-05 09:29 | XRay Report ---
XR chest 1V portable CLINICAL HISTORY: illness TECHNIQUE: Single frontal radiograph of the chest was obtained. Comparison: Comparison is made to chest radiograph 03/02/2022 FINDINGS: No lines and tubes are seen. Calcified aortic knob is seen. Cardiomegaly is seen. The lungs are clear . A small right pleural effusion is seen. IMPRESSION: Small right pleural effusion, similar in appearance to prior exam. Stable cardiomegaly. ACT 112: Negative or not required by law. Electronically signed by: King Diaz M.D. 03/05/2022 9:27 AM
--- NOTE | 2022-03-05 10:10 | Electrocardiogram Report ---
Test Reason : Blood Pressure : / mmHG Vent. Rate : 074 BPM Atrial Rate : 070 BPM P-R Int : 000 ms QRS Dur : 128 ms QT Int : 426 ms P-R-T Axes : 000 -56 022 degrees QTc Int : 472 ms Poor data quality, interpretation may be adversely affected Atrial fibrillation with premature ventricular or aberrantly conducted complexes Left axis deviation Right bundle branch block Inferior infarct (cited on or before 19-OCT-2020) Abnormal ECG When compared with ECG of 02-MAR-2022 18:13, No significant change was found Confirmed by Gene Alberts ([id number]) on 03/05/2022 10:09:51 AM Referred By: REFERRED SELF Confirmed By:Gene Alberts
[2022-03-05 11:13] LABS: Reticulocyte % 1.5 % (0.5-2.0); Reticulocytes # 0.05 10^6/uL (0.02-0.10)
--- NOTE | 2022-03-05 13:26 | Hospitalist Progress Note ---
Date of Service March 05, 2022 Assessment & Plan (1) Acute maxillary sinusitis: Plan: as seen on CT head imaging. in light of +blood culture from 03/02/22 (alpha strep) will utilize rocephin IV. this will cover sinuses + the blood. repeat blood cultures obtained today to determine if blood culture is pathogenic or contaminant. sinusitis likely contributing to her cough. NO EVIDENCE OF PNEUMONIA on CT chest today although cough has a very bronchial quality to it. Could have bronchitis. Add combivent for the cough. (2) Positive blood culture: Plan: 1/4 bottles positive from 03/02/22. uncertain of contaminant vs pathogenic. sed rate/crp/procal noted. repeat blood cultures obtained today. rocephin empirically for now as above. (3) Nausea and vomiting: Plan: med side effects? infectious process? gallstones/biliary? other? resolved. follow carefully. (4) Type 2 diabetes mellitus: Plan: BSGs well controlled. Most recent HbA1c 6% in January. Novolog SSI for now. (5) Hypertension: Plan: Lisinopril on hold due to mild rise in creatinine. BPs reasonable off of such. (6) Gout, joint: Plan: no flares at this time (7) Atrial fibrillation: Plan: rates controlled coumadin with daily INR on lovenox 1mg/kg daily while INR is <2 (8) Anemia: Plan: ferritin 43 in 01/2022 b12/folate/tsh wnl consider repeat ferritin and if still low --> IV Venofer trend the H/H (9) Thrombocytopenia: Plan: etiology?? TSH, b12, folate wnl. (10) Bilateral pleural effusion: Plan: 2nd to diastolic CHF or proteinuria/nephrosis vs other. given LE edema & ascites -- will likely need more diuresis. (11) Proteinuria: Plan: 3+ 2nd to diabetic nephropathy? MM? other? obtain SPEP and UPEP obtain urine protein/Cr ratio if latteris high -- 24-hour urine (12) Chronic kidney disease, stage IV (severe): Plan: baseline CrCl 20s baseline creatinine ~1.3 repeat BMP am hold fluids and diuretics today Plan: chronic anorexia - etiology?? needs w/u add MVI add boost if prednisone is used for cough this may help daughter extensively updated at bedside Admission and Anticipated Discharge Date Admission Date: March 05, 2022 Subjective pt states that nausea/emesis have resolved continues with cough no headaches no dyspnea at rest continues with LE edema no abd pain no chest pain denies recent dental work or open ulcers on skin saw pt a 2nd time late in the afternoon daughter was at bedside she reports her mother has chronic anorexia and has had some weight loss she asks about this along with her cough daughter states LE edema IS improved at this time Review of Systems Review of Systems: gen - no fevers, no chills; some weakness cv - no orthopnea pulm - no cough, mild MCF[place]EN GI - no N/V or abdominal pains - no dysuria Physical Exam Physical Exam: gen - NAD, nontoxic, bronchial cough present mouth - MMM neck - no JVD heart - irregular, s1 s2 lungs - decreased BS b/l bases, R>L abd - soft NT ND BS+ ext - 1-2+ edema b/l, pulses 2+ b/l skin - stasis changes b/l shins psych - awake, alert Results & Data Results & Data ([facility]) Vital Signs (Past 12 Hours) Vital Signs Temp Pulse Pulse Resp BP Pulse Ox 03/05/22 11:44 37.0 C 75 20 135/75 92 03/05/22 07:48 73 03/05/22 07:36 37.0 C 82 20 139/82 99 03/05/22 03:33 36.9 C 83 20 142/76 H 91 03/05/22 03:05 66 Laboratory Results Cr 1.3 Hb 8.5 Diagnostic Findings Chest X-Ray 03/04/22 20:45 XR chest 1V portable CLINICAL HISTORY: illness TECHNIQUE: Single frontal radiograph of the chest was obtained. Comparison: Comparison is made to chest radiograph 03/02/2022 FINDINGS: No lines and tubes are seen. Calcified aortic knob is seen. Cardiomegaly is seen. The lungs are clear. A small right pleural effusion is seen. IMPRESSION: Small right pleural effusion, similar in appearance to prior exam. Stable cardiomegaly. ACT 112: Negative or not required by law. Electronically signed by: King Diaz M.D. 03/05/2022 9:27 AM Abdomen/Pelvis CT 03/04/22 22:51 CT abd pelvis wo con CLINICAL HISTORY: abd pain, vomiting TECHNIQUE: Helical axial images of the abdomen and pelvis were obtained. Automated dose lowering techniques and/or adjustment according to patient size were utilized for this exam. This exam was performed without intravenous contrast. COMPARISON: Comparison is made to CT abdomen pelvis 10/19/2020 FINDINGS: Lower chest: Bilateral pleural effusions and atelectasis are seen with cardiomegaly. Incidentally noted, hypoattenuation of the cardiac blood pool is suggestive of anemia. Liver: Unremarkable. No focal lesions are seen. Gallbladder and biliary tree: Numerous calcified stones are in the gallbladder. No intra- or extrahepatic biliary ductal dilation. Pancreas: Unremarkable, no focal lesions. Spleen: Unremarkable. Adrenals: Unremarkable. Kidneys and ureters: Unremarkable. Bladder: Unremarkable. Reproductive organs: Unremarkable. Bowel: Unremarkable appearance of the bowel. The appendix is normal. Lymph nodes Retroperitoneal: Unremarkable. Mesenteric: Unremarkable. Pelvic: Unremarkable. Peritoneum: Small ascites is seen. 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 Atherosclerotic calcifications are seen. Abdominal wall: Bilateral inguinal hernias are seen which contain ascites and fat. Fat-containing umbilical hernias are seen. A small amount of body wall edema is noted. Bones: Degenerative changes in the visualized spine. IMPRESSION: 1. No evidence of bowel obstruction. 2. Cholelithiasis without evidence of cholecystitis. 3. Mild ascites and anasarca along with bilateral pleural effusions, congestive of fluid overload. Cardiomegaly and anemia. 4. Additional findings as above. ACT 112: Negative or not required by law. Electronically signed by: King Diaz M.D. 03/05/2022 9:[address] 03/05/22 13:25 CT chest diagnostic wo con CLINICAL HISTORY: cough, effusions; eval pneumonia, eval CHF TECHNIQUE: Multidetector row helical CT of the chest was performed. Coronal and sagittal reformations were obtained. Automated dose lowering techniques and/or adjustment according to patient size were utilized for this exam. CT DOSE: 297.69 mGy.cm Comparison: Comparison is made to chest radiograph 03/04/2022 FINDINGS: Lungs and pleura: Bilateral pleural effusions are seen with associated subsegmental atelectasis. No superimposed pneumonia is seen. Heart and pericardium: There is cardiomegaly without evidence of pericardial effusion. Vessels: Severe atherosclerotic changes in the aorta and coronary arteries. The pulmonary trunk measures 33 mm in diameter. Mediastinum and desean: There is a 16 mm subcarinal lymph node. Subcentimeter mediastinal lymph nodes are seen. Chest wall and lower neck: Unremarkable. Abdomen: Small ascites is seen. Bones: Degenerative changes in the thoracic spine. IMPRESSION: 1. Moderate right and small left pleural effusions with associated atelectasis. 2. Cardiomegaly and pulmonary hypertension. No interstitial pulmonary edema is seen. No pneumonia. ACT 112: Negative or not required by law. Electronically signed by: King Diaz M.D. 03/05/2022 2:28 PM PG Care Time/CCT Total # of Minutes Spent Total Time Spent with Patient: Total time spent is greater than 50% in coordination of care (as documented) at patient's floor/unit and/or counseling patient: Coding Level of Care Code 03015 Subseq Obs Care Lvl 3 Diagnoses Positive blood culture R78.81 Nausea and vomiting R11.2 Type 2 diabetes mellitus E11.9 Hypertension I10 Gout, joint M10.9 Atrial fibrillation I48.91 Anemia D64.9 Thrombocytopenia D69.6 Bilateral pleural effusion J90 Proteinuria R80.9 Acute maxillary sinusitis J01.00 Chronic kidney disease, stage IV (severe) N18.4
--- NOTE | 2022-03-05 14:30 | CT Scan Report ---
CT chest diagnostic wo con CLINICAL HISTORY: cough, effusions; eval pneumonia, eval CHF TECHNIQUE: Multidetector row helical CT of the chest was performed. Coronal and sagittal reformations were obtained. Automated dose lowering techniques and/or adjustment according to patient size were u tilized for this exam. CT DOSE: 297.69 mGy.cm Comparison: Comparison is made to chest radiograph 03/04/2022 FINDINGS: Lungs and pleura: Bilateral pleural effusions are seen with associated subsegmental atelectasis. No s uperimposed pneumonia is seen. Heart and pericardium: There is cardiomegaly without evidence of pericardial effusion. Vessels: Severe atherosclerotic changes in the aorta and coronary arteries. The pulmonary trunk measu res 33 mm in diameter. Mediastinum and desean: There is a 16 mm subcarinal lymph node. Subcentimeter mediastinal lymph nodes a re seen. Chest wall and lower neck: Unremarkable. Abdomen: Small ascites is seen. Bones: Degenerative changes in the thoracic spine. IMPRESSION: 1. Moderate right and small left pleural effusions with associated atelectasis. 2. Cardiomegaly and pulmonary hypertension. No interstitial pulmonary edema is seen. No pneumonia. ACT 112: Negative or not required by law. Electronically signed by: King Diaz M.D. 03/05/2022 2:28 PM
[2022-03-05] MEDS: WARFARIN SOD 1 MG TAB PO SCH (16:38)
[2022-03-05] MEDS: cefTRIAXone SODIUM 2,000 MG in DEXTROSE 5% 50 ML IV SCH (16:38)
[2022-03-05] MEDS: IPRATROPIUM BROMIDE HFA INHALER INH SCH (19:16)
[2022-03-05] MEDS: ALBUTEROL HFA 8 GM INHALER INH SCH (19:16)
[2022-03-05] MEDS: SIMVASTATIN 40 MG TAB PO SCH (20:35)
[2022-03-05] MEDS ORDERED: IPRATROPIUM BROMIDE/ALBUTEROL respimat INH INH SCH (21:00)
[2022-03-06 06:54] LABS: Basophils # (auto) 0.03 K/uL (0-0.2); Basophils % (auto) 0.6 %; Eosinophils # (auto) 0.03 K/uL (0-0.5); Eosinophils % (auto) 0.6 %; Hematocrit (blood only) 28.6 % (37-47); Hemoglobin 8.7 g/dL (12.0-16.0); Immature Granulocytes # (auto) 0.02 K/uL (0.00-0.02); Immature Granulocytes % (auto) 0.4 %; Lymphocytes # (auto) 1.04 K/uL (1.2-3.4); Lymphocytes % (auto) 19.7 %; Mean Corpuscular Hemoglobin 26.9 pg (25-34); Mean Corpuscular Hgb Conc 30.4 g/dL (32-36); Mean Corpuscular Volume 88.3 fL (80-100); Monocytes # (auto) 0.54 K/uL (0.11-0.59); Monocytes % (auto) 10.2 %; Neutrophils # (auto) 3.62 K/uL (1.4-6.5); Neutrophils % (auto) 68.5 %; Platelet Count 142 K/uL (130-400); RDW Coefficient of Variation 17.2 % (11.5-14.5); RDW Standard Deviation 56.5 fL (36.4-46.3); Red Blood Count 3.24 M/uL (4.2-5.4); White Blood Count 5.28 K/uL (4.8-10.8)
[2022-03-06 07:06] LABS: INR 1.3 (0.9-1.1); Prothrombin Time 13.6 Seconds (9.0-12.0)
[2022-03-06 07:19] LABS: Albumin Level 3.2 gm/dl (3.4-5.0); Calcium 8.8 mg/dl (8.5-10.1); Creatinine Clr Calc Pharmacy 22.8 ml/min; Est GFR (African American) 34.3 ml/min; Est GFR (Non-African American) 29.6 ml/min; Phosphorus 3.5 mg/dl (2.5-4.9); Potassium 4.5 mmol/L (3.5-5.1)
[2022-03-06] MEDS: ALBUTEROL HFA 8 GM INHALER INH SCH ×4 (07:28→19:08)
[2022-03-06] MEDS: IPRATROPIUM BROMIDE HFA INHALER INH SCH ×4 (07:28→19:08)
[2022-03-06] MEDS: INSULIN ASPART PER UNIT SC SCH ×4 (08:33→21:04)
[2022-03-06] MEDS: ENOXAPARIN INJ 60 MG/0.6 ML SYR SQ SCH (08:33)
[2022-03-06] MEDS: allopurinoL 100 MG TAB PO SCH (08:34)
[2022-03-06] MEDS: CEROVITE ADV FORMULA TAB PO SCH (08:34)
[2022-03-06] MEDS: cefTRIAXone SODIUM 2,000 MG in DEXTROSE 5% 50 ML IV SCH (09:25)
[2022-03-06] MEDS ORDERED: FUROSEMIDE INJ 20 MG/2 ML VIAL IV ONE (09:26)
[2022-03-06 16:24] LABS: Creatinine Urine Random 45.2 mg/dl; Protein Creatinine Ratio Urine 1.3 (0-0.2); Total Protein Urine Random 57.4 mg/dl (0-11.9)
[2022-03-06] MEDS: WARFARIN SOD 1 MG TAB PO SCH (17:44)
[2022-03-06] MEDS: SIMVASTATIN 40 MG TAB PO SCH (20:36)
--- NOTE | 2022-03-06 22:10 | Hospitalist Progress Note ---
Date of Service March 06, 2022 Assessment & Plan (1) Acute maxillary sinusitis: Plan: as seen on CT head imaging. in light of +blood culture from 03/02/22 (alpha strep) will utilize rocephin IV. this will cover sinuses + the blood. repeat blood cultures obtained yesterday thus far negative. uncertain about the alpha strep if contaminant or pathogenic. more concerned it is latter. sinusitis likely contributing to her cough. NO EVIDENCE OF PNEUMONIA on CT chest yeserday although cough has a very bronchial quality to it. Could have bronchitis. Cont combivent for the cough. (2) Positive blood culture: Plan: 10/26 bottles positive from 03/02/22. uncertain of contaminant vs pathogenic. sed rate/crp/procal noted. repeat blood cultures thus far negative from yesterday. rocephin empirically for now as above. (3) Nausea and vomiting: Plan: med side effects? infectious process? gallstones/biliary? other? resolved regardless of etiology. now eating well. follow carefully. (4) Type 2 diabetes mellitus: Plan: BSGs well controlled. Most recent HbA1c 6% in January. Novolog SSI for now. (5) Hypertension: Plan: Lisinopril on hold due to mild rise in creatinine. BPs reasonable off of such. (6) Gout, joint: Plan: no flares at this time (7) Atrial fibrillation: Plan: rates controlled coumadin with daily INR on lovenox 1mg/kg daily while INR is <2 (8) Anemia: Plan: ferritin 43 in 01/2022 b12/folate/tsh wnl consider repeat ferritin and if still low --> IV Venofer trend the H/H (9) Thrombocytopenia: Plan: etiology?? TSH, b12, folate wnl. trend. (10) Bilateral pleural effusion: Plan: 2nd to diastolic CHF or proteinuria/nephrosis vs other. given LE edema & ascites -- will likely need more diuresis. lasix 20mg IV x 1 with repeat BMP in am. (11) Proteinuria: Plan: 3+ 2nd to diabetic nephropathy? MM? other? obtain SPEP and UPEP obtain urine protein/Cr ratio if latter is high -- consider 24-hour urine consider nephrology consultation (12) Chronic kidney disease, stage IV (severe): Plan: baseline CrCl 20s baseline creatinine ~1.3 Plan: chronic anorexia - etiology?? needs w/u added MVI and boost daughter extensively updated at bedside yesterday PT/OT evals done --- home with HH vs rehab will need evals again to tease out dispo Admission and Anticipated Discharge Date Admission Date: March 05, 2022 Subjective tele overnight wnl pt feeling good no nausea or emesis nursing flowsheets show good appetite/meal consumption cough is improved no dyspnea no sinus symptoms pretty sharp today remembers details of prior conversations Review of Systems Review of Systems: gen - no fevers or chills cv - no chest pain or orthopnea pulm - no dyspnea GI - no abd pain Physical Exam Physical Exam: gen - NAD, cough improved today neck - no JVD heart - irregular, s1 s2 lungs - decreased BS b/l bases, R>L; no rales or wheeze abd - soft NT ND BS+ ext - 1+ edema b/l, pulses 2+ b/l skin - stasis changes b/l shins psych - awake, alert, oriented x 3 today Results & Data Results & Data ([facility]) Vital Signs (Past 12 Hours) Vital Signs Temp Pulse Pulse Resp BP Pulse Ox 03/06/22 19:09 82 16 96 03/06/22 18:33 36.8 C 86 20 129/71 92 03/06/22 16:05 54 L 03/06/22 15:13 80 16 90 03/06/22 15:06 37.1 C 68 20 128/61 92 03/06/22 11:40 36.8 C 69 20 133/84 96 03/06/22 11:04 58 L 16 95 Laboratory Results Laboratory Results - last 24 hr 03/06/22 03/06/22 03/06/22 06:22 06:22 06:22 WBC 5.28 RBC 3.24 L Hgb 8.7 L Hct 28.6 L MCV 88.3 MCH 26.9 MCHC 30.4 L RDW Std Deviation 56.5 H RDW Coeff of Benjamin 17.2 H Plt Count 142 MPV 10.0 Immature Gran % (Auto) 0.4 Neut % (Auto) 68.5 Lymph % (Auto) 19.7 Roane % (Auto) 10.2 Eos % (Auto) 0.6 Baso % (Auto) 0.6 Neut # (Auto) 3.62 Lymph # (Auto) 1.04 L Roane # (Auto) 0.54 Eos # (Auto) 0.03 Baso # (Auto) 0.03 Immature Gran # (Auto) 0.02 PT INR Sodium 139 Potassium 4.5 Chloride 111 H Carbon Dioxide 22 Anion Gap 6 BUN 31 H Creatinine 1.55 H Est Cr Clr Drug Dosing 22.8 Est GFR ( Amer) 34.3 Est GFR (Non-Af Amer) 29.6 BUN/Creatinine Ratio 20.0 Glucose 88 POC Glucose Calcium 8.8 Phosphorus 3.5 Magnesium 2.0 Total Protein (PEP) Pending Albumin 3.2 L Albumin (PEP) Pending Gicio-9-Fkgyghihw Pending Hatvn-0-Tsltpnoaq Pending Jkcx-1-Neskgcog Pending Zjdt-9-Hrtkrwka Pending Gamma Globulins Pending Monoclonal Peak 3 Pending Ser Monoclonl Protein Pending Ser Monoclonal Prot 2 Pending PEP Interpretation Pending Ur Random Creatinine U Random Total Protein Ur Creatinine mg/dL Protein/Creatinin Ratio Urine Albumin (%) U Tengi-0-Oysxrbrt (%) U Ngyks-8-Nacioymw (%) U Beta Globulin (%) U Gamma Globulin (%) U Abnormal Prot Band 1 U Abnormal Prot Band 2 U Abnormal Prot Band 3 Urine PEP Interpret 03/06/22 03/06/22 03/06/22 06:22 07:23 11:10 WBC RBC Hgb Hct MCV MCH MCHC RDW Std Deviation RDW Coeff of Benjamin Plt Count MPV Immature Gran % (Auto) Neut % (Auto) Lymph % (Auto) Roane % (Auto) Eos % (Auto) Baso % (Auto) Neut # (Auto) Lymph # (Auto) Roane # (Auto) Eos # (Auto) Baso # (Auto) Immature Gran # (Auto) PT 13.6 H INR 1.3 H Sodium Potassium Chloride Carbon Dioxide Anion Gap BUN Creatinine Est Cr Clr Drug Dosing Est GFR ( Amer) Est GFR (Non-Af Amer) BUN/Creatinine Ratio Glucose POC Glucose 98 118 H Calcium Phosphorus Magnesium Total Protein (PEP) Albumin Albumin (PEP) Vpdog-5-Enfqlsshw Baaky-7-Pdtpbojkn Vidr-1-Dswdrlok Akpt-4-Nnzzwmqc Gamma Globulins Monoclonal Peak 3 Ser Monoclonl Protein Ser Monoclonal Prot 2 PEP Interpretation Ur Random Creatinine U Random Total Protein Ur Creatinine mg/dL Protein/Creatinin Ratio Urine Albumin (%) U Cbini-8-Lbytrigv (%) U Oxnym-6-Bymbpazi (%) U Beta Globulin (%) U Gamma Globulin (%) U Abnormal Prot Band 1 U Abnormal Prot Band 2 U Abnormal Prot Band 3 Urine PEP Interpret 03/06/22 03/06/22 03/06/22 15:15 15:15 16:17 WBC RBC Hgb Hct MCV MCH MCHC RDW Std Deviation RDW Coeff of Benjamin Plt Count MPV Immature Gran % (Auto) Neut % (Auto) Lymph % (Auto) Roane % (Auto) Eos % (Auto) Baso % (Auto) Neut # (Auto) Lymph # (Auto) Roane # (Auto) Eos # (Auto) Baso # (Auto) Immature Gran # (Auto) PT INR Sodium Potassium Chloride Carbon Dioxide Anion Gap BUN Creatinine Est Cr Clr Drug Dosing Est GFR ( Amer) Est GFR (Non-Af Amer) BUN/Creatinine Ratio Glucose POC Glucose 99 Calcium Phosphorus Magnesium Total Protein (PEP) Albumin Albumin (PEP) Ahcqa-5-Oevxbqgyk Ppdic-3-Ubzwrzyrx Dlyv-7-Qyapkifn Poma-0-Zranapum Gamma Globulins Monoclonal Peak 3 Ser Monoclonl Protein Ser Monoclonal Prot 2 PEP Interpretation Ur Random Creatinine 45.2 U Random Total Protein 57.4 H Pending Ur Creatinine mg/dL Pending Protein/Creatinin Ratio 1.3 H Pending Urine Albumin (%) Pending U Oysgn-9-Jhemipri (%) Pending U Vgmsi-3-Uqztlghs (%) Pending U Beta Globulin (%) Pending U Gamma Globulin (%) Pending U Abnormal Prot Band 1 Pending U Abnormal Prot Band 2 Pending U Abnormal Prot Band 3 Pending Urine PEP Interpret Pending 03/06/22 20:02 WBC RBC Hgb Hct MCV MCH MCHC RDW Std Deviation RDW Coeff of Benjamin Plt Count MPV Immature Gran % (Auto) Neut % (Auto) Lymph % (Auto) Roane % (Auto) Eos % (Auto) Baso % (Auto) Neut # (Auto) Lymph # (Auto) Roane # (Auto) Eos # (Auto) Baso # (Auto) Immature Gran # (Auto) PT INR Sodium Potassium Chloride Carbon Dioxide Anion Gap BUN Creatinine Est Cr Clr Drug Dosing Est GFR ( Amer) Est GFR (Non-Af Amer) BUN/Creatinine Ratio Glucose POC Glucose 108 H Calcium Phosphorus Magnesium Total Protein (PEP) Albumin Albumin (PEP) Puhjh-2-Ihrklyziy Paghg-3-Hwhjegoit Jrfv-7-Qcqmetay Nocm-9-Cyazkbdh Gamma Globulins Monoclonal Peak 3 Ser Monoclonl Protein Ser Monoclonal Prot 2 PEP Interpretation Ur Random Creatinine U Random Total Protein Ur Creatinine mg/dL Protein/Creatinin Ratio Urine Albumin (%) U Yjewi-2-Dhuxfxdz (%) U Yqdqk-3-Ueparsun (%) U Beta Globulin (%) U Gamma Globulin (%) U Abnormal Prot Band 1 U Abnormal Prot Band 2 U Abnormal Prot Band 3 Urine PEP Interpret Diagnostic Findings blood cx's from 03/02 - 10/30 bottles with alpha strep 03/05 blood cx's thus far neg 03/05 urine cx neg PG Care Time/CCT Total # of Minutes Spent Total Time Spent with Patient: Total time spent is greater than 50% in coordination of care (as documented) at patient's floor/unit and/or counseling patient: Coding Level of Care Code 10731 Subseq Obs Care Lvl 3 Diagnoses Acute maxillary sinusitis J01.00 Positive blood culture R78.81 Nausea and vomiting R11.2 Type 2 diabetes mellitus E11.9 Hypertension I10 Gout, joint M10.9 Atrial fibrillation I48.91 Anemia D64.9 Thrombocytopenia D69.6 Bilateral pleural effusion J90 Proteinuria R80.9 Chronic kidney disease, stage IV (severe) N18.4
[2022-03-07] MEDS: IPRATROPIUM BROMIDE HFA INHALER INH SCH ×4 (07:34→19:32)
[2022-03-07] MEDS: ALBUTEROL HFA 8 GM INHALER INH SCH ×4 (07:34→19:33)
[2022-03-07 08:16] LABS: INR 1.3 (0.9-1.1); Prothrombin Time 13.3 Seconds (9.0-12.0)
[2022-03-07 08:31] LABS: Albumin Level 3.2 gm/dl (3.4-5.0); BUN Creatinine Ratio 18.9 (10-20); Calcium 8.8 mg/dl (8.5-10.1); Creatinine Clr Calc Pharmacy 20.7 ml/min; Est GFR (African American) 30.9 ml/min; Est GFR (Non-African American) 26.7 ml/min; Phosphorus 3.3 mg/dl (2.5-4.9)
[2022-03-07] MEDS: CEROVITE ADV FORMULA TAB PO SCH (09:20)
[2022-03-07] MEDS: cefTRIAXone SODIUM 2,000 MG in DEXTROSE 5% 50 ML IV SCH (09:20)
[2022-03-07] MEDS: allopurinoL 100 MG TAB PO SCH (09:20)
[2022-03-07] MEDS: ENOXAPARIN INJ 60 MG/0.6 ML SYR SQ SCH (09:20)
[2022-03-07] MEDS: INSULIN ASPART PER UNIT SC SCH ×4 (09:21→20:24)
[2022-03-07] MEDS ORDERED: WARFARIN SOD 1 MG TAB PO ONE (16:00)
[2022-03-07] MEDS: WARFARIN SOD 1 MG TAB PO SCH (18:36)
[2022-03-07] MEDS: SIMVASTATIN 40 MG TAB PO SCH (20:33)
--- NOTE | 2022-03-07 21:13 | Hospitalist Progress Note ---
Date of Service March 07, 2022 Assessment & Plan (1) Acute maxillary sinusitis: Plan: as seen on CT head imaging. in light of +blood culture from 03/02/22 (alpha strep) will utilize rocephin IV. this will cover sinuses + the blood. repeat blood cultures obtained 03/04 thus far negative. uncertain about the alpha strep if contaminant or pathogenic. it was only in 1 bottle so statistically likely to be contaminant. sinusitis likely contributing to her cough. NO EVIDENCE OF PNEUMONIA on CT chest although cough has a very bronchial quality to it. Could have reactive bronchitis. Cont combivent for the cough. if blood cultures from 03/04 remain negative can likely d/c rocephin tomorrow and change to augmentin or similar (2) Positive blood culture: Plan: 1/4 bottles positive from 03/02/22. bacterium - alpha strep. uncertain of contaminant vs pathogenic. sed rate/crp/procal wnl. repeat blood cultures 03/04/22 negative to date. rocephin empirically for now as above. (3) Nausea and vomiting: Plan: present at time of admission. med side effects? (was taking cefdinir, zithromax, potassium, lasix when the N/V started) infectious process? gallstones/biliary? other? resolved regardless of etiology. now eating well. follow carefully. suspect it was med side effects - particularly the potassium with zithromax. (4) Type 2 diabetes mellitus: Plan: BSGs well controlled. Most recent HbA1c 6% in January. Novolog SSI for now. records reviewed - takes a sulfonylurea and was having copious #'s of hypoglycemic episodes earlier this spring. BSGs have been EXCELLENT off the glipizide this admission. given inconsistent eating habits, CKD, and her excellent glycemic control would NOT resume glipizide at discharge. (5) Hypertension: Plan: Lisinopril on hold due to mild rise in creatinine. BPs reasonable/acceptable off of such. (6) Gout, joint: Plan: no flares at this time (7) Atrial fibrillation: Plan: rates controlled without AV arthur agent coumadin with daily INR on lovenox 1mg/kg daily while INR is <2 (prior attending ordered such) her coumadin dose had been 2mg/day but dose recently lowered because of GI/ bleeding & supratherapeutic levels since eating is better, and since no recurrent bleeding - and given the persistently low INR - will increase coumadin give 2mg today daily INR suspect she may need 2mg // and 1mg //Mon/Sun - or something similar (8) Anemia: Plan: ferritin 43 in 01/2022 b12/folate/tsh wnl remains anemic with Hb in the 8's recheck Fe studies in am if still low -- IV venofer Fe def likely due to hemorrhoidal bleeding in december along with bleeding (vaginal tear) in December I also sent an SPEP/UPEP in light of anemia/mild thrombocytopenia along with 3+ proteinuria these are pending (9) Thrombocytopenia: Plan: very mild etiology? TSH, b12, folate wnl. SPEP/UPEP pending. (10) Bilateral pleural effusion: Plan: 2nd to diastolic CHF or proteinuria/nephrosis vs other. attempts to give her diuretic this admission has simply led to further rises in her creatinine. hold further diuresis for now. (11) Proteinuria: Plan: 3+ 2nd to diabetic nephropathy? MM? other? obtain SPEP and UPEP - both pending obtained urine protein/Cr ratio - significantly abnormal consider 24-hour urine consider nephrology consultation both can be done as outpatient (12) Chronic kidney disease, stage IV (severe): Plan: baseline CrCl 20s baseline creatinine ~1.3 now with mild PAMELA as described below (13) Acute kidney injury: Plan: Cr now 1.6 this is in the setting of attempts at diuresis no further lasix for now repeat BMP am (14) Pulmonary hypertension: Plan: severe echo 01/2022 with RVSP >60mmHg etiology of pulmonary HTN?? no prior h/o PE no h/o MARTA no h/o chronic lung disease LE edema could be 2nd to such Plan: son, daughter both extensively updated at bedside today PT/OT evals done --- home with HH vs rehab will need evals again to tease out disposition Admission and Anticipated Discharge Date Admission Date: March 07, 2022 Subjective patient sitting in chair by the window son, daughter both at bedside she offers no new complaints continues with cough with occasional yellow sputum production no dyspnea eating well no abd pain son, daughter feel she is "much better" and fairly close to her baseline son, daughter with multiple questions about her care they also mention that in December she had severe rectal bleeding from internal hemorroids she also had a vaginal laceration in the setting of a pessary the vaginal laceration was repaired by client reporting associate in the ER in late December no bleeding from the rectum or vagina since numerous client reporting associate, gen surg, and ER office visits reviewed since December family states she has not been well since Review of Systems Review of Systems: gen - some weakness but improving; appetite improved; no fever cv - no orthopnea, no cp; mild edema but unchanged pulm - no dyspnea GI - no N/V Physical Exam Physical Exam: gen - NAD, looks good; scant cough today mouth - MMM face - no tenderness over frontal/maxillary sinuses neck - no JVD heart - irregular, s1 s2 lungs - decreased BS b/l bases, R>L; no rales or wheeze abd - soft NT ND BS+ ext - 1+ edema b/l, pulses 2+ b/l skin - stasis changes b/l shins psych - awake, alert, oriented x 3 today Results & Data Results & Data ([facility]) Vital Signs (Past 12 Hours) Vital Signs Temp Pulse Pulse Resp BP BP Pulse Ox 03/07/22 19:33 94 03/07/22 19:13 36.6 C 83 18 156/67 H 91 03/07/22 15:44 79 18 95 03/07/22 14:58 37.1 C 73 18 133/70 92 03/07/22 14:20 69 03/07/22 11:23 85 20 95 03/07/22 11:20 36.8 C 77 18 120/79 94 Laboratory Results Laboratory Results - last 24 hr 03/07/22 03/07/22 03/07/22 07:37 07:37 07:46 PT 13.3 H INR 1.3 H Sodium 137 Potassium 4.0 Chloride 109 H Carbon Dioxide 20 L Anion Gap 8 BUN 32 H Creatinine 1.69 H Est Cr Clr Drug Dosing 20.7 Est GFR ( Amer) 30.9 Est GFR (Non-Af Amer) 26.7 BUN/Creatinine Ratio 18.9 Glucose 102 H POC Glucose 117 H Calcium 8.8 Phosphorus 3.3 Albumin 3.2 L 03/07/22 03/07/22 03/07/22 11:44 16:30 20:00 PT INR Sodium Potassium Chloride Carbon Dioxide Anion Gap BUN Creatinine Est Cr Clr Drug Dosing Est GFR ( Amer) Est GFR (Non-Af Amer) BUN/Creatinine Ratio Glucose POC Glucose 114 H 90 119 H Calcium Phosphorus Albumin PG Care Time/CCT Total # of Minutes Spent Total Time Spent with Patient: Total time spent is greater than 50% in coordination of care (as documented) at patient's floor/unit and/or counseling patient: Coding Level of Care Code 89418 Subseq Hosp Care Lvl 3 Diagnoses Acute maxillary sinusitis J01.00 Positive blood culture R78.81 Nausea and vomiting R11.2 Type 2 diabetes mellitus E11.9 Hypertension I10 Gout, joint M10.9 Atrial fibrillation I48.91 Anemia D64.9 Thrombocytopenia D69.6 Bilateral pleural effusion J90 Proteinuria R80.9 Chronic kidney disease, stage IV (severe) N18.4 Acute kidney injury N17.9 Pulmonary hypertension I27.20
[2022-03-08 06:03] LABS: Hematocrit (blood only) 28.8 % (37-47); Hemoglobin 8.6 g/dL (12.0-16.0); Mean Corpuscular Hemoglobin 26.3 pg (25-34); Mean Corpuscular Hgb Conc 29.9 g/dL (32-36); Mean Corpuscular Volume 88.1 fL (80-100); Mean Platelet Volume 9.1 fL (7.4-10.4); Platelet Count 128 K/uL (130-400); RDW Coefficient of Variation 17.2 % (11.5-14.5); RDW Standard Deviation 55.7 fL (36.4-46.3); Red Blood Count 3.27 M/uL (4.2-5.4); White Blood Count 5.62 K/uL (4.8-10.8)
[2022-03-08 06:16] LABS: INR 1.3 (0.9-1.1); Prothrombin Time 13.2 Seconds (9.0-12.0)
[2022-03-08 06:21] LABS: Creatinine Clr Calc Pharmacy 38.6 ml/min; Est GFR (African American) 30.5 ml/min; Est GFR (Non-African American) 26.3 ml/min
[2022-03-08] MEDS: ALBUTEROL HFA 8 GM INHALER INH SCH (07:13)
[2022-03-08] MEDS: IPRATROPIUM BROMIDE HFA INHALER INH SCH (07:13)
[2022-03-08] MEDS: CEROVITE ADV FORMULA TAB PO SCH (07:49)
[2022-03-08] MEDS: ENOXAPARIN INJ 60 MG/0.6 ML SYR SQ SCH (07:49)
[2022-03-08] MEDS: allopurinoL 100 MG TAB PO SCH (07:49)
[2022-03-08] MEDS: cefTRIAXone SODIUM 2,000 MG in DEXTROSE 5% 50 ML IV SCH (07:49)
[2022-03-08] MEDS: INSULIN ASPART PER UNIT SC SCH ×4 (08:02→21:30)
[2022-03-08] MEDS ORDERED: IPRATROPIUM BROMIDE HFA INHALER INH PRN (08:13)
[2022-03-08] MEDS ORDERED: ALBUTEROL HFA 8 GM INHALER INH PRN (08:13)
[2022-03-08 08:51] LABS: Basophils # (auto) 0.01 K/uL (0-0.2); Basophils % (auto) 0.2 %; Eosinophils # (auto) 0.08 K/uL (0-0.5); Eosinophils % (auto) 1.4 %; Immature Granulocytes # (auto) 0.02 K/uL (0.00-0.02); Immature Granulocytes % (auto) 0.4 %; Lymphocytes # (auto) 0.72 K/uL (1.2-3.4); Monocytes # (auto) 0.58 K/uL (0.11-0.59); Monocytes % (auto) 10.5 %; Neutrophils # (auto) 4.11 K/uL (1.4-6.5); Neutrophils % (auto) 74.5 %
[2022-03-08 09:09] LABS: Iron 20 mcg/dl (35-150); Total Iron Binding Cap Calc 284 mcg/dl (250-450); Transferrin (FE) Percent Satur 7 % (15-50); Unsaturated Iron Binding Cap 264 mcg/dl (155-355)
[2022-03-08 09:26] LABS: Calcium 8.7 mg/dl (8.5-10.1); Creatinine Clr Calc Pharmacy 21.8 ml/min; Est GFR (African American) 31.3 ml/min; Potassium 4.4 mmol/L (3.5-5.1)
[2022-03-08 09:45] LABS: Anisocytosis Present; Hypochromasia Present; Polychromasia 1+; Rouleaux 1+
[2022-03-08] MEDS ORDERED: IRON SUCROSE 300 MG in SODIUM CHLORIDE 0.9% 250 ML IV ONE (11:46)
[2022-03-08] MEDS ORDERED: CALCIUM CARBONATE 500 MG CHEWABLE TAB PO PRN (14:08)
--- NOTE | 2022-03-08 14:08 | Hospitalist Progress Note ---
Date of Service March 08, 2022 Assessment & Plan (1) Acute maxillary sinusitis: Plan: as seen on CT head imaging. in light of +blood culture from 03/02/22 (alpha strep) will utilize rocephin IV. this will cover sinuses + the blood. repeat blood cultures obtained 03/04 thus far negative. With alpha Strep bacteremia could be related to sinusitis sinusitis likely contributing to her cough. NO EVIDENCE OF PNEUMONIA on CT chest although cough has a very bronchial quality to it. Could have reactive bronchitis. Cont combivent for the cough. (2) Positive blood culture: Plan: 1/4 bottles positive from 03/02/22. alpha strep could be contaminant but could be pathogenic given sinusitis sed rate/crp/procal wnl. repeat blood cultures 03/05/22 remain negative to date. continue rocephin for now as above. (3) Nausea and vomiting: Plan: present at time of admission and perists also with diarrhea both at home and here, worsening today med side effects? (was taking cefdinir, zithromax, potassium, lasix when the N/V started) Could have C. diff-check C. diff stool toxin -continue Zofran prn (4) Type 2 diabetes mellitus: Plan: BSGs well controlled. Most recent HbA1c 6% in January. Novolog SSI for now. records reviewed - takes a sulfonylurea and was having copious #'s of hypoglycemic episodes earlier this spring. BSGs have been EXCELLENT off the glipizide this admission. given inconsistent eating habits, CKD, and her excellent glycemic control would NOT resume glipizide at discharge. (5) Hypertension: Plan: Lisinopril on hold due to mild rise in creatinine. BPs reasonable/acceptable off of such. (6) Gout, joint: Plan: no flares at this time (7) Atrial fibrillation: Plan: rates controlled without AV arthur agent coumadin with daily INR on lovenox 1mg/kg daily while INR is <2 (prior attending ordered such) her coumadin dose had been 2mg/day but dose recently lowered because of GI/ bleeding & supratherapeutic levels since eating is better, and since no recurrent bleeding - and given the persistently low INR - have since increased coumadin to 2mg daily daily INR (8) Anemia: Plan: ferritin 43 in 01/2022 b12/folate/tsh wnl remains anemic with Hb in the 8's rechecked Fe studies -low transferrin sat at 7% start IV venofer 300mg IV daily x 3 doses Fe def likely due to hemorrhoidal bleeding in december along with bleeding (vaginal tear) in December SPEP/UPEP in light of anemia/mild thrombocytopenia along with 3+ proteinuria- pending (9) Thrombocytopenia: Plan: very mild TSH, b12, folate wnl. SPEP/UPEP pending. could be 2/2 infection or antibiotics? (10) Bilateral pleural effusion: Plan: 2nd to diastolic CHF or proteinuria/nephrosis vs other. attempts to give her diuretic this admission has simply led to further rises in her creatinine. hold further diuresis for now. Family concerned about her leg swelling and abdominal distension being signs of volume overload (11) Proteinuria: Plan: 3+ 2nd to diabetic nephropathy? MM? other? obtain SPEP and UPEP - both pending obtained urine protein/Cr ratio - significantly abnormal consider 24-hour urine consider nephrology consultation both can be done as outpatient (12) Chronic kidney disease, stage IV (severe): Plan: baseline CrCl 20s baseline creatinine ~1.3 now with mild PAMELA (13) Acute kidney injury: Plan: Cr now 1.7 this is in the setting of attempts at diuresis no further lasix for now repeat BMP am (14) Pulmonary hypertension: Plan: severe echo 01/2022 with RVSP >60mmHg etiology of pulmonary HTN?? no prior h/o PE no h/o MARTA no h/o chronic lung disease LE edema could be 2nd to such Plan: two daughters both extensively updated at bedside today PT/OT evals done --- home with HH vs rehab. Not ready for discharge yet Admission and Anticipated Discharge Date Admission Date: March 07, 2022 Subjective Pt feeling nauseated since drinking orange juice this AM, did not eat lunch. I ordered her TUMs and ZOfran and checke don her again later and still c/o nausea and a "belly ache." Is now having multiple loose stools. Tele with rate controlled Afib Review of Systems Review of Systems: All systems reviewed & are unremarkable except as noted in HPI & below Physical Exam Constitutional: WD/WN, vitals as above Eyes: + anicteric sclerae ENMT: external ear and nose normal, oropharynx normal Neck: trachea midline, no thyromegaly Respiratory: normal respiratory effort, lungs clear to auscultation Cardiovascular: Rate/Rhythm: regular rate and + irregularly irregular Heart Sounds: no murmur Extremities: + edema (trace pitting edema legs bilat) Chest (Breasts): Chest: normal inspection of chest Gastrointestinal (Abdomen): normal bowel sounds, soft, nontender, no hepatosplenomegaly Musculoskeletal: Extremities: extremities normal to inspection; no cyanosis and no clubbing Skin: no rashes, warm and dry Neurologic: moves all extremities and awake; no focal motor deficits Psychiatric: A+Ox3, euthymic affect Results & Data Results & Data ([facility]) Vital Signs (Past 12 Hours) Vital Signs Temp Pulse Pulse Resp BP BP Pulse Ox 03/08/22 11:27 36.7 C 70 18 131/75 92 03/08/22 07:52 36.9 C 79 18 155/89 H 91 03/08/22 07:14 81 18 94 03/08/22 07:00 59 L 03/08/22 02:40 37 C 68 17 148/83 H 92 Laboratory Results 03/08/22 03/08/22 03/08/22 Range/Units 16:34 11:32 07:38 WBC (4.8-10.8) K/uL RBC (4.2-5.4) M/uL Hgb (12.0-16.0) g/dL Hct (37-47) % MCV (80-100) fL MCH (25-34) pg MCHC (32-36) g/dL RDW Std Deviation (36.4-46.3) fL RDW Coeff of Benjamin (11.5-14.5) % Plt Count (130-400) K/uL MPV (7.4-10.4) fL Immature Gran % (Auto) % Neut % (Auto) % Lymph % (Auto) % [place] % (Auto) % Eos % (Auto) % Baso % (Auto) % Neut # (Auto) (1.4-6.5) K/uL Lymph # (Auto) (1.2-3.4) K/uL [place] # (Auto) (0.11-0.59) K/uL Eos # (Auto) (0-0.5) K/uL Baso # (Auto) (0-0.2) K/uL Immature Gran # (Auto) (0.00-0.02) K/uL Absolute Nucleated RBC Nucleated RBC % (auto) Neutrophils % (Manual) Band Neutrophils % Lymphocytes % (Manual) Prolymphocyte % Reactive Lymphs % (Man) Monocytes % (Manual) Eosinophils % (Manual) Basophils % (Manual) Metamyelocytes % (Man) Myelocytes % (Man) Promyelocytes % (Man) Blast Cells % (Manual) Plasma Cell % (Manual) Other Cells % Nucleated RBC % Neutrophils # (Manual) Band Neutrophils # Total Absolute Neuts Lymphocytes # (Manual) Prolymphocyte # Reactive Lymphs # Total Abs Lymphocytes Monocytes # (Manual) Eosinophils # (Manual) Basophils # (Manual) Metamyelocytes # (Man) Myelocytes # (Manual) Promyelocytes # (Man) Blast Cells # (Man) Plasma Cell # (Manual) Other Cells # Nucleated RBCs # (Man) Hypersegmented Neuts Hyposegmented Neuts Hypogranular Neuts Large Granular Lymphs # Lrg Granular Lymphs Hairy Cells Smudge Cells Toxic Granulation Toxic Vacuolation Dohle Bodies Daquan Rods Platelet Estimate Hypogranular Platelets Clumped Platelets Giant Platelets Platelet Satelliting RBC Morphology Polychromasia Hypochromasia Poikilocytosis Basophilic Stippling Anisocytosis Microcytosis Macrocytosis Spherocytes Pappenheimer Bodies Sickle Cells Target Cells Tear Drop Cells Ovalocytes Stomatocytes Wilkerson-Belmond Bodies Echinocytes Acanthocytes (Spur) Rouleaux RBC Agglutinates Schistocytes RBC Morph Comment Sezary Cell PT (9.0-12.0) Seconds INR (0.9-1.1) Sodium (136-145) mmol/L Potassium (3.5-5.1) mmol/L Chloride (98-107) mmol/L Carbon Dioxide (21-32) mmol/L Anion Gap (3-11) BUN (6-23) mg/dl Creatinine (0.6-1.2) mg/dl Est Cr Clr Drug Dosing ml/min Est GFR ( Amer) ml/min Est GFR (Non-Af Amer) ml/min BUN/Creatinine Ratio (10-20) Glucose (70-99(Fasting)) mg/dl POC Glucose 155 H 122 H 121 H (70-99) mg/dl Calcium (8.5-10.1) mg/dl Iron (35-150) mcg/dl TIBC (250-450) mcg/dl Unsaturated IBC (155-355) mcg/dl Transferrin % Sat (15-50) % Ferritin (8-388) ng/ml 03/08/22 03/08/22 03/08/22 Range/Units 05:40 05:40 05:40 WBC Cancelled (4.8-10.8) K/uL RBC Cancelled (4.2-5.4) M/uL Hgb Cancelled (12.0-16.0) g/dL Hct Cancelled (37-47) % MCV Cancelled (80-100) fL MCH Cancelled (25-34) pg MCHC Cancelled (32-36) g/dL RDW Std Deviation Cancelled (36.4-46.3) fL RDW Coeff of Benjamin Cancelled (11.5-14.5) % Plt Count Cancelled (130-400) K/uL MPV Cancelled (7.4-10.4) fL Immature Gran % (Auto) Cancelled % Neut % (Auto) Cancelled % Lymph % (Auto) Cancelled % [place] % (Auto) Cancelled % Eos % (Auto) Cancelled % Baso % (Auto) Cancelled % Neut # (Auto) Cancelled (1.4-6.5) K/uL Lymph # (Auto) Cancelled (1.2-3.4) K/uL [place] # (Auto) Cancelled (0.11-0.59) K/uL Eos # (Auto) Cancelled (0-0.5) K/uL Baso # (Auto) Cancelled (0-0.2) K/uL Immature Gran # (Auto) Cancelled (0.00-0.02) K/uL Absolute Nucleated RBC Cancelled Nucleated RBC % (auto) Cancelled Neutrophils % (Manual) Cancelled Band Neutrophils % Cancelled Lymphocytes % (Manual) Cancelled Prolymphocyte % Cancelled Reactive Lymphs % (Man) Cancelled Monocytes % (Manual) Cancelled Eosinophils % (Manual) Cancelled Basophils % (Manual) Cancelled Metamyelocytes % (Man) Cancelled Myelocytes % (Man) Cancelled Promyelocytes % (Man) Cancelled Blast Cells % (Manual) Cancelled Plasma Cell % (Manual) Cancelled Other Cells % Cancelled Nucleated RBC % Cancelled Neutrophils # (Manual) Cancelled Band Neutrophils # Cancelled Total Absolute Neuts Cancelled Lymphocytes # (Manual) Cancelled Prolymphocyte # Cancelled Reactive Lymphs # Cancelled Total Abs Lymphocytes Cancelled Monocytes # (Manual) Cancelled Eosinophils # (Manual) Cancelled Basophils # (Manual) Cancelled Metamyelocytes # (Man) Cancelled Myelocytes # (Manual) Cancelled Promyelocytes # (Man) Cancelled Blast Cells # (Man) Cancelled Plasma Cell # (Manual) Cancelled Other Cells # Cancelled Nucleated RBCs # (Man) Cancelled Hypersegmented Neuts Cancelled Hyposegmented Neuts Cancelled Hypogranular Neuts Cancelled Large Granular Lymphs Cancelled # Lrg Granular Lymphs Cancelled Hairy Cells Cancelled Smudge Cells Cancelled Toxic Granulation Cancelled Toxic Vacuolation Cancelled Dohle Bodies Cancelled Daquan Rods Cancelled Platelet Estimate Cancelled Hypogranular Platelets Cancelled Clumped Platelets Cancelled Giant Platelets Cancelled Platelet Satelliting Cancelled RBC Morphology Cancelled Polychromasia Cancelled Hypochromasia Cancelled Poikilocytosis Cancelled Basophilic Stippling Cancelled Anisocytosis Cancelled Microcytosis Cancelled Macrocytosis Cancelled Spherocytes Cancelled Pappenheimer Bodies Cancelled Sickle Cells Cancelled Target Cells Cancelled Tear Drop Cells Cancelled Ovalocytes Cancelled Stomatocytes Cancelled Wilkerson-Belmond Bodies Cancelled Echinocytes Cancelled Acanthocytes (Spur) Cancelled Rouleaux Cancelled RBC Agglutinates Cancelled Schistocytes Cancelled RBC Morph Comment Cancelled Sezary Cell Cancelled PT (9.0-12.0) Seconds INR (0.9-1.1) Sodium 138 (136-145) mmol/L Potassium 4.4 (3.5-5.1) mmol/L Chloride 109 H (98-107) mmol/L Carbon Dioxide 23 (21-32) mmol/L Anion Gap 6 (3-11) BUN 35 H (6-23) mg/dl Creatinine 1.67 H (0.6-1.2) mg/dl Est Cr Clr Drug Dosing 21.8 ml/min Est GFR ( Amer) 31.3 ml/min Est GFR (Non-Af Amer) 27.0 ml/min BUN/Creatinine Ratio 21.0 H (10-20) Glucose 110 H (70-99(Fasting)) mg/dl POC Glucose (70-99) mg/dl Calcium 8.7 (8.5-10.1) mg/dl Iron 20 L (35-150) mcg/dl TIBC 284 (250-450) mcg/dl Unsaturated IBC 264 (155-355) mcg/dl Transferrin % Sat 7 L (15-50) % Ferritin 58.0 (8-388) ng/ml 03/08/22 03/08/22 03/08/22 Range/Units 05:40 05:40 05:40 WBC 5.62 (4.8-10.8) K/uL RBC 3.27 L (4.2-5.4) M/uL Hgb 8.6 L (12.0-16.0) g/dL Hct 28.8 L (37-47) % MCV 88.1 (80-100) fL MCH 26.3 (25-34) pg MCHC 29.9 L (32-36) g/dL RDW Std Deviation 55.7 H (36.4-46.3) fL RDW Coeff of Benjamin 17.2 H (11.5-14.5) % Plt Count 128 L (130-400) K/uL MPV 9.1 (7.4-10.4) fL Immature Gran % (Auto) 0.4 % Neut % (Auto) 74.5 % Lymph % (Auto) 13.0 % [place] % (Auto) 10.5 % Eos % (Auto) 1.4 % Baso % (Auto) 0.2 % Neut # (Auto) 4.11 (1.4-6.5) K/uL Lymph # (Auto) 0.72 L (1.2-3.4) K/uL [place] # (Auto) 0.58 (0.11-0.59) K/uL Eos # (Auto) 0.08 (0-0.5) K/uL Baso # (Auto) 0.01 (0-0.2) K/uL Immature Gran # (Auto) 0.02 (0.00-0.02) K/uL Absolute Nucleated RBC Nucleated RBC % (auto) Neutrophils % (Manual) Band Neutrophils % Lymphocytes % (Manual) Prolymphocyte % Reactive Lymphs % (Man) Monocytes % (Manual) Eosinophils % (Manual) Basophils % (Manual) Metamyelocytes % (Man) Myelocytes % (Man) Promyelocytes % (Man) Blast Cells % (Manual) Plasma Cell % (Manual) Other Cells % Nucleated RBC % Neutrophils # (Manual) Band Neutrophils # Total Absolute Neuts Lymphocytes # (Manual) Prolymphocyte # Reactive Lymphs # Total Abs Lymphocytes Monocytes # (Manual) Eosinophils # (Manual) Basophils # (Manual) Metamyelocytes # (Man) Myelocytes # (Manual) Promyelocytes # (Man) Blast Cells # (Man) Plasma Cell # (Manual) Other Cells # Nucleated RBCs # (Man) Hypersegmented Neuts Hyposegmented Neuts Hypogranular Neuts Large Granular Lymphs # Lrg Granular Lymphs Hairy Cells Smudge Cells Toxic Granulation Toxic Vacuolation Dohle Bodies Daquan Rods Platelet Estimate Hypogranular Platelets Clumped Platelets Giant Platelets Platelet Satelliting RBC Morphology Polychromasia 1+ Hypochromasia Present Poikilocytosis Basophilic Stippling Anisocytosis Present Microcytosis Macrocytosis Spherocytes Pappenheimer Bodies Sickle Cells Target Cells Tear Drop Cells Ovalocytes Stomatocytes Wilkerson-Belmond Bodies Echinocytes Acanthocytes (Spur) Rouleaux 1+ RBC Agglutinates Schistocytes RBC Morph Comment Sezary Cell PT 13.2 H (9.0-12.0) Seconds INR 1.3 H (0.9-1.1) Sodium (136-145) mmol/L Potassium (3.5-5.1) mmol/L Chloride (98-107) mmol/L Carbon Dioxide (21-32) mmol/L Anion Gap (3-11) BUN (6-23) mg/dl Creatinine 1.71 H (0.6-1.2) mg/dl Est Cr Clr Drug Dosing 38.6 ml/min Est GFR ( Amer) 30.5 ml/min Est GFR (Non-Af Amer) 26.3 ml/min BUN/Creatinine Ratio (10-20) Glucose (70-99(Fasting)) mg/dl POC Glucose (70-99) mg/dl Calcium (8.5-10.1) mg/dl Iron (35-150) mcg/dl TIBC (250-450) mcg/dl Unsaturated IBC (155-355) mcg/dl Transferrin % Sat (15-50) % Ferritin (8-388) ng/ml 03/07/22 Range/Units 20:00 WBC (4.8-10.8) K/uL RBC (4.2-5.4) M/uL Hgb (12.0-16.0) g/dL Hct (37-47) % MCV (80-100) fL MCH (25-34) pg MCHC (32-36) g/dL RDW Std Deviation (36.4-46.3) fL RDW Coeff of Benjamin (11.5-14.5) % Plt Count (130-400) K/uL MPV (7.4-10.4) fL Immature Gran % (Auto) % Neut % (Auto) % Lymph % (Auto) % [place] % (Auto) % Eos % (Auto) % Baso % (Auto) % Neut # (Auto) (1.4-6.5) K/uL Lymph # (Auto) (1.2-3.4) K/uL [place] # (Auto) (0.11-0.59) K/uL Eos # (Auto) (0-0.5) K/uL Baso # (Auto) (0-0.2) K/uL Immature Gran # (Auto) (0.00-0.02) K/uL Absolute Nucleated RBC Nucleated RBC % (auto) Neutrophils % (Manual) Band Neutrophils % Lymphocytes % (Manual) Prolymphocyte % Reactive Lymphs % (Man) Monocytes % (Manual) Eosinophils % (Manual) Basophils % (Manual) Metamyelocytes % (Man) Myelocytes % (Man) Promyelocytes % (Man) Blast Cells % (Manual) Plasma Cell % (Manual) Other Cells % Nucleated RBC % Neutrophils # (Manual) Band Neutrophils # Total Absolute Neuts Lymphocytes # (Manual) Prolymphocyte # Reactive Lymphs # Total Abs Lymphocytes Monocytes # (Manual) Eosinophils # (Manual) Basophils # (Manual) Metamyelocytes # (Man) Myelocytes # (Manual) Promyelocytes # (Man) Blast Cells # (Man) Plasma Cell # (Manual) Other Cells # Nucleated RBCs # (Man) Hypersegmented Neuts Hyposegmented Neuts Hypogranular Neuts Large Granular Lymphs # Lrg Granular Lymphs Hairy Cells Smudge Cells Toxic Granulation Toxic Vacuolation Dohle Bodies Daquan Rods Platelet Estimate Hypogranular Platelets Clumped Platelets Giant Platelets Platelet Satelliting RBC Morphology Polychromasia Hypochromasia Poikilocytosis Basophilic Stippling Anisocytosis Microcytosis Macrocytosis Spherocytes Pappenheimer Bodies Sickle Cells Target Cells Tear Drop Cells Ovalocytes Stomatocytes Wilkerson-Belmond Bodies Echinocytes Acanthocytes (Spur) Rouleaux RBC Agglutinates Schistocytes RBC Morph Comment Sezary Cell PT (9.0-12.0) Seconds INR (0.9-1.1) Sodium (136-145) mmol/L Potassium (3.5-5.1) mmol/L Chloride (98-107) mmol/L Carbon Dioxide (21-32) mmol/L Anion Gap (3-11) BUN (6-23) mg/dl Creatinine (0.6-1.2) mg/dl Est Cr Clr Drug Dosing ml/min Est GFR ( Amer) ml/min Est GFR (Non-Af Amer) ml/min BUN/Creatinine Ratio (10-20) Glucose (70-99(Fasting)) mg/dl POC Glucose 119 H (70-99) mg/dl Calcium (8.5-10.1) mg/dl Iron (35-150) mcg/dl TIBC (250-450) mcg/dl Unsaturated IBC (155-355) mcg/dl Transferrin % Sat (15-50) % Ferritin (8-388) ng/ml PG Care Time/CCT Total # of Minutes Spent Total Time Spent with Patient: Total time spent is greater than 50% in coordination of care (as documented) at patient's floor/unit and/or counseling patient: Coding Level of Care Code 87576 Subseq Hosp Care Lvl 3 Diagnoses Acute maxillary sinusitis J01.00 Positive blood culture R78.81 Nausea and vomiting R11.2 Type 2 diabetes mellitus E11.9 Hypertension I10 Gout, joint M10.9 Atrial fibrillation I48.91 Anemia D64.9 Thrombocytopenia D69.6 Bilateral pleural effusion J90 Proteinuria R80.9 Chronic kidney disease, stage IV (severe) N18.4 Acute kidney injury N17.9 Pulmonary hypertension I27.20
[2022-03-08] MEDS: ONDANSETRON INJ 2 MG/ML 2 ML VIAL IV PRN (14:11)
[2022-03-08] MEDS: WARFARIN SOD 2 MG TAB PO SCH (17:55)
[2022-03-08] MEDS: ACETAMINOPHEN 325 MG TAB PO PRN ×2 (18:23→22:57)
[2022-03-08 21:12] LABS: Cdiff Antigen Positive; Cdiff Toxin A+B Negative Cdiff Toxin (Negative)
[2022-03-08] MEDS: SIMVASTATIN 40 MG TAB PO SCH (21:30)
[2022-03-09 06:05] LABS: Creatinine Ur 48 mg/dL (20-275); Protein, Urine Random 56 mg/dL (5-24); Ur Protein/Creat Ratio mg/g 1167 mg/g creat (21-161); Urine Abnormal Protein Band 1 DNR mg/dL (NONE DETECTED); Urine Abnormal Protein Band 2 DNR mg/dL (NONE DETECTED); Urine Abnormal Protein Band 3 DNR mg/dL (NONE DETECTED); Urine Protein/Creatinine Ratio 1.167 (0.021-0.161)
[2022-03-09 07:34] LABS: Basophils # (auto) 0.02 K/uL (0-0.2); Basophils % (auto) 0.3 %; Eosinophils # (auto) 0.05 K/uL (0-0.5); Eosinophils % (auto) 0.7 %; Hematocrit (blood only) 29.2 % (37-47); Hemoglobin 8.7 g/dL (12.0-16.0); Immature Granulocytes # (auto) 0.02 K/uL (0.00-0.02); Immature Granulocytes % (auto) 0.3 %; Lymphocytes # (auto) 0.69 K/uL (1.2-3.4); Lymphocytes % (auto) 9.4 %; Mean Corpuscular Hemoglobin 25.8 pg (25-34); Mean Corpuscular Hgb Conc 29.8 g/dL (32-36); Mean Corpuscular Volume 86.6 fL (80-100); Mean Platelet Volume 8.9 fL (7.4-10.4); Monocytes # (auto) 0.63 K/uL (0.11-0.59); Monocytes % (auto) 8.5 %; Neutrophils # (auto) 5.96 K/uL (1.4-6.5); Neutrophils % (auto) 80.8 %; Platelet Count 118 K/uL (130-400); RDW Coefficient of Variation 17.5 % (11.5-14.5); RDW Standard Deviation 55.2 fL (36.4-46.3); Red Blood Count 3.37 M/uL (4.2-5.4); White Blood Count 7.37 K/uL (4.8-10.8)
[2022-03-09 07:43] LABS: INR 1.3 (0.9-1.1); Prothrombin Time 13.5 Seconds (9.0-12.0)
[2022-03-09 08:02] LABS: Albumin Globulin Ratio 0.9 (0.9-2); Albumin Level 3.2 gm/dl (3.4-5.0); BUN Creatinine Ratio 21.1 (10-20); Bilirubin,Total 0.6 mg/dl (0.2-1.0); Calcium 8.9 mg/dl (8.5-10.1); Creatinine Clr Calc Pharmacy 24.8 ml/min; Est GFR (African American) 36.6 ml/min; Est GFR (Non-African American) 31.5 ml/min; Globulin 3.6 gm/dl (2.5-4.0); Total Protein 6.8 gm/dl (6.0-8.3)
[2022-03-09] MEDS: INSULIN ASPART PER UNIT SC SCH ×4 (09:35→22:29)
[2022-03-09] MEDS: allopurinoL 100 MG TAB PO SCH (09:37)
[2022-03-09] MEDS: CEROVITE ADV FORMULA TAB PO SCH (09:40)
[2022-03-09] MEDS: cefTRIAXone SODIUM 2,000 MG in DEXTROSE 5% 50 ML IV SCH (09:57)
[2022-03-09] MEDS: IRON SUCROSE 300 MG in SODIUM CHLORIDE 0.9% 250 ML IV SCH (11:09)
[2022-03-09] MEDS: ONDANSETRON INJ 2 MG/ML 2 ML VIAL IV PRN (13:22)
--- NOTE | 2022-03-09 14:34 | Hospitalist Progress Note ---
Date of Service March 09, 2022 Assessment & Plan (1) Acute maxillary sinusitis: Plan: as seen on CT head imaging. in light of +blood culture from 03/02/22 (alpha strep) will utilize rocephin IV. this will cover sinuses + the blood. repeat blood cultures obtained 03/04 thus far negative. With alpha Strep bacteremia could be related to sinusitis sinusitis likely contributing to her cough. NO EVIDENCE OF PNEUMONIA on CT chest although cough has a very bronchial quality to it. Could have reactive bronchitis. Cont combivent for the cough. (2) Positive blood culture: Plan: 1/4 bottles positive from 03/02/22. alpha strep could be contaminant but could be pathogenic given sinusitis sed rate/crp/procal wnl. repeat blood cultures 03/05/22 remain negative to date. continue rocephin for now as above and can likely switch to po abx upon discharge check ECHO for valvular veg but given rapid clearing and possibility this could be contaminant, do not feel ERROL would be necessary (3) Nausea and vomiting: Plan: Started after taking azithro and cefdinir as outpt Finally improving 03/09 also with diarrhea both at home and here, now improved C. diff gene positive but toxin negative-not true infection, just carrier -continue Zofran prn -add Pepcid (4) Type 2 diabetes mellitus: Plan: BSGs well controlled. Most recent HbA1c 6% in January. Novolog SSI for now. records reviewed - takes a sulfonylurea and was having copious #'s of hypoglycemic episodes earlier this spring. BSGs have been EXCELLENT off the glipizide this admission. given inconsistent eating habits, CKD, and her excellent glycemic control would NOT resume glipizide at discharge. (5) Hypertension: Plan: Lisinopril on hold due to mild rise in creatinine. BPs reasonable/acceptable off of such. (6) Atrial fibrillation: Plan: rates controlled without AV arthur agent coumadin for AC continue on lovenox 1mg/kg daily while INR is <2 her coumadin dose had been 2mg/day but dose recently lowered because of GI/ bleeding & supratherapeutic levels since eating is better, and since no recurrent bleeding - and given the persistently low INR - have since increased coumadin to 2mg daily daily INR-still 1.3 today (7) Anemia: Plan: ferritin 43 in 01/2022 b12/folate/tsh wnl remains anemic with Hb in the 8's rechecked Fe studies -low transferrin sat at 7% start IV venofer 300mg IV daily x 3 doses-last dose will be 03/10 Fe def likely due to hemorrhoidal bleeding in december along with bleeding (vaginal tear) in December SPEP/UPEP in light of anemia/mild thrombocytopenia along with 3+ proteinuria- UPEP suggestive of spike--> check Urine MICHELE-pending; SPEP pending (8) Thrombocytopenia: Plan: very mild, slightly lower today TSH, b12, folate wnl. SPEP/UPEP pending. could be 2/2 infection or antibiotics? (9) Bilateral pleural effusion: Plan: 2nd to diastolic CHF or proteinuria/nephrosis vs other. attempts to give her diuretic this admission has simply led to further rises in her creatinine. 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 MM? other? 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 no prior h/o PE no h/o MARTA no h/o chronic lung disease LE edema could be 2nd to such -consult CHF clinic for acute on chronic HFpEF (14) Gout, joint: Plan: no flares at this time Plan: called Ana/daughter twice today and left messages PT/OT evals done --- home with HH vs rehab. Not ready for discharge yet Daughter Ana Agrawal asks to be main POC at cell # [phone] Admission and Anticipated Discharge Date Admission Date: March 07, 2022 Subjective Feeling a little better today. No further nausea and ate eggs and cao for breakfast, ate pudding and rice for lunch. Had only one formed BM today. Has some pain in lower abdomen at site of Lovenox shots but no other abd pain. Denies SOB. Is still coughing up "that slimy stuff." Tele with rate controlled Afib [id number] Review of Systems Review of Systems: All systems reviewed & are unremarkable except as noted in HPI & below Physical Exam Constitutional: WD/WN, vitals as above Eyes: + anicteric sclerae Neck: trachea midline, no thyromegaly Respiratory: normal respiratory effort, lungs clear to auscultation Cardiovascular: Rate/Rhythm: regular rate and + irregularly irregular Heart Sounds: no murmur Extremities: + edema (1+ trace pitting edema legs bilat) Chest (Breasts): Chest: normal inspection of chest Gastrointestinal (Abdomen): normal bowel sounds, soft, nontender, no hepatosplenomegaly Musculoskeletal: Extremities: extremities normal to inspection; no cyanosis and no clubbing Skin: no rashes, warm and dry Neurologic: moves all extremities and awake; no focal motor deficits Psychiatric: A+Ox3, euthymic affect Results & Data Results & Data ([facility]) Vital Signs (Past 12 Hours) Vital Signs Temp Pulse Pulse Resp BP Pulse Ox 03/09/22 13:51 36.5 C 54 L 18 143/72 H 92 03/09/22 12:38 36.7 C 53 L 18 143/74 H 92 03/09/22 11:09 36.8 C 66 16 136/89 95 03/09/22 10:49 36.6 C 71 18 149/72 H 95 03/09/22 08:00 75 03/09/22 07:22 36.6 C 68 18 137/71 92 03/09/22 02:42 36.9 C 58 L 16 134/74 93 Laboratory Results 03/09/22 03/09/22 03/09/22 Range/Units 11:29 07:35 07:04 WBC (4.8-10.8) K/uL RBC (4.2-5.4) M/uL Hgb (12.0-16.0) g/dL Hct (37-47) % MCV (80-100) fL MCH (25-34) pg MCHC (32-36) g/dL RDW Std Deviation (36.4-46.3) fL RDW Coeff of Benjamin (11.5-14.5) % Plt Count (130-400) K/uL MPV (7.4-10.4) fL Immature Gran % (Auto) % Neut % (Auto) % Lymph % (Auto) % Benton % (Auto) % Eos % (Auto) % Baso % (Auto) % Neut # (Auto) (1.4-6.5) K/uL Lymph # (Auto) (1.2-3.4) K/uL Benton # (Auto) (0.11-0.59) K/uL Eos # (Auto) (0-0.5) K/uL Baso # (Auto) (0-0.2) K/uL Immature Gran # (Auto) (0.00-0.02) K/uL PT 13.5 H (9.0-12.0) Seconds INR 1.3 H (0.9-1.1) Sodium (136-145) mmol/L Potassium (3.5-5.1) mmol/L Chloride (98-107) mmol/L Carbon Dioxide (21-32) mmol/L Anion Gap (3-11) BUN (6-23) mg/dl Creatinine (0.6-1.2) mg/dl Est Cr Clr Drug Dosing ml/min Est GFR ( Amer) ml/min Est GFR (Non-Af Amer) ml/min BUN/Creatinine Ratio (10-20) Glucose (70-99(Fasting)) mg/dl POC Glucose 106 H 94 (70-99) mg/dl Calcium (8.5-10.1) mg/dl Magnesium (1.7-2.4) mg/dl Total Bilirubin (0.2-1.0) mg/dl AST (13-39) U/L ALT (7-52) U/L Alkaline Phosphatase (34-104) U/L Total Protein (6.0-8.3) gm/dl Albumin (3.4-5.0) gm/dl Globulin (2.5-4.0) gm/dl Albumin/Globulin Ratio (0.9-2) U Random Total Protein (5-24) mg/dL Ur Creatinine mg/dL (20-275) mg/dL Protein/Creatinin Ratio (0.021-0.161) Urine Albumin (%) % U Viptw-8-Ehnjsrhp (%) % U Fgrry-2-Kyqiqtzq (%) % U Beta Globulin (%) % U Gamma Globulin (%) % U Abnormal Prot Band 1 (NONE DETECTED) mg/dL U Abnormal Prot Band 2 (NONE DETECTED) mg/dL U Abnormal Prot Band 3 (NONE DETECTED) mg/dL Urine PEP Interpret Stl C. diff Tox B Gene (Neg) Stl C.difficile Tox A&B (Negative) 03/09/22 03/09/22 03/08/22 Range/Units 07:04 07:04 20:14 WBC 7.37 (4.8-10.8) K/uL RBC 3.37 L (4.2-5.4) M/uL Hgb 8.7 L (12.0-16.0) g/dL Hct 29.2 L (37-47) % MCV 86.6 (80-100) fL MCH 25.8 (25-34) pg MCHC 29.8 L (32-36) g/dL RDW Std Deviation 55.2 H (36.4-46.3) fL RDW Coeff of Benjamin 17.5 H (11.5-14.5) % Plt Count 118 L (130-400) K/uL MPV 8.9 (7.4-10.4) fL Immature Gran % (Auto) 0.3 % Neut % (Auto) 80.8 % Lymph % (Auto) 9.4 % Benton % (Auto) 8.5 % Eos % (Auto) 0.7 % Baso % (Auto) 0.3 % Neut # (Auto) 5.96 (1.4-6.5) K/uL Lymph # (Auto) 0.69 L (1.2-3.4) K/uL Benton # (Auto) 0.63 H (0.11-0.59) K/uL Eos # (Auto) 0.05 (0-0.5) K/uL Baso # (Auto) 0.02 (0-0.2) K/uL Immature Gran # (Auto) 0.02 (0.00-0.02) K/uL PT (9.0-12.0) Seconds INR (0.9-1.1) Sodium 138 (136-145) mmol/L Potassium 4.0 (3.5-5.1) mmol/L Chloride 108 H (98-107) mmol/L Carbon Dioxide 23 (21-32) mmol/L Anion Gap 7 (3-11) BUN 31 H (6-23) mg/dl Creatinine 1.47 H (0.6-1.2) mg/dl Est Cr Clr Drug Dosing 24.8 ml/min Est GFR ( Amer) 36.6 ml/min Est GFR (Non-Af Amer) 31.5 ml/min BUN/Creatinine Ratio 21.1 H (10-20) Glucose 89 (70-99(Fasting)) mg/dl POC Glucose 116 H (70-99) mg/dl Calcium 8.9 (8.5-10.1) mg/dl Magnesium 2.0 (1.7-2.4) mg/dl Total Bilirubin 0.6 (0.2-1.0) mg/dl AST 22 (13-39) U/L ALT 13 (7-52) U/L Alkaline Phosphatase 106 H (34-104) U/L Total Protein 6.8 (6.0-8.3) gm/dl Albumin 3.2 L (3.4-5.0) gm/dl Globulin 3.6 (2.5-4.0) gm/dl Albumin/Globulin Ratio 0.9 (0.9-2) U Random Total Protein (5-24) mg/dL Ur Creatinine mg/dL (20-275) mg/dL Protein/Creatinin Ratio (0.021-0.161) Urine Albumin (%) % U Qzagd-5-Smtubhzh (%) % U Romss-3-Zjmvuisl (%) % U Beta Globulin (%) % U Gamma Globulin (%) % U Abnormal Prot Band 1 (NONE DETECTED) mg/dL U Abnormal Prot Band 2 (NONE DETECTED) mg/dL U Abnormal Prot Band 3 (NONE DETECTED) mg/dL Urine PEP Interpret Stl C. diff Tox B Gene (Neg) Stl C.difficile Tox A&B (Negative) 03/08/22 03/08/22 03/06/22 Range/Units 18:30 16:34 15:15 WBC (4.8-10.8) K/uL RBC (4.2-5.4) M/uL Hgb (12.0-16.0) g/dL Hct (37-47) % MCV (80-100) fL MCH (25-34) pg MCHC (32-36) g/dL RDW Std Deviation (36.4-46.3) fL RDW Coeff of Benjamin (11.5-14.5) % Plt Count (130-400) K/uL MPV (7.4-10.4) fL Immature Gran % (Auto) % Neut % (Auto) % Lymph % (Auto) % Benton % (Auto) % Eos % (Auto) % Baso % (Auto) % Neut # (Auto) (1.4-6.5) K/uL Lymph # (Auto) (1.2-3.4) K/uL Benton # (Auto) (0.11-0.59) K/uL Eos # (Auto) (0-0.5) K/uL Baso # (Auto) (0-0.2) K/uL Immature Gran # (Auto) (0.00-0.02) K/uL PT (9.0-12.0) Seconds INR (0.9-1.1) Sodium (136-145) mmol/L Potassium (3.5-5.1) mmol/L Chloride (98-107) mmol/L Carbon Dioxide (21-32) mmol/L Anion Gap (3-11) BUN (6-23) mg/dl Creatinine (0.6-1.2) mg/dl Est Cr Clr Drug Dosing ml/min Est GFR ( Amer) ml/min Est GFR (Non-Af Amer) ml/min BUN/Creatinine Ratio (10-20) Glucose (70-99(Fasting)) mg/dl POC Glucose 155 H (70-99) mg/dl Calcium (8.5-10.1) mg/dl Magnesium (1.7-2.4) mg/dl Total Bilirubin (0.2-1.0) mg/dl AST (13-39) U/L ALT (7-52) U/L Alkaline Phosphatase (34-104) U/L Total Protein (6.0-8.3) gm/dl Albumin (3.4-5.0) gm/dl Globulin (2.5-4.0) gm/dl Albumin/Globulin Ratio (0.9-2) U Random Total Protein 56 H (5-24) mg/dL Ur Creatinine mg/dL 48 (20-275) mg/dL Protein/Creatinin Ratio 1.167 H (0.021-0.161) Urine Albumin (%) 65 % U Vguts-1-Hkfxvndx (%) 2 % U Ezoco-1-Gargprbh (%) 10 % U Beta Globulin (%) 7 % U Gamma Globulin (%) 16 % U Abnormal Prot Band 1 DNR (NONE DETECTED) mg/dL U Abnormal Prot Band 2 DNR (NONE DETECTED) mg/dL U Abnormal Prot Band 3 DNR (NONE DETECTED) mg/dL Urine PEP Interpret SEE NOTE Stl C. diff Tox B Gene Positive Cdiff Gene H (Neg) Stl C.difficile Tox A&B Negative Cdiff Toxin (Negative) PG Care Time/CCT Total # of Minutes Spent Total Time Spent with Patient: Total time spent is greater than 50% in coordination of care (as documented) at patient's floor/unit and/or counseling patient: Coding Level of Care Code 93787 Subseq Hosp Care Lvl 3 Diagnoses Acute maxillary sinusitis J01.00 Positive blood culture R78.81 Nausea and vomiting R11.2 Type 2 diabetes mellitus E11.9 Hypertension I10 Gout, joint M10.9 Atrial fibrillation I48.91 Anemia D64.9 Thrombocytopenia D69.6 Bilateral pleural effusion J90 Proteinuria R80.9 Chronic kidney disease, stage IV (severe) N18.4 Acute kidney injury N17.9 Pulmonary hypertension I27.20
--- NOTE | 2022-03-09 16:06 | XCELERA ---
[id number]
[2022-03-09] MEDS: ENOXAPARIN INJ 60 MG/0.6 ML SYR SQ SCH (16:08)
[2022-03-09] MEDS: WARFARIN SOD 2 MG TAB PO SCH (16:09)
[2022-03-09] MEDS: FAMOTIDINE 10 MG TABLET PO SCH (16:10)
[2022-03-09] MEDS: ACETAMINOPHEN 325 MG TAB PO PRN (16:15)
[2022-03-09] MEDS: FUROSEMIDE 20 MG TAB PO SCH (16:15)
--- NOTE | 2022-03-09 16:28 | Heart Failure Consultation ---
Date of Consultation March 09, 2022 Assessment & Plan (1) Pulmonary hypertension: (2) Chronic kidney disease, stage IV (severe): (3) Anticoagulated on Coumadin: (4) Tricuspid regurgitation: (5) Mitral regurgitation: (6) Hypertension: (7) Atrial fibrillation: (8) Bilateral pleural effusion: Hypervolemia/HFpEF: Likely multifactorial- pulmonary hypertension, HFpEF, CKD. Patient currently admitted with sinusitis which is likely contributing to her current symptoms. She does have some lower extremity edema and evidence of volume overload on her imaging- CXR with pleural effusions, CT abdomen with ascites/anasarca. She was restarted on her home dose of Lasix 20 mg today. Will continue to assess her response. Weight is trending from down from admission. Continue to monitor kidney function and electrolytes. Patient/family would likely benefit from the heart failure program with increased outpatient monitoring and patient education. This was discussed with her today and she is agreeable. Recommend daily standing weights once discharged. She states she already follows a low sodium diet. Pulmonary hypertension: Moderate to severe. Continue to optimize volume status. Valvular heart disease: Moderate to severe MR/TR. Continue to optimize volume status. Hypertension: Currently well controlled. Lisinopril on hold due to PAMELA. Continue current regimen. Atrial fibrillation: Rate well controlled. She is asymptomatic. Continue anticoagulation. Bilateral pleural effusions: Diuretics have been resumed. Will continued to monitor her clinical response. Currently tolerating room air. Disposition: Will enroll in the heart failure program. Anticipate close outpatient monitoring. Patient will also need to establish with [facility] hydrodynamics professor. History of Present Illness Attending Physician: Gris Snowden MD History of Present Illness The patient is an 86-year-old female with a past medical history including atrial fibrillation, pulmonary hypertension, chronic anticoagulation with warfarin, pneumonia, thrombocytopenia, aortic valve defect, mitral regurgitation, carotid artery stenosis, CKD stage III, gout, hypertension, diabetes mellitus, tricuspid regurgitation, rectocele, cystocele. She does not routinely follow with a hydrodynamics professor. Recent cardiac studies: . 03/09/22 Echo: Limited views. LV SF is normal. EF 55-60%. Left atrium moderately dilated. Moderate to severe MR. Moderate to severe TR. Patient is currently hospitalized with primary diagnosis of maxillary sinusitis and positive blood cultures. Patient and family are concerned for fluid retention. She does have evidence of bilateral pleural effusions on her chest CT. BNP 1430. She is also having lower extremity edema and abdominal distention. She has severe pulmonary hypertension. Patient reports she is feeling somewhat better today she denies dyspnea. She is sleeping with her head elevated. She denies PND. She is having some lower extremity edema. Her documented weight today is below her typical baseline. Early attempts of diuresis resulted in worsening creatinine. She is positive 4 L for the admission. Her oral Lasix was restarted today at 20 mg. Allergies Allergy/AdvReac Type Severity Reaction Status Date / Time acetaminophen [From Pemberton] AdvReac Intermediate Nausea Verified 03/04/22 22:10 atorvastatin [From Lipitor] AdvReac Intermediate NOT Verified 03/04/22 22:10 TOLERATED fluvastatin [From Lescol] AdvReac Intermediate NOT Verified 03/04/22 22:10 TOLERATED gabapentin AdvReac Intermediate Nausea Verified 03/04/22 22:10 hydrocodone [From Pemberton] AdvReac Intermediate Nausea Verified 03/04/22 22:10 sulfamethoxazole AdvReac Intermediate Nausea Verified 03/04/22 22:10 [From Bactrim] trimethoprim [From Bactrim] AdvReac Intermediate Nausea Verified 03/04/22 22:10 Home Medications Medication Instructions Recorded Confirmed Type hydrocortisone 2.5 % topical cream 1 applic VA TID PRN 14 Days #30 g 12/28/20 03/04/22 Rx with perineal applicator lisinopril 20 mg tablet 20 mg PO DAILY #90 tab 11/04/21 03/04/22 Rx simvastatin 40 mg tablet 40 mg PO QPM #90 tab 11/19/21 03/04/22 Rx allopurinol 100 mg tablet 50 mg PO DAILY 30 Days #15 tab 02/09/22 03/04/22 Rx blood sugar diagnostic (Accu-Chek #50 ea 02/23/22 02/24/22 Rx Cheryl Plus test strp) blood-glucose meter (Accu-Chek #1 ea 02/23/22 02/24/22 Rx Cheryl Plus Meter) lancets (Accu-Chek Softclix #100 ea 02/23/22 02/24/22 Rx Lancets) Saccharomyces boulardii 250 mg 250 mg PO BID #20 cap 03/02/22 03/04/22 Rx capsule (Florastor) azithromycin 250 mg tablet 250 mg PO DAILY 4 Days #4 tab 03/02/22 03/04/22 Rx cefdinir 300 mg capsule 300 mg PO BID 7 Days #14 cap 03/02/22 03/04/22 Rx furosemide 20 mg tablet (Lasix) 20 mg PO DAILY #7 tab 03/02/22 03/04/22 Rx glipizide 2.5 mg tablet, extended 5 mg PO DAILY 03/02/22 03/04/22 History release 24 hr nystatin 100,000 unit/gram topical 1 applic TOPICAL BID PRN 03/02/22 03/04/22 History powder potassium chloride 20 mEq 20 meq PO DAILY #7 tab 03/02/22 03/04/22 Rx tablet,extended release(part/cryst) (Klor-Con M) warfarin 1 mg tablet 1 mg PO DAILY@1600 30 Days tab 03/03/22 03/04/22 Rx Patient History Medical History Acute dehydration Acute UTI Atrial fibrillation Chronic kidney disease, stage 3 Fall History of abnormal mammogram Hypertension Pessary maintenance Second degree uterine prolapse Sinusitis Type 2 diabetes mellitus Surgical History S/P cataract surgery Family History Mother Diabetes Breast cancer Brother Stroke Denies family history of Ovarian cancer Prostate cancer Myocardial infarction Colorectal cancer Social History Smoking Status: Never smoker Second Hand Exposure: No; Hx Alcohol Use: No Hx Substance Use: No Preferred Language: Lithuanian Communication Ability: Effective Visual Impairment: No Limitations Hearing Ability: Normal Hand Sign Writer Required: No Beliefs That Will Affect Care: None marital status: / Current Living Situation: Personal Care Facility Current Living Situation Comment: family lives nearby current occupational status: retired current occupation: retired from working at [employer] How many Children do You have: 5 How many Children do You have Comment: 1 Other Information That Helps Us Care for You: No Feels Safe at Home: Yes Safety Concerns: Feels Safe At This Time Childhood Exposure to Second-Hand Smoke: Yes during the past year weight has: remained stable Dental Care, Regularly: No Physical Activity Frequency: Daily Seatbelt Use: never Sunscreen Use: Yes Assistive Devices: Walker Physical Exam Physical Exam: Constitutional: Alert, oriented, in no acute distress HEENT: Head is atraumatic and normocephalic. EOMs intact. Sclera anicteric. Face is symmetric. No perioral cyanosis. Mucous membranes moist. Neck: Supple, no JVD, - HJR Pulmonary: Normal respiratory effort, clear to auscultation bilaterally Cardiac: Irregular rate and rhythm. Normal S1 and S2, no gallops, no rubs, no murmurs Extremities: 2+ radial pulses bilaterally. 2+ posterior tibialis pulses bilaterally. 1+ pitting edema. No cyanosis or clubbing. Abdomen: Normal bowel sounds, soft, non-tender, no abdominal mass palpated Skin: Normal skin color, turgor, and pigmentation, no rash, no skin lesions Neurological: Patient is awake, alert, and oriented. Pleasant and cooperative. Answers questions appropriately. Speech is clear. Normal movement in all 4 extremities. Gait pattern is unremarkable. Results & Data ([facility]) Vital Signs (Past 12 Hours) Vital Signs Temp Pulse Pulse Resp BP Pulse Ox 03/09/22 14:49 98.1 F 60 18 142/81 H 93 03/09/22 13:51 97.7 F 54 L 18 143/72 H 92 03/09/22 12:38 98.1 F 53 L 18 143/74 H 92 03/09/22 11:09 98.2 F 66 16 136/89 95 03/09/22 10:49 97.9 F 71 18 149/72 H 95 03/09/22 08:00 75 03/09/22 07:22 97.9 F 68 18 137/71 92 Coding Level of Care Code 14022 Initial Inpt Care Lvl 3 Diagnoses Pulmonary hypertension I27.20 Chronic kidney disease, stage IV (severe) N18.4 Anticoagulated on Coumadin Z79.01 Tricuspid regurgitation I07.1 Mitral regurgitation I34.0 Hypertension I10 Atrial fibrillation I48.91 Bilateral pleural effusion J90
[2022-03-09] MEDS: SIMVASTATIN 40 MG TAB PO SCH (21:38)
[2022-03-10 05:53] LABS: Alpha 1 Globulin 0.4 g/dL (0.2-0.3); Alpha 2 Globulin 0.8 g/dL (0.5-0.9); Beta-1-Globulin 0.4 g/dL (0.4-0.6); Beta-2-Globulin 0.4 g/dL (0.2-0.5); Gamma Globulin 1.3 g/dL (0.8-1.7); Monoclonal Protein Band 1 DNR g/dL (NONE DETECTED); Monoclonal Protein Band 2 DNR g/dL (NONE DETECTED); Monoclonal Protein Band 3 DNR g/dL (NONE DETECTED); Total Protein 6.3 g/dL (6.1-8.1)
[2022-03-10 08:27] LABS: INR 1.3 (0.9-1.1); Prothrombin Time 13.6 Seconds (9.0-12.0)
[2022-03-10 08:29] LABS: Basophils # (auto) 0.02 K/uL (0-0.2); Basophils % (auto) 0.2 %; Eosinophils # (auto) 0.13 K/uL (0-0.5); Eosinophils % (auto) 1.5 %; Immature Granulocytes # (auto) 0.02 K/uL (0.00-0.02); Immature Granulocytes % (auto) 0.2 %; Lymphocytes # (auto) 0.68 K/uL (1.2-3.4); Mean Corpuscular Hemoglobin 26.2 pg (25-34); Mean Corpuscular Volume 87.5 fL (80-100); Mean Platelet Volume 9.9 fL (7.4-10.4); Monocytes # (auto) 0.67 K/uL (0.11-0.59); Monocytes % (auto) 7.9 %; Neutrophils # (auto) 6.96 K/uL (1.4-6.5); Neutrophils % (auto) 82.2 %; Platelet Count 134 K/uL (130-400); RDW Standard Deviation 56.3 fL (36.4-46.3); Red Blood Count 3.43 M/uL (4.2-5.4); White Blood Count 8.48 K/uL (4.8-10.8)
[2022-03-10 09:04] LABS: BUN Creatinine Ratio 19.5 (10-20); Calcium 8.9 mg/dl (8.5-10.1); Creatinine Clr Calc Pharmacy 24.4 ml/min; Magnesium 2.1 mg/dl (1.7-2.4); Potassium 4.2 mmol/L (3.5-5.1)
[2022-03-10] MEDS: cefTRIAXone SODIUM 2,000 MG in DEXTROSE 5% 50 ML IV SCH (09:32)
[2022-03-10] MEDS: ACETAMINOPHEN 325 MG TAB PO PRN (09:38)
[2022-03-10] MEDS: INSULIN ASPART PER UNIT SC SCH ×4 (09:47→21:03)
[2022-03-10] MEDS: allopurinoL 100 MG TAB PO SCH (09:49)
[2022-03-10] MEDS: CEROVITE ADV FORMULA TAB PO SCH (09:50)
[2022-03-10] MEDS: FUROSEMIDE 20 MG TAB PO SCH (09:50)
[2022-03-10] MEDS: FAMOTIDINE 10 MG TABLET PO SCH (09:50)
--- NOTE | 2022-03-10 11:00 | Hospitalist Progress Note ---
Date of Service March 10, 2022 Assessment & Plan (1) Acute maxillary sinusitis: Plan: as seen on CT head imaging. in light of +blood culture from 03/02/22 (alpha strep) will utilize rocephin IV. this will cover sinuses + the blood. repeat blood cultures obtained 03/04 thus far negative. With alpha Strep bacteremia could be related to sinusitis sinusitis likely contributing to her cough. NO EVIDENCE OF PNEUMONIA on CT chest although cough has a very bronchial quality to it. Could have reactive bronchitis. Cont combivent for the cough. Still with some sinus pressure (2) Positive blood culture: Plan: 1 bottles positive from 03/02/22. alpha strep could be contaminant but could be pathogenic given sinusitis sed rate/crp/procal wnl. repeat blood cultures 03/05/22 remain negative to date. continue rocephin for now as above and can likely switch to po abx w/ Augmentin to finish out 2 week course upon discharge checked ECHO for valvular veg but given rapid clearing and possibility this coul d be contaminant, do not feel ERROL would be necessary --> ECHO no valvular veg but with mod-severe MR, TR which was present previously (3) (HFpEF) heart failure with preserved ejection fraction: Plan: with volume overload here, acute on chronic HFpEF CKD stage 3 making diuresis difficult at times office coordinator remains stable with restarting low dose lasix 20mg daily weight down 4 kg, I/Os not accurate consulted CHF program (4) Ventricular tachycardia: Plan: had a 24 beat run on AM of 03/10, asymptomatic lytes are replete EF preserved can't give beta cristhian due to bradycardia consult Cardio for any further recommendations (5) Nausea and vomiting: Plan: Started after taking azithro and cefdinir as outpt Finally improving 03/09, continues to increase po intake each day, no vomiting also with diarrhea both at home and here, now improved but still had 3 loose stools 03/09 C. diff gene positive but toxin negative-not true infection, just carrier -continue Zofran prn -added Pepcid -repeat C. diff on 03/11 if diarrhea persists (6) Type 2 diabetes mellitus: Plan: BSGs well controlled. Most recent HbA1c 6% in January. Novolog SSI for now. records reviewed - takes a sulfonylurea and was having copious #'s of hypoglycemic episodes earlier this spring. BSGs have been EXCELLENT off the glipizide this admission. given inconsistent eating habits, CKD, and her excellent glycemic control would NOT resume glipizide at discharge. (7) Hypertension: Plan: Lisinopril on hold due to mild rise in creatinine. BPs reasonable/acceptable off of such. (8) Atrial fibrillation: Plan: rates controlled without AV arthur agent coumadin for AC continue on lovenox 1mg/kg daily (renal therapeutic dose) while INR is <2 her coumadin dose had been 2mg/day but dose recently lowered because of GI/ bleeding & supratherapeutic levels since eating is better, and since no recurrent bleeding - and given the persistently low INR - have since increased coumadin to 2mg daily daily INR-again 1.3 today but expect it to rise soon (9) Anemia: Plan: ferritin 43 in 01/2022 b12/folate/tsh wnl remains anemic with Hb in the 8's rechecked Fe studies -low transferrin sat at 7% start IV venofer 300mg IV daily x 3 doses-last dose will be 03/10 Fe def likely due to hemorrhoidal bleeding in december along with bleeding (vaginal tear) in December SPEP/UPEP in light of anemia/mild thrombocytopenia along with 3+ proteinuria- UPEP suggestive of spike--> check Urine MICHELE-pending; SPEP only with evidence of acute phase reaction (10) Thrombocytopenia: Plan: very mild,improved today TSH, b12, folate wnl. SPEP/UPEP pending. could be 2/2 infection or antibiotics? (11) Bilateral pleural effusion: Plan: 2nd to diastolic CHF or proteinuria/nephrosis vs other. not hypoxic attempts to give her diuretic this admission has simply led to further rises in her creatinine. Family concerned about her leg swelling and abdominal distension being signs of volume overload office coordinator stable today--> continue lasix 20mg po daily (12) Proteinuria: Plan: 3+ 2nd to diabetic nephropathy? SPEP normal/no MM other? obtain SPEP and UPEP - UPEP abnormal--> check Urine MICHELE obtained urine protein/Cr ratio - significantly abnormal could also be contributing to LE edema consider 24-hour urine consider nephrology consultation both can be done as outpatient (13) Chronic kidney disease, stage IV (severe): Plan: baseline CrCl 20s baseline creatinine ~1.3 now with mild PAMELA improving office coordinator down to 1.4 and stable from previous despite restarting lasix (14) Acute kidney injury: Plan: Cr peaked at 1.7 this is in the setting of attempts at diuresis now improved cont lasix 20mg po daily holding lisinopril from home repeat BMP am (15) Pulmonary hypertension: Plan: severe echo 01/2022 with RVSP >60mmHg etiology of pulmonary HTN?? no prior h/o PE no h/o MARTA no h/o chronic lung disease LE edema could be 2nd to such -consult CHF clinic for acute on chronic HFpEF (16) Gout, joint: Plan: no flares at this time Plan: PT/OT evals done --- home with HH vs rehab. Not ready for discharge yet Daughter Ana Agrawal asks to be main POC at cell # [phone] Admission and Anticipated Discharge Date Admission Date: March 07, 2022 Subjective Feeling "a little better," but is hesitant to admit to more. Is eating more but feels full quickly. Had 2-3 BMs yesterday, no abd pain. Is OOB to chair. No CP or SOB. COugh is improved, sinuses still some tenderness Tele with a 24 beat run VT, asymptomatic, Afib, rates 50-70s Review of Systems Review of Systems: All systems reviewed & are unremarkable except as noted in HPI & below Physical Exam Constitutional: WD/WN, vitals as above Eyes: + anicteric sclerae ENMT: external ear and nose normal, oropharynx normal Neck: trachea midline, no thyromegaly Respiratory: normal respiratory effort, lungs clear to auscultation Cardiovascular: Rate/Rhythm: regular rate and + irregularly irregular Heart Sounds: no murmur Extremities: + edema (1+ trace pitting edema legs bilat,slightly improved from yesterday) Chest (Breasts): Chest: normal inspection of chest Gastrointestinal (Abdomen): normal bowel sounds, soft, nontender, no hepatosplenomegaly Musculoskeletal: Extremities: extremities normal to inspection; no cyanosis and no clubbing Skin: no rashes, warm and dry Neurologic: moves all extremities and awake; no focal motor deficits Psychiatric: Orientation: alert, oriented x 3 and cooperative Affect: + flat affect Results & Data Results & Data ([facility]) Vital Signs (Past 12 Hours) Vital Signs Temp Pulse Resp BP Pulse Ox 03/10/22 07:06 36.8 C 57 L 18 124/63 95 03/10/22 02:39 36.9 C 69 18 144/81 H 93 Laboratory Results 03/10/22 03/10/22 03/10/22 Range/Units 07:44 07:44 07:44 WBC 8.48 (4.8-10.8) K/uL RBC 3.43 L (4.2-5.4) M/uL Hgb 9.0 L (12.0-16.0) g/dL Hct 30.0 L (37-47) % MCV 87.5 (80-100) fL MCH 26.2 (25-34) pg MCHC 30.0 L (32-36) g/dL RDW Std Deviation 56.3 H (36.4-46.3) fL RDW Coeff of Benjamin 18.0 H (11.5-14.5) % Plt Count 134 (130-400) K/uL MPV 9.9 (7.4-10.4) fL Immature Gran % (Auto) 0.2 % Neut % (Auto) 82.2 % Lymph % (Auto) 8.0 % Woodson % (Auto) 7.9 % Eos % (Auto) 1.5 % Baso % (Auto) 0.2 % Neut # (Auto) 6.96 H (1.4-6.5) K/uL Lymph # (Auto) 0.68 L (1.2-3.4) K/uL Woodson # (Auto) 0.67 H (0.11-0.59) K/uL Eos # (Auto) 0.13 (0-0.5) K/uL Baso # (Auto) 0.02 (0-0.2) K/uL Immature Gran # (Auto) 0.02 (0.00-0.02) K/uL PT 13.6 H (9.0-12.0) Seconds INR 1.3 H (0.9-1.1) Sodium 138 (136-145) mmol/L Potassium 4.2 (3.5-5.1) mmol/L Chloride 108 H (98-107) mmol/L Carbon Dioxide 23 (21-32) mmol/L Anion Gap 7 (3-11) BUN 29 H (6-23) mg/dl Creatinine 1.49 H (0.6-1.2) mg/dl Est Cr Clr Drug Dosing 24.4 ml/min Est GFR ( Amer) 36.0 ml/min Est GFR (Non-Af Amer) 31.0 ml/min BUN/Creatinine Ratio 19.5 (10-20) Glucose 100 H (70-99(Fasting)) mg/dl POC Glucose (70-99) mg/dl Calcium 8.9 (8.5-10.1) mg/dl Magnesium 2.1 (1.7-2.4) mg/dl Total Protein (PEP) (6.1-8.1) g/dL Albumin (PEP) (3.8-4.8) g/dL Ozzjf-2-Rvnnabkje (0.2-0.3) g/dL Lpoam-9-Lgyvfpwmu (0.5-0.9) g/dL Sfxy-1-Htxrfvyh (0.4-0.6) g/dL Eyfx-6-Iaqtozmr (0.2-0.5) g/dL Gamma Globulins (0.8-1.7) g/dL Monoclonal Peak 3 (NONE DETECTED) g/dL Ser Monoclonl Protein (NONE DETECTED) g/dL Ser Monoclonal Prot 2 (NONE DETECTED) g/dL PEP Interpretation Urine Immunofixation 03/10/22 03/10/22 03/09/22 Range/Units 07:31 00:25 20:01 WBC (4.8-10.8) K/uL RBC (4.2-5.4) M/uL Hgb (12.0-16.0) g/dL Hct (37-47) % MCV (80-100) fL MCH (25-34) pg MCHC (32-36) g/dL RDW Std Deviation (36.4-46.3) fL RDW Coeff of Benjamin (11.5-14.5) % Plt Count (130-400) K/uL MPV (7.4-10.4) fL Immature Gran % (Auto) % Neut % (Auto) % Lymph % (Auto) % Woodson % (Auto) % Eos % (Auto) % Baso % (Auto) % Neut # (Auto) (1.4-6.5) K/uL Lymph # (Auto) (1.2-3.4) K/uL Woodson # (Auto) (0.11-0.59) K/uL Eos # (Auto) (0-0.5) K/uL Baso # (Auto) (0-0.2) K/uL Immature Gran # (Auto) (0.00-0.02) K/uL PT (9.0-12.0) Seconds INR (0.9-1.1) Sodium (136-145) mmol/L Potassium (3.5-5.1) mmol/L Chloride (98-107) mmol/L Carbon Dioxide (21-32) mmol/L Anion Gap (3-11) BUN (6-23) mg/dl Creatinine (0.6-1.2) mg/dl Est Cr Clr Drug Dosing ml/min Est GFR ( Amer) ml/min Est GFR (Non-Af Amer) ml/min BUN/Creatinine Ratio (10-20) Glucose (70-99(Fasting)) mg/dl POC Glucose 105 H 146 H (70-99) mg/dl Calcium (8.5-10.1) mg/dl Magnesium (1.7-2.4) mg/dl Total Protein (PEP) (6.1-8.1) g/dL Albumin (PEP) (3.8-4.8) g/dL Egnet-3-Fmeuueeax (0.2-0.3) g/dL Vghfa-2-Vkowddpsc (0.5-0.9) g/dL Uveg-9-Tzrkmbki (0.4-0.6) g/dL Weze-7-Jdlyvzhx (0.2-0.5) g/dL Gamma Globulins (0.8-1.7) g/dL Monoclonal Peak 3 (NONE DETECTED) g/dL Ser Monoclonl Protein (NONE DETECTED) g/dL Ser Monoclonal Prot 2 (NONE DETECTED) g/dL PEP Interpretation Urine Immunofixation Pending 03/09/22 03/09/22 03/06/22 Range/Units 16:23 11:29 06:22 WBC (4.8-10.8) K/uL RBC (4.2-5.4) M/uL Hgb (12.0-16.0) g/dL Hct (37-47) % MCV (80-100) fL MCH (25-34) pg MCHC (32-36) g/dL RDW Std Deviation (36.4-46.3) fL RDW Coeff of Benjamin (11.5-14.5) % Plt Count (130-400) K/uL MPV (7.4-10.4) fL Immature Gran % (Auto) % Neut % (Auto) % Lymph % (Auto) % Woodson % (Auto) % Eos % (Auto) % Baso % (Auto) % Neut # (Auto) (1.4-6.5) K/uL Lymph # (Auto) (1.2-3.4) K/uL Woodson # (Auto) (0.11-0.59) K/uL Eos # (Auto) (0-0.5) K/uL Baso # (Auto) (0-0.2) K/uL Immature Gran # (Auto) (0.00-0.02) K/uL PT (9.0-12.0) Seconds INR (0.9-1.1) Sodium (136-145) mmol/L Potassium (3.5-5.1) mmol/L Chloride (98-107) mmol/L Carbon Dioxide (21-32) mmol/L Anion Gap (3-11) BUN (6-23) mg/dl Creatinine (0.6-1.2) mg/dl Est Cr Clr Drug Dosing ml/min Est GFR ( Amer) ml/min Est GFR (Non-Af Amer) ml/min BUN/Creatinine Ratio (10-20) Glucose (70-99(Fasting)) mg/dl POC Glucose 139 H 106 H (70-99) mg/dl Calcium (8.5-10.1) mg/dl Magnesium (1.7-2.4) mg/dl Total Protein (PEP) 6.3 (6.1-8.1) g/dL Albumin (PEP) 3.0 L (3.8-4.8) g/dL Felst-5-Onqhvdpct 0.4 H (0.2-0.3) g/dL Kvjco-6-Rqyuruuzi 0.8 (0.5-0.9) g/dL Vwro-6-Aeahyutm 0.4 (0.4-0.6) g/dL Lswn-9-Kkazrkiw 0.4 (0.2-0.5) g/dL Gamma Globulins 1.3 (0.8-1.7) g/dL Monoclonal Peak 3 DNR (NONE DETECTED) g/dL Ser Monoclonl Protein DNR (NONE DETECTED) g/dL Ser Monoclonal Prot 2 DNR (NONE DETECTED) g/dL PEP Interpretation SEE NOTE Urine Immunofixation PG Care Time/CCT Total # of Minutes Spent Total Time Spent with Patient: Total time spent is greater than 50% in coordination of care (as documented) at patient's floor/unit and/or counseling patient: Coding Level of Care Code 93748 Subseq Hosp Care Lvl 3 Diagnoses Acute maxillary sinusitis J01.00 Positive blood culture R78.81 Nausea and vomiting R11.2 Type 2 diabetes mellitus E11.9 Hypertension I10 Atrial fibrillation I48.91 Anemia D64.9 Thrombocytopenia D69.6 Bilateral pleural effusion J90 Proteinuria R80.9 Chronic kidney disease, stage IV (severe) N18.4 Acute kidney injury N17.9 Pulmonary hypertension I27.20 Gout, joint M10.9 Ventricular tachycardia I47.2 (HFpEF) heart failure with preserved ejection fraction I50.30
[2022-03-10] MEDS: ENOXAPARIN INJ 60 MG/0.6 ML SYR SQ SCH (12:16)
[2022-03-10] MEDS: IRON SUCROSE 300 MG in SODIUM CHLORIDE 0.9% 250 ML IV SCH (12:28)
[2022-03-10] MEDS: WARFARIN SOD 2 MG TAB PO SCH (16:34)
--- NOTE | 2022-03-10 20:18 | Cardiology Consultation ---
Date of Consultation March 10, 2022 Assessment & Plan (1) Ventricular tachycardia: (2) Pulmonary hypertension: (3) (HFpEF) heart failure with preserved ejection fraction: (4) Atrial fibrillation: 1. Ventricular tachycardia: The patient did have an episode of asymptomatic nonsustained ventricular tachycardia. She does not currently report symptoms consistent with this on an outpatient basis. She is not known to have ischemic heart disease and she does have preserved LV systolic function. Unfortunately, she has an element of bradycardia at baseline which would preclude use of beta-blockade. Given her preserved LV function in the absence of symptoms I think we can defer any acute management for the time being. Recurrent episodes we could consider an ischemic evaluation. 2. Atrial fibrillation 2. Pulmonary hypertension: Unclear etiology possibly related to diastolic heart failure. Overall lung examination is relatively benign although she does have some pleural effusions. 4. Heart failure with preserved ejection fraction: She may have an element of diastolic heart failure. This would be difficult to quantify and may require an invasive evaluation for confirmation. However, a lot of her symptoms appear to be related to right ventricular failure. This would account for her ascites and lower extremity edema. This is undoubtedly related to her severe pulmonary hypertension. She is undergoing gentle diuresis. She appears to be tolerating this therapy for the time being. In the absence of a response, she would likely need a right heart catheterization in order to better identify her degree of pulmonary hypertension and the presence or absence of high left ventricular filling pressures. History of Present Illness Reason for Consultation: [place] Requesting Physician: Isi Attending Physician: Gris Snowden MD History of Present Illness The patient is an 86-year-old female with a past medical history including atrial fibrillation, pulmonary hypertension, chronic anticoagulation with warfarin, pneumonia, thrombocytopenia, aortic valve defect, mitral regurgitation, carotid artery stenosis, CKD stage III, gout, hypertension, diabetes mellitus, tricuspid regurgitation, rectocele, cystocele. The patient is currently admitted for acute maxillary sinusitis. However, during her hospitalization she was noted to have lower extremity edema and ascites. She has not been seen by a cook 3 pastry since 2019 when she was hospitalized with atrial fibrillation. She reports living independently at home but has family close by and receives a lot of assistance in that regard. She generally walks with a walker. She is limited primarily by orthopedic issues but does have an element of dyspnea as well. No symptoms of chest pain. No sense of palpitation. Allergies Allergy/AdvReac Type Severity Reaction Status Date / Time acetaminophen [From Export] AdvReac Intermediate Nausea Verified 03/04/22 22:10 atorvastatin [From Lipitor] AdvReac Intermediate NOT Verified 03/04/22 22:10 TOLERATED fluvastatin [From Lescol] AdvReac Intermediate NOT Verified 03/04/22 22:10 TOLERATED gabapentin AdvReac Intermediate Nausea Verified 03/04/22 22:10 hydrocodone [From Export] AdvReac Intermediate Nausea Verified 03/04/22 22:10 sulfamethoxazole AdvReac Intermediate Nausea Verified 03/04/22 22:10 [From Bactrim] trimethoprim [From Bactrim] AdvReac Intermediate Nausea Verified 03/04/22 22:10 Home Medications Medication Instructions Recorded Confirmed Type hydrocortisone 2.5 % topical cream 1 applic NM TID PRN 14 Days #30 g 12/28/20 03/04/22 Rx with perineal applicator simvastatin 40 mg tablet 40 mg PO QPM #90 tab 11/19/21 03/04/22 Rx blood sugar diagnostic (Accu-Chek #50 ea 02/23/22 02/24/22 Rx Cheryl Plus test strp) blood-glucose meter (Accu-Chek #1 ea 02/23/22 02/24/22 Rx Cheryl Plus Meter) lancets (Accu-Chek Softclix #100 ea 02/23/22 02/24/22 Rx Lancets) Saccharomyces boulardii 250 mg 250 mg PO BID #20 cap 03/02/22 03/04/22 Rx capsule (Florastor) nystatin 100,000 unit/gram topical 1 applic TOPICAL BID PRN 03/02/22 03/04/22 History powder amoxicillin 500 mg-potassium 1 tab PO BID #6 tab 03/13/22 Rx clavulanate 125 mg tablet (Augmentin) famotidine 10 mg tablet (Acid 10 mg PO DAILY #30 tab 03/13/22 Rx Java Analyst (famotidine)) furosemide 20 mg tablet (Lasix) 20 mg PO 3XWK #12 tab 03/13/22 Rx vbmjngqn-qxd-vmmrj acid 0.4 1 tab PO QAM #30 tab 03/13/22 Rx mg-lycopene 300 mcg-lutein 250 mcg tablet (Cerovite Senior) Patient History Medical History (Updated 03/14/22 @ 00:09 by Background Daemon) (HFpEF) heart failure with preserved ejection fraction Acute dehydration Acute UTI Atrial fibrillation COVID-19 Fall History of abnormal mammogram Hypertension Pessary maintenance Second degree uterine prolapse Sinusitis Type 2 diabetes mellitus Surgical History S/P cataract surgery Family History Mother Diabetes Breast cancer Brother Stroke Denies family history of Ovarian cancer Prostate cancer Myocardial infarction Colorectal cancer Social History Smoking Status: Never smoker Second Hand Exposure: No; Hx Alcohol Use: No Hx Substance Use: No Preferred Language: Persian Communication Ability: Effective Visual Impairment: No Limitations Hearing Ability: Normal Combine Driver Required: No Beliefs That Will Affect Care: None marital status: / Current Living Situation: Personal Care Facility Current Living Situation Comment: family lives nearby current occupational status: retired current occupation: retired from working at [employer] How many Children do You have: 5 How many Children do You have Comment: 1 Feels Safe at Home: Yes Childhood Exposure to Second-Hand Smoke: Yes during the past year weight has: remained stable Dental Care, Regularly: No Physical Activity Frequency: Daily Seatbelt Use: never Sunscreen Use: Yes Assistive Devices: Walker Review of Systems Review of Systems: per HPI Physical Exam Physical Exam: She is alert and oriented x3. Mood affect appear normal. She answered all questions appropriately. HEENT: Sclerae are anicteric. Pupils are equal and reactive to light and accommodation. Extraocular movements were intact. Neuro: Cranial nerves intact Lungs: Lungs are clear to auscultation bilaterally. There are no rales wheezes or rhonchi. She has normal respiratory effort without use of accessory muscles. There is normal pulmonary excursion. Reduced lungs sounds at the bases Cardiac: The rhythm was regular. S1 and S2 were normal. Holosystolic murmur. The PMI was not markedly displaced on palpation. Abdomen: The abdomen was soft and nontender. Extremities: Patient has bilateral radial pulses that are equal in intensity. There is no evidence cyanosis or clubbing. Mild to moderate lower extremity edema to the mid calf. Skin: There are no rashes noted on examination today. Results & Data ([facility]) Vital Signs (Past 12 Hours) Vital Signs Temp Pulse Pulse Resp BP Pulse Ox 03/10/22 19:00 36.6 C 58 L 18 159/65 H 92 03/10/22 14:37 36.4 C L 61 18 145/46 H 94 03/10/22 14:19 55 L 03/10/22 14:00 36.2 C L 63 18 141/59 H 94 03/10/22 12:34 36.6 C 59 L 18 154/69 H 94 03/10/22 11:08 36.5 C 65 16 138/63 93 Laboratory Results Abnormal Lab Results 03/06/22 03/10/22 03/10/22 06:22 07:31 07:44 WBC 8.48 RBC 3.43 L Hgb 9.0 L Hct 30.0 L MCV 87.5 MCH 26.2 MCHC 30.0 L RDW Std Deviation 56.3 H RDW Coeff of Benjamin 18.0 H Plt Count 134 MPV 9.9 Immature Gran % (Auto) 0.2 Neut % (Auto) 82.2 Lymph % (Auto) 8.0 Barry % (Auto) 7.9 Eos % (Auto) 1.5 Baso % (Auto) 0.2 Neut # (Auto) 6.96 H Lymph # (Auto) 0.68 L Barry # (Auto) 0.67 H Eos # (Auto) 0.13 Baso # (Auto) 0.02 Immature Gran # (Auto) 0.02 PT INR Sodium Potassium Chloride Carbon Dioxide Anion Gap BUN Creatinine Est Cr Clr Drug Dosing Est GFR ( Amer) Est GFR (Non-Af Amer) BUN/Creatinine Ratio Glucose POC Glucose 105 H Calcium Magnesium Total Protein (PEP) 6.3 Albumin (PEP) 3.0 L Qfasn-8-Vjkxmtpgk 0.4 H Yvgcx-4-Ffkpcxyrk 0.8 Rpze-3-Jzumvzwa 0.4 Fnnt-3-Bdtlayhh 0.4 Gamma Globulins 1.3 Monoclonal Peak 3 DNR Ser Monoclonl Protein DNR Ser Monoclonal Prot 2 DNR PEP Interpretation SEE NOTE 03/10/22 03/10/22 03/10/22 07:44 07:44 11:32 WBC RBC Hgb Hct MCV MCH MCHC RDW Std Deviation RDW Coeff of Benjamin Plt Count MPV Immature Gran % (Auto) Neut % (Auto) Lymph % (Auto) Barry % (Auto) Eos % (Auto) Baso % (Auto) Neut # (Auto) Lymph # (Auto) Barry # (Auto) Eos # (Auto) Baso # (Auto) Immature Gran # (Auto) PT 13.6 H INR 1.3 H Sodium 138 Potassium 4.2 Chloride 108 H Carbon Dioxide 23 Anion Gap 7 BUN 29 H Creatinine 1.49 H Est Cr Clr Drug Dosing 24.4 Est GFR ( Amer) 36.0 Est GFR (Non-Af Amer) 31.0 BUN/Creatinine Ratio 19.5 Glucose 100 H POC Glucose 124 H Calcium 8.9 Magnesium 2.1 Total Protein (PEP) Albumin (PEP) Jfjzo-1-Ggtoewltw Cdcuw-8-Cbtaznzpn Xkrw-4-Ccyrfutl Fbxo-9-Vzjkkjne Gamma Globulins Monoclonal Peak 3 Ser Monoclonl Protein Ser Monoclonal Prot 2 PEP Interpretation 03/10/22 03/10/22 16:36 20:04 WBC RBC Hgb Hct MCV MCH MCHC RDW Std Deviation RDW Coeff of Benjamin Plt Count MPV Immature Gran % (Auto) Neut % (Auto) Lymph % (Auto) Barry % (Auto) Eos % (Auto) Baso % (Auto) Neut # (Auto) Lymph # (Auto) Barry # (Auto) Eos # (Auto) Baso # (Auto) Immature Gran # (Auto) PT INR Sodium Potassium Chloride Carbon Dioxide Anion Gap BUN Creatinine Est Cr Clr Drug Dosing Est GFR ( Amer) Est GFR (Non-Af Amer) BUN/Creatinine Ratio Glucose POC Glucose 121 H 159 H Calcium Magnesium Total Protein (PEP) Albumin (PEP) Zqiol-5-Lppvbvfzg Tmupw-0-Ptlvxseqe Nirh-3-Fldspkjg Wktk-2-Zmfgprah Gamma Globulins Monoclonal Peak 3 Ser Monoclonl Protein Ser Monoclonal Prot 2 PEP Interpretation PG Care Time/CCT Total # of Minutes Spent Total Time Spent with Patient: Total time spent is greater than 50% in coordination of care (as documented) at patient's floor/unit and/or counseling patient: Coding Level of Care Code 91029 Initial Inpt Care Lvl 3 Diagnoses Ventricular tachycardia I47.2 Pulmonary hypertension I27.20 (HFpEF) heart failure with preserved ejection fraction I50.30 Atrial fibrillation I48.91
[2022-03-10] MEDS: SIMVASTATIN 40 MG TAB PO SCH (21:04)
[2022-03-11 06:44] LABS: Hematocrit (blood only) 29.1 % (37-47); Hemoglobin 8.8 g/dL (12.0-16.0); Mean Corpuscular Hemoglobin 26.7 pg (25-34); Mean Corpuscular Hgb Conc 30.2 g/dL (32-36); Mean Corpuscular Volume 88.2 fL (80-100); Nucleated RBC # (auto) 0.02 K/uL (0-0); Nucleated RBC % (auto) 0.3 %; Platelet Count 131 K/uL (130-400); RDW Coefficient of Variation 18.1 % (11.5-14.5); RDW Standard Deviation 57.4 fL (36.4-46.3)
[2022-03-11 06:52] LABS: INR 1.4 (0.9-1.1); Prothrombin Time 14.2 Seconds (9.0-12.0)
[2022-03-11 07:01] LABS: BUN Creatinine Ratio 17.2 (10-20); Calcium 8.9 mg/dl (8.5-10.1); Creatinine Clr Calc Pharmacy 20.2 ml/min; Est GFR (African American) 28.6 ml/min; Est GFR (Non-African American) 24.7 ml/min; Magnesium 2.1 mg/dl (1.7-2.4); Potassium 4.6 mmol/L (3.5-5.1)
[2022-03-11] MEDS: cefTRIAXone SODIUM 2,000 MG in DEXTROSE 5% 50 ML IV SCH (08:01)
[2022-03-11] MEDS: FAMOTIDINE 10 MG TABLET PO SCH (08:01)
[2022-03-11] MEDS: allopurinoL 100 MG TAB PO SCH (08:01)
[2022-03-11] MEDS: FUROSEMIDE 20 MG TAB PO SCH (08:02)
[2022-03-11] MEDS: ENOXAPARIN INJ 60 MG/0.6 ML SYR SQ SCH (08:02)
[2022-03-11] MEDS: CEROVITE ADV FORMULA TAB PO SCH (08:02)
[2022-03-11] MEDS: INSULIN ASPART PER UNIT SC SCH ×4 (09:45→20:03)
--- NOTE | 2022-03-11 15:34 | Hospitalist Progress Note ---
Date of Service March 11, 2022 Assessment & Plan (1) Acute maxillary sinusitis: Plan: as seen on CT head imaging. in light of +blood culture from 03/02/22 (alpha strep) will utilize rocephin IV. this will cover sinuses + the blood. repeat blood cultures obtained 03/04 thus far negative. With alpha Strep bacteremia could be related to sinusitis sinusitis likely contributing to her cough. NO EVIDENCE OF PNEUMONIA on CT chest although cough has a very bronchial quality to it. Could have reactive bronchitis. Cont combivent for the cough. Cough is now improved and sinus pressure resolved -plan to finish out 14 day course of abx with Augmentin on discharge (2) Positive blood culture: Plan: 10/26 bottles positive from 03/02/22. alpha strep could be contaminant but could be pathogenic given sinusitis sed rate/crp/procal wnl. repeat blood cultures 03/05/22 remain negative to date. continue rocephin for now as above and can likely switch to po abx w/ Augmentin to finish out 2 week course upon discharge checked ECHO for valvular veg but given rapid clearing and possibility this could be contaminant, do not feel ERROL would be necessary --> ECHO no valvular veg but with mod-severe MR, TR which was present previously (3) (HFpEF) heart failure with preserved ejection fraction: Plan: with volume overload here, acute on chronic HFpEF CKD stage 3 making diuresis difficult at times electro mechanical engineer now rising again with restarting low dose lasix 20mg daily weight down 3-4 kg, I/Os not accurate , edema improved consulted CHF program-f/u as outpt Cardiology consulted: assessment is that she may have an element of diastolic heart failure-would be difficult to quantify and may require an invasive evaluation for confirmation. However, a lot of her symptoms appear to be related to right ventricular failure. This would account for her ascites and lower extremity edema. This is undoubtedly related to her severe pulmonary hypertension. She is undergoing gentle diuresis. She appears to be tolerating this therapy for the time being. In the absence of a response, she would likely need a right heart catheterization in order to better identify her degree of pulmonary hypertension and the presence or absence of high left ventricular filling pressures. -hold lasix for now and will plan on likely giving lasix 20mg every other day -follow BMP (4) Ventricular tachycardia: Plan: had a 24 beat run on AM of 03/10, asymptomatic, none since then lytes are replete EF preserved can't give beta cristhian due to bradycardia consult Cardio for any further recommendations-appreciate---> recommends if has recurrent episodes, could consider an ischemic evaluation. (5) Nausea and vomiting: Plan: Started after taking azithro and cefdinir as outpt Finally improving 03/09, continues to increase po intake each day, no vomiting also with diarrhea both at home and here, now improved but still had 3 loose stools 03/09 C. diff gene positive but toxin negative-not true infection, just carrier -continue Zofran prn -added Pepcid -repeat C. diff on 03/11 if diarrhea persists (6) Type 2 diabetes mellitus: Plan: BSGs well controlled. Most recent HbA1c 6% in January. Novolog SSI for now. records reviewed - takes a sulfonylurea and was having copious #'s of hypoglycemic episodes earlier this spring. BSGs have been EXCELLENT off the glipizide this admission. given inconsistent eating habits, CKD, and her excellent glycemic control would NOT resume glipizide at discharge. (7) Hypertension: Plan: Lisinopril continues to be on hold due to mild rise in creatinine. BPs reasonable/acceptable off of such. (8) Atrial fibrillation: Plan: rates controlled without AV arthur agent coumadin for AC continue on lovenox 1mg/kg daily (renal therapeutic dose) while INR is <2 her coumadin dose had been 2mg/day but dose recently lowered because of GI/ bleeding & supratherapeutic levels since eating is better, and since no recurrent bleeding - and given the persistently low INR - have since increased coumadin to 2mg daily daily INR-again 1.4 today but is rising (9) Anemia: Plan: ferritin 43 in 01/2022 b12/folate/tsh wnl remains anemic with Hb in the 8's rechecked Fe studies -low transferrin sat at 7% -gave IV venofer 300mg IV daily x 3 doses Fe def likely due to hemorrhoidal bleeding in december along with bleeding (vaginal tear) in December SPEP/UPEP in light of anemia/mild thrombocytopenia along with 3+ proteinuria- UPEP suggestive of spike--> check Urine MICHELE-pending; SPEP only with evidence of acute phase reaction (10) Thrombocytopenia: Plan: very mild,now resolved TSH, b12, folate wnl. SPEP neg, UPEP possible abnormality--> urine MICHELE pending could be 2/2 infection (11) Bilateral pleural effusion: Plan: 2nd to diastolic CHF or proteinuria/nephrosis vs other. not hypoxic attempts to give her diuretic this admission has simply led to further rises in her creatinine. give lasix as able to (12) Proteinuria: Plan: 3+ 2nd to diabetic nephropathy? SPEP normal/no MM other? obtain SPEP (normal) and UPEP - UPEP abnormal--> check Urine MICHELE obtained urine protein/Cr ratio - significantly abnormal could also be contributing to LE edema consider 24-hour urine consider nephrology consultation both can be done as outpatient (13) Chronic kidney disease, stage IV (severe): Plan: baseline CrCl 20s baseline creatinine ~1.3 now with mild PAMELA again due to diuretics, electro mechanical engineer up to 1.8 hold lasix, continue to hold lisinopril follow BMP (14) Acute kidney injury: Plan: electro mechanical engineer continues to spike when lasix is given, again up to 1.8 as above (15) Pulmonary hypertension: Plan: severe echo 01/2022 with RVSP >60mmHg etiology of pulmonary HTN?? no prior h/o PE no h/o MARTA no h/o chronic lung disease LE edema could be 2nd to such -consult CHF clinic for acute on chronic HFpEF Cardiology consult states unclear etiology possibly related to diastolic heart failure. Overall lung examination is relatively benign although she does have some pleural effusions. (16) Gout, joint: Plan: no flares at this time Plan: PT/OT evals done --- home with HH vs rehab. Not ready for discharge yet but possibly tomorrow Daughter Ana Agrawal asks to be main POC at cell # [phone], but pt asked me to call her son Alvin today which I did-he understands plan and agrees. Hopeful for dc to home tomorrow if renal function improved Admission and Anticipated Discharge Date Admission Date: March 07, 2022 Subjective Pt reports eating well, no diarrhea but feels she has to move her bowels soon. No abd pain. Tele with Afib, PVCs, rates 60-70s Review of Systems Review of Systems: All systems reviewed & are unremarkable except as noted in HPI & below Physical Exam Constitutional: WD/WN, vitals as above Eyes: + anicteric sclerae Neck: trachea midline, no thyromegaly Respiratory: normal respiratory effort, lungs clear to auscultation Cardiovascular: Rate/Rhythm: regular rate and + irregularly irregular Heart Sounds: no murmur Extremities: + edema (+ trace pitting edema legs bilat,slightly improved from yesterday) Chest (Breasts): Chest: normal inspection of chest Gastrointestinal (Abdomen): normal bowel sounds, soft, nontender, no hepatosplenomegaly Musculoskeletal: Extremities: extremities normal to inspection; no cyanosis and no clubbing Skin: no rashes, warm and dry Neurologic: moves all extremities and awake; no focal motor deficits Psychiatric: Orientation: alert, oriented x 3 and cooperative Affect: + flat affect Results & Data Results & Data ([facility]) Vital Signs (Past 12 Hours) Vital Signs Temp Pulse Pulse Resp BP BP Pulse Ox 03/11/22 11:52 36.4 C L 55 L 20 130/67 91 03/11/22 10:24 59 L 03/11/22 07:00 36.7 C 75 20 178/75 H 91 Laboratory Results 03/11/22 03/11/22 03/11/22 Range/Units 11:24 07:23 06:23 WBC (4.8-10.8) K/uL RBC (4.2-5.4) M/uL Hgb (12.0-16.0) g/dL Hct (37-47) % MCV (80-100) fL MCH (25-34) pg MCHC (32-36) g/dL RDW Std Deviation (36.4-46.3) fL RDW Coeff of Benjamin (11.5-14.5) % Plt Count (130-400) K/uL MPV (7.4-10.4) fL Absolute Nucleated RBC (0-0) K/uL Nucleated RBC % (auto) % PT 14.2 H (9.0-12.0) Seconds INR 1.4 H (0.9-1.1) Sodium (136-145) mmol/L Potassium (3.5-5.1) mmol/L Chloride (98-107) mmol/L Carbon Dioxide (21-32) mmol/L Anion Gap (3-11) BUN (6-23) mg/dl Creatinine (0.6-1.2) mg/dl Est Cr Clr Drug Dosing ml/min Est GFR ( Amer) ml/min Est GFR (Non-Af Amer) ml/min BUN/Creatinine Ratio (10-20) Glucose (70-99(Fasting)) mg/dl POC Glucose 121 H 110 H (70-99) mg/dl Calcium (8.5-10.1) mg/dl Magnesium (1.7-2.4) mg/dl 03/11/22 03/11/22 03/10/22 Range/Units 06:23 06:23 20:04 WBC 8.90 (4.8-10.8) K/uL RBC 3.30 L (4.2-5.4) M/uL Hgb 8.8 L (12.0-16.0) g/dL Hct 29.1 L (37-47) % MCV 88.2 (80-100) fL MCH 26.7 (25-34) pg MCHC 30.2 L (32-36) g/dL RDW Std Deviation 57.4 H (36.4-46.3) fL RDW Coeff of Benjamin 18.1 H (11.5-14.5) % Plt Count 131 (130-400) K/uL MPV 10.0 (7.4-10.4) fL Absolute Nucleated RBC 0.02 H (0-0) K/uL Nucleated RBC % (auto) 0.3 % PT (9.0-12.0) Seconds INR (0.9-1.1) Sodium 138 (136-145) mmol/L Potassium 4.6 (3.5-5.1) mmol/L Chloride 108 H (98-107) mmol/L Carbon Dioxide 25 (21-32) mmol/L Anion Gap 5 (3-11) BUN 31 H (6-23) mg/dl Creatinine 1.80 H D (0.6-1.2) mg/dl Est Cr Clr Drug Dosing 20.2 ml/min Est GFR ( Amer) 28.6 ml/min Est GFR (Non-Af Amer) 24.7 ml/min BUN/Creatinine Ratio 17.2 (10-20) Glucose 101 H (70-99(Fasting)) mg/dl POC Glucose 159 H (70-99) mg/dl Calcium 8.9 (8.5-10.1) mg/dl Magnesium 2.1 (1.7-2.4) mg/dl 03/10/22 Range/Units 16:36 WBC (4.8-10.8) K/uL RBC (4.2-5.4) M/uL Hgb (12.0-16.0) g/dL Hct (37-47) % MCV (80-100) fL MCH (25-34) pg MCHC (32-36) g/dL RDW Std Deviation (36.4-46.3) fL RDW Coeff of Benjamin (11.5-14.5) % Plt Count (130-400) K/uL MPV (7.4-10.4) fL Absolute Nucleated RBC (0-0) K/uL Nucleated RBC % (auto) % PT (9.0-12.0) Seconds INR (0.9-1.1) Sodium (136-145) mmol/L Potassium (3.5-5.1) mmol/L Chloride (98-107) mmol/L Carbon Dioxide (21-32) mmol/L Anion Gap (3-11) BUN (6-23) mg/dl Creatinine (0.6-1.2) mg/dl Est Cr Clr Drug Dosing ml/min Est GFR ( Amer) ml/min Est GFR (Non-Af Amer) ml/min BUN/Creatinine Ratio (10-20) Glucose (70-99(Fasting)) mg/dl POC Glucose 121 H (70-99) mg/dl Calcium (8.5-10.1) mg/dl Magnesium (1.7-2.4) mg/dl PG Care Time/CCT Total # of Minutes Spent Total Time Spent with Patient: Total time spent is greater than 50% in coordination of care (as documented) at patient's floor/unit and/or counseling patient: Coding Level of Care Code 95516 Subseq Hosp Care Lvl 3 Diagnoses Acute maxillary sinusitis J01.00 Positive blood culture R78.81 (HFpEF) heart failure with preserved ejection fraction I50.30 Ventricular tachycardia I47.2 Nausea and vomiting R11.2 Type 2 diabetes mellitus E11.9 Hypertension I10 Atrial fibrillation I48.91 Anemia D64.9 Thrombocytopenia D69.6 Bilateral pleural effusion J90 Proteinuria R80.9 Chronic kidney disease, stage IV (severe) N18.4 Acute kidney injury N17.9 Pulmonary hypertension I27.20 Gout, joint M10.9
[2022-03-11] MEDS: WARFARIN SOD 2 MG TAB PO SCH (17:21)
[2022-03-11] MEDS: SIMVASTATIN 40 MG TAB PO SCH (20:02)
[2022-03-11] MEDS: ACETAMINOPHEN 325 MG TAB PO PRN (20:03)
[2022-03-12 06:46] LABS: Basophils # (auto) 0.02 K/uL (0-0.2); Basophils % (auto) 0.2 %; Eosinophils # (auto) 0.13 K/uL (0-0.5); Eosinophils % (auto) 1.4 %; Hematocrit (blood only) 30.7 % (37-47); Immature Granulocytes # (auto) 0.03 K/uL (0.00-0.02); Immature Granulocytes % (auto) 0.3 %; Lymphocytes # (auto) 0.97 K/uL (1.2-3.4); Lymphocytes % (auto) 10.2 %; Mean Corpuscular Hgb Conc 29.3 g/dL (32-36); Mean Corpuscular Volume 88.7 fL (80-100); Mean Platelet Volume 10.2 fL (7.4-10.4); Monocytes # (auto) 0.87 K/uL (0.11-0.59); Monocytes % (auto) 9.1 %; Neutrophils # (auto) 7.52 K/uL (1.4-6.5); Neutrophils % (auto) 78.8 %; Platelet Count 141 K/uL (130-400); RDW Coefficient of Variation 18.9 % (11.5-14.5); RDW Standard Deviation 56.8 fL (36.4-46.3); Red Blood Count 3.46 M/uL (4.2-5.4); White Blood Count 9.54 K/uL (4.8-10.8)
[2022-03-12 07:23] LABS: INR 1.3 (0.9-1.1)
[2022-03-12 07:52] LABS: BUN Creatinine Ratio 18.3 (10-20); Calcium 8.8 mg/dl (8.5-10.1); Creatinine Clr Calc Pharmacy 19.6 ml/min; Est GFR (African American) 27.5 ml/min; Est GFR (Non-African American) 23.7 ml/min; Potassium 4.2 mmol/L (3.5-5.1)
[2022-03-12] MEDS: ENOXAPARIN INJ 60 MG/0.6 ML SYR SQ SCH (07:59)
[2022-03-12] MEDS: allopurinoL 100 MG TAB PO SCH (07:59)
[2022-03-12] MEDS: CEROVITE ADV FORMULA TAB PO SCH (07:59)
[2022-03-12] MEDS: FAMOTIDINE 10 MG TABLET PO SCH (07:59)
[2022-03-12] MEDS: cefTRIAXone SODIUM 2,000 MG in DEXTROSE 5% 50 ML IV SCH (07:59)
[2022-03-12] MEDS: INSULIN ASPART PER UNIT SC SCH ×4 (08:00→20:59)
--- NOTE | 2022-03-12 11:39 | Hospitalist Progress Note ---
Date of Service March 12, 2022 Assessment & Plan (1) Acute maxillary sinusitis: Plan: as seen on CT head imaging. in light of +blood culture from 03/02/22 (alpha strep) will utilize rocephin IV. this will cover sinuses + the blood. repeat blood cultures obtained 03/04 thus far negative. With alpha Strep bacteremia could be related to sinusitis sinusitis likely contributing to her cough. NO EVIDENCE OF PNEUMONIA on CT chest although cough has a very bronchial quality to it. Could have reactive bronchitis. Cont combivent for the cough. Cough is now improved and sinus pressure resolved -plan to finish out 14 day course of abx with Augmentin on discharge (2) Positive blood culture: Plan: 10/26 bottles positive from 03/02/22. alpha strep could be contaminant but could be pathogenic given sinusitis sed rate/crp/procal wnl. repeat blood cultures 03/05/22 remain negative to date. continue rocephin for now as above and can likely switch to po abx w/ Augmentin to finish out 2 week course upon discharge checked ECHO for valvular veg but given rapid clearing and possibility this could be contaminant, do not feel ERROL would be necessary --> ECHO no valvular veg but with mod-severe MR, TR which was present previously (3) (HFpEF) heart failure with preserved ejection fraction: Plan: with volume overload here, acute on chronic HFpEF CKD stage 3 making diuresis difficult at times credit card interviewer now rising again after restarting low dose lasix 20mg daily-now on hold weight down 3-4 kg, I/Os not accurate , edema worsening again consulted CHF program-f/u as outpt Cardiology consulted: assessment is that she may have an element of diastolic heart failure-would be difficult to quantify and may require an invasive evaluation for confirmation. However, a lot of her symptoms appear to be related to right ventricular failure. This would account for her ascites and lower extremity edema. This is undoubtedly related to her severe pulmonary hypertension. She is undergoing gentle diuresis. She appears to be tolerating this therapy for the time being. In the absence of a response, she would likely need a right heart catheterization in order to better identify her degree of pulmonary hypertension and the presence or absence of high left ventricular filling pressures. -continue to hold lasix for now and will plan on likely giving lasix 20mg 3x/week on discharge -follow BMP-credit card interviewer 1.86 -will have to accept some degree of renal insufficiency to keep fluid off (4) Ventricular tachycardia: Plan: had a 24 beat run on AM of 03/10, asymptomatic, none since then lytes are replete EF preserved can't give beta cristhian due to bradycardia consult Cardio for any further recommendations-appreciate---> recommends if has recurrent episodes, could consider an ischemic evaluation. (5) Nausea and vomiting: Plan: Started after taking azithro and cefdinir as outpt now much improved/resolved also with diarrhea both at home and here, now improved but still had 3 loose stools 03/09 and none since then C. diff gene positive but toxin negative-not true infection, just carrier -continue Zofran prn -added Pepcid -repeat C. diff if diarrhea returns (6) Type 2 diabetes mellitus: Plan: BSGs well controlled. Most recent HbA1c 6% in January. Novolog SSI for now. records reviewed - takes a sulfonylurea and was having copious #'s of hy poglycemic episodes earlier this spring. BSGs have been EXCELLENT off the glipizide this admission. given inconsistent eating habits, CKD, and her excellent glycemic control would NOT resume glipizide at discharge. (7) Hypertension: Plan: Lisinopril continues to be on hold due to mild rise in creatinine. BPs reasonable/acceptable off of such. (8) Atrial fibrillation: Plan: rates controlled without AV arthur agent coumadin for AC continue on lovenox 1mg/kg daily (renal therapeutic dose) while INR is <2 her coumadin dose had been 2mg/day but dose recently lowered because of GI/ bleeding & supratherapeutic levels since eating is better, and since no recurrent bleeding - and given the persistently low INR - have since increased coumadin to 2mg daily but INR remains low WIll increase coumadin again to 2.5mg daily -follow INR in AM (9) Anemia: Plan: ferritin 43 in 01/2022 b12/folate/tsh wnl remains anemic with Hb in the 8's rechecked Fe studies -low transferrin sat at 7% -gave IV venofer 300mg IV daily x 3 doses Fe def likely due to hemorrhoidal bleeding in december along with bleeding (vaginal tear) in December SPEP/UPEP in light of anemia/mild thrombocytopenia along with 3+ proteinuria- UPEP suggestive of spike--> check Urine MICHELE-pending; SPEP only with evidence of acute phase reaction (10) Thrombocytopenia: Plan: very mild,now resolved TSH, b12, folate wnl. SPEP neg, UPEP possible abnormality--> urine MICHELE pending was likely 2/2 infection (11) Bilateral pleural effusion: Plan: 2nd to diastolic CHF or proteinuria/nephrosis vs other. not hypoxic attempts to give her diuretic this admission has simply led to further rises in her creatinine. give lasix as able to (12) Proteinuria: Plan: 3+ 2nd to diabetic nephropathy? SPEP normal/no MM other? obtain SPEP (normal) and UPEP - UPEP abnormal--> check Urine MICHELE obtained urine protein/Cr ratio - significantly abnormal could also be contributing to LE edema consider 24-hour urine consider nephrology consultation both can be done as outpatient (13) Chronic kidney disease, stage IV (severe): Plan: baseline CrCl 20s baseline creatinine ~1.3 now with mild PAMELA again due to diuretics, credit card interviewer up to 1.8 and stable from yesterday hold lasix, continue to hold lisinopril follow BMP (14) Acute kidney injury: Plan: credit card interviewer continues to spike when lasix is given, again up to 1.8 as above (15) Pulmonary hypertension: Plan: severe echo 01/2022 with RVSP >60mmHg etiology of pulmonary HTN?? no prior h/o PE no h/o MARTA no h/o chronic lung disease LE edema could be 2nd to such -consult CHF clinic for acute on chronic HFpEF Cardiology consult states unclear etiology possibly related to diastolic heart failure. Overall lung examination is relatively benign although she does have some pleural effusions. (16) Gout, joint: Plan: no flares at this time Plan: PT/OT evals done --- home with HH vs rehab. Not ready for discharge yet but possibly tomorrow if renal function remains stable to improved Daughter Ana Agrawal asks to be main POC at cell # [phone], but pt asked me to call her son Alvin again today which I did-he understands plan and agrees. Hopeful for dc to home tomorrow if renal function improved Admission and Anticipated Discharge Date Admission Date: March 07, 2022 Subjective Pt feels well today. No further nausea and is eating all her meals. No abd pain, no diarrhea. Having some pain in right distal leg where her socks are digging into her skin with edema. Denies SOB or CP. Tele with Afib, PVCs, rates 40-50s Review of Systems Review of Systems: All systems reviewed & are unremarkable except as noted in HPI & below Physical Exam Constitutional: WD/WN, vitals as above Eyes: + anicteric sclerae Neck: trachea midline, no thyromegaly Respiratory: normal respiratory effort, lungs clear to auscultation Cardiovascular: Rate/Rhythm: regular rate and + irregularly irregular Heart Sounds: no murmur Extremities: + edema (1+ pitting edema legs bilat) Chest (Breasts): Chest: normal inspection of chest Gastrointestinal (Abdomen): normal bowel sounds, soft, nontender, no hepatosplenomegaly Musculoskeletal: Extremities: extremities normal to inspection; no cyanosis and no clubbing Skin: no rashes, warm and dry Neurologic: moves all extremities and awake; no focal motor deficits Psychiatric: A+Ox3, euthymic affect Orientation: cooperative Results & Data Results & Data ([facility]) Vital Signs (Past 12 Hours) Vital Signs Temp Pulse Pulse Resp BP Pulse Ox 03/12/22 11:00 36.9 C 68 18 145/55 H 93 03/12/22 09:45 51 L 03/12/22 06:12 36.6 C 81 18 159/70 H 91 03/12/22 04:00 36.8 C 61 18 138/68 94 Laboratory Results 03/12/22 03/12/22 03/12/22 Range/Units 11:35 07:27 06:04 WBC (4.8-10.8) K/uL RBC (4.2-5.4) M/uL Hgb (12.0-16.0) g/dL Hct (37-47) % MCV (80-100) fL MCH (25-34) pg MCHC (32-36) g/dL RDW Std Deviation (36.4-46.3) fL RDW Coeff of Benjamin (11.5-14.5) % Plt Count (130-400) K/uL MPV (7.4-10.4) fL Immature Gran % (Auto) % Neut % (Auto) % Lymph % (Auto) % [place] % (Auto) % Eos % (Auto) % Baso % (Auto) % Neut # (Auto) (1.4-6.5) K/uL Lymph # (Auto) (1.2-3.4) K/uL [place] # (Auto) (0.11-0.59) K/uL Eos # (Auto) (0-0.5) K/uL Baso # (Auto) (0-0.2) K/uL Immature Gran # (Auto) (0.00-0.02) K/uL PT 14.0 H (9.0-12.0) Seconds INR 1.3 H (0.9-1.1) Sodium (136-145) mmol/L Potassium (3.5-5.1) mmol/L Chloride (98-107) mmol/L Carbon Dioxide (21-32) mmol/L Anion Gap (3-11) BUN (6-23) mg/dl Creatinine (0.6-1.2) mg/dl Est Cr Clr Drug Dosing ml/min Est GFR ( Amer) ml/min Est GFR (Non-Af Amer) ml/min BUN/Creatinine Ratio (10-20) Glucose (70-99(Fasting)) mg/dl POC Glucose 212 H 93 (70-99) mg/dl Calcium (8.5-10.1) mg/dl 03/12/22 03/12/22 03/11/22 Range/Units 06:04 06:04 20:02 WBC 9.54 (4.8-10.8) K/uL RBC 3.46 L (4.2-5.4) M/uL Hgb 9.0 L (12.0-16.0) g/dL Hct 30.7 L (37-47) % MCV 88.7 (80-100) fL MCH 26.0 (25-34) pg MCHC 29.3 L (32-36) g/dL RDW Std Deviation 56.8 H (36.4-46.3) fL RDW Coeff of Benjamin 18.9 H (11.5-14.5) % Plt Count 141 (130-400) K/uL MPV 10.2 (7.4-10.4) fL Immature Gran % (Auto) 0.3 % Neut % (Auto) 78.8 % Lymph % (Auto) 10.2 % [place] % (Auto) 9.1 % Eos % (Auto) 1.4 % Baso % (Auto) 0.2 % Neut # (Auto) 7.52 H (1.4-6.5) K/uL Lymph # (Auto) 0.97 L (1.2-3.4) K/uL [place] # (Auto) 0.87 H (0.11-0.59) K/uL Eos # (Auto) 0.13 (0-0.5) K/uL Baso # (Auto) 0.02 (0-0.2) K/uL Immature Gran # (Auto) 0.03 H (0.00-0.02) K/uL PT (9.0-12.0) Seconds INR (0.9-1.1) Sodium 138 (136-145) mmol/L Potassium 4.2 (3.5-5.1) mmol/L Chloride 107 (98-107) mmol/L Carbon Dioxide 24 (21-32) mmol/L Anion Gap 7 (3-11) BUN 34 H (6-23) mg/dl Creatinine 1.86 H (0.6-1.2) mg/dl Est Cr Clr Drug Dosing 19.6 ml/min Est GFR ( Amer) 27.5 ml/min Est GFR (Non-Af Amer) 23.7 ml/min BUN/Creatinine Ratio 18.3 (10-20) Glucose 85 (70-99(Fasting)) mg/dl POC Glucose 92 (70-99) mg/dl Calcium 8.8 (8.5-10.1) mg/dl 03/11/22 Range/Units 16:38 WBC (4.8-10.8) K/uL RBC (4.2-5.4) M/uL Hgb (12.0-16.0) g/dL Hct (37-47) % MCV (80-100) fL MCH (25-34) pg MCHC (32-36) g/dL RDW Std Deviation (36.4-46.3) fL RDW Coeff of Benjamin (11.5-14.5) % Plt Count (130-400) K/uL MPV (7.4-10.4) fL Immature Gran % (Auto) % Neut % (Auto) % Lymph % (Auto) % [place] % (Auto) % Eos % (Auto) % Baso % (Auto) % Neut # (Auto) (1.4-6.5) K/uL Lymph # (Auto) (1.2-3.4) K/uL [place] # (Auto) (0.11-0.59) K/uL Eos # (Auto) (0-0.5) K/uL Baso # (Auto) (0-0.2) K/uL Immature Gran # (Auto) (0.00-0.02) K/uL PT (9.0-12.0) Seconds INR (0.9-1.1) Sodium (136-145) mmol/L Potassium (3.5-5.1) mmol/L Chloride (98-107) mmol/L Carbon Dioxide (21-32) mmol/L Anion Gap (3-11) BUN (6-23) mg/dl Creatinine (0.6-1.2) mg/dl Est Cr Clr Drug Dosing ml/min Est GFR ( Amer) ml/min Est GFR (Non-Af Amer) ml/min BUN/Creatinine Ratio (10-20) Glucose (70-99(Fasting)) mg/dl POC Glucose 111 H (70-99) mg/dl Calcium (8.5-10.1) mg/dl PG Care Time/CCT Total # of Minutes Spent Total Time Spent with Patient: Total time spent is greater than 50% in coordination of care (as documented) at patient's floor/unit and/or counseling patient: Coding Level of Care Code 11661 Subseq Hosp Care Lvl 2 Diagnoses Acute maxillary sinusitis J01.00 Positive blood culture R78.81 (HFpEF) heart failure with preserved ejection fraction I50.30 Ventricular tachycardia I47.2 Nausea and vomiting R11.2 Type 2 diabetes mellitus E11.9 Hypertension I10 Atrial fibrillation I48.91 Anemia D64.9 Thrombocytopenia D69.6 Bilateral pleural effusion J90 Proteinuria R80.9 Chronic kidney disease, stage IV (severe) N18.4 Acute kidney injury N17.9 Pulmonary hypertension I27.20 Gout, joint M10.9
[2022-03-12] MEDS ORDERED: WARFARIN SOD 3 MG TAB PO SCH (16:00)
[2022-03-12] MEDS: ACETAMINOPHEN 325 MG TAB PO PRN (18:25)
[2022-03-12] MEDS: SIMVASTATIN 40 MG TAB PO SCH (20:19)
[2022-03-13] MEDS: ENOXAPARIN INJ 60 MG/0.6 ML SYR SQ SCH (07:43)
[2022-03-13] MEDS: allopurinoL 100 MG TAB PO SCH (07:43)
[2022-03-13] MEDS: cefTRIAXone SODIUM 2,000 MG in DEXTROSE 5% 50 ML IV SCH (07:43)
[2022-03-13] MEDS: FAMOTIDINE 10 MG TABLET PO SCH (07:43)
[2022-03-13] MEDS: CEROVITE ADV FORMULA TAB PO SCH (07:43)
[2022-03-13 08:31] LABS: INR 1.4 (0.9-1.1); Prothrombin Time 14.7 Seconds (9.0-12.0)
[2022-03-13 08:49] LABS: Basophils # (auto) 0.02 K/uL (0-0.2); Basophils % (auto) 0.2 %; Eosinophils # (auto) 0.13 K/uL (0-0.5); Eosinophils % (auto) 1.3 %; Hematocrit (blood only) 30.6 % (37-47); Hemoglobin 9.1 g/dL (12.0-16.0); Immature Granulocytes # (auto) 0.03 K/uL (0.00-0.02); Immature Granulocytes % (auto) 0.3 %; Lymphocytes # (auto) 0.73 K/uL (1.2-3.4); Lymphocytes % (auto) 7.2 %; Mean Corpuscular Hemoglobin 26.5 pg (25-34); Mean Corpuscular Hgb Conc 29.7 g/dL (32-36); Mean Corpuscular Volume 89.2 fL (80-100); Mean Platelet Volume 10.3 fL (7.4-10.4); Monocytes # (auto) 0.94 K/uL (0.11-0.59); Monocytes % (auto) 9.3 %; Neutrophils # (auto) 8.27 K/uL (1.4-6.5); Neutrophils % (auto) 81.7 %; Platelet Count 153 K/uL (130-400); RDW Coefficient of Variation 19.8 % (11.5-14.5); Red Blood Count 3.43 M/uL (4.2-5.4); White Blood Count 10.12 K/uL (4.8-10.8)
[2022-03-13] MEDS: INSULIN ASPART PER UNIT SC SCH (08:59)
[2022-03-13 09:09] LABS: Calcium 8.9 mg/dl (8.5-10.1); Creatinine Clr Calc Pharmacy 20.8 ml/min; Est GFR (African American) 29.6 ml/min; Est GFR (Non-African American) 25.6 ml/min; Magnesium 2.2 mg/dl (1.7-2.4); Potassium 4.3 mmol/L (3.5-5.1)
--- NOTE | 2022-03-13 11:42 | Discharge Summary ---
Date of Service March 13, 2022 Admission HPI Per Admitting Provider The patient is an 86-year-old female with a past medical history including atrial fibrillation, chronic anticoagulation with warfarin, pneumonia, thrombocytopenia, aortic valve defect, mitral regurgitation, carotid artery stenosis, CKD stage III, gout, hypertension, diabetes mellitus, tricuspid regurgitation, rectocele, cystocele and osteoarthritis. The patient was seen in the emergency department on 03/02, and was started on furosemide, azithromycin, cefdinir and potassium. She reports that shortly after taking these medications her stomach became upset and she started with nausea and vomiting and now feels somewhat dehydrated. Discharge Exam Constitutional WD/WN, vitals as above Eyes + anicteric sclerae ENMT external ear and nose normal, oropharynx normal Neck trachea midline, no thyromegaly Respiratory normal respiratory effort, lungs clear to auscultation Cardiovascular Rate/Rhythm: regular rate and + irregularly irregular Heart Sounds: no murmur Extremities: + edema (1+ pitting edema legs bilat) Chest (Breasts) Chest: normal inspection of chest Gastrointestinal (Abdomen) normal bowel sounds, soft, nontender, no hepatosplenomegaly Musculoskeletal Extremities: extremities normal to inspection; no cyanosis and no clubbing Skin no rashes, warm and dry Neurologic moves all extremities and awake; no focal motor deficits Psychiatric A+Ox3, euthymic affect Orientation: cooperative Affect: + flat affect Discharge Data Allergies Allergy/AdvReac Type Severity Reaction Status Date / Time acetaminophen [From [place]] AdvReac Intermediate Nausea Verified 03/04/22 22:10 atorvastatin [From Lipitor] AdvReac Intermediate NOT Verified 03/04/22 22:10 TOLERATED fluvastatin [From [place]] AdvReac Intermediate NOT Verified 03/04/22 22:10 TOLERATED gabapentin AdvReac Intermediate Nausea Verified 03/04/22 22:10 hydrocodone [From [place]] AdvReac Intermediate Nausea Verified 03/04/22 22:10 sulfamethoxazole AdvReac Intermediate Nausea Verified 03/04/22 22:10 [From Bactrim] trimethoprim [From Bactrim] AdvReac Intermediate Nausea Verified 03/04/22 22:10 Consultations 03/05/22 00:29 ED Decision to Admit Stat 03/08/22 18:52 [facility] CHF Program Referral Routine 03/10/22 11:00 Consult Cardiology Routine Ordered Studies 03/04/22 22:51 CT abd pelvis wo con Urgent CT head/brain wo con Urgent 03/05/22 13:25 CT chest diagnostic wo con Routine Hospital Course (1) Acute maxillary sinusitis: as seen on CT head imaging. in light of +blood culture from 03/02/22 (alpha strep) will utilize rocephin IV. this will cover sinuses + the blood. repeat blood cultures obtained 03/04 thus far negative. With alpha Strep bacteremia could be related to sinusitis sinusitis likely contributing to her cough. NO EVIDENCE OF PNEUMONIA on CT chest although cough has a very bronchial quality to it. Could have reactive bronchitis. Cont combivent for the cough. Cough is now improved and sinus pressure resolved -plan to finish out 14 day course of abx with Augmentin on discharge (2) Positive blood culture: 1/4 bottles positive from 03/02/22. alpha strep could be contaminant but could be pathogenic given sinusitis sed rate/crp/procal wnl. repeat blood cultures 03/05/22 remain negative to date. 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 However, a lot of her symptoms appear to be related to right ventricular failure. This would account for her ascites and lower extremity edema. This is undoubtedly related to her severe pulmonary hypertension. She is undergoing gentle diuresis. She appears to be tolerating this therapy for the time being. In the absence of a response, she would likely need a right heart catheterization in order to better identify her degree of pulmonary hypertension and the presence or absence of high left ventricular filling pressures. -continue to hold lasix for now and will plan on likely giving lasix 20mg 3x/week on discharge -follow BMP-song and dance performer 1.86 -will have to accept some degree of renal insufficiency to keep fluid off (4) Ventricular tachycardia: had a 24 beat run on AM of 03/10, asymptomatic, none since then lytes are replete EF preserved can't give beta cristhian due to bradycardia consult Cardio for any further recommendations-appreciate---> recommends if has recurrent episodes, could consider an ischemic evaluation. (5) Nausea and vomiting: Started after taking azithro and cefdinir as outpt now much improved/resolved also with diarrhea both at home and here, now improved but still had 3 loose stools 03/09 and none since then C. diff gene positive but toxin negative-not true infection, just carrier -continue Zofran prn -added Pepcid -repeat C. diff if diarrhea returns (6) Type 2 diabetes mellitus: BSGs well controlled. Most recent HbA1c 6% in January. Novolog SSI for now. records reviewed - takes a sulfonylurea and was having copious #'s of hypoglycemic episodes earlier this spring. BSGs have been EXCELLENT off the glipizide this admission. given inconsistent eating habits, CKD, and her excellent glycemic control would NOT resume glipizide at discharge. (7) Hypertension: Lisinopril continues to be on hold due to mild rise in creatinine. BPs reasonable/acceptable off of such. (8) Atrial fibrillation: rates controlled without AV arthur agent coumadin for AC continue on lovenox 1mg/kg daily (renal therapeutic dose) while INR is <2 her coumadin dose had been 2mg/day but dose recently lowered because of GI/ bleeding & supratherapeutic levels since eating is better, and since no recurrent bleeding - and given the persistently low INR - have since increased coumadin to 2mg daily but INR remains low WIll increase coumadin again to 2.5mg daily -follow INR in AM (9) Anemia: ferritin 43 in 01/2022 b12/folate/tsh wnl remains anemic with Hb in the 8's rechecked Fe studies -low transferrin sat at 7% -gave IV venofer 300mg IV daily x 3 doses Fe def likely due to hemorrhoidal bleeding in december along with bleeding (vaginal tear) in December SPEP/UPEP in light of anemia/mild thrombocytopenia along with 3+ proteinuria- UPEP suggestive of spike--> check Urine MICHELE-pending; SPEP only with evidence of acute phase reaction (10) Thrombocytopenia: very mild,now resolved TSH, b12, folate wnl. SPEP neg, UPEP possible abnormality--> urine MICHELE pending was likely 2/2 infection (11) Bilateral pleural effusion: 2nd to diastolic CHF or proteinuria/nephrosis vs other. not hypoxic attempts to give her diuretic this admission has simply led to further rises in her creatinine. give lasix as able to (12) Proteinuria: 3+ 2nd to diabetic nephropathy? SPEP normal/no MM other? obtain SPEP (normal) and UPEP - UPEP abnormal--> check Urine MICHELE obtained urine protein/Cr ratio - significantly abnormal could also be contributing to LE edema consider 24-hour urine consider nephrology consultation both can be done as outpatient (13) Chronic kidney disease, stage IV (severe): baseline CrCl 20s baseline creatinine ~1.3 now with mild PAMELA again due to diuretics, song and dance performer up to 1.8 and stable from yesterday hold lasix, continue to hold lisinopril follow BMP (14) Acute kidney injury: song and dance performer continues to spike when lasix is given, again up to 1.8 as above (15) Pulmonary hypertension: severe echo 01/2022 with RVSP >60mmHg etiology of pulmonary HTN?? no prior h/o PE no h/o MARTA no h/o chronic lung disease LE edema could be 2nd to such -consult CHF clinic for acute on chronic HFpEF Cardiology consult states unclear etiology possibly related to diastolic heart failure. Overall lung examination is relatively benign although she does have some pleural effusions. (16) Gout, joint: no flares at this time PT/OT evals done --- home with HH vs rehab. Not ready for discharge yet but possibly tomorrow if renal function remains stable to improved Daughter Ana Agrawal asks to be main POC at cell # [phone], but pt asked me to call her son Alvin again today which I did-he understands plan and agrees. Hopeful for dc to home tomorrow if renal function improved Discharge Plan Discharge Items Patient Disposition: Home - Home Health Services Reason For Visit: PAMELA, ELEVATED TROPONIN Discharge Diagnosis: Acute sinusitis, Streptococcus bacteremia, Acute kidney injury, CHF Condition on Discharge: Good Activity: As commented below Lifting: Gradually increase as tolerated Bathing: No limitations Exercise/Sports: Gradually increase as tolerated Weightbearing: Full weightbearing Non-emergency contact: Primary Care Provider and Pressure Welder Call non-emergency contact if: you have any medication questions and your symptoms worsen Follow-up/Referrals: Ned Tomlin MD [Primary Care Provider] - 03/24/22 11:00 am Nimisha Vick PA-C [Physician Classer] - 03/17/22 10:30 am (Congestive Heart Failure Program Appointment Information Early follow up is essential to managing your heart failure. An appointment has been scheduled for you with the [facility] Heart [facility] Program within 7 days of discharge. Anticipate this visit to be 30-60 minutes long. Please expect a coffee bar attendant phone call from one of our nurses approximately 48 hours from discharge. They will also be placing an order for lab work to be completed 1-2 days prior to your heart failure follow up appointment. Please be sure to have this done so we can go over the results when you come in. Office Location The cardiology office building is located in front of the hospital at [address]. Bring the following with you to your follow-up doctor appointments: Please bring your daily weight log any discharge paperwork all of your medication bottles with you to this visit. ) Diet: Carb Consistent or DM2 and Low Sodium (2gm) Fluids: 1500ml (6 cups) Addtl Attending Provider Instructions: Please finish out 3 more day of Augmentin twice a day for your sinusitis and blood stream infection. There is a delicate balance between your kidney function and trying to keep the excess fluid off of you with your congestive heart failure. This will be monitor ed closely by the Cardiology CHF clinic. Please take the lasix 20mg once a day ONLY on Monday, Monday, and Monday. The CHF clinic will order you blood work to be drawn routinely to keep an eye on your kidney function. It is also helpful to wear the compression stockings every day but you can remove them at nighttime. Because of your kidney issues, your lisinopril was STOPPED. Because you rblood sugar is very well controlled and you were having LOW blood sugars, your glipizide was also STOPPED. Your PT/INR (coumadin level) is still low at 1.4 but your coumadin dose was increased to 2mg daily.. Please have your PT/INR checked in 1-2 days with home health with the results to be sent to your PCP for review. Your coumadin dose may need to be further adjusted. Call your Primary Care doctor if any of the following symptoms or problems start or get worse: * Shortness of breath or difficulty breathing * Wake up at night short of breath * Chest pain * Cough * Swelling of your hands, feet, or legs * More fatigued or tired with your normal activity * Palpitations - sudden fast heart beats WEIGHT * Weigh yourself every morning after using the bathroom. * Use the same scale. * Wear the same amount of clothing. * Write your weight down on a chart. * Call your Primary Care doctor if you gain more than 2-3 pounds in 1-2 days. MEDICATIONS * Use this discharge instruction sheet for medication instructions. * Take your medications at the time your doctor ordered. * Do not skip a dose of your medicines. * If you miss a dose of medicine, take it as soon as possible, but DO NOT DOUBLE A DOSE. * Read your medicine information when you get home. * Know all of the side effects of your medicine. If in doubt, ask your pharmacist * Call your Primary Care doctor's office if you have any side effects. * Be sure all of your doctors know what medicine and herbs you take (including cold, flu, and herbal medicine). Take the following with you to your follow-up doctor appointments: * Weight Chart * Medication List * List of questions Do not drink excessive alcohol, beer or wine. Pending Studies at Discharge: No Stand-Alone Forms: My [facility] Medications and DC Order Prescriptions: New famotidine [Acid Cardiograph Operator (famotidine)] 10 mg Tablet 10 mg PO DAILY Qty: 30 RF: 0 Cerovite Senior 0.4 mg-300 mcg- 250 mcg Tablet 1 tab PO QAM Qty: 30 RF: 0 amoxicillin-pot clavulanate [Augmentin] 500-125 mg tablet 1 tab PO BID Qty: 6 RF: 0 Continued hydrocortisone 2.5 % cream with perineal applicator 1 applic TX TID PRN (Reason: hemorrhoids) 14 Days Qty: 30 RF: 2 simvastatin 40 mg tablet 40 mg PO QPM Qty: 90 RF: 3 (DME) Accu-Chek Cheryl Plus test strp Strip See Rx Instructions .Route Qty: 50 RF: 5 (DME) blood-glucose meter [Accu-Chek Cheryl Plus Meter] Misc See Rx Instructions .Route Qty: 1 RF: 0 (DME) lancets [Accu-Chek Softclix Lancets] Misc See Rx Instructions .Route Qty: 100 RF: 5 nystatin 100,000 unit/gram powder 1 applic topical BID PRN (Reason: Rash) RF: 0 Saccharomyces boulardii [Florastor] 250 mg capsule 250 mg PO BID Qty: 20 RF: 0 allopurinol 100 mg tablet 50 mg PO DAILY 30 Days Qty: 15 RF: 0 Changed furosemide [Lasix] 20 mg tablet 20 mg PO 3XWK Qty: 12 RF: 0 warfarin 1 mg tablet 2 mg PO DAILY@1600 30 Days Qty: 60 RF: 0 Discontinued lisinopril 20 mg tablet 20 mg PO DAILY Qty: 90 RF: 3 glipizide 2.5 mg tablet extended release 24 hr 5 mg PO DAILY RF: 0 azithromycin 250 mg tablet 250 mg PO DAILY 4 Days Qty: 4 RF: 0 cefdinir 300 mg capsule 300 mg PO BID 7 Days Qty: 14 RF: 0 potassium chloride [Klor-Con M20] 20 mEq tablet,ER particles/crystals 20 meq PO DAILY Qty: 7 RF: 0 Discharge Orders: Discharge Order (Routine); Ordered 03/13/22 Ordered By: Gris Snowden Admission Data Admit Date/Time: 03/07/22 14:37 Attending Provider: Gris Snowden Admit Provider: Zane Lopez Primary Care Provider: Ned Tomlin Other Providers: Zane Lopez ; [facility] ; Nimisha Vick ; Khurram Mcdaniels Coding Diagnoses Acute maxillary sinusitis J01.00 Positive blood culture R78.81 (HFpEF) heart failure with preserved ejection fraction I50.30 Ventricular tachycardia I47.2 Nausea and vomiting R11.2 Type 2 diabetes mellitus E11.9 Hypertension I10 Atrial fibrillation I48.91 Anemia D64.9 Thrombocytopenia D69.6 Bilateral pleural effusion J90 Proteinuria R80.9 Chronic kidney disease, stage IV (severe) N18.4 Acute kidney injury N17.9 Pulmonary hypertension I27.20 Gout, joint M10.9
[2022-03-14] MEDS ORDERED: FUROSEMIDE 20 MG TAB PO SCH (09:00)
== END 2022-03-13 14:01 | disposition home health service (06) | DRG 152 ==
LOC: 2W 20:32 → ED 20:32 → SUATTDRO 03-05 02:02 → 2W 03-05 02:59 → SUATTDRO 03-07 14:37 → 2W 03-10 13:40
DX: I48.11 Longstanding persistent atrial fibrillation; Z88.5 Allergy status to narcotic agent; Z79.01 Long term (current) use of anticoagulants; R18.8 Other ascites; D69.6 Thrombocytopenia, unspecified; J01.00 Acute maxillary sinusitis, unspecified; I50.33 Acute on chronic diastolic (congestive) heart failure; R78.81 Bacteremia; D64.9 Anemia, unspecified; R63.0 Anorexia; Z79.899 Other long term (current) drug therapy; Z88.8 Allergy status to other drugs, medicaments and biological substances; I13.0 Hypertensive heart and chronic kidney disease with heart failure and stage 1 through stage 4 chronic kidney disease, or unspecified chronic kidney disease; N18.4 Chronic kidney disease, stage 4 (severe); J40 Bronchitis, not specified as acute or chronic; E11.22 Type 2 diabetes mellitus with diabetic chronic kidney disease; I48.91 Unspecified atrial fibrillation; Z88.2 Allergy status to sulfonamides; Z88.6 Allergy status to analgesic agent; Z79.84 Long term (current) use of oral hypoglycemic drugs; N17.9 Acute kidney failure, unspecified

== ENCOUNTER 2022-12-03 22:44 | Inpatient (IN) ==
--- NOTE | 2022-12-03 22:56 | Emergency Department Note ---
Impression & Plan Syncope, PAMELA (acute kidney injury), Heart block, Hematuria, Acute hyperglycemia, Acute hyperkalemia, Metabolic acidosis ED Provider Note NAME: ELIZABETH GILBERT AGE: 87 SEX: F : 1935 ARRIVES VIA: Ambulance INFORMANT: Patient, EMS, the patient's family members ED PROVIDER(S): Khurram James DO CHIEF COMPLAINT: Weakness and syncope HPI: The patient is an 87-year-old female who presented to the emergency department by ambulance for an evaluation of generalized weakness. The patient's been having problems over the last few days where she has been very weak. She has had a few episodes where she had syncope. She had no fall or trauma reported. The patient was helped to the ground by family members. The patient came to the emergency department by ambulance this evening after she had another episode. The patient was evaluated by the prehospital personnel. She was noted to have severe bradycardia. She had 1 episode of asystole. The patient was treated with atropine but this did not change her rate. She was also placed on transcutaneous pacemaker. She was given fentanyl. This did result in improvement of the patient's cardiac rate. She was also noted to have hypotension. There was no reported fever. The patient's had no illnesses recently including nausea vomiting or diarrhea. The patient has been taking ibuprofen recently. She has been complaining of joint aches and joint pain. The patient states that she also had another change to her outpatient medications but does not know what medication was changed. Additional history is obtained from the patient's family as well as the tongue presser. ROS: See above HPI for pertinent positives & negatives. A total of 10 systems r eviewed and were otherwise negative. PAST MEDICAL HISTORY: See Below PAST SURGICAL HISTORY: See Below FAMILY HISTORY: See Below SOCIAL HISTORY: See Below HOME MEDICATIONS: See Below ALLERGIES: See Below VITALS: See Below PHYSICAL EXAMINATION: GENERAL: The patient is listless but responds to questions and follow commands well. EYES: The conjunctivae are clear. The pupils are round and reactive. EARS, NOSE, MOUTH AND THROAT: The nose is without any evidence of any deformity. NECK: The neck is nontender and supple. RESPIRATORY: Shallow respirations were noted. There was no tachypnea or conversational dyspnea. CARDIOVASCULAR: Tachycardic and irregular heart sounds were noted to auscultation. There is no definite murmur. GASTROINTESTINAL: The abdomen was mildly distended. There is no tenderness guarding rigidity. MUSCULOSKELETAL/EXTREMITIES: There is no evidence of gross deformity full range of motion is noted in the hips and shoulders. SKIN: Skin was cool and dry. Pulses were symmetric in both feet. NEUROLOGIC: Patient is awake and oriented to person place and situation. Strength is symmetric but diminished. MEDICAL DECISION MAKING: The patient is an 87-year-old female who presented to the emergency department after having a syncopal episode. The patient's not been feeling well over the last week. She has been having muscle aches and pains. She has been using [id number]-[id number] medication including Tylenol and ibuprofen. The patient has a history of atrial fibrillation. She also has a history of chronic kidney disease. The patient was found to be in heart block with bradycardia prior to arrival. She was treated with atropine which did not significantly improve her symptoms. The patient was ultimately placed on a transcutaneous pacemaker. The transcutaneous pacemaker improved her blood pressure. The patient was treated with fentanyl prior to arrival as well. She was treated with a small fluid bolus given her history of CHF. I discussed the patient's laboratory and radiographic studies with her and her son. Given her findings she was treated with IV calcium IV dextrose and IV insulin for presumed hypercalcemia effects on her heart. She was also treated with IV antibiotics for presumed urinary tract infection noted on urinalysis. I discussed her condition with the on-call mount and the hospitalist. They have agreed to evaluate the patient in the emergency department. The patient had no further episodes of severe bradycardia but certainly she may require further evaluation by cardiology to determine if pacem celestino is required. Triage Nursing notes reviewed. Prior medical records reviewed Vital Signs: reviewed and remarkable for elevated blood pressure. Differential diagnosis: Vasovagal event, dehydration, infection, hypoglycemia, electrolyte abnormalities, cardiac sources, intracerebral event, pulmonary embolism, seizure, toxicologic, neurologic, as well as other pathologies. ER treatment provided: See below Diagnostics interpreted by me: ECG: EKG was obtained in the emergency department. My interpretation is atrial fibrillation at 86 bpm. PVCs were noted. Right bundle branch block pattern was noted with diffuse ST abnormalities. This was compared to a tracing from March 04, 2022. No significant changes were noted. A prehospital EKG was obtained. I did review the patient's prehospital EKG. My interpretation is atrial fibrillation at 36 bpm. Right bundle branch block pattern was noted. There was an increase in the rate compared to tracing obtained in the emergency department. Cardiac Monitoring: An order was placed for continuous cardiac monitoring. The monitor shows a rate of 79 bpm with atrial fibrillation and PVCs noted. Laboratory studies: As stated above and show below. Imaging studies: See below. Radiographic imaging was reviewed by myself Consultation(s): I discussed this case with Dr. Richardson who is on-call for the [facility] hospitalist group. She will evaluate the patient in the emergency department. ED COURSE: Procedures: none Critical Care: I have personally spent greater than 45 minutes of critical care time in the direct management of this patient. This includes bedside care, interpretation of diagnostic studies, and testing, discussion with consultants, patient, and fa stevie members, and other required patient management activities. This 45 minutes is in excess of all separately billable procedures. Past Med/Surg History Medical History (HFpEF) heart failure with preserved ejection fraction Acute dehydration Acute UTI Atrial fibrillation COVID-19 Fall History of abnormal mammogram Hypertension Pessary maintenance Second degree uterine prolapse Sinusitis Type 2 diabetes mellitus Surgical History S/P cataract surgery Family History Mother Diabetes Breast cancer Brother Stroke Denies family history of Ovarian cancer Prostate cancer Myocardial infarction Colorectal cancer Social History Smoking Status: Never smoker Second Hand Exposure: No; Hx Alcohol Use: No Hx Substance Use: No Preferred Language: Palauan Communication Ability: Effective Visual Impairment: No Limitations Hearing Ability: Normal Plastic Surgeon Required: No Beliefs That Will Affect Care: None marital status: / Current Living Situation: Alone Current Living Situation Comment: lives at home but family lives nearby current occupational status: retired current occupation: retired from working at [employer] How many Children do You have: 5 How many Children do You have Comment: 1 Feels Safe at Home: Yes Childhood Exposure to Second-Hand Smoke: Yes during the past year weight has: remained stable Dental Care, Regularly: No Physical Activity Frequency: Does not Exercise Seatbelt Use: never Sunscreen Use: No Assistive Devices: Walker Allergies Allergies Allergy/AdvReac Type Severity Reaction Status Date / Time acetaminophen [From [place]] AdvReac Intermediate Nausea Verified 12/03/22 23:28 atorvastatin [From Lipitor] AdvReac Intermediate NOT Verified 12/03/22 23:28 TOLERATED fluvastatin [From [place]] AdvReac Intermediate NOT Verified 12/03/22 23:28 TOLERATED gabapentin AdvReac Intermediate Nausea Verified 12/03/22 23:28 hydrocodone [From [place]] AdvReac Intermediate Nausea Verified 12/03/22 23:28 sulfamethoxazole AdvReac Intermediate Nausea Verified 12/03/22 23:28 [From Bactrim] trimethoprim [From Bactrim] AdvReac Intermediate Nausea Verified 12/03/22 23:28 Home Meds Home Medications Medication Instructions Recorded Confirmed allopurinol 100 mg tablet 50 mg PO DAILY 03/16/22 12/03/22 furosemide 20 mg tablet (Lasix) 20 mg PO 2XWK 06/29/22 12/03/22 acetaminophen 500 mg tablet 1,000 mg PO DIRECTED PRN Pain 12/03/22 12/03/22 (Tylenol Extra Strength) warfarin 1 mg tablet 1 - 2 mg PO QPM 12/03/22 12/03/22 Previous Rx's Medication Instructions Recorded hydrocortisone 2.5 % topical cream 1 applic MD TID PRN hemorrhoids 2 12/28/20 with perineal applicator weeks #30 grams simvastatin 40 mg tablet 40 mg PO QPM #90 tabs 11/19/21 blood sugar diagnostic (Accu-Chek #50 ea 02/23/22 Cheryl Plus test strips) blood-glucose meter (Accu-Chek #1 ea 02/23/22 Cheryl Plus Meter) lancets (Accu-Chek Softclix #100 ea 02/23/22 Lancets) ezleahhx-dra-bszrt acid 0.4 1 tab PO QAM #30 tabs 03/13/22 mg-lycopene 300 mcg-lutein 250 mcg tablet (Cerovite Senior) diclofenac sodium 1 % topical gel 2 g topical QID PRN arthritis pain 06/13/22 (Arthritis Pain (diclofenac)) #100 grams Results & Data (ED) Vital Signs Vital Signs - 24 hr 12/03/22 22:35 12/03/22 23:16 12/03/22 23:00 Temperature 36.4 C L Temperature Source Oral Pulse Rate 86 Pulse Rate [Apical] 85 Pulse Rhythm [Apical] Regular Respiratory Rate 16 19 Respiratory Effort / Characteristics Non-Labored Respiratory Depth Normal Normal Respiratory Pattern Regular Blood Pressure 189/112 H Blood Pressure [Right Arm] 154/68 H Blood Pressure Mean 137 Blood Pressure Mean [Right Arm] 96 Pulse Oximetry 98 99 99 Oxygen Delivery Method Room Air Nasal Cannula Nasal Cannula Oxygen Flow Rate 4 4 Sepsis Recent Fever Within 48 Hours No Sepsis New/Unexplained Change in Mental Status N/A Sepsis Action Taken by Nursing No Action Required 12/03/22 23:31 12/03/22 23:45 12/04/22 00:00 Temperature Temperature Source Pulse Rate Pulse Rate [Apical] 83 77 79 Pulse Rhythm [Apical] Regular Respiratory Rate 20 15 16 Respiratory Effort / Characteristics Respiratory Depth Normal Respiratory Pattern Blood Pressure Blood Pressure [Right Arm] 165/86 H 159/88 H 174/82 H Blood Pressure Mean Blood Pressure Mean [Right Arm] 112 111 112 Pulse Oximetry 99 100 100 Oxygen Delivery Method Room Air Nasal Cannula Nasal Cannula Oxygen Flow Rate 4 4 Sepsis Recent Fever Within 48 Hours Sepsis New/Unexplained Change in Mental Status Sepsis Action Taken by Group Home Medications Current Medication List: was personally reviewed by me Laboratory Data Attestation: I reviewed the patient's lab results. 12/03/22 22:50 12/03/22 22:50 Lab Results 12/03/22 12/03/22 12/03/22 Range/Units 22:50 22:50 22:50 WBC 7.68 (4.8-10.8) K/ul RBC 3.19 L (4.20-5.40) M/uL Hgb 9.9 L (12.0-16.0) g/dl POC Hgb (12.0-16.0) g/dl Hct 31.6 L (37.0-47.0) % POC Hct (37-47) % MCV 99.1 (80.0-100.0) fL MCH 31.0 (25.0-34.0) pg MCHC 31.3 L (32.0-36.0) g/dL RDW Std Deviation 53.7 H (36.4-46.3) fL RDW Coeff of Benjamin 15.0 H (11.5-14.5) % Plt Count 131 (130-400) K/uL MPV 10.6 (9.4-12.4) fL Immature Gran % (Auto) 0.5 % Neut % (Auto) 76.5 % Lymph % (Auto) 16.4 % [place] % (Auto) 5.7 % Eos % (Auto) 0.5 % Baso % (Auto) 0.4 % Neut # (Auto) 5.87 (1.40-6.50) K/uL Lymph # (Auto) 1.26 (1.2-3.4) K/uL [place] # (Auto) 0.44 (0.11-0.59) K/uL Eos # (Auto) 0.04 (0-0.50) K/uL Baso # (Auto) 0.03 (0-0.2) K/uL Immature Gran # (Auto) 0.04 (0.01-0.20) K/uL PT 38.4 H (9.0-12.0) Seconds INR 3.9 H (0.9-1.1) APTT 43.7 H (21.0-31.0) Seconds PTT Ratio 1.6 VBG pH (7.36-7.41) VBG pCO2 (38-50) mmHg VBG pO2 mmHg VBG HCO3 mmol/L VBG O2 Saturation % VBG Base Excess mEq/L POC Sodium (135-144) mmol/L Sodium 136 (136-145) mmol/L POC Potassium (3.3-5.0) mmol/L Potassium 5.7 H (3.5-5.1) mmol/L POC Chloride (101-112) mmol/L Chloride 112 H (98-107) mmol/L Carbon Dioxide 13 L (21-32) mmol/L POC Total CO2 (24-31) mmol/L Anion Gap 11 (3-11) POC Anion Gap (16-25) mmol/L POC BUN (7-18) mg/dl BUN 62 H (6-23) mg/dl Creatinine 2.39 H (0.6-1.2) mg/dl POC Creatinine (0.6-1.3) mg/dl Est Cr Clr Drug Dosing 14.3 ml/min Est GFR ( Amer) 20.2 ml/min Est GFR (Non-Af Amer) 17.4 ml/min BUN/Creatinine Ratio 25.9 H (10-20) Glucose 378 H* (70-99(Fasting)) mg/dl POC Glucose (other) (70-99) mg/dl Calcium 8.8 (8.5-10.1) mg/dl POC Ioniz Calcium Mino[place] (1.12-1.32) mmol/l Magnesium 2.2 (1.7-2.4) mg/dl Total Bilirubin 0.6 (0.2-1.0) mg/dl AST 17 (13-39) U/L ALT 12 (7-52) U/L Alkaline Phosphatase 117 H (34-104) U/L Total Creatine Kinase 28 (26-192) U/L Troponin I High Sens 19.4 H (0-14) pg/ml Total Protein 7.6 (6.0-8.3) gm/dl Albumin 3.6 (3.4-5.0) gm/dl Globulin 4.0 (2.5-4.0) gm/dl Albumin/Globulin Ratio 0.9 (0.9-2) TSH (0.300-4.500) uIu/ml Urine Color Urine Appearance (Clear) Urine pH (4.5-7.5) Ur Specific [place] (1.000-1.030) Urine Protein (Negative) Urine Glucose (UA) (Negative) Urine Ketones (Negative) Urine Blood (Negative) Urine Nitrite (Negative) Urine Bilirubin (Negative) Urine Urobilinogen (Negative) Ur Leukocyte Esterase (Negative) SARS-CoV-2, RNA, NAAT (NEGATIVE) 12/03/22 12/03/22 12/03/22 Range/Units 22:50 22:55 23:11 WBC (4.8-10.8) K/ul RBC (4.20-5.40) M/uL Hgb (12.0-16.0) g/dl POC Hgb 10.9 L (12.0-16.0) g/dl Hct (37.0-47.0) % POC Hct 32 L (37-47) % MCV (80.0-100.0) fL MCH (25.0-34.0) pg MCHC (32.0-36.0) g/dL RDW Std Deviation (36.4-46.3) fL RDW Coeff of Benjamin (11.5-14.5) % Plt Count (130-400) K/uL MPV (9.4-12.4) fL Immature Gran % (Auto) % Neut % (Auto) % Lymph % (Auto) % [place] % (Auto) % Eos % (Auto) % Baso % (Auto) % Neut # (Auto) (1.40-6.50) K/uL Lymph # (Auto) (1.2-3.4) K/uL [place] # (Auto) (0.11-0.59) K/uL Eos # (Auto) (0-0.50) K/uL Baso # (Auto) (0-0.2) K/uL Immature Gran # (Auto) (0.01-0.20) K/uL PT (9.0-12.0) Seconds INR (0.9-1.1) APTT (21.0-31.0) Seconds PTT Ratio VBG pH (7.36-7.41) VBG pCO2 (38-50) mmHg VBG pO2 mmHg VBG HCO3 mmol/L VBG O2 Saturation % VBG Base Excess mEq/L POC Sodium 139 (135-144) mmol/L Sodium (136-145) mmol/L POC Potassium 5.9 H (3.3-5.0) mmol/L Potassium (3.5-5.1) mmol/L POC Chloride 118 H (101-112) mmol/L Chloride (98-107) mmol/L Carbon Dioxide (21-32) mmol/L POC Total CO2 14 L (24-31) mmol/L Anion Gap (3-11) POC Anion Gap 14.0 L (16-25) mmol/L POC BUN 62 H (7-18) mg/dl BUN (6-23) mg/dl Creatinine (0.6-1.2) mg/dl POC Creatinine 2.5 H (0.6-1.3) mg/dl Est Cr Clr Drug Dosing ml/min Est GFR ( Amer) ml/min Est GFR (Non-Af Amer) ml/min BUN/Creatinine Ratio (10-20) Glucose (70-99(Fasting)) mg/dl POC Glucose (other) 374 H* (70-99) mg/dl Calcium (8.5-10.1) mg/dl POC Ioniz Calcium [place] 1.22 (1.12-1.32) mmol/l Magnesium (1.7-2.4) mg/dl Total Bilirubin (0.2-1.0) mg/dl AST (13-39) U/L ALT (7-52) U/L Alkaline Phosphatase (34-104) U/L Total Creatine Kinase (26-192) U/L Troponin I High Sens (0-14) pg/ml Total Protein (6.0-8.3) gm/dl Albumin (3.4-5.0) gm/dl Globulin (2.5-4.0) gm/dl Albumin/Globulin Ratio (0.9-2) TSH 3.821 (0.300-4.500) uIu/ml Urine Color [place] Urine Appearance Turbid A (Clear) Urine pH 5.0 (4.5-7.5) Ur Specific [place] 1.017 (1.000-1.030) Urine Protein 3+ H (Negative) Urine Glucose (UA) 1+ H (Negative) Urine Ketones Negative (Negative) Urine Blood 3+ H (Negative) Urine Nitrite Negative (Negative) Urine Bilirubin Negative (Negative) Urine Urobilinogen Negative (Negative) Ur Leukocyte Esterase 3+ H (Negative) SARS-CoV-2, RNA, NAAT (NEGATIVE) 12/03/22 12/03/22 Range/Units 23:11 23:16 WBC (4.8-10.8) K/ul RBC (4.20-5.40) M/uL Hgb (12.0-16.0) g/dl POC Hgb (12.0-16.0) g/dl Hct (37.0-47.0) % POC Hct (37-47) % MCV (80.0-100.0) fL MCH (25.0-34.0) pg MCHC (32.0-36.0) g/dL RDW Std Deviation (36.4-46.3) fL RDW Coeff of Benjamin (11.5-14.5) % Plt Count (130-400) K/uL MPV (9.4-12.4) fL Immature Gran % (Auto) % Neut % (Auto) % Lymph % (Auto) % Child[place] % (Auto) % Eos % (Auto) % Baso % (Auto) % Neut # (Auto) (1.40-6.50) K/uL Lymph # (Auto) (1.2-3.4) K/uL [place] # (Auto) (0.11-0.59) K/uL Eos # (Auto) (0-0.50) K/uL Baso # (Auto) (0-0.2) K/uL Immature Gran # (Auto) (0.01-0.20) K/uL PT (9.0-12.0) Seconds INR (0.9-1.1) APTT (21.0-31.0) Seconds PTT Ratio VBG pH 7.22 L (7.36-7.41) VBG pCO2 30 L (38-50) mmHg VBG pO2 46 mmHg VBG HCO3 12 mmol/L VBG O2 Saturation 73.2 % VBG Base Excess -14.1 mEq/L POC Sodium (135-144) mmol/L Sodium (136-145) mmol/L POC Potassium (3.3-5.0) mmol/L Potassium (3.5-5.1) mmol/L POC Chloride (101-112) mmol/L Chloride (98-107) mmol/L Carbon Dioxide (21-32) mmol/L POC Total CO2 (24-31) mmol/L Anion Gap (3-11) POC Anion Gap (16-25) mmol/L POC BUN (7-18) mg/dl BUN (6-23) mg/dl Creatinine (0.6-1.2) mg/dl POC Creatinine (0.6-1.3) mg/dl Est Cr Clr Drug Dosing ml/min Est GFR ( Amer) ml/min Est GFR (Non-Af Amer) ml/min BUN/Creatinine Ratio (10-20) Glucose (70-99(Fasting)) mg/dl POC Glucose (other) (70-99) mg/dl Calcium (8.5-10.1) mg/dl POC Ioniz Calcium [place] (1.12-1.32) mmol/l Magnesium (1.7-2.4) mg/dl Total Bilirubin (0.2-1.0) mg/dl AST (13-39) U/L ALT (7-52) U/L Alkaline Phosphatase (34-104) U/L Total Creatine Kinase (26-192) U/L Troponin I High Sens (0-14) pg/ml Total Protein (6.0-8.3) gm/dl Albumin (3.4-5.0) gm/dl Globulin (2.5-4.0) gm/dl Albumin/Globulin Ratio (0.9-2) TSH (0.300-4.500) uIu/ml Urine Color Urine Appearance (Clear) Urine pH (4.5-7.5) Ur Specific [place] (1.000-1.030) Urine Protein (Negative) Urine Glucose (UA) (Negative) Urine Ketones (Negative) Urine Blood (Negative) Urine Nitrite (Negative) Urine Bilirubin (Negative) Urine Urobilinogen (Negative) Ur Leukocyte Esterase (Negative) SARS-CoV-2, RNA, NAAT NEGATIVE (NEGATIVE) Administered Medications Discontinued Medications Dextrose (Dextrose 50% 50 Ml Syringe) 50 ml IV NOW STA Stop: 12/04/22 00:04 Last Admin: 12/04/22 00:13 Dose: 50 ml Documented By: KHAI Sodium Chloride (Nss) 500 mls @ 999 mls/hr IV .Q31M RHONA Stop: 12/03/22 23:30 Last Infusion: 12/04/22 00:07 Dose: 0 mls/hr Documented By: Admin: 12/03/22 23:16 Dose: 999 mls/hr Documented By: KHAI Calcium Chloride 1,000 mg/ (Dextrose) 60 mls @ 240 mls/hr IV NOW STA Stop: 12/04/22 00:17 Last Admin: 12/04/22 00:17 Dose: 240 mls/hr Documented By: KHAI Insulin Human Regular (Novolin-R Insulin Per Unit Charge) 10 units IV NOW STA Stop: 12/04/22 00:04 Last Admin: 12/04/22 00:12 Dose: 10 units Documented By: KHAI Co-signed By: DUDLEY Imaging Data Attestation: I personally reviewed and interpreted this imaging study as follows: My Impression: 1 view chest x-ray was obtained in the emergency department. My interpretation is cardiomegaly with vascular congestion. Pleural effusion noted in the right base. There is no definite infiltrate. There is no free air. Previous fracture of the right humeral head was noted. This was compared to chest x-ray from March 04, 2022. There was a subtle increase in the vascular congestion otherwise no changes were noted. Discharge Plan Visit Data Chief Complaint: Cardiac Assessment Stated Complaint: syncope ED Provider: Khurram James Discharge Problem: Syncope, PAMELA (acute kidney injury), Heart block, Hematuria, Acute hyperglycemia , Acute hyperkalemia, Metabolic acidosis Patient Disposition: Being Evaluated by Hospitalist Forms Stand Alone Forms: My [facility] Prescriptions Prescriptions: No Action hydrocortisone 2.5 % cream with perineal applicator 1 applic MD TID PRN (Reason: hemorrhoids) 14 Days Qty: 30 2RF simvastatin 40 mg tablet 40 mg PO QPM Qty: 90 3RF (DME) Accu-Chek Cheryl Plus test strp Strip See Rx Instructions .Route Qty: 50 5RF Rx Instructions: test once daily (DME) blood-glucose meter [Accu-Chek Cheryl Plus Meter] Misc See Rx Instructions .Route Qty: 1 0RF Rx Instructions: test once daily (DME) lancets [Accu-Chek Softclix Lancets] Misc See Rx Instructions .Route Qty: 100 5RF Rx Instructions: test once daily diclofenac sodium [Arthritis Pain (diclofenac)] 1 % gel 2 g topical QID PRN (Reason: arthritis pain) Qty: 100 5RF furosemide [Lasix] 20 mg tablet 20 mg PO 2XWK Rx Instructions: 20 mg PO 2X weekly Monday and allopurinol 100 mg tablet 50 mg PO DAILY Cerovite Senior 0.4 mg-300 mcg- 250 mcg Tablet 1 tab PO QAM Qty: 30 0RF Rx Instructions: OTC warfarin 1 mg tablet 1 - 2 mg PO QPM Protocol: Dose Management Condition: Monday (Week One) Dose/Route: 1 mg Instruction: 1 x 1 mg tablet Condition: Monday Dose/Route: 2 mg Instruction: 2 x 1 mg tablets Condition: Monday Dose/Route: 1 mg Instruction: 1 x 1 mg tablet Condition: Monday Dose/Route: 2 mg Instruction: 2 x 1 mg tablets Condition: Dose/Route: 1 mg Instruction: 1 x 1 mg tablet Condition: Monday Dose/Route: 2 mg Instruction: 2 x 1 mg tablets Condition: Monday Dose/Route: 1 mg Instruction: 1 x 1 mg tablet Condition: Monday (Week Two) Dose/Route: 2 mg Instruction: 2 x 1 mg tablets Condition: Monday Dose/Route: 1 mg Instruction: 1 x 1 mg tablet Condition: Monday Dose/Route: 2 mg Instruction: 2 x 1 mg tablets Condition: Monday Dose/Route: 1 mg Instruction: 1 x 1 mg tablet Condition: Dose/Route: 2 mg Instruction: 2 x 1 mg tablets Condition: Monday Dose/Route: 1 mg Instruction: 1 x 1 mg tablet Condition: Monday Dose/Route: 2 mg Instruction: 2 x 1 mg tablets Protocol Text: Adjustment Start Date: Monday11/23/22 INR Value: 2.9 INR Date: 11/14/22 Recheck Date: 12/07/22 Rx Instructions: PER PT'S SON "DID NOT GIVE, INR 4". will check INR in 2wks. alternate 1mg and 2mg acetaminophen [Tylenol Extra Strength] 500 mg Tablet 1,000 mg PO DIRECTED PRN (Reason: Pain) Referrals Referrals: Ned Tomlin MD [Primary Care Provider] -
[2022-12-03] MEDS ORDERED: SODIUM CHLORIDE 0.9% 500 ML IV SCH (23:00)
[2022-12-03 23:08] LABS: iSTAT Creatinine 2.5 mg/dl (0.6-1.3); iSTAT Hemoglobin 10.9 g/dl (12.0-16.0); iSTAT Ionized Calcium 1.22 mmol/l (1.12-1.32); iSTAT Potassium 5.9 mmol/L (3.3-5.0)
[2022-12-03 23:21] LABS: Basophils # (auto) 0.03 K/uL (0-0.2); Basophils % (auto) 0.4 %; Eosinophils # (auto) 0.04 K/uL (0-0.50); Eosinophils % (auto) 0.5 %; Hematocrit (blood only) 31.6 % (37.0-47.0); Hemoglobin 9.9 g/dl (12.0-16.0); Immature Granulocytes # (auto) 0.04 K/uL (0.01-0.20); Immature Granulocytes % (auto) 0.5 %; Lymphocytes # (auto) 1.26 K/uL (1.2-3.4); Lymphocytes % (auto) 16.4 %; Mean Corpuscular Hgb Conc 31.3 g/dL (32.0-36.0); Mean Corpuscular Volume 99.1 fL (80.0-100.0); Mean Platelet Volume 10.6 fL (9.4-12.4); Monocytes # (auto) 0.44 K/uL (0.11-0.59); Monocytes % (auto) 5.7 %; Neutrophils # (auto) 5.87 K/uL (1.40-6.50); Neutrophils % (auto) 76.5 %; Platelet Count 131 K/uL (130-400); RDW Standard Deviation 53.7 fL (36.4-46.3); Red Blood Count 3.19 M/uL (4.20-5.40); White Blood Count 7.68 K/ul (4.8-10.8)
[2022-12-03 23:25] LABS: Base Excess VBG -14.1 mEq/L; HCO3 VBG 12 mmol/L; Oxygen Saturation VBG 73.2 %; PCO2 VBG 30 mmHg (38-50); PO2 VBG 46 mmHg; pH VBG 7.22 (7.36-7.41)
[2022-12-03 23:30] LABS: Appearance Urine Turbid (Clear); Bacteria Urine Automated 2+ (Negative); Bilirubin Urine Negative (Negative); Blood Urine 3+ (Negative); Color Urine Orange; Epithelial Cell Urine Auto 20-30 /lpf (0-5); Glucose Urine UA 1+ (Negative); Ketones Urine Negative (Negative); Leukocyte Esterase Urine 3+ (Negative); Nitrite Urine Negative (Negative); Protein Urine 3+ (Negative); Specific Gravity Urine 1.017 (1.000-1.030); Urobilinogen Urine Negative (Negative); WBC Urine Automated >30 /hpf (0-5)
[2022-12-03 23:56] LABS: Albumin Globulin Ratio 0.9 (0.9-2); Albumin Level 3.6 gm/dl (3.4-5.0); BUN Creatinine Ratio 25.9 (10-20); Bilirubin,Total 0.6 mg/dl (0.2-1.0); Calcium 8.8 mg/dl (8.5-10.1); Creatinine Clr Calc Pharmacy 14.3 ml/min; Est GFR (African American) 20.2 ml/min; Est GFR (Non-African American) 17.4 ml/min; Magnesium 2.2 mg/dl (1.7-2.4); Potassium 5.7 mmol/L (3.5-5.1); Total Protein 7.6 gm/dl (6.0-8.3); Troponin I High Sensitivity 19.4 pg/ml (0-14)
[2022-12-04] MEDS ORDERED: DEXTROSE 50% 50 ML SYRINGE IV STA (00:03)
[2022-12-04] MEDS ORDERED: NovoLIN-R INSULIN PER UNIT CHARGE IV STA (00:03)
[2022-12-04] MEDS ORDERED: CALCIUM CHLORIDE 10% 1,000 MG in DEXTROSE 5% 50 ML IV STA (00:03)
[2022-12-04 00:07] LABS: INR 3.9 (0.9-1.1); Partial Thromboplastin Ratio 1.6; Partial Thromboplastin Time 43.7 Seconds (21.0-31.0); Prothrombin Time 38.4 Seconds (9.0-12.0)
[2022-12-04] MEDS ORDERED: cefTRIAXone SODIUM 2,000 MG/70 ML BAG IV STA (00:25)
[2022-12-04 00:38] LABS: RBC Urine Automated >30 /hpf (0-4)
--- NOTE | 2022-12-04 01:24 | History & Physical Report ---
Date of Service December 04, 2022 Assessment & Plan (1) Syncope: Plan: 87-year-old female with history of hypertension, diabetes, heart failure with preserved EF, atrial fibrillation on Coumadin anticoagulation presenting with possible syncopal episodes x3 followed by episode of bradycardia. Per chart review does not seem the patient received CPR or compressions in the field. During patient's last admission in February 2022 she did have an episode of asymptomatic nonsustained ventricular tachycardia. She was evaluated by cardiology during that hospital stay. She was not started on any beta-cristhian therapy due to her baseline episodic bradycardia. Admit to PCU Maintain external pacer pads in place Check 2D echo Trend troponin (2) PAMELA (acute kidney injury): Plan: PAMELA on CKD. Patient baseline with CKD stage III. Today with elevated BUN = 62, creatinine = 2.39. Increased from prior value of 25 and 1.37, respectively on 03/15/2022. Suspect multifactorial cause of PAMELA. Predominantly the use of ibuprofen as well as likely volume contraction and UTI. Patient with nongap metabolic acidosis with serum bicarb = 13, hyperkalemia with K = 5.7. Check creatinine kinase Check random urine sodium and creatinine to calculate Fena Follow urine culture Continue gentle IV fluids -Avoid nephrotoxic agents Renal dosing were needed Repeat BMP and VBG upon arrival to the floor to assess metabolic status (3) Hematuria: Plan: Patient with gross hematuria, suggestion of UTI as well. INR supratherapeutic at 3.9. She is hemodynamically stable, Hgb = 9.9, HCT = 31.6 Monitor CBC Hold Coumadin Monitor INR Follow urine culture Continue ceftriaxone 1 g IV daily (4) Metabolic acidosis: Plan: Patient with metabolic acidosis pH = 7.22. Non anion gap Repeat chemistry, VBG upon arrival to the floor Check lactate (5) Type 2 diabetes mellitus: Plan: Patient with diabetes. Overall well controlled with last hemoglobin A1c = 6 on 02/06/2022. Presently she is not on any diabetic medication. Hyperglycemia with blood sugar 374. Patient has been given 10 units of IV insulin in conjunction with dextrose for treatment of hyperkalemia Continue to monitor blood sugar Lantus 5 units twice daily with insulin sliding scale Goal blood sugar [id number] Check hemoglobin A1c with a.m. labs (6) Hypertension: Plan: Blood pressure mildly elevated at 174/82. Patient presently not on any antihypertensive agents. Continue to monitor (7) Atrial fibrillation: Plan: Rate controlled with episodic bradycardia. Patient is anticoagulated on warfarin with supratherapeutic INR of 3.9 at present. She does have hematuria. Telemetry monitoring We will hold warfarin Repeat INR in the morning History of Present Illness Chief Complaint: asystolic event Primary Care Provider: Ned Tomlin MD Fiordaliza Woodard is an 87-year-old female with history of hypertension, diabetes, heart failure with preserved EF and atrial fibrillation on Coumadin anticoagulation presenting from home with concern for an asystolic event. Majority of history is obtained from the son who is at bedside. Son reports that over the last several days patient has been complaining of lot of leg pain. The pain is constant, aching and severe in nature. She was taking Tylenol fairly frequently. Approximately 5 days ago the son began alternating Tylenol with ibuprofen because he was concerned that the patient may be taking too much Tylenol. Today the patient's left most of the day and was feeling ill. Her son checked her INR and found it to be elevated at 4.2. Her Coumadin and ibuprofen were held today. This evening patient had an several eventspossible seizure, possible syncope. Son reports that patient was laying in bed when she became unresponsive. She was moving her arms and not responding to voice. The first episode lasted approximately 1 minute. Son reports that patient was confused upon waking which lasted less than 5 minutes. Approximately 10 minutes later she had a second episode of unresponsiveness with arms waving. This episode lasted approximately 1 minute as well. Son called 911. Upon arrival of EMS patient had a third episode of unresponsiveness. After the episode of bradycardia was noted on the monitor. Patient was given atropine and transcutaneous pacer pads were placed. Patient has been in rate controlled atrial fibrillation since with frequent PVCs.Denies Patient denies fever, chills, chest pain, cough, shortness of breath, abdominal pain, nausea, vomiting, diarrhea, constipation. She does admit to some dizziness with standing. Also complaining of ongoing bilateral leg pain as well as left hand numbness which is chronic and unchanged. In the ER patient is afebrile, remains in atrial fibrillationrate controlled, bradycardic at times. Frequent PVCs noted on monitor. Blood pressure has been stable. Patient has had no further episodes of syncope since her arrival to the ER. ER course: Ceftriaxone 2 g Calcium chloride 1 g Insulin regular 10 units IV Dextrose 50 mL IV Normal saline 500 mL Allergies Allergy/AdvReac Type Severity Reaction Status Date / Time acetaminophen [From [place]] AdvReac Intermediate Nausea Verified 12/03/22 23:28 atorvastatin [From Lipitor] AdvReac Intermediate NOT Verified 12/03/22 23:28 TOLERATED fluvastatin [From [place]] AdvReac Intermediate NOT Verified 12/03/22 23:28 TOLERATED gabapentin AdvReac Intermediate Nausea Verified 12/03/22 23:28 hydrocodone [From [place]] AdvReac Intermediate Nausea Verified 12/03/22 23:28 sulfamethoxazole AdvReac Intermediate Nausea Verified 12/03/22 23:28 [From Bactrim] trimethoprim [From Bactrim] AdvReac Intermediate Nausea Verified 12/03/22 23:28 Home Medications Medication Instructions Recorded Confirmed Type hydrocortisone 2.5 % topical cream 1 applic MO TID PRN hemorrhoids 2 12/28/20 12/03/22 Rx with perineal applicator weeks #30 grams simvastatin 40 mg tablet 40 mg PO QPM #90 tabs 11/19/21 12/03/22 Rx blood sugar diagnostic (Accu-Chek #50 ea 02/23/22 06/29/22 Rx Cheryl Plus test strips) blood-glucose meter (Accu-Chek #1 ea 02/23/22 06/29/22 Rx Cheryl Plus Meter) lancets (Accu-Chek Softclix #100 ea 02/23/22 06/29/22 Rx Lancets) geqlesrt-nrt-iompc acid 0.4 1 tab PO QAM #30 tabs 03/13/22 12/03/22 Rx mg-lycopene 300 mcg-lutein 250 mcg tablet ([place]er[place]ite Senior) allopurinol 100 mg tablet 50 mg PO DAILY 03/16/22 12/03/22 History diclofenac sodium 1 % topical gel 2 g topical QID PRN arthritis pain 06/13/22 12/03/22 Rx (Arthritis Pain (diclofenac)) #100 grams furosemide 20 mg tablet (Lasix) 20 mg PO 2XWK 06/29/22 12/03/22 History acetaminophen 500 mg tablet 1,000 mg PO DIRECTED PRN Pain 12/03/22 12/03/22 History (Tylenol Extra Strength) warfarin 1 mg tablet 1 - 2 mg PO QPM 12/03/22 12/03/22 History Past Med/Surg History Medical History (HFpEF) heart failure with preserved ejection fraction Atrial fibrillation COVID-19 Hypertension Second degree uterine prolapse Type 2 diabetes mellitus Surgical History S/P cataract surgery Family History Mother Diabetes Breast cancer Brother Stroke Denies family history of Ovarian cancer Prostate cancer Myocardial infarction Colorectal cancer Social History Smoking Status: Never smoker Second Hand Exposure: No; Hx Alcohol Use: No Hx Substance Use: No Preferred Language: Congolese Communication Ability: Effective Visual Impairment: No Limitations Hearing Ability: Normal Boatswain Mate Required: No Beliefs That Will Affect Care: None marital status: / Current Living Situation: Alone Current Living Situation Comment: lives at home but family lives nearby current occupational status: retired current occupation: retired from working at [employer] How many Children do You have: 5 How many Children do You have Comment: 1 Feels Safe at Home: Yes Childhood Exposure to Second-Hand Smoke: Yes during the past year weight has: remained stable Dental Care, Regularly: No Physical Activity Frequency: Does not Exercise Seatbelt Use: never Sunscreen Use: No Assistive Devices: Walker Review of Systems Review of Systems: All systems reviewed & are unremarkable except as noted in HPI & below Physical Exam Physical Exam: General: patient resting comfortably, NAD, non-toxic in appearance, AA&O to self and hospital, answers questions appropriately and follows commands Skin: warm, dry, intact, no rashes or lesions, several bruises on arms HEENT: NC/AT, PERRL, EOMI, anicteric sclera, conjunctiva without injection, external ear normal to inspection and nontender, nares patent, moist mucus membranes, dentition intact, no oropharyngeal lesions, neck supple, trachea midline, no LAD, no thyromegaly, no JVD Heart: +S1/S2, irregularly irregular, no m/r/g Lungs: equal air entry bilaterally, no rales/rhonchi/wheezes, diminished breath sounds in bases Abd: +BS, soft, NT/ND, no masses/organomegaly/ascites Ext: warm, 2+ pulses in UE/LE bilaterally, no clubbing/cyanosis or edema, tenderness with palpation of bilateral legs Neuro: nonfocal, patient AA&O, speech intact, no facial droop, moving all extremities on command with equal strength 5/5, complaining of left hand numbness which is baseline Results & Data Results & Data ([facility]) Vital Signs (Past 12 Hours) Vital Signs Temp Pulse Pulse Resp BP BP Pulse Ox 12/04/22 00:00 79 16 174/82 H 100 12/03/22 23:45 77 15 159/88 H 100 12/03/22 23:31 83 20 165/86 H 99 12/03/22 23:00 85 19 154/68 H 99 12/03/22 23:16 99 12/03/22 22:35 36.4 C L 86 16 189/112 H 98 O2 Del Method O2 Flow Rate 12/04/22 00:00 Nasal Cannula 4 12/03/22 23:45 Nasal Cannula 4 12/03/22 23:31 Room Air 12/03/22 23:00 Nasal Cannula 4 12/03/22 23:16 Nasal Cannula 4 12/03/22 22:35 Room Air Laboratory Results Laboratory Results WBC 7.68 K/ul (4.8-10.8) 12/03/22 22:50 RBC 3.19 M/uL (4.20-5.40) L 12/03/22 22:50 Hgb 9.9 g/dl (12.0-16.0) L 12/03/22 22:50 POC Hgb 10.9 g/dl (12.0-16.0) L 12/03/22 22:55 Hct 31.6 % (37.0-47.0) L 12/03/22 22:50 POC Hct 32 % (37-47) L 12/03/22 22:55 MCV 99.1 fL (80.0-100.0) 12/03/22 22:50 MCH 31.0 pg (25.0-34.0) 12/03/22 22:50 MCHC 31.3 g/dL (32.0-36.0) L 12/03/22 22:50 RDW Std Deviation 53.7 fL (36.4-46.3) H 12/03/22 22:50 RDW Coeff of Benjamin 15.0 % (11.5-14.5) H 12/03/22 22:50 Plt Count 131 K/uL (130-400) 12/03/22 22:50 MPV 10.6 fL (9.4-12.4) 12/03/22 22:50 Immature Gran % (Auto) 0.5 % 12/03/22 22:50 Neut % (Auto) 76.5 % 12/03/22 22:50 Lymph % (Auto) 16.4 % 12/03/22 22:50 [place] % (Auto) 5.7 % 12/03/22 22:50 Eos % (Auto) 0.5 % 12/03/22 22:50 Baso % (Auto) 0.4 % 12/03/22 22:50 Neut # (Auto) 5.87 K/uL (1.40-6.50) 12/03/22 22:50 Lymph # (Auto) 1.26 K/uL (1.2-3.4) 12/03/22 22:50 [place] # (Auto) 0.44 K/uL (0.11-0.59) 12/03/22 22:50 Eos # (Auto) 0.04 K/uL (0-0.50) 12/03/22 22:50 Baso # (Auto) 0.03 K/uL (0-0.2) 12/03/22 22:50 Immature Gran # (Auto) 0.04 K/uL (0.01-0.20) 12/03/22 22:50 PT 38.4 Seconds (9.0-12.0) H 12/03/22 22:50 INR 3.9 (0.9-1.1) H 12/03/22 22:50 APTT 43.7 Seconds (21.0-31.0) H 12/03/22 22:50 PTT Ratio 1.6 12/03/22 22:50 VBG pH 7.22 (7.36-7.41) L 12/03/22 23:16 VBG pCO2 30 mmHg (38-50) L 12/03/22 23:16 VBG pO2 46 mmHg 12/03/22 23:16 VBG HCO3 12 mmol/L 12/03/22 23:16 VBG O2 Saturation 73.2 % 12/03/22 23:16 VBG Base Excess -14.1 mEq/L 12/03/22 23:16 POC Sodium 139 mmol/L (135-144) 12/03/22 22:55 Sodium 136 mmol/L (136-145) 12/03/22 22:50 POC Potassium 5.9 mmol/L (3.3-5.0) H 12/03/22 22:55 Potassium 5.7 mmol/L (3.5-5.1) H 12/03/22 22:50 POC Chloride 118 mmol/L (101-112) H 12/03/22 22:55 Chloride 112 mmol/L (98-107) H 12/03/22 22:50 Carbon Dioxide 13 mmol/L (21-32) L 12/03/22 22:50 POC Total CO2 14 mmol/L (24-31) L 12/03/22 22:55 Anion Gap 11 (3-11) 12/03/22 22:50 POC Anion Gap 14.0 mmol/L (16-25) L 12/03/22 22:55 POC BUN 62 mg/dl (7-18) H 12/03/22 22:55 BUN 62 mg/dl (6-23) H 12/03/22 22:50 Creatinine 2.39 mg/dl (0.6-1.2) H 12/03/22 22:50 POC Creatinine 2.5 mg/dl (0.6-1.3) H 12/03/22 22:55 Est Cr Clr Drug Dosing 14.3 ml/min 12/03/22 22:50 Est GFR ( Amer) 20.2 ml/min 12/03/22 22:50 Est GFR (Non-Af Amer) 17.4 ml/min 12/03/22 22:50 BUN/Creatinine Ratio 25.9 (10-20) H 12/03/22 22:50 Glucose 378 mg/dl (70-99(Fasting)) H* 12/03/22 22:50 POC Glucose 266 mg/dl (70-99) H 12/04/22 01:17 POC Glucose (other) 374 mg/dl (70-99) H* 12/03/22 22:55 Calcium 8.8 mg/dl (8.5-10.1) 12/03/22 22:50 POC Ioniz Calcium [place] 1.22 mmol/l (1.12-1.32) 12/03/22 22:55 Magnesium 2.2 mg/dl (1.7-2.4) 12/03/22 22:50 Total Bilirubin 0.6 mg/dl (0.2-1.0) 12/03/22 22:50 AST 17 U/L (13-39) 12/03/22 22:50 ALT 12 U/L (7-52) 12/03/22 22:50 Alkaline Phosphatase 117 U/L (34-104) H 12/03/22 22:50 Total Creatine Kinase 28 U/L (26-192) 12/03/22 22:50 Troponin I High Sens 19.4 pg/ml (0-14) H 12/03/22 22:50 Total Protein 7.6 gm/dl (6.0-8.3) 12/03/22 22:50 Albumin 3.6 gm/dl (3.4-5.0) 12/03/22 22:50 Globulin 4.0 gm/dl (2.5-4.0) 12/03/22 22:50 Albumin/Globulin Ratio 0.9 (0.9-2) 12/03/22 22:50 TSH 3.821 uIu/ml (0.300-4.500) 12/03/22 22:50 Urine Color [place] 12/03/22 23:11 Urine Appearance Turbid (Clear) A 12/03/22 23:11 Urine pH 5.0 (4.5-7.5) 12/03/22 23:11 Ur Specific [place] 1.017 (1.000-1.030) 12/03/22 23:11 Urine Protein 3+ (Negative) H 12/03/22 23:11 Urine Glucose (UA) 1+ (Negative) H 12/03/22 23:11 Urine Ketones Negative (Negative) 12/03/22 23:11 Urine Blood 3+ (Negative) H 12/03/22 23:11 Urine Nitrite Negative (Negative) 12/03/22 23:11 Urine Bilirubin Negative (Negative) 12/03/22 23:11 Urine Urobilinogen Negative (Negative) 12/03/22 23:11 Ur Leukocyte Esterase 3+ (Negative) H 12/03/22 23:11 Urine WBC (Auto) >30 /hpf (0-5) H 12/03/22 23:11 Urine RBC (Auto) >30 /hpf (0-4) H 12/03/22 23:11 U Hyaline Cast (Auto) 1-5 /lpf (0-5) 12/03/22 23:11 U Epithel Cells (Auto) 20-30 /lpf (0-5) H 12/03/22 23:11 Urine Bacteria (Auto) 2+ (Negative) H 12/03/22 23:11 Urine Yeast Not Reportable 12/03/22 23:11 SARS-CoV-2, RNA, NAAT NEGATIVE (NEGATIVE) 12/03/22 23:11 Diagnostic Findings Chest x-rayper my interpretation appears to have cardiomegaly, blunting of the right costophrenic angle, no obvious pneumonia ECG Additional Comments: EKG with rate of 86, right bundle branch block, QRS = 156, QTc = 512 PG Care Time/CCT Total # of Minutes Spent Total Time Spent with Patient: Total time spent is greater than 50% in coordination of care (as documented) at patient's floor/unit and/or counseling patient: Coding Level of Care Code 99290 INT INP/OBS CARE 3/75MIN Diagnoses Syncope R55 Syncope type: unspecified PAMELA (acute kidney injury) N17.9 Hematuria R31.0 Hematuria type: gross Metabolic acidosis E87.20 Type 2 diabetes mellitus E11.9 Hypertension I10 Atrial fibrillation I48.91 (1) Syncope Syncope type: unspecified Qualified Code(s): R55 - Syncope and collapse (2) Hematuria Hematuria type: gross Qualified Code(s): R31.0 - Gross hematuria
[2022-12-04] MEDS ORDERED: GLUCOSE 10 TAB/TUBE PO PRN (02:38)
[2022-12-04] MEDS ORDERED: DEXTROSE 50% 50 ML SYRINGE IV PRN (02:38)
[2022-12-04] MEDS ORDERED: HYDROCORTISONE HC 2.5% CRM 30GM TUBE EXT PRN (02:38)
[2022-12-04] MEDS ORDERED: LACTATED RINGER'S 1,000 ML IV SCH (02:38)
[2022-12-04] MEDS ORDERED: GLUCAGON FOR INJ 1 MG VIAL SQ PRN (02:38)
[2022-12-04] MEDS ORDERED: GLUCOSE 40% GEL 15 GM TUBE PO PRN (02:38)
[2022-12-04] MEDS ORDERED: CARBOHYDRATES FOR HYPOGLYCEMIA PO PRN (02:38)
[2022-12-04 03:19] LABS: Base Excess VBG -9.9 mEq/L; HCO3 VBG 16 mmol/L; Oxygen Saturation VBG < 60.0 %; PCO2 VBG 35 mmHg (38-50); PO2 VBG 29 mmHg; pH VBG 7.27 (7.36-7.41)
[2022-12-04] MEDS: INSULIN ASPART PER UNIT SC SCH ×5 (03:22→20:30)
[2022-12-04 03:39] LABS: BUN Creatinine Ratio 27.8 (10-20); Calcium 9.6 mg/dl (8.5-10.1); Creatinine Clr Calc Pharmacy 15.9 ml/min; Est GFR (African American) 22.8 ml/min; Est GFR (Non-African American) 19.7 ml/min; Potassium 5.6 mmol/L (3.5-5.1)
[2022-12-04 03:46] LABS: Troponin I High Sensitivity 22.3 pg/ml (0-14)
[2022-12-04] MEDS: ACETAMINOPHEN 500 MG TAB PO SCH ×3 (05:16→22:15)
--- NOTE | 2022-12-04 06:52 | XRay Report ---
XR chest 1V portable HISTORY: weakness COMPARISON: Chest 03/04/2022. FINDINGS: No pneumothorax. A small right pleural effusion persists. The heart remains enlarged. There is mild interstitial pulmonary edema. No new focal lung consolidations identified. Old, healed right humeral fracture again noted. IMPRESSION: Cardiomegaly with mild interstitial pulmonary edema and a small right pleural effusion. ACT 112: Negative or not required by law. Electronically signed by: Justino Sanchez M.D. 12/04/2022 6:50 AM
[2022-12-04] MEDS ORDERED: CALCIUM GLUCONATE 10% 1,000 MG in DEXTROSE 5% 50 ML IV ONE (07:14)
[2022-12-04] MEDS ORDERED: STAT IV STA (07:14)
--- NOTE | 2022-12-04 07:56 | Hospitalist Progress Note ---
Date of Service December 04, 2022 Assessment & Plan (1) Syncope: (2) PAMELA (acute kidney injury): (3) Acute hyperkalemia: (4) Metabolic acidosis: (5) Atrial fibrillation: (6) Type 2 diabetes mellitus: (7) Hematuria: (8) Heart block: (9) Anticoagulated on Coumadin: Plan Pt is a 87 yo female with PMH of HFpEF, afib on coumadin, HTN, and DM presenting to the hospital due to syncopal episodes with subsequent bradycardia/asystole requiring pacing and atropine x1. No chest compressions or shocks administered per chart review. Syncope/fall - possible syncopal episodes x3 followed by episode of bradycardia - pt had run of vtach during last admission in 02/2022; beta cristhian therapy was not recommended d/t baseline episodic bradycardia - external pacer pads in place - echo showed EF 55-60%, moderate LVH, severe RVSP - troponin rising slowly to 27; trend to peak - Check orthostatics Severe Pulmonary HTN sec to HFpEF - Possibly contributing to the weakness. - consider cardio consult on monday - Consider goal of care discussion on monday ? Possible leg weakness from radiculopathy contributing to fall - get PT/OT PAMELA in the setting of CKD III - baseline appears to be 1.3-1.7 - upon admission, Cr 2.39, BUN 62 - likely multifactorial including ibuprofen use and dehydration; urinary studies pending to calculate FeNa - nongap metabolic acidosis with serum bicarb of 13 upon admission - given 1 L LR, will recheck BMP tomorrow before adding more fluids d/t concerns w/ heart function Hyperkalemia - in the setting of PAMELA - given 10 units of insulin w/ dextrose and calcium - upon admission 5.7, today 5.6 - continue to monitor Hematuria - gross hematuria - INR supratherapeutic at 3.9 upon admission - UA 3+ leuk esterase, 2+ bacteria; urine cx pending - continue ceftriaxone 1 g IV daily Nongap metabolic acidosis - original VBG showed pH = 7.22, pCO2 30 - repeat VBG showed improvement with pH= 7.27, pCO2 35 - monitor BMP Type 2 diabetes mellitus - A1c= 7.3%; no diabetic medications at home - Continue to monitor blood sugar - Lantus 5 units twice daily with insulin sliding scale - Goal blood sugar 163428 Hypertension - BP 140-170s/60-80s - no home BP meds - continue to monitor Atrial fibrillation - rate controlled w/o medications with episodic bradycardia - anticoagulated with warfarin, goal 2-3 - supratherapeutic INR 3.8 upon admission; warfarin held - INR today 3.1, hold warfarin -----Pramipaxole added on admission but not listed in home med. will check into in am. Dispo: PCU DVT ppx: warfarin, currently on hold d/t supratherapeutic INR Diet: carb consistent, easy to chew Code: conditional, no intubation Admission and Anticipated Discharge Date Admission Date: December 04, 2022 Supervising Physician Co-Signing Physician Notes Resident Physician Supervision Note: I independently interviewed and examined the patient and verified the huntley history and physical, reviewed labs and image studies and agree with resident findings and care plan. Subjective Pt is a 87 yo female with PMH of HFpEF, afib on coumadin, HTN, and DM presenting to the hospital due to syncopal episodes with subsequent bradycardia requiring pacing. Pt seen at bedside this AM. She reports that she fell backwards at home. She feels that this was d/t her feet getting caught on each other. She denies hitting her head, LOC, or feeling as though she was going to pass out. However, she does admit that she "wasn't feeling good" yesterday. Pt believes that she remembers all events of yesterday. Today, pt states she is feeling well. Her appetite seems to be better. She does endorse leg pains. She denies chest pain and abdominal pains. Review of Systems Review of Systems: All systems reviewed & are unremarkable except as noted in HPI & below Physical Exam Constitutional: NAD. Vitals WNL. Eyes: no conjunctival abnormality Respiratory: CTA bilaterally. No rhonchi, wheezing, or crackles. Non labored breathing. Cardiovascular: Irregular rhythm. Regular rate. No murmur noted. No LE edema. Skin: no rashes, warm and dry Psychiatric: Alert. Mood and affect congruent. Results & Data Results & Data ([facility]) Vital Signs (Past 12 Hours) Vital Signs Temp Pulse Pulse Resp BP BP BP 12/04/22 07:17 36.5 C 77 20 126/66 12/04/22 02:51 65 12/04/22 05:45 36.6 C 84 16 157/55 H 12/04/22 05:41 12/04/22 02:45 12/04/22 02:45 36.4 C L 62 16 176/80 H 12/04/22 02:00 64 17 151/71 H 12/04/22 01:31 60 15 147/70 H 12/04/22 01:02 85 21 163/95 H 12/04/22 00:31 69 15 176/74 H 12/04/22 00:00 80 21 140/89 12/04/22 00:00 79 16 174/82 H 12/03/22 23:45 77 15 159/88 H 12/03/22 23:31 83 20 165/86 H 12/03/22 23:00 85 19 154/68 H 12/03/22 23:16 12/03/22 22:35 36.4 C L 86 16 189/112 H Pulse Ox O2 Del Method O2 Flow Rate 12/04/22 07:17 96 Nasal Cannula 2 12/04/22 02:51 12/04/22 05:45 97 Nasal Cannula 2 12/04/22 05:41 Nasal Cannula 2 12/04/22 02:45 Nasal Cannula 2 12/04/22 02:45 100 Nasal Cannula 2 12/04/22 02:00 95 Nasal Cannula 2 12/04/22 01:31 98 Nasal Cannula 2 12/04/22 01:02 96 Nasal Cannula 2 12/04/22 00:31 97 Nasal Cannula 2 12/04/22 00:00 100 Nasal Cannula 2 12/04/22 00:00 100 Nasal Cannula 4 12/03/22 23:45 100 Nasal Cannula 4 12/03/22 23:31 99 Room Air 12/03/22 23:00 99 Nasal Cannula 4 12/03/22 23:16 99 Nasal Cannula 4 12/03/22 22:35 98 Room Air Resident Activity Tracking Resident Involvement: Resident Care Provided Care Provided: Adult Hospital Medicine (1) Hematuria Hematuria type: gross Qualified Code(s): R31.0 - Gross hematuria (2) Syncope Syncope type: unspecified Qualified Code(s): R55 - Syncope and collapse
[2022-12-04] MEDS: allopurinoL 100 MG TAB PO SCH (08:43)
[2022-12-04] MEDS: PRAMIPEXOLE DIHYDROCHLO 0.25 MG TAB PO SCH (08:43)
[2022-12-04] MEDS: LANTUS PER UNIT CHARGE SQ SCH ×2 (08:51→20:30)
[2022-12-04 09:55] LABS: Estimated Average Glucose 163 mg/dl; Hemoglobin A1C 7.3 % (4.5-5.6)
[2022-12-04 11:04] LABS: INR 3.1 (0.9-1.1); Prothrombin Time 30.6 Seconds (9.0-12.0)
--- NOTE | 2022-12-04 13:25 | XCELERA ---
[id number]
[2022-12-04] MEDS: DICLOFENAC SOD 1% GEL 100 GM TUBE EXT PRN (20:15)
[2022-12-04] MEDS: cefTRIAXone SODIUM 1,000 MG in DEXTROSE 5% AD-VAN 50 ML IV SCH (23:47)
[2022-12-05] MEDS: ACETAMINOPHEN 500 MG TAB PO SCH ×3 (05:25→21:21)
--- NOTE | 2022-12-05 05:56 | Electrocardiogram Report ---
Test Reason : Blood Pressure : / mmHG Vent. Rate : 086 BPM Atrial Rate : 000 BPM P-R Int : 000 ms QRS Dur : 156 ms QT Int : 428 ms P-R-T Axes : 000 -68 080 degrees QTc Int : 512 ms Probable Atrial fibrillation with premature ventricular or aberrantly conducted complexes Right bundle branch block Left anterior fascicular block Bifascicular block Abnormal ECG When compared with ECG of 04-MAR-2022 21:42, Criteria for Inferior infarct are no longer Present Nonspecific T wave abnormality no longer evident in Inferior leads Confirmed by Ferny Sousa ([id number]) on 12/05/2022 5:56:27 AM Referred By: REFERRED SELF Confirmed By:Ferny Sousa
--- NOTE | 2022-12-05 06:12 | Electrocardiogram Report ---
Test Reason : Blood Pressure : / mmHG Vent. Rate : 060 BPM Atrial Rate : 066 BPM P-R Int : 000 ms QRS Dur : 154 ms QT Int : 492 ms P-R-T Axes : 000 -72 087 degrees QTc Int : 492 ms Atrial fibrillation with premature ventricular or aberrantly conducted complexes Right bundle branch block Left anterior fascicular block Bifascicular block Abnormal ECG When compared with ECG of 03-DEC-2022 22:47, T wave inversion less evident in Anterior leads Confirmed by Ferny Sousa ([id number]) on 12/05/2022 6:12:28 AM Referred By: REFERRED SELF Confirmed By:Ferny Sousa
[2022-12-05 06:18] LABS: Hematocrit (blood only) 28.5 % (37.0-47.0); Hemoglobin 9.2 g/dl (12.0-16.0); Mean Corpuscular Hemoglobin 31.3 pg (25.0-34.0); Mean Corpuscular Hgb Conc 32.3 g/dL (32.0-36.0); Mean Corpuscular Volume 96.9 fL (80.0-100.0); Mean Platelet Volume 10.5 fL (9.4-12.4); Platelet Count 134 K/uL (130-400); RDW Coefficient of Variation 14.8 % (11.5-14.5); RDW Standard Deviation 52.2 fL (36.4-46.3); Red Blood Count 2.94 M/uL (4.20-5.40); White Blood Count 6.37 K/ul (4.8-10.8)
[2022-12-05 06:33] LABS: BUN Creatinine Ratio 26.2 (10-20); Calcium 9.5 mg/dl (8.5-10.1); Creatinine Clr Calc Pharmacy 15.1 ml/min; Est GFR (African American) 21.2 ml/min; Est GFR (Non-African American) 18.3 ml/min
[2022-12-05 06:45] LABS: INR 2.2 (0.9-1.1); Prothrombin Time 22.5 Seconds (9.0-12.0)
[2022-12-05] MEDS: PRAMIPEXOLE DIHYDROCHLO 0.25 MG TAB PO SCH (08:07)
[2022-12-05] MEDS: allopurinoL 100 MG TAB PO SCH (08:07)
[2022-12-05] MEDS: INSULIN ASPART PER UNIT SC SCH ×4 (08:08→21:17)
[2022-12-05] MEDS: LANTUS PER UNIT CHARGE SQ SCH ×2 (08:14→21:17)
--- NOTE | 2022-12-05 09:17 | Progress Note ---
Date of Service December 05, 2022 Assessment & Plan (1) Syncope: Plan: The patient is a 87 y/o female with a pertinent history of HF with preserved ejection fraction, Atrial fibrillation (currently on warfarin), HTN, and T2DM presenting to the hospital due to syncopal episodes with subsequent bradycardia requiring pacing. Syncope/fall - Syncope with prodrome, and mild confusion shortly after which resolved quickly - pt had run of vtach during last admission in 02/2022; beta cristhian therapy was not recommended d/t baseline episodic bradycardia - external pacer pads in place - echo showed EF 55-60%, moderate LVH, severe pulmonary HTN RVSP; 71 mmHg, severe biatrial dilation, tricuspid and mitral regurgitation - Consult cardiology, discuss need for pacemaker and increasing HR Syncope type: unspecified Qualified Code(s): R55 - Syncope and collapse Present on Admission?: Yes (2) Atrial fibrillation: Plan: Atrial fibrillation - rate controlled w/o medications with episodic bradycardia - possible cause of syncope - anticoagulated with warfarin, goal 2-3 - supratherapeutic INR 3.8 upon admission; warfarin held - INR today 2.2 - Restart warfarin, 1 mg today (alternate between 1 mg and 2 mg each day). (3) PAMELA (acute kidney injury): Plan: PAMELA in the setting of CKD III - likely multifactorial including ibuprofen use and dehydration; FENa; 1.8% - Cr 2.29, BUN 60 (Cr is up from yesterday), BUN/CR 26.2 - Due to pulmonary HTN, will address by consulting Cardiology and focusing on bringing up HR. Monitor and if not improvement will give IV LR. (4) Acute hyperkalemia: Plan: Hyperkalemia - in the setting of PAMELA - upon admission 5.7, today 5.0 (continues to downtrend) - continue to monitor as PAMELA is addressed (5) Hypertension: Plan: Hypertension - BP 156/91 - no home BP meds due to bradycardia - continue to monitor Severe Pulmonary HTN sec to HFpEF - Possibly contributing to the weakness - RVSP 71 mmHG (6) Metabolic acidosis: Plan: [place] metabolic acidosis - original VBG showed pH = 7.22, pCO2 30 - repeat VBG showed improvement with pH= 7.27, pCO2 35 - monitor BMP (7) Hematuria: Plan: Hematuria - No gross hematuria, will check updated U/A to check resolution - Continue IV 1g ceftriaxone Hematuria type: gross Qualified Code(s): R31.0 - Gross hematuria (8) Type 2 diabetes mellitus: Plan: Type 2 diabetes mellitus - A1c= 7.3%; no diabetic medications at home - Continue to monitor blood sugar - Lantus 5 units twice daily with insulin sliding scale - Goal blood sugar 556230 Plan Dispo: PCU DVT ppx: warfarin Diet: carb consistent, easy to chew Code: conditional, no intubation Admission and Anticipated Discharge Date Admission Date: December 04, 2022 Supervising Physician Co-Signing Physician Notes I personally examined the patient and verified all huntley points of history and exam, discussed case, and agree with decision making with Lisbet Herman Feeling okay. Eating okay. No acute complaints. Vitals noted, in general she is awake and alert pleasant no distress. HEENT normocephalic atraumatic mucous membranes moist. Breathing unlabored no accessory muscle use good effort. Syncope/unresponsivenessseems as though arrhythmia genic syncope would be the diagnosis of exclusion. Concerning for bradycardia that would require pacing; at the same time did have some ventricular tachycardia during admission in Februaryecause of both of these concerns, consult cardiology for further evaluation. Otherwise as above Subjective The patient is a 87 y/o female with a pertinent history of HF with preserved ejection fraction, Atrial fibulation (currently on warfarin), HTN, and T2DM presenting to the hospital due to syncopal episodes with subsequent bradycardia requiring pacing. The patient states she felt dizzy then tripped on her shoes. She does not remember what happened after the fall however states that the son was present and confirmed she did not hit her head. She had a similar episode about a year ago. She does not typically fell lightheaded. 12/05/22, she is feeling well. Had had a bowel movement and has been urinating (confirmed by nurse). She notes a slight flutter in her chest from time to time. She ate a full breakfast and has been drinking water and amrik sarah without issue. The nurse also confirmed her heart rate dropped to 30 briefly overnight but immediately came back up. She does not feel lightheaded, feverish/chills, or headache. She has no cough, hemoptysis, SOB, or wheezing. She denies any hematuria, dysuria, or hematochezia, and no abdominal pain. Review of Systems Review of Systems: All systems reviewed & are unremarkable except as noted in HPI & below Constitutional: no fever, no chills and no body aches Respiratory: no cough, no dyspnea, no hemoptysis and no wheezing Cardiovascular: + palpitations; no chest pain and no dyspnea at rest Gastrointestinal: no hematemesis, no cramping, no constipation and no diarrhea/loose stools Genitourinary: no dysuria and no hematuria Physical Exam Constitutional: well nourished, + well hydrated, + thin and cooperative Eyes: PERRL, conjunctivae normal, anicteric sclerae ENMT: Mouth: oral mucous membranes not dry Respiratory: normal respiratory effort, lungs clear to auscultation + audible wheezes ([place] one wheeze on first breath and clear after ) Cardiovascular: Rate/Rhythm: + bradycardic; + abnormal rhythm (Head what sounded like a pause or dropped beat every 4-5 beats) Heart Sounds: + click and + murmur Vessels: no JVD Extremities: normal capillary refill; no edema Results & Data ([facility]) Vital Signs (Past 12 Hours) Vital Signs Temp Pulse Pulse Resp BP BP Pulse Ox 12/05/22 07:15 52 L 12/05/22 07:15 12/05/22 07:15 36.5 C 50 L 14 156/91 H 98 12/05/22 03:05 36.6 C 72 18 173/84 H 99 12/04/22 22:01 63 12/04/22 23:38 78 18 160/68 H 98 O2 Del Method O2 Flow Rate 12/05/22 07:15 12/05/22 07:15 Nasal Cannula 2 12/05/22 07:15 Nasal Cannula 2 12/05/22 03:05 Nasal Cannula 12/04/22 22:01 12/04/22 23:38 Nasal Cannula
[2022-12-05] MEDS ORDERED: WARFARIN SOD 1 MG TAB PO SCH (16:00)
--- NOTE | 2022-12-05 16:47 | Billing Data ---
Date of Service December 05, 2022 Coding Level of Care Code 30233 SUB INP/OBS CARE 3MIN
--- NOTE | 2022-12-05 18:23 | Cardiology Consultation ---
Date of Consultation December 05, 2022 Assessment & Plan (1) Syncope: (2) Tricuspid regurgitation: (3) Ventricular tachycardia: (4) Pulmonary hypertension: (5) Mitral regurgitation: (6) Atrial fibrillation, permanent: (7) Acute hyperkalemia: (8) (HFpEF) heart failure with preserved ejection fraction: (9) Bradycardia: Plan ASSESSMENT/PLAN: 1. Syncope: Had some degree of mental status change and unresponsiveness her records. Unfortunately, no rhythm strip available for review at the time of these events. Heart rates reported by EMS in the 20s to 30s and responded to transcutaneous pacing. Noted to be bradycardic here but asymptomatic. Discussed with her son, Artis, and he plans on discussing with family whether if they would pursue pacemaker if indicated. Pacemaker considered. Electrophysiology consultation recommended. 2. Bradycardia: Significantly bradycardic pre-hospital and bradycardic year on occasion. Avoid rate-controlling medications. Plan as above. 3. Severe pulmonary hypertension: Can contribute to syncope. Chronic issue. Severe TR likely playing a role. She does not appear to be significantly hypervolemic. To further define her pulmonary hypertension, invasive measures could be considered such as right heart catheterization. This was not discussed today as this is not an acute issue but can be further discussed in the future. 4. Atrial fibrillation: Appears to be permanent. On anticoagulation for stroke risk reduction. Bradycardic at times as above. Electrophysiology consultation. 5. Ventricular tachycardia: Described in the past by Dr. Henry electrophysiology while hospitalized. Beta-cristhian was considered but avoided due to bradycardia. No ventricular tachycardia thus far here. 6. Hyperkalemia: Was mildly hyperkalemic on presentation but potassium has since corrected. Can play a role and cardiac conduction disturbances. 7. Tricuspid regurgitation: Severe. Recommend conservative measures. 8. Mitral regurgitation: Non severe. Conservative measures recommended. 9. Heart failure with preserved EF: Likely right heart failure/cor pulmonale in the setting of severe pulmonary hypertension. Takes Lasix approximately twice per week at home. 10. Disposition: Electrophysiology to evaluate her tomorrow. Patient care communicated with Dr. Guzman of the primary hospitalist service. NPO after midnight until seen by electrophysiology. Highly complex medical issues. Thank you for allowing me to participate in the care of your patient. Please call for any other questions or concerns. Sincerely, Eddie Sousa M.D. History of Present Illness Reason for Consultation: Bradycardia Requesting Physician: Junior Guzman DO Attending Physician: Junior Guzman DO History of Present Illness Mrs. Woodard is an 87-year-old female with a history significant for type 2 diabetes, hypertension, atrial fibrillation on anticoagulation therapy, severe pulmonary hypertension, tricuspid regurgitation, mitral regurgitation, and ventricular tachycardia. She was hospitalized on 12/03/2022 after syncope. She denies any syncope and states that she is hospitalized due to hyperglycemia. She was not overly interested in answering questions this afternoon. She has occasional chest discomfort but none now. She has had substernal chest pain while sitting in the past. She would not provide any further details. She has had occasional nausea but no vomiting. She has occasional hemorrhoidal bleeding. She denies shortness of breath, edema, or palpitations. According to records, she lost consciousness on 3 separate occasions. Her son and power of attorney at law dose of was contacted via telephone early this evening. He describes his mother's episode as a "convulsion" but "not really convulsing." He states that her tongue was hanging out and he thought she may need [id number] resuscitation however isn't sure that she actually lost consciousness. The first episode lasted approximately 1 normal and then came to. She then got dizzy and had another episode approximately 10 minutes later. EMS then arrived and had another episode. According to EMS records, her heart rate was in the 20s to 30s. They gave atropine without significant improvement in her heart rate. She received transcutaneous pacing. According to EMS notes, she felt dizzy and her blood pressure was low normal but heart rates once again in the 20s to low 30s. According to emergency department note, she improved with transcutaneous pacing. Her son states that she has chronic leg and left hand pain. She had been taking Tylenol alternating with NSAID every 3 hours for acute worsening of these pains. She also was found to have E coli on her urine culture from 12/03/2022. While here, she has been noted to be in atrial fibrillation. She has had bradycardia but no pauses greater than 3 seconds when reviewing telemetry. She was diagnosed with ventricular tachycardia on 03/10/2022 when seen by electrophysiology during hospitalization. She has had the following studies/procedures: 1. Echo 12/04/2022: Normal LV size, wall motion, systolic function. EF 55-60%. Septal flattening during systole suggests RV pressure overload. Moderate LVH. Moderately dilated RV with moderately reduced systolic function. Severe biatrial dilation. 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 Stable in appearance. Moderate MR. Severe TR. RVSP 71. Review of systems: As above. Review of systems otherwise negative/unremarkable. Family history: Noncontributory. Social history: She denies tobacco, alcohol, or drug abuse. x2 years. Five children. Lives with her son, Artis, and his . She was unaccompanied in her hospital room. Allergies Allergy/AdvReac Type Severity Reaction Status Date / Time acetaminophen [From Daisy] AdvReac Intermediate Nausea Verified 12/03/22 23:28 atorvastatin [From Lipitor] AdvReac Intermediate NOT Verified 12/03/22 23:28 TOLERATED fluvastatin [From Lescol] AdvReac Intermediate NOT Verified 12/03/22 23:28 TOLERATED gabapentin AdvReac Intermediate Nausea Verified 12/03/22 23:28 hydrocodone [From Daisy] AdvReac Intermediate Nausea Verified 12/03/22 23:28 sulfamethoxazole AdvReac Intermediate Nausea Verified 12/03/22 23:28 [From Bactrim] trimethoprim [From Bactrim] AdvReac Intermediate Nausea Verified 12/03/22 23:28 Home Medications Medication Instructions Recorded Confirmed Type hydrocortisone 2.5 % topical cream 1 applic ID TID PRN hemorrhoids 2 12/28/20 12/03/22 Rx with perineal applicator weeks #30 grams simvastatin 40 mg tablet 40 mg PO QPM #90 tabs 11/19/21 12/03/22 Rx blood sugar diagnostic (Accu-Chek #50 ea 02/23/22 06/29/22 Rx Cheryl Plus test strips) blood-glucose meter (Accu-Chek #1 ea 02/23/22 06/29/22 Rx Cheryl Plus Meter) lancets (Accu-Chek Softclix #100 ea 02/23/22 06/29/22 Rx Lancets) bbvrgoeq-tfo-pvptn acid 0.4 1 tab PO QAM #30 tabs 03/13/22 12/03/22 Rx mg-lycopene 300 mcg-lutein 250 mcg tablet (Cer[employer]ite Senior) allopurinol 100 mg tablet 50 mg PO DAILY 03/16/22 12/03/22 History diclofenac sodium 1 % topical gel 2 g topical QID PRN arthritis pain 06/13/22 12/03/22 Rx (Arthritis Pain (diclofenac)) #100 grams furosemide 20 mg tablet (Lasix) 20 mg PO 2XWK 06/29/22 12/03/22 History acetaminophen 500 mg tablet 1,000 mg PO DIRECTED PRN Pain 12/03/22 12/03/22 History (Tylenol Extra Strength) warfarin 1 mg tablet 1 - 2 mg PO QPM 12/03/22 12/03/22 History Patient History Medical History (HFpEF) heart failure with preserved ejection fraction Atrial fibrillation, permanent COVID-19 Hypertension Mitral regurgitation Pulmonary hypertension Second degree uterine prolapse Tricuspid regurgitation Type 2 diabetes mellitus Ventricular tachycardia Surgical History S/P cataract surgery Family History Mother Diabetes Breast cancer Brother Stroke Denies family history of Ovarian cancer Prostate cancer Myocardial infarction Colorectal cancer Social History Smoking Status: Never smoker Second Hand Exposure: No; Hx Alcohol Use: No Hx Substance Use: No Preferred Language: Taiwanese Communication Ability: Effective Visual Impairment: No Limitations Hearing Ability: Normal Guard Manager Required: No Beliefs That Will Affect Care: None marital status: / Current Living Situation: Alone Current Living Situation Comment: lives at home but family lives nearby current occupational status: retired current occupation: retired from working at [employer] How many Children do You have: 5 How many Children do You have Comment: 1 Feels Safe at Home: Yes Childhood Exposure to Second-Hand Smoke: Yes during the past year weight has: remained stable Dental Care, Regularly: No Physical Activity Frequency: Does not Exercise Seatbelt Use: never Sunscreen Use: No Assistive Devices: Cane, Walker and Wheelchair Physical Exam Physical Exam: Gen.: No acute distress. Alert and oriented to self, place, and month. She did not know the year.. HEENT: Anicteric sclera. Neck: Prominent V-waves. No bruits. Normal carotid upstrokes bilaterally. Cardiac: PMI was nondisplaced. No ventricular heave. Irregularly irregular. Normal S1-S2. 1/6 systolic murmur. Pulmonary: Clear to auscultation bilaterally without wheezes, rales, or rhonchi. Abdomen: Soft, nontender, nondistended, with normoactive bowel sounds. No bruits noted. Extremities: 2+ radial pulses bilaterally. 2+ posterior tibialis pulses bilaterally. Trace bilateral lower extremity edema. No cyanosis. No palpable cords. Results & Data ([facility]) Vital Signs (Past 12 Hours) Vital Signs Temp Pulse Pulse Pulse Resp BP Pulse Ox 12/05/22 15:24 41 L 12/05/22 15:21 36.7 C 87 18 158/69 H 96 12/05/22 11:08 36.7 C 82 19 156/76 H 95 12/05/22 07:15 52 L 12/05/22 07:15 12/05/22 07:15 36.5 C 50 L 14 156/91 H 98 O2 Del Method O2 Flow Rate 12/05/22 15:24 12/05/22 15:21 Room Air 12/05/22 11:08 Room Air 12/05/22 07:15 12/05/22 07:15 Nasal Cannula 2 12/05/22 07:15 Nasal Cannula 2 Intake & Output 12/03/22 12/04/22 12/05/22 12/06/22 06:59 06:59 06:59 06:59 Intake Total 630 / 630 1832.5 / 1832.5 360 / 360 Balance 630 / 630 1832.5 / 1832.5 360 / 360 Weight 140 lb 6.951 oz 143 lb 11.862 oz 143 lb 11.862 oz Laboratory Results Laboratory Results - last 24 hr 12/04/22 12/04/22 12/04/22 20:13 Unknown Unknown WBC RBC Hgb Hct MCV MCH MCHC RDW Std Deviation RDW Coeff of Benjamin Plt Count MPV PT INR Sodium Potassium Chloride Carbon Dioxide Anion Gap BUN Creatinine Est Cr Clr Drug Dosing Est GFR ( Amer) Est GFR (Non-Af Amer) BUN/Creatinine Ratio Glucose POC Glucose 135 H Calcium Ur Random Creatinine 64.9 Ur Random Sodium 68 12/05/22 12/05/22 12/05/22 05:26 05:26 05:26 WBC 6.37 RBC 2.94 L Hgb 9.2 L Hct 28.5 L MCV 96.9 MCH 31.3 MCHC 32.3 RDW Std Deviation 52.2 H RDW Coeff of Benjamin 14.8 H Plt Count 134 MPV 10.5 PT 22.5 H INR 2.2 H Sodium 137 Potassium 5.0 Chloride 114 H Carbon Dioxide 16 L Anion Gap 7 BUN 60 H Creatinine 2.29 H Est Cr Clr Drug Dosing 15.1 Est GFR ( Amer) 21.2 Est GFR (Non-Af Amer) 18.3 BUN/Creatinine Ratio 26.2 H Glucose 113 H POC Glucose Calcium 9.5 Ur Random Creatinine Ur Random Sodium 12/05/22 12/05/22 12/05/22 07:11 11:06 16:26 WBC RBC Hgb Hct MCV MCH MCHC RDW Std Deviation RDW Coeff of Benjamin Plt Count MPV PT INR Sodium Potassium Chloride Carbon Dioxide Anion Gap BUN Creatinine Est Cr Clr Drug Dosing Est GFR ( Amer) Est GFR (Non-Af Amer) BUN/Creatinine Ratio Glucose POC Glucose 95 155 H 122 H Calcium Ur Random Creatinine Ur Random Sodium Diagnostic Findings Echo report reviewed as noted above in HPI. Telemetry personally reviewed: Atrial fibrillation with bradycardia at times. No significant pauses noted. ECGs personally reviewed: ECG 12/03/2022 at 10:47 p.m.: Probable atrial fibrillation with PVCs versus aberrantly conducted complexes. RBBB. LAFB. ECG 12/04/2022 at 5:34 a.m.: AFib with PVC versus aberrantly conducted complexes. 60 beats per minute. RBBB. LAFB. Chest x-ray 12/03/2022: Image personally right pleural effusion. No obvious infiltrate. Per Radiology, mild interstitial pulmonary edema and small right pleural effusion. Medications Administered Current Inpatient Medications Acetaminophen (Acetaminophen 500 Mg Tab) 1,000 mg PO Q8 [facility] Stop: 01/03/23 05:59 Last Admin: 12/05/22 13:39 Dose: 1,000 mg Allopurinol (Allopurinol 100 Mg Tab) 50 mg PO DAILY [facility] Stop: 01/03/23 08:59 Last Admin: 12/05/22 08:07 Dose: 50 mg Dextrose (Dextrose 50% 50 Ml Syringe) 25 - 50 ml IV UD PRN; Protocol PRN Reason: Hypoglycemia Protocol Stop: 01/03/23 02:37 Diclofenac Sodium (Diclofenac Sod 1% Gel 100 Gm Tube) 2 gm EXT QID PRN; Protocol PRN Reason: arthritis pain Stop: 01/03/23 02:37 Last Admin: 12/04/22 20:15 Dose: 2 gm Glucagon (Glucagon For Inj 1 Mg Vial) 1 mg SQ UD PRN; Protocol PRN Reason: Hypoglycemia Protocol Stop: 01/03/23 02:37 Glucose (Glucose 40% Gel 15 Gm Tube) 15 - 30 gm PO UD PRN; Protocol PRN Reason: Hypoglycemia Protocol Stop: 01/03/23 02:37 Glucose (Glucose 10 Tab/Tube) 4 - 8 tab PO UD PRN; Protocol PRN Reason: Hypoglycemia Treatment Stop: 01/03/23 02:37 Hydrocortisone (Hydrocortisone Hc 2.5% Crm 30gm Tube) 1 appln EXT TID PRN PRN Reason: hemorrhoids Stop: 01/03/23 02:37 Ceftriaxone Sodium 1,000 mg/ (Dextrose) 50 mls @ 100 mls/hr IV Q24H [facility]; Protocol Stop: 12/10/22 00:00 Last Infusion: 12/05/22 00:17 Dose: Infused Insulin Aspart (Insulin Aspart Per Unit) 0 units SC ACHS [facility] Stop: 01/03/23 03:14 Last Admin: 12/05/22 17:32 Dose: Not Given Insulin Glargine (Lantus Per Unit Charge) 5 units SQ BID [facility] Stop: 01/03/23 08:59 Last Admin: 12/05/22 08:14 Dose: 5 units Miscellaneous (Carbohydrates For Hypoglycemia ) 15 - 30 gm PO UD PRN PRN Reason: Hypoglycemia Protocol Stop: 01/03/23 02:37 Pramipexole Dihydrochloride (Pramipexole Dihydrochlo 0.25 Mg Tab) 0.25 mg PO QAM [facility] Stop: 01/03/23 08:59 Last Admin: 12/05/22 08:07 Dose: 0.25 mg Warfarin Sodium (Warfarin Sod 1 Mg Tab) 1 mg PO Q2D@1600 [facility] Stop: 01/04/23 15:59 Last Admin: 12/05/22 17:34 Dose: 1 mg Warfarin Sodium (Warfarin Sod 2 Mg Tab) 2 mg PO Q2D@1600 [facility] Stop: 01/05/23 15:59 PG Care Time/CCT Total # of Minutes Spent Total Time Spent with Patient: Total time spent is greater than 50% in coordination of care (as documented) at patient's floor/unit and/or counseling patient: Coding Level of Care Code 90879 INT INP/OBS CARE 3/75MIN Diagnoses Syncope R55 Syncope type: unspecified Tricuspid regurgitation I07.1 Ventricular tachycardia I47.2 Pulmonary hypertension I27.20 Mitral regurgitation I34.0 Atrial fibrillation, permanent I48.21 Acute hyperkalemia E87.5 (HFpEF) heart failure with preserved ejection fraction I50.30 Bradycardia R00.1 (1) Syncope Syncope type: unspecified Qualified Code(s): R55 - Syncope and collapse
[2022-12-05] MEDS: DICLOFENAC SOD 1% GEL 100 GM TUBE EXT PRN (19:41)
[2022-12-06] MEDS: cefTRIAXone SODIUM 1,000 MG in DEXTROSE 5% AD-VAN 50 ML IV SCH
[2022-12-06] MEDS: ACETAMINOPHEN 500 MG TAB PO SCH ×3 (05:30→21:41)
[2022-12-06 06:13] LABS: Hematocrit (blood only) 28.6 % (37.0-47.0); Hemoglobin 9.3 g/dl (12.0-16.0); Mean Corpuscular Hemoglobin 31.4 pg (25.0-34.0); Mean Corpuscular Hgb Conc 32.5 g/dL (32.0-36.0); Mean Corpuscular Volume 96.6 fL (80.0-100.0); Mean Platelet Volume 9.9 fL (9.4-12.4); Platelet Count 134 K/uL (130-400); RDW Coefficient of Variation 14.6 % (11.5-14.5); RDW Standard Deviation 51.8 fL (36.4-46.3); Red Blood Count 2.96 M/uL (4.20-5.40)
[2022-12-06 06:26] LABS: BUN Creatinine Ratio 29.3 (10-20); Calcium 9.5 mg/dl (8.5-10.1); Creatinine Clr Calc Pharmacy 17.3 ml/min; Est GFR (African American) 25.3 ml/min; Est GFR (Non-African American) 21.9 ml/min; Potassium 4.6 mmol/L (3.5-5.1)
[2022-12-06 07:28] LABS: INR 1.6 (0.9-1.1); Prothrombin Time 16.2 Seconds (9.0-12.0)
[2022-12-06] MEDS: INSULIN ASPART PER UNIT SC SCH ×4 (08:38→20:41)
[2022-12-06] MEDS: allopurinoL 100 MG TAB PO SCH (09:06)
[2022-12-06] MEDS: PRAMIPEXOLE DIHYDROCHLO 0.25 MG TAB PO SCH (09:08)
--- NOTE | 2022-12-06 09:08 | Progress Note ---
Date of Service December 06, 2022 Assessment & Plan (1) Syncope: Plan: The patient is a 87 y/o female with a pertinent history of HF with preserved ejection fraction, Atrial fibrillation (currently on warfarin), HTN, and T2DM presenting to the hospital due to syncopal episodes with subsequent bradycardia requiring pacing. Syncope/fall - Syncope with prodrome, and mild confusion shortly after which resolved quickly - pt had run of vtach during last admission in 02/2022; beta cristhian therapy was not recommended d/t baseline episodic bradycardia - external pacer pads in place - echo showed EF 55-60%, moderate LVH, severe pulmonary HTN RVSP; 71 mmHg, severe biatrial dilation, tricuspid and mitral regurgitation - Manager Work recommended:- a pacemaker, the patient was put on NPO and waiting to discuss the decision with her family - avoid any rate control medication - electrophysiology Syncope type: unspecified Qualified Code(s): R55 - Syncope and collapse (2) Atrial fibrillation: Plan: Atrial fibrillation - possible cause of syncope - Rate control: pacemaker is currently being placed - avoid any rate control medication due to bradycarida - Currently on warfarin, 2 mg 12/06/22 (alternate between 1 mg and 2 mg each day) - Switch from warfarin to apixaban (as per tour leader recommendation) (3) PAMELA (acute kidney injury): Plan: PAMELA in the setting of CKD III - likely multifactorial including ibuprofen use and dehydration; FENa; 1.8% - Cr 1.29, BUN 58 (both downtrending), BUN/CR 29.3 - Due to pulmonary HTN, trying to avoid any fluid overload. Continue to monitor. (4) Acute hyperkalemia: Plan: Hyperkalemia - in the setting of PAMELA - upon admission 5.7, today 4.6 (continues to downtrend) - continue to monitor as PAMELA is addressed (5) Hypertension: Plan: Hypertension - BP 172/75 - no home BP meds due to bradycardia - continue to monitor Severe Pulmonary HTN sec to HFpEF - Possibly contributing to the weakness - RVSP 71 mmHG (6) Metabolic acidosis: Plan: [place] metabolic acidosis - original VBG showed pH = 7.22, pCO2 30 - repeat VBG showed improvement with pH= 7.27, pCO2 35 - monitor BMP (7) Hematuria: Plan: Hematuria - No gross hematuria - Continue IV 1g ceftriaxone Hematuria type: gross Qualified Code(s): R31.0 - Gross hematuria (8) Type 2 diabetes mellitus: Plan: Type 2 diabetes mellitus - A1c= 7.3%; no diabetic medications at home - Continue to monitor blood sugar - Lantus 5 units twice daily with insulin sliding scale - Goal blood sugar 488160 Plan Dispo: PCU DVT ppx: warfarin, switching to apixaban Diet: carb consistent, easy to chew Code: conditional, no intubation Admission and Anticipated Discharge Date Admission Date: December 04, 2022 Supervising Physician Co-Signing Physician Notes I personally examined the patient and verified all huntley points of history and exam, discussed case, and agree with decision making with Lisbet Herman Discussed with cardiology, input greatly appreciated. Patient seen post pacemakerstill groggy from procedure. Vitals noted, in general she is awake and alert pleasant no distress. HEENT normocephalic atraumatic mucous membranes moist. Breathing unlabored no accessory muscle use good effort. Syncope/unresponsivenessseems as though arrhythmogenic syncope most likely. Appreciate cardiology inserting pacemaker. Work towards dispo planning now. Otherwise as above Subjective The patient is a 87 y/o female with a pertinent history of HF with preserved ejection fraction, Atrial fibrillation (currently on warfarin), HTN, and T2DM presenting to the hospital due to syncopal episodes with subsequent bradycardia requiring pacing. 12/06/22 she is slightly confused. Oriented to person, place and time, but says things like "I ran the sweeper yesterday by the stairs", despite this moments of confusion, she knows why she is in the hospital and can answer questions appropriately, and expressed a desire to go home. She has been able to urniate and have a bowel movement, reports no hematuria (as per the nurse, urine has been concentrated but no gross hematuria). She has no GI discomfort, no SOB, chest pain, or palpitations. She has no chills/fever, fatigue, headache or lightheaded. She is experiencing no pain or swelling in her legs. Review of Systems Review of Systems: All systems reviewed & are unremarkable except as noted in HPI & below Physical Exam Physical Exam: The patient is oriented to person place and time, with some mild confusion and mild nonlinear thinking. Constitutional: well developed, + well hydrated and + frail appearing Eyes: PERRL, conjunctivae normal, anicteric sclerae Respiratory: normal respiratory effort, lungs clear to auscultation normal respiratory effort; no audible wheezes and no stridor Auscultation: lungs clear to auscultation bilaterally Cardiovascular: Rate/Rhythm: + bradycardic and + irregularly irregular Vessels: no JVD Extremities: normal capillary refill; no calf tenderness and no edema Skin: no rashes, warm and dry normal turgor Psychiatric: A+Ox3, euthymic affect Orientation: alert, oriented x 3, oriented to person, oriented to place, oriented to time and cooperative Results & Data ([facility]) Vital Signs (Past 12 Hours) Vital Signs Temp Pulse Pulse Resp BP Pulse Ox O2 Del Method 12/06/22 07:07 36.4 C L 62 14 172/75 H 95 Room Air 12/06/22 07:00 36.6 C 66 16 160/116 H 96 Room Air 12/06/22 03:00 36.4 C L 53 L 19 161/81 H 94 Room Air 12/05/22 22:18 64 12/05/22 23:04 36.5 C 66 19 151/82 H 95 Room Air 12/05/22 20:27 36.4 C L 58 L 19 158/69 H 94 Room Air
[2022-12-06] MEDS: LANTUS PER UNIT CHARGE SQ SCH ×2 (09:26→20:41)
--- NOTE | 2022-12-06 11:57 | Cardiology Progress Note ---
Date of Service December 06, 2022 Assessment & Plan (1) Loss of consciousness: (2) Bradycardia: (3) Atrial fibrillation, permanent: (4) On continuous oral anticoagulation: Plan 1. Loss of consciousness: Based on the EMS report it sounds as though her loss of consciousness was due to bradycardia, although we do not have rhythm strips to review. This episode was witnessed and it does seem that she was unconscious. We could consider loop recorder implantation to be confident that she has periods of bradycardia warranting a pacemaker implantation. 2. Bradycardia: She was reported to have been bradycardic by EMS, and this seems to be associated with a loss of consciousness. Her potassium however was 5.7 on presentation which could have contributed. She was on no medications to cause it. She has not had significant bradycardia on telemetry monitoring although her heart rate does dip transiently to about 30 during the night but not to the extent that was reported by EMS and she has had no loss of consciousness in the hospital. Based on the EMS report we could consider a pacemaker. 3. Atrial fibrillation: She has permanent atrial fibrillation, her heart rate has typically not been elevated but does run somewhat on the slow side historically and that may have slowed further at this time. There may be other factors involved however. To my knowledge she has remained in atrial fibrillation although I have not seen recordings from EMS, conceivably she could have transiently converted to sinus bradycardia but that is unlikely. 4. Anticoagulation: She is currently on warfarin, her son does not know of any discussion took place regarding other agents. I did review her INR readings, she is very rarely within the range of 2-3, most the time below and often above. Apparently she has difficulty with hemorrhoidal bleeding when she has elevated INR's and since she is in permanent atrial fibrillation and has a high [id number]- VASc score she is at risk of stroke when she is subtherapeutic. I do not think she should be on warfarin, according to her son she has no particular reason to be on it and I would recommend switching to Eliquis. I have not done that yet as we are still undecided as to how to proceed with her loss of consciousness. I discussed her situation at length with her son Artis, options of treatment or evaluation include continued observation since there may have been other factors involved with this episode, implantation of loop recorder to see whether she has profound bradycardia at other times or some other cause of loss of consciousness or implantation of a pacemaker. Her son is going to discuss this with the family and they will decide on a course of action. Admission and Anticipated Discharge Date Admission Date: December 04, 2022 Subjective She seems to be feeling better today, although she still seems somewhat confused and she thought that her son had been in the room just before I got there when he actually has not been in yet today. She has no specific cardiac complaints and does not have any memory of loss of consciousness. She does not recall palpitations, lightheadedness, dizziness, falling or other arrhythmic symptoms. She does not really know why she is in the hospital. I did discuss her presentation at length with her son Artis over the phone. Apparently this was a witnessed event and his description matches that of EMS. It sounds as though she was unconscious, did not fall or trip but was helped to the floor and remained there. Of note her son tells me that she generally is very sharp, since presentation she has been quite confused and disoriented which apparently is new. Physical Exam Physical Exam: Constitutional: Alert, cooperative and in no distress. She is confused however. HEENT: Unremarkable Neck: No jugular venous distention, carotid pulses are irregular but otherwise normal and equal bilaterally without bruits. Pulmonary: Clear to auscultation bilaterally. Cardiac: Irregular rhythm with no murmur, gallop or rub. Abdomen: Soft, nontender with normal bowel sounds. Extremities: No edema. Distal pulses intact. Neurologic: No focal findings. Gait was not tested. Skin: No rash, ecchymoses or petechiae. Results & Data ([facility]) Vital Signs (Past 12 Hours) Vital Signs Temp Pulse Pulse Pulse Resp BP Pulse Ox 12/06/22 11:24 36.3 C L 69 19 171/93 H 95 12/06/22 07:30 54 L 12/06/22 07:30 12/06/22 07:07 36.4 C L 62 14 172/75 H 95 12/06/22 07:00 36.6 C 66 16 160/116 H 96 12/06/22 03:00 36.4 C L 53 L 19 161/81 H 94 O2 Del Method 12/06/22 11:24 Room Air 12/06/22 07:30 12/06/22 07:30 Room Air 12/06/22 07:07 Room Air 12/06/22 07:00 Room Air 12/06/22 03:00 Room Air Laboratory Results Coagulation 12/06/22 Range/Units 05:32 PT 16.2 H (9.0-12.0) Seconds CBC 12/06/22 Range/Units 05:32 WBC 5.20 (4.8-10.8) K/ul RBC 2.96 L (4.20-5.40) M/uL Hgb 9.3 L (12.0-16.0) g/dl Hct 28.6 L (37.0-47.0) % Plt Count 134 (130-400) K/uL Comprehensive Metabolic Panel 12/06/22 Range/Units 05:32 Sodium 139 (136-145) mmol/L Potassium 4.6 (3.5-5.1) mmol/L Chloride 115 H (98-107) mmol/L Carbon Dioxide 16 L (21-32) mmol/L BUN 58 H (6-23) mg/dl Creatinine 1.98 H D (0.6-1.2) mg/dl Glucose 84 (70-99(Fasting)) mg/dl Calcium 9.5 (8.5-10.1) mg/dl Intake and Output 12/05/22 12/06/22 12/06/22 22:59 06:59 14:59 Intake Total 75 / 435 Balance 75 / 435 Intake: IV 50 / 50 cefTRIAXone SODIUM 1,000 mg In 50 / 50 Dextrose 5% Ad-Van 50 ml @ 100 mls/hr IV Q24H [facility] Rx#:[id number] Oral 25 / 385 Other: Other Intake Source sips with meds # Unmeasured Voids 1 Weight 65.2 kg 63.7 kg Diagnostic Findings Telemetry: Atrial fibrillation throughout, heart rate averaging around 70 bpm visually although at times dropping to around 30 but only for several seconds at a time. No significantly fast heart rates although it does seem to increase appropriately at times. No ventricular arrhythmias and no pauses of 3 seconds or more. PG Care Time/CCT Total # of Minutes Spent Total Time Spent with Patient: Total time spent is greater than 50% in coordination of care (as documented) at patient's floor/unit and/or counseling patient: Coding Level of Care Code 80651 SUB INP/OBS CARE 3/50MIN Diagnoses Loss of consciousness R40.20 Bradycardia R00.1 Atrial fibrillation, permanent I48.21 On continuous oral anticoagulation Z79.01
[2022-12-06] MEDS ORDERED: VANCOMYCIN HCL 1000MG/20ML VIAL ONE (14:56)
[2022-12-06] MEDS ORDERED: WATER, STERILE FOR INJ 10 ML VIAL ONE (14:56)
[2022-12-06] MEDS ORDERED: BACITRACIN OINT 0.9 GM PKT ONE (14:56)
[2022-12-06] MEDS ORDERED: LIDOCAINE 1% LOCAL 20 ML VIAL ONE (14:57)
[2022-12-06] MEDS ORDERED: BUPIVACAINE 0.25% 30 ML VIAL ONE (14:58)
--- NOTE | 2022-12-06 15:20 | Pre Anesthesia Assessment ---
Date of Service December 06, 2022 Pre Sedation Assessment Vital Signs Temp Pulse Pulse Pulse Resp BP Pulse Ox 12/06/22 11:24 36.3 C L 69 19 171/93 H 95 12/06/22 07:30 54 L 12/06/22 07:30 12/06/22 07:07 36.4 C L 62 14 172/75 H 95 12/06/22 07:00 36.6 C 66 16 160/116 H 96 12/06/22 03:00 36.4 C L 53 L 19 161/81 H 94 12/05/22 22:18 64 12/05/22 23:04 36.5 C 66 19 151/82 H 95 12/05/22 20:27 36.4 C L 58 L 19 158/69 H 94 12/05/22 15:24 41 L 12/05/22 15:21 36.7 C 87 18 158/69 H 96 O2 Del Method 12/06/22 11:24 Room Air 12/06/22 07:30 12/06/22 07:30 Room Air 12/06/22 07:07 Room Air 12/06/22 07:00 Room Air 12/06/22 03:00 Room Air 12/05/22 22:18 12/05/22 23:04 Room Air 12/05/22 20:27 Room Air 12/05/22 15:24 12/05/22 15:21 Room Air Cardiovascular + irregularly irregular Respiratory normal respiratory effort, lungs clear to auscultation Pre-Sedation Airway Assessment Smoking Status: Never smoker Hx Sleep Apnea: No Short, Thick Neck: No Thyromental Distance: > or= 3.5 Finger Breadths Oral Cavity: + Dentures Mallampati Class: III ASA: ASA4 NPO Status Date of Last Intake of Fluids: 12/05/22 Time of Last Intake of Fluids: 20:00 Date of Last Intake of Solid Food: 12/05/22 Time of Last Intake of Solid Foods: 20:00 Procedure Planning Contraindications for Sedation: none Current Medications Reviewed: Yes Notes The planned sedation has been discussed with the patient. Informed Consent was obtained. I have identified the patient, determined the appropriateness of sedation and have assessed the patient immediately prior to the procedure. All medicine(s) and interventions are by my order.
[2022-12-06] MEDS ORDERED: MIDAZOLAM HCL 1 MG/ML 2ML VIAL ONE (15:25)
[2022-12-06] MEDS ORDERED: ceFAZolin 330 MG/ML 1 GM VIAL ONE (15:25)
[2022-12-06] MEDS ORDERED: fentaNYL citrate 100 MCG/2 ML VIAL ONE (15:25)
[2022-12-06] MEDS ORDERED: WARFARIN SOD 2 MG TAB PO SCH (16:00)
--- NOTE | 2022-12-06 16:38 | Electrophysiology Report ---
Date of Service December 06, 2022 Electrophysiology Procedure Electrophysiology Procedure Report Preoperative diagnosis: Postoperative diagnosis: Same Procedure: Single chamber pacemaker implantation Surgeon: Bhaskar Story MD Estimated blood loss: 20 cc Complications: None Disposition: Supervisor Audit Clerks recovery Procedure details: After obtaining informed consent for the procedure, the patient was brought to the laboratory and prepped and draped in the standard sterile manner. The left prepectoral region was anesthetized with 1% lidocaine local anesthetic and left axillary venipuncture was performed by percutaneous technique and a guidewire placed through the left subclavian vein into the superior vena cava. The area was further infiltrated with 1% lidocaine local anesthetic and a 5 cm incision was made parallel to the left clavicle and 2 cm below it and carried down to the anterior pectoralis fascia. A pacemaker pocket was formed by blunt dissection anterior to the pectoralis fascia and a vancomycin soaked sponge was placed in the pocket. A 7 Swedish Medtronic lead introducer was placed over the guidewire into the left subclavian vein, the dilator and guidewire were removed and a C315 sheath was advanced into the right ventricle over a guidewire. The guidewire and the dilator were removed and a bipolar active fixation Select Secure steroid tipped ventricular lead was advanced through the introducer into right ventricle. The ventricular lead was advanced through the sheath into a mid septal location. The screw was extended fixing the lead in position. Penetration into the septum was confirmed with dye injection. Pacing and sensing thresholds were evaluated in bipolar configuration and are recorded on the implant data sheet. The sheath system was stripped from the ventricular lead and the 7 Swedish sheath was also stripped from the lead. Once the lead was in position it was attached to the anterior pectoralis fascia using 2 sutures of 2-0 silk around the lead collar. The vancomycin-soaked sponge was removed from the pocket, hemostasis was obtained, the pacemaker was attached to the lead and placed in the pocket with the lead coiled beneath it. The incision was closed with a running double subcutaneous closure of 3-0 Vicryl absorbable suture, followed by running subcuticular skin closure of 4-0 Vicryl absorbable suture. Bacitracin ointment was placed on the incision and a dressing applied. [facility] Electrophysiology codes Indication for Procedure (1) Bradycardia: Pacing Procedure 1: Pacin Insert/Replace Pacer V PG Moderate Sedation Codes Moderate Sedation Codes Procedure 1: Sedation/Anesthesia: 64207 Mod Sedation by the same physician;Init15 Min Child Age 5 & Up Procedure 2: Sedation/Anesthesia: 28054 Mod Sedation by the same physician; Ea [id number] Minutes
[2022-12-06] MEDS ORDERED: ACETAMINOPHEN 325 MG TAB PO PRN (16:42)
--- NOTE | 2022-12-06 16:42 | Post Anesthesia Assessment ---
Date of Service December 06, 2022 Post Sedation Assessment Vital Signs Temp Pulse Pulse Pulse Resp BP Pulse Ox 12/06/22 15:40 57 L 12/06/22 11:24 36.3 C L 69 19 171/93 H 95 12/06/22 07:30 54 L 12/06/22 07:30 12/06/22 07:07 36.4 C L 62 14 172/75 H 95 12/06/22 07:00 36.6 C 66 16 160/116 H 96 12/06/22 03:00 36.4 C L 53 L 19 161/81 H 94 12/05/22 22:18 64 12/05/22 23:04 36.5 C 66 19 151/82 H 95 12/05/22 20:27 36.4 C L 58 L 19 158/69 H 94 O2 Del Method 12/06/22 15:40 12/06/22 11:24 Room Air 12/06/22 07:30 12/06/22 07:30 Room Air 12/06/22 07:07 Room Air 12/06/22 07:00 Room Air 12/06/22 03:00 Room Air 12/05/22 22:18 12/05/22 23:04 Room Air 12/05/22 20:27 Room Air Discharge Sedation Level of Care: Fast Track Phase II Post Sedation Plan On clinical assessment, the patient appears to have tolerated the sedation wit hout complications. Patient is recovering as anticipated. Patient will continue to be monitored by nursing and may be discharged when sedation discharge criteria are met per below protocol. Upon Completions of procedure up to 15 minutes continue every 5 minute vital signs and the P.A.R. score; then discharge to a Phase I or Fast Track to Phase II per the following guidelines: * Discharge Patient to appropriate Phase II area if PAR is 8 or greater or return to pre- procedure baseline. The post - procedure orders will be as directed. * If PAR score is less than 8 or not return to pre-procedure baseline then patient will follow Phase I monitoring till PAR is reached for Phase II. The Phase I may be done in procedure room or may call to secure a Phase I area. * If naloxone or flumazenil are used for reversal, hold in Phase I for continued monitoring from when last reversal dose was given for a minimum of 60 minutes or longer pending the nurse and/or physician discretion of patient condition before discharge to Phase II. Please call the Sedation Physician to re-evaluate and complete post-note for discharge to Phase II area. Do NOT discharge from procedure sedation or Phase 1 until post- sedation evaluation note is complete by procedure /sedation MD Sedation Discharge Instructions to be given to the patient at discharge to home.
--- NOTE | 2022-12-06 18:50 | Billing Data ---
Date of Service December 06, 2022 Coding Level of Care Code 14657 SUB INP/OBS CARE
[2022-12-06] MEDS: METOPROLOL TARTRATE 25 MG TAB PO SCH ×2 (20:34→21:27)
[2022-12-06] MEDS: DICLOFENAC SOD 1% GEL 100 GM TUBE EXT PRN (20:42)
[2022-12-07] MEDS: cefTRIAXone SODIUM 1,000 MG in DEXTROSE 5% AD-VAN 50 ML IV SCH (00:23)
[2022-12-07] MEDS: ACETAMINOPHEN 500 MG TAB PO SCH ×3 (06:06→21:14)
[2022-12-07 06:10] LABS: Hematocrit (blood only) 28.2 % (37.0-47.0); Hemoglobin 9.2 g/dl (12.0-16.0); Mean Corpuscular Hemoglobin 31.1 pg (25.0-34.0); Mean Corpuscular Hgb Conc 32.6 g/dL (32.0-36.0); Mean Corpuscular Volume 95.3 fL (80.0-100.0); Mean Platelet Volume 9.8 fL (9.4-12.4); Platelet Count 141 K/uL (130-400); RDW Coefficient of Variation 14.8 % (11.5-14.5); RDW Standard Deviation 50.6 fL (36.4-46.3); Red Blood Count 2.96 M/uL (4.20-5.40); White Blood Count 5.66 K/ul (4.8-10.8)
--- NOTE | 2022-12-07 07:34 | Discharge Summary ---
Date of Service December 07, 2022 Admission HPI Per Admitting Provider Fiordaliza Woodard is an 87-year-old female with history of hypertension, diabetes, heart failure with preserved EF and atrial fibrillation on Coumadin anticoagulation presenting from home with concern for an asystolic event. Majority of history is obtained from the son who is at bedside. Son reports that over the last several days patient has been complaining of lot of leg pain. The pain is constant, aching and severe in nature. She was taking Tylenol fairly frequently. Approximately 5 days ago the son began alternating Tylenol with ibuprofen because he was concerned that the patient may be taking too much Tylenol. Today the patient's left most of the day and was feeling ill. Her son checked her INR and found it to be elevated at 4.2. Her Coumadin and ibuprofen were held today. This evening patient had an several eventspossible seizure, possible syncope. Son reports that patient was laying in bed when she became unresponsive. She was moving her arms and not responding to voice. The first episode lasted approximately 1 minute. Son reports that patient was confused upon waking which lasted less than 5 minutes. Approximately 10 minutes later she had a second episode of unresponsiveness with arms waving. This episode lasted approximately 1 minute as well. Son called 911. Upon arrival of EMS patient had a third episode of unresponsiveness. After the episode of bradycardia was noted on the monitor. Patient was given atropine and transcutaneous pacer pads were placed. Patient has been in rate controlled atrial fibrillation since with frequent PVCs.Denies Patient denies fever, chills, chest pain, cough, shortness of breath, abdominal pain, nausea, vomiting, diarrhea, constipation. She does admit to some dizziness with standing. Also complaining of ongoing bilateral leg pain as well as left hand numbness which is chronic and unchanged. In the ER patient is afebrile, remains in atrial fibrillationrate controlled, bradycardic at times. Frequent PVCs noted on monitor. Blood pressure has been stable. Patient has had no further episodes of syncope since her arrival to the ER. ER course: Ceftriaxone 2 g Calcium chloride 1 g Insulin regular 10 units IV Dextrose 50 mL IV Normal saline 500 mL Discharge Data Allergies Allergy/AdvReac Type Severity Reaction Status Date / Time acetaminophen [From [place]] AdvReac Intermediate Nausea Verified 12/03/22 23:28 atorvastatin [From Lipitor] AdvReac Intermediate NOT Verified 12/03/22 23:28 TOLERATED fluvastatin [From [place]] AdvReac Intermediate NOT Verified 12/03/22 23:28 TOLERATED gabapentin AdvReac Intermediate Nausea Verified 12/03/22 23:28 hydrocodone [From [place]] AdvReac Intermediate Nausea Verified 12/03/22 23:28 sulfamethoxazole AdvReac Intermediate Nausea Verified 12/03/22 23:28 [From Bactrim] trimethoprim [From Bactrim] AdvReac Intermediate Nausea Verified 12/03/22 23:28 Consultations 12/04/22 00:26 ED Decision to Admit Stat 12/05/22 10:24 Consult Cardiology Routine Procedures Performed Operation Date: 12/06/22 15:00 Actual Procedures p Pacer with Ventricular Lead - Bhaskar Story MD Ordered Studies 12/06/22 14:45 EP Lab Images for PACS ONCE Hospital Course (1) Syncope: The patient is a plesant 87 y/o female with a pertinent history of heart failure with preserved ejection fraction, chronic atrial fibrillation (currently on anticoagulation), HTN, and T2DM presenting to the hospital due to syncopal episodes with subsequent bradycardia requiring pacing. Syncope/fall - Syncope with prodrome, and mild confusion shortly after which resolved quickly - pt had run of vtach during last admission in 02/2022; beta cristhian therapy was not recommended d/t baseline episodic bradycardia - external pacer pads in place - echo showed EF 55-60%, moderate LVH, severe pulmonary HTN RVSP; 71 mmHg, severe biatrial dilation, tricuspid and mitral regurgitation - The patient received a pacemaker during her stay due to bradycardia - Anticoagulation therapy was changed from warfarin to Eliquis. Please continue the new regime. (2) Atrial fibrillation: Atrial fibrillation - possible cause of syncope - Rate control: pacemaker was placed - avoid any rate control medication due to bradycardia - As per operating engineer recommendation, continue Eliquis and discontinue warfarin (3) PAMELA (acute kidney injury): PAMELA in the setting of CKD III - Resolved - likely multifactorial including ibuprofen use and dehydration - Cr 1.71, BUN 51 (both downtrending), BUN/CR 29.8 - Due to pulmonary HTN (4) Acute hyperkalemia: Hyperkalemia - Resolved, occurred in the setting of PAMELA - upon admission 5.7, now is in normal range 4.9 (5) Hypertension: Hypertension - BP 172/75 - Now that pacemaker is in place metoprolol can be used to improve hypertension - Continue taking Metoprolol 25 mg at home twice per day 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 Possibly contributing to the weakness - RVSP 71 mmHG (6) Metabolic acidosis: [place] metabolic acidosis -Electrolyte abnormalities have continued to improve through the course of her stay -Likely secondary to CKD and PAMELA (7) Hematuria: UTI/ Hematuria - Culture grew e.coli. IV ceftriaxone was administered during the course of hospital stay - Continue at home antibiotics PO - No gross hematuria (8) Type 2 diabetes mellitus: Type 2 diabetes mellitus - A1c= 7.3%; no diabetic medications at home -Goal blood sugar [id number] -Control with diet Plan Dispo: PCU DVT ppx: apixaban Diet: carb consistent, easy to chew Code: conditional, no intubation Discharge Plan Discharge Items Reason For Visit: ?ASYSTOLIC EVENT Follow-up/Referrals: Ned Tomlin MD [Primary Care Provider] - Medications and DC Order Prescriptions: No Action hydrocortisone 2.5 % cream with perineal applicator 1 applic [place] TID PRN (Reason: hemorrhoids) 14 Days Qty: 30 2RF simvastatin 40 mg tablet 40 mg PO QPM Qty: 90 3RF (DME) Accu-Chek Cheryl Plus test strp Strip See Rx Instructions .Route Qty: 50 5RF Rx Instructions: test once daily (DME) blood-glucose meter [Accu-Chek Cheryl Plus Meter] [facility] See Rx Instructions .Route Qty: 1 0RF Rx Instructions: test once daily (DME) lancets [Accu-Chek Softclix Lancets] Misc See Rx Instructions .Route Qty: 100 5RF Rx Instructions: test once daily diclofenac sodium [Arthritis Pain (diclofenac)] 1 % gel 2 g topical QID PRN (Reason: arthritis pain) Qty: 100 5RF furosemide [Lasix] 20 mg tablet 20 mg PO 2XWK Rx Instructions: 20 mg PO 2X weekly Monday and allopurinol 100 mg tablet 50 mg PO DAILY Cerovite Senior 0.4 mg-300 mcg- 250 mcg Tablet 1 tab PO QAM Qty: 30 0RF Rx Instructions: OTC warfarin 1 mg tablet 1 - 2 mg PO QPM Protocol: Dose Management Condition: Monday (Week One) Dose/Route: 1 mg Instruction: 1 x 1 mg tablet Condition: Monday Dose/Route: 2 mg Instruction: 2 x 1 mg tablets Condition: Monday Dose/Route: 1 mg Instruction: 1 x 1 mg tablet Condition: Monday Dose/Route: 2 mg Instruction: 2 x 1 mg tablets Condition: Dose/Route: 1 mg Instruction: 1 x 1 mg tablet Condition: Monday Dose/Route: 2 mg Instruction: 2 x 1 mg tablets Condition: Monday Dose/Route: 1 mg Instruction: 1 x 1 mg tablet Condition: Monday (Week Two) Dose/Route: 2 mg Instruction: 2 x 1 mg tablets Condition: Monday Dose/Route: 1 mg Instruction: 1 x 1 mg tablet Condition: Monday Dose/Route: 2 mg Instruction: 2 x 1 mg tablets Condition: Monday Dose/Route: 1 mg Instruction: 1 x 1 mg tablet Condition: Dose/Route: 2 mg Instruction: 2 x 1 mg tablets Condition: Monday Dose/Route: 1 mg Instruction: 1 x 1 mg tablet Condition: Monday Dose/Route: 2 mg Instruction: 2 x 1 mg tablets Protocol Text: Adjustment Start Date: Monday11/23/22 INR Value: 2.9 INR Date: 11/14/22 Recheck Date: 12/07/22 Rx Instructions: PER PT'S SON "DID NOT GIVE, INR 4". will check INR in 2wks. alternate 1mg and 2mg acetaminophen [Tylenol Extra Strength] 500 mg Tablet 1,000 mg PO DIRECTED PRN (Reason: Pain) Krames/Other Patient Handouts: Managing Type 2 Diabetes Admission Data Admit Date/Time: 12/04/22 01:14 Attending Provider: Junior Guzman Admit Provider: Santa Richardson Primary Care Provider: Ned Tomlin Other Providers: Santa Richardson ; Elif Melgar ; Glne Garsia ; Elieser Valverde ; Khurram Mcdaniels ; Manny Aguilera ; Bhaskar Story ; Hong Herman Jr ; Ferny Sousa ; Coral Castellanos ; Clara Urrutia ; Juan Bullock ; Ned Henry ; Ata Cobb ; Nimisha Vick ; Daisy Dave ; Bo Elizabeth ; Dylan Umana ; Garfield Watson ; Manny Fernandez V.
[2022-12-07 07:38] LABS: INR 1.4 (0.9-1.1); Prothrombin Time 14.6 Seconds (9.0-12.0)
[2022-12-07 07:55] LABS: BUN Creatinine Ratio 29.8 (10-20); Calcium 9.3 mg/dl (8.5-10.1); Creatinine Clr Calc Pharmacy 18.4 ml/min; Est GFR (African American) 30.2 ml/min; Est GFR (Non-African American) 26.1 ml/min; Potassium 4.9 mmol/L (3.5-5.1)
--- NOTE | 2022-12-07 08:57 | XRay Report ---
XR chest 2V PA/lateral HISTORY: 87 years-old Female EXACT TIME ORDERED Evaluate for pneumothorax and l status post placemen t of a left subclavian pacer COMPARISON: 12/03/2022 TECHNIQUE: AP and lateral views of the chest FINDINGS: Cardiac silhouette is enlarged. Left subclavian pacer. Atherosclerosis of the aorta. No postprocedura l pneumothorax. Small right and trace left pleural effusions with mild bibasilar densities. Pulmonary vascular congestion with interstitial coarsening is similar to prior. Peripherally calcified splenic artery aneurysms again noted. Degenerative changes of the shoulders and spine. IMPRESSION: 1. Status post placement of a left subclavian pacer. No postprocedural pneumothorax identified. 2. Cardiomegaly with pulmonary edema. 3. Trace left and small right pleural effusions appear similar to prior. ACT 112: Negative or not required by law. The above report was generated using voice recognition software. It may contain grammatical, syntax o r spelling errors. Electronically signed by: Jerry Duarte M.D. 12/07/2022 8:55 AM
[2022-12-07] MEDS: INSULIN ASPART PER UNIT SC SCH ×4 (09:13→21:07)
[2022-12-07] MEDS: LANTUS PER UNIT CHARGE SQ SCH ×2 (09:13→21:08)
[2022-12-07] MEDS: allopurinoL 100 MG TAB PO SCH (09:13)
[2022-12-07] MEDS: METOPROLOL TARTRATE 25 MG TAB PO SCH ×2 (09:14→21:14)
[2022-12-07] MEDS: PRAMIPEXOLE DIHYDROCHLO 0.25 MG TAB PO SCH (09:14)
--- NOTE | 2022-12-07 09:35 | Cardiology Progress Note ---
Date of Service December 07, 2022 Assessment & Plan (1) Status post placement of cardiac pacemaker: (2) Atrial fibrillation, permanent: (3) On continuous oral anticoagulation: Plan 1. Single-chamber pacemaker: Her pacemaker is working well, the site looks good and the x-ray shows good lead position. She is stable for discharge from my standpoint. I will arrange follow-up in our office in 2 days. 2. Atrial fibrillation: Her rate has been well controlled or slow in the past, I did add beta-blockade yesterday and she is mostly paced. I have not altered her therapy, her blood pressure remains elevated so going up in the beta-cristhian might be beneficial. 3. Anticoagulation: I would not restart warfarin, her INR this morning is 1.4 and I am going to start Eliquis. Her dose would be 2.5 mg twice a day based on her age and kidney function, her weight is borderline for that dose as well. I am going to start that this evening, I would prefer not to start it this morning due to the recent surgery yesterday afternoon. Admission and Anticipated Discharge Date Admission Date: December 04, 2022 Subjective She is feeling fairly well this morning, she is conversational, more oriented. Denies significant incisional discomfort although she does have some. No shortness of breath or chest discomfort. Physical Exam Physical Exam: The incision is clean and dry with minimal ecchymosis. No bleeding or drainage. Lungs are clear Cardiac rhythm is regular with no rub Results & Data ([facility]) Vital Signs (Past 12 Hours) Vital Signs Temp Pulse Pulse Pulse Resp BP Pulse Ox 12/07/22 07:42 36.7 C 60 16 165/88 H 96 12/07/22 04:00 37.2 C 62 16 149/72 H 95 12/07/22 00:35 64 16 139/68 93 12/06/22 22:10 67 12/06/22 22:00 36.6 C 64 18 150/92 H 96 O2 Del Method 12/07/22 07:42 Room Air 12/07/22 04:00 Room Air 12/07/22 00:35 Room Air 12/06/22 22:10 12/06/22 22:00 Room Air Laboratory Results Coagulation 12/07/22 Range/Units 05:26 PT 14.6 H (9.0-12.0) Seconds CBC 12/07/22 Range/Units 05:26 WBC 5.66 (4.8-10.8) K/ul RBC 2.96 L (4.20-5.40) M/uL Hgb 9.2 L (12.0-16.0) g/dl Hct 28.2 L (37.0-47.0) % Plt Count 141 (130-400) K/uL Comprehensive Metabolic Panel 12/07/22 Range/Units 05:26 Sodium 139 (136-145) mmol/L Potassium 4.9 (3.5-5.1) mmol/L Chloride 115 H (98-107) mmol/L Carbon Dioxide 17 L (21-32) mmol/L BUN 51 H (6-23) mg/dl Creatinine 1.71 H (0.6-1.2) mg/dl Glucose 72 (70-99(Fasting)) mg/dl Calcium 9.3 (8.5-10.1) mg/dl Intake and Output 12/06/22 12/07/22 12/07/22 22:59 06:59 14:59 Intake Total 300 / 350 50 / 350 Balance 300 / 350 50 / 350 Intake: IV 50 / 50 cefTRIAXone SODIUM 1,000 mg In 50 / 50 Dextrose 5% Ad-Van 50 ml @ 100 mls/hr IV Q24H [facility], [facility]–1983 Rx#:[id number] Oral 300 / 300 Other: Other Intake Source NPO Weight 61.2 kg Diagnostic Findings Postop ECG: A-fib with intermittent ventricular pacing, appropriately paced. PVCs as well. Telemetry: Atrial fibrillation with mostly ventricular pacing, appropriate rate. Chest x-ray: Good lead position, no pneumothorax Pacemaker evaluation: Excellent pacing and sensing characteristics PG Care Time/CCT Total # of Minutes Spent Total Time Spent with Patient: Total time spent is greater than 50% in coordination of care (as documented) at patient's floor/unit and/or counseling patient: Coding Level of Care Code 96391 Post Operative Follow-Up Diagnoses Status post placement of cardiac pacemaker Z95.0 Atrial fibrillation, permanent I48.21 On continuous oral anticoagulation Z79.01 CPT Codes Pacemaker Single Lead Programming - 17522 ([id number])
[2022-12-07] MEDS: DICLOFENAC SOD 1% GEL 100 GM TUBE EXT PRN (13:02)
--- NOTE | 2022-12-07 14:01 | Hospitalist Progress Note ---
Date of Service December 07, 2022 Assessment & Plan (1) Syncope: (2) PAMELA (acute kidney injury): (3) Acute hyperkalemia: (4) Metabolic acidosis: (5) Atrial fibrillation: (6) Type 2 diabetes mellitus: (7) Hematuria: (8) Heart block: (9) Anticoagulated on Coumadin: Plan Pt is a 87 yo female with PMH of HFpEF, afib on coumadin, HTN, and DM presenting to the hospital due to syncopal episodes with subsequent bradycardia/asystole requiring pacing and atropine x1. No chest compressions or shocks administered per chart review. Syncope/fall - possible syncopal episodes x3 followed by episode of bradycardia - orthostatics neg - echo showed EF 55-60%, moderate LVH, severe RVSP - troponin was elevated upon admission; has peaked and downtrended - pacemaker implanted 12/06- no complications - pt does endorse mild sternal discomfort most likely related to her procedure; tx w/ tylenol and voltaren gel Severe pulmonary HTN sec to HFpEF - may be contributor to the weakness/syncopal episodes - RSVP 71, worsened from previous echo PAMELA in the setting of CKD III- improved - baseline appears to be 1.3-1.7 - upon admission, Cr 2.39 - likely multifactorial including ibuprofen use and dehydration; FeNa 1.8% - pt is s/p 1L, increased PO intake - Cr today 1.71 Hyperkalemia - in the setting of PAMELA - given 10 units of insulin w/ dextrose and calcium upon admission - upon admission 5.7; has been WNL - continue to monitor Hematuria - gross hematuria - INR supratherapeutic at 3.9 upon admission (warfarin since d/c) - UA 3+ leuk esterase, 2+ bacteria; urine cx grew pansensitive e.coli - continue ceftriaxone 1 g IV daily; transition to PO cefdinir upon discharge (day 3) Type 2 diabetes mellitus - A1c= 7.3%; no diabetic medications at home - Continue to monitor blood sugar - Lantus 5 units twice daily with insulin sliding scale - Goal blood sugar [id number] Hypertension - BP stable - no home BP meds - continue to monitor Atrial fibrillation - s/p pacemaker - addition of metoprolol 25 mg BID - d/c warfarin, will begin eliquis 2.5 mg BID Dispo: PCU, plan to d/c tomorrow DVT ppx: eliquis 2.5 mg BID Diet: carb consistent, easy to chew Code: conditional, no intubation Admission and Anticipated Discharge Date Admission Date: December 04, 2022 Supervising Physician Co-Signing Physician Notes I personally examined the patient and verified all huntley points of history and exam, discussed case, and agree with decision making with Dr Julio some chset pain around surg site and sternum - doesn't quite feel up to going h ome yet Vitals noted, in general she is awake and alert pleasant no distress. HEENT normocephalic atraumatic mucous membranes moist. Breathing unlabored no accessory muscle use good effort. reproducible chest apin Syncope/unresponsivenessseems as though arrhythmogenic syncope most likely. Appreciate cardiology inserting pacemaker. Work towards dispo planning now - pain control today. Otherwise as above Subjective The patient is a 87 y/o female with a pertinent history of HF with preserved ejection fraction, Atrial fibrillation (currently on warfarin), HTN, and T2DM presenting to the hospital due to syncopal episodes with subsequent bradycardia requiring pacing. Pt seen at bedside this AM. She has new chest pain that is right over her sternum. Otherwise, pt feels ok. She is still slightly confused and does not remember her procedure yesterday. Review of Systems Review of Systems: All systems reviewed & are unremarkable except as noted in HPI & below Physical Exam Constitutional: NAD. Vitals WNL. Eyes: no conjunctival abnormality Respiratory: CTA bilaterally. No rhonchi, wheezing, or crackles. Non labored breathing. Cardiovascular: Paced rhythm. No murmur noted. No LL edema. Musculoskeletal: Pain reproducible w/ palpation over sternum Skin: no rashes, warm and dry Psychiatric: Alert. Mood and affect congruent. Results & Data Results & Data ([facility]) Vital Signs (Past 12 Hours) Vital Signs Temp Pulse Pulse Pulse Resp BP Pulse Ox 12/07/22 11:52 36.5 C 62 16 152/87 H 92 12/07/22 09:42 61 12/07/22 07:42 36.7 C 60 16 165/88 H 96 12/07/22 04:00 37.2 C 62 16 149/72 H 95 O2 Del Method 12/07/22 11:52 Room Air 12/07/22 09:42 12/07/22 07:42 Room Air 12/07/22 04:00 Room Air Resident Activity Tracking Resident Involvement: Resident Care Provided Care Provided: Adult Hospital Medicine (1) Syncope Syncope type: unspecified Qualified Code(s): R55 - Syncope and collapse (7) Hematuria Hematuria type: gross Qualified Code(s): R31.0 - Gross hematuria
--- NOTE | 2022-12-07 15:24 | Electrocardiogram Report ---
Test Reason : Blood Pressure : / mmHG Vent. Rate : 069 BPM Atrial Rate : 084 BPM P-R Int : 000 ms QRS Dur : 150 ms QT Int : 446 ms P-R-T Axes : 000 -74 055 degrees QTc Int : 477 ms Atrial fibrillation with frequent ventricular-paced complexes and with premature ventricular or aberr antly conducted complexes Right bundle branch block Left anterior fascicular block Bifascicular block Abnormal ECG When compared with ECG of 04-DEC-2022 05:34, Ventricular paced complexes are now present Confirmed by Ferny Sousa ([id number]) on 12/07/2022 3:23:47 PM Referred By: REFERRED SELF Confirmed By:Ferny Sousa
--- NOTE | 2022-12-07 17:29 | Billing Data ---
Date of Service December 07, 2022 Coding Level of Care Code 82177 SUB INP/OBS CARE
[2022-12-07] MEDS: APIXABAN 2.5 MG TAB PO SCH (21:14)
--- NOTE | 2022-12-08 00:15 | Electrocardiogram Report ---
Test Reason : Blood Pressure : / mmHG Vent. Rate : 065 BPM Atrial Rate : 069 BPM P-R Int : 000 ms QRS Dur : 152 ms QT Int : 484 ms P-R-T Axes : 000 105 -71 degrees QTc Int : 503 ms Ventricular-paced rhythm with occasional Premature ventricular complexes Abnormal ECG When compared with ECG of 06-DEC-2022 17:54, Vent. rate has decreased BY 4 BPM Confirmed by Ferny Sousa ([id number]) on 12/08/2022 12:15:20 AM Referred By: REFERRED SELF Confirmed By:Ferny Sousa
[2022-12-08] MEDS: cefTRIAXone SODIUM 1,000 MG in DEXTROSE 5% AD-VAN 50 ML IV SCH ×2 (01:43→23:48)
[2022-12-08] MEDS: ACETAMINOPHEN 500 MG TAB PO SCH ×3 (06:06→21:57)
[2022-12-08 07:06] LABS: Hematocrit (blood only) 29.8 % (37.0-47.0); Hemoglobin 9.6 g/dl (12.0-16.0); Mean Corpuscular Hemoglobin 30.8 pg (25.0-34.0); Mean Corpuscular Hgb Conc 32.2 g/dL (32.0-36.0); Mean Corpuscular Volume 95.5 fL (80.0-100.0); Mean Platelet Volume 10.2 fL (9.4-12.4); Platelet Count 146 K/uL (130-400); RDW Coefficient of Variation 14.8 % (11.5-14.5); RDW Standard Deviation 51.8 fL (36.4-46.3); Red Blood Count 3.12 M/uL (4.20-5.40); White Blood Count 6.45 K/ul (4.8-10.8)
[2022-12-08 07:26] LABS: BUN Creatinine Ratio 30.4 (10-20); Calcium 9.2 mg/dl (8.5-10.1); Creatinine Clr Calc Pharmacy 18.4 ml/min; Est GFR (African American) 30.2 ml/min; Est GFR (Non-African American) 26.1 ml/min; Potassium 4.6 mmol/L (3.5-5.1)
[2022-12-08] MEDS: DICLOFENAC SOD 1% GEL 100 GM TUBE EXT PRN ×2 (08:19→13:14)
[2022-12-08] MEDS: INSULIN ASPART PER UNIT SC SCH ×4 (08:32→20:42)
[2022-12-08] MEDS: LANTUS PER UNIT CHARGE SQ SCH ×2 (08:33→20:42)
[2022-12-08] MEDS: allopurinoL 100 MG TAB PO SCH (08:37)
[2022-12-08] MEDS: METOPROLOL TARTRATE 25 MG TAB PO SCH ×2 (08:38→20:23)
[2022-12-08] MEDS: APIXABAN 2.5 MG TAB PO SCH ×2 (08:38→20:23)
[2022-12-08] MEDS: PRAMIPEXOLE DIHYDROCHLO 0.25 MG TAB PO SCH (08:38)
--- NOTE | 2022-12-08 11:22 | Discharge Summary ---
Date of Service December 08, 2022 Admission HPI Per Admitting Provider Chief Complaint: asystolic event Primary Care Provider: Ned Tomlin MD Fiordaliza Woodard is an 87-year-old female with history of hypertension, diabetes, heart failure with preserved EF and atrial fibrillation on Coumadin anticoagulation presenting from home with concern for an asystolic event. Majority of history is obtained from the son who is at bedside. Son reports that over the last several days patient has been complaining of lot of leg pain. The pain is constant, aching and severe in nature. She was taking Tylenol fairly frequently. Approximately 5 days ago the son began alter nating Tylenol with ibuprofen because he was concerned that the patient may be taking too much Tylenol. Today the patient's left most of the day and was feeling ill. Her son checked her INR and found it to be elevated at 4.2. Her Coumadin and ibuprofen were held today. This evening patient had an several eventspossible seizure, possible syncope. Son reports that patient was laying in bed when she became unresponsive. She was moving her arms and not responding to voice. The first episode lasted approximately 1 minute. Son reports that patient was confused upon waking which lasted less than 5 minutes. Approximately 10 minutes later she had a second episode of unresponsiveness with arms waving. This episode lasted approximately 1 minute as well. Son called 911. Upon arrival of EMS patient had a third episode of unresponsiveness. After the episode of bradycardia was noted on the monitor. Patient was given atropine and transcutaneous pacer pads were placed. Patient has been in rate controlled atrial fibrillation since with frequent PVCs.Denies Patient denies fever, chills, chest pain, cough, shortness of breath, abdominal pain, nausea, vomiting, diarrhea, constipation. She does admit to some dizziness with standing. Also complaining of ongoing bilateral leg pain as well as left hand numbness which is chronic and unchanged. In the ER patient is afebrile, remains in atrial fibrillationrate controlled, bradycardic at times. Frequent PVCs noted on monitor. Blood pressure has been stable. Patient has had no further episodes of syncope since her arrival to the ER. ER course: Ceftriaxone 2 g Calcium chloride 1 g Insulin regular 10 units IV Dextrose 50 mL IV Normal saline 500 mL Principal Diagnosis Syncopal episodes with subsequent bradycardia/asystole Discharge Exam Constitutional WD/WN, vitals as above Eyes PERRL, conjunctivae normal, anicteric sclerae ENMT external ear and nose normal, oropharynx normal Respiratory normal respiratory effort, lungs clear to auscultation Auscultation: lungs clear to auscultation bilaterally Cardiovascular Rate/Rhythm: regular rate and + irregularly irregular Vessels: no JVD Extremities: normal capillary refill; no edema Chest (Breasts) Chest: + pacemaker Skin no rashes, warm and dry Psychiatric A+Ox3, euthymic affect Discharge Data Allergies Allergy/AdvReac Type Severity Reaction Status Date / Time acetaminophen [From Willis] AdvReac Intermediate Nausea Verified 12/03/22 23:28 atorvastatin [From Lipitor] AdvReac Intermediate NOT Verified 12/03/22 23:28 TOLERATED fluvastatin [From Lescol] AdvReac Intermediate NOT Verified 12/03/22 23:28 TOLERATED gabapentin AdvReac Intermediate Nausea Verified 12/03/22 23:28 hydrocodone [From Willis] AdvReac Intermediate Nausea Verified 12/03/22 23:28 sulfamethoxazole AdvReac Intermediate Nausea Verified 12/03/22 23:28 [From Bactrim] trimethoprim [From Bactrim] AdvReac Intermediate Nausea Verified 12/03/22 23:28 Consultations 12/04/22 00:26 ED Decision to Admit Stat 12/05/22 10:24 Consult Cardiology Routine Procedures Performed Operation Date: 12/06/22 15:00 Actual Procedures p Pacer with Ventricular Lead - Bhaskar Story MD Ordered Studies 12/06/22 14:45 EP Lab Images for PACS ONCE Hospital Course (1) Syncope: The patient is a 87 yo female with PMH of HFpEF, chronic afib on anticoagulation, HTN, and DM presenting to the hospital due to syncopal episodes with subsequent bradycardia/asystole requiring pacing and atropine x1. No chest compressions or shocks administered per chart review. During her inpatient course she was closely followed by cardiology. Follow up with family medicine physician and parts identification technician is recommended. Medication changes are described below: Syncope/fall - possible syncopal episodes x3 followed by episode of bradycardia - orthostatics neg - echo showed EF 55-60%, moderate LVH, severe RVSP - troponin was elevated upon admission; has peaked and downtrended - pacemaker implanted 12/06- no complications - pt does endorse mild sternal discomfort most likely related to her procedure; Continue w/ tylenol and voltaren gel at home for discomfort Severe pulmonary HTN sec to HFpEF - may be contributor to the weakness/syncopal episodes - RSVP 71, worsened from previous echo (2) Atrial fibrillation: Atrial fibrillation - s/p pacemaker - continue metoprolol 25 mg twice per day - discontinue warfarin, continue eliquis 2.5 mg twice per day (3) PAMELA (acute kidney injury): PAMELA in the setting of CKD III- improved - baseline appears to be 1.3-1.7 - upon admission, Cr 2.39 - likely multifactorial including ibuprofen use and dehydration; FeNa 1.8% - pt is s/p 1L, increased PO intake - Cr today 1.71 (4) Acute hyperkalemia: Hyperkalemia - resolved - in the setting of PAMELA - gave 10 units of insulin w/ dextrose and calcium upon admission - upon admission 5.7; on discharge 4.6 (5) Hypertension: Hypertension - BP stable - continue taking metoprolol 25 mg (see AFIB regimen) (6) Hematuria: Hematuria/ UTI - Hematuria has resolved - Finish course of antibiotics. (discharge day 4) oral Cefdinir for one more day (7) Type 2 diabetes mellitus: Type 2 diabetes mellitus - A1c= 7.3%; no diabetic medications at home - Continue low carbohydrate diet - Goal blood sugar [id number] Discharge Plan Discharge Items Patient Disposition: Home - Self-Care Reason For Visit: ?ASYSTOLIC EVENT Discharge Diagnosis: symptomatic bradycardia s/p pacemaker Activity: Per Instructions section Non-emergency contact: Primary Care Provider and [employer] Officer Call non-emergency contact if: you have any medication questions and your symptoms worsen Follow-up/Referrals: Ned Tomlin MD [Primary Care Provider] - Bhaskar Story MD [Physician] - 12/09/22 10:30 am (f/u in 2 days s/p pacemaker) Diet: Carb Consistent or DM2 Diet Texture: Easy to Chew Addtl Attending Provider Instructions: You were admitted to the hospital for episodes of losing consciousness. It was found that your heart was beating very slowly which was likely the cause for these episodes. To remedy this, a pacemaker was implanted. This will pace your heart to make sure it is at the correct rate and it does not beat too slow. Otherwise, you were also treated with antibiotics for a urinary tract infection while hospitalized. A discharge summary will be sent to your primary care physician to ensure continuity of care. Please bring this discharge summary with you to your next office appointment so that your provider can review it at that time. Medications: Your medication list has been reviewed and reconciled upon discharge to ensure accuracy and continuity of care. An updated list of all your medications is included with your hospital discharge paperwork. Please review this list closely and make note of any changes to your medications. - Upon discharge, your warfarin should be stopped. You are on a new blood thinning medication called Eliquis. You should take this twice per day. - An antibiotic is also being sent to your pharmacy for a urinary tract infection. You should take this Follow up appointments: - Make a follow up appointment with your PCP within the next week. It is very important that you follow up with them shortly after discharge from the [facility]. - You have a follow up scheduled with your parts identification technician, Dr. Story, Monday12/09/2022 at 10:30 AM. - Keep all of your follow up appointments as already scheduled. If you cannot make an appointment, notify your provider. CONTACT YOUR PRIMARY CARE PROVIDER if you experience any of the following: - Burning with urination - Difficulty following your treatment plan - Difficulty taking any of your medications CALL 911 OR GO TO THE EMERGENCY DEPARTMENT if you experience any of the following: - Repeat episodes of passing out - Sudden, severe abdominal pain or nausea/vomiting - Severe chest pain or chest pain that radiates to your jaw or arm - Sudden, severe shortness of breath or difficulty breathing ACTIVITY RECOMMENDATIONS: * Do not raise affected arm over head for 2 weeks. SPECIAL CARE INSTRUCTIONS: * If bleeding occurs, apply direct pressure to area for 5 minutes. * Call your doctor if you have severe pain, fever, drainage or bleeding at site. * Keep dressing on and dry for 48 hours then remove. * Keep any scheduled doctor's appointment. * Implant Card - hand held device with website information given. SKIN IRRITATION: * You may experience some redness and/or swelling in the area where radiation was administered. If any skin irritation occurs, please contact your family physician. FOLLOW UP VISIT: Keep any scheduled doctor appointments. Pending Studies at Discharge: No Stand-Alone Forms: My HealthyOut, Smoking Cessation Medications and DC Order Prescriptions: New metoprolol tartrate 25 mg Tablet 25 mg PO BID Qty: 60 1RF Eliquis 2.5 mg Tablet 2.5 mg PO BID Qty: 60 1RF Continued hydrocortisone 2.5 % cream with perineal applicator 1 applic DE TID PRN (Reason: hemorrhoids) 14 Days Qty: 30 2RF simvastatin 40 mg tablet 40 mg PO QPM Qty: 90 3RF (DME) Accu-Chek Cheryl Plus test strp Strip See Rx Instructions .Route Qty: 50 5RF Rx Instructions: test once daily (DME) blood-glucose meter [Accu-Chek Cheryl Plus Meter] Misc See Rx Instructions .Route Qty: 1 0RF Rx Instructions: test once daily (DME) lancets [Accu-Chek Softclix Lancets] Misc See Rx Instructions .Route Qty: 100 5RF Rx Instructions: test once daily diclofenac sodium [Arthritis Pain (diclofenac)] 1 % gel 2 g topical QID PRN (Reason: arthritis pain) Qty: 100 5RF furosemide [Lasix] 20 mg tablet 20 mg PO 2XWK Rx Instructions: 20 mg PO 2X weekly Monday and allopurinol 100 mg tablet 50 mg PO DAILY Cerovite Senior 0.4 mg-300 mcg- 250 mcg Tablet 1 tab PO QAM Qty: 30 0RF Rx Instructions: OTC acetaminophen [Tylenol Extra Strength] 500 mg Tablet 1,000 mg PO DIRECTED PRN (Reason: Pain) Discontinued warfarin 1 mg tablet 1 - 2 mg PO QPM Protocol: Dose Management Condition: Monday (Week One) Dose/Route: 1 mg Instruction: 1 x 1 mg tablet Condition: Monday Dose/Route: 2 mg Instruction: 2 x 1 mg tablets Condition: Monday Dose/Route: 1 mg Instruction: 1 x 1 mg tablet Condition: Monday Dose/Route: 2 mg Instruction: 2 x 1 mg tablets Condition: Dose/Route: 1 mg Instruction: 1 x 1 mg tablet Condition: Monday Dose/Route: 2 mg Instruction: 2 x 1 mg tablets Condition: Monday Dose/Route: 1 mg Instruction: 1 x 1 mg tablet Condition: Monday (Week Two) Dose/Route: 2 mg Instruction: 2 x 1 mg tablets Condition: Monday Dose/Route: 1 mg Instruction: 1 x 1 mg tablet Condition: Monday Dose/Route: 2 mg Instruction: 2 x 1 mg tablets Condition: Monday Dose/Route: 1 mg Instruction: 1 x 1 mg tablet Condition: Dose/Route: 2 mg Instruction: 2 x 1 mg tablets Condition: Monday Dose/Route: 1 mg Instruction: 1 x 1 mg tablet Condition: Monday Dose/Route: 2 mg Instruction: 2 x 1 mg tablets Protocol Text: Adjustment Start Date: Monday11/23/22 INR Value: 2.9 INR Date: 11/14/22 Recheck Date: 12/07/22 Rx Instructions: PER PT'S SON "DID NOT GIVE, INR 4". will check INR in 2wks. alternate 1mg and 2mg Krames/Other Patient Handouts: Managing Type 2 Diabetes Admission Data Admit Date/Time: 12/04/22 01:14 Attending Provider: Junior Guzman Admit Provider: Santa Richardson Primary Care Provider: Ned Tomlin Other Providers: Santa Richardson ; Elif Melgar ; Glen Garsia ; Elieser Valverde ; Khurram Mcdaniels ; Manny Aguilera ; Bhaskar Story ; Hong Herman Jr ; Ferny Sousa ; Coral Castellanos ; Clara Urrutia ; Juan Bullock ; Ned Henry ; Ata Cobb ; Nimisha Vick ; Daisy Dave ; Bo Elizabeth ; Dylan Umana Henry C. ; Manny Fernandez V. ; [facility] [place]
[2022-12-08] MEDS: ACETAMINOPHEN W/CODEINE #3 1 TAB PO PRN ×2 (11:50→20:23)
--- NOTE | 2022-12-08 18:01 | Progress Note ---
Date of Service December 08, 2022 Assessment & Plan (1) Syncope: Syncope type: unspecified Qualified Code(s): R55 - Syncope and collapse (2) Atrial fibrillation: Plan Pt is a 87 yo female with PMH of HFpEF, afib on coumadin, HTN, and DM presenting to the hospital due to syncopal episodes with subsequent bradycardia/asystole requiring pacing and atropine x1. No chest compressions or shocks administered per chart review. Syncope/fall - possible syncopal episodes x3 followed by episode of bradycardia - orthostatics neg - echo showed EF 55-60%, moderate LVH, severe RVSP - troponin was elevated upon admission; has peaked and downtrended - pacemaker implanted 12/06- no complications - pt continues to have mild sternal discomfort most likely related to her proced ure; tx w/ tylenol and voltaren gel Severe pulmonary HTN sec to HFpEF - may be contributor to the weakness/syncopal episodes - RSVP 71, worsened from previous echo PAMELA in the setting of CKD III- improved - baseline appears to be 1.3-1.7 - upon admission, Cr 2.39 - likely multifactorial including ibuprofen use and dehydration; FeNa 1.8% - pt is s/p 1L, increased PO intake - Cr today 1.71 Hyperkalemia - in the setting of PAMELA - given 10 units of insulin w/ dextrose and calcium upon admission - upon admission 5.7; has been WNL - continue to monitor Hematuria - gross hematuria - INR supratherapeutic at 3.9 upon admission (warfarin since d/c) - UA 3+ leuk esterase, 2+ bacteria; urine cx grew pansensitive e.coli - continue ceftriaxone 1 g IV daily (day 4) Type 2 diabetes mellitus - A1c= 7.3%; no diabetic medications at home - Continue to monitor blood sugar - Lantus 5 units twice daily with insulin sliding scale - Goal blood sugar [id number] Hypertension - BP stable - no home BP meds - continue to monitor Atrial fibrillation - s/p pacemaker - addition of metoprolol 25 mg BID - eliquis 2.5 mg BID; pt was admitted w/ warfarin which has since been discontinued Dispo: PCU, plan to d/c tomorrow w/ home health DVT ppx: eliquis 2.5 mg BID Diet: carb consistent, easy to chew Code: conditional, no intubation Admission and Anticipated Discharge Date Admission Date: December 04, 2022 Supervising Physician Co-Signing Physician Notes I personally examined the patient and verified all huntley points of history and exam, discussed case, and agree with decision making with Lisbet Herman and Dr Julio Family hoping to be able to take her home tomorrowdid not quite have all resources in place for today. Vitals noted, in general she is awake and alert pleasant no distress. HEENT normocephalic atraumatic mucous membranes moist. Breathing unlabored no accessory muscle use good effort. Syncope/unresponsivenessseems as though arrhythmogenic syncope most likely. Appreciate cardiology inserting pacemaker. Anticipate home tomorrow once family has resources in place. Otherwise as above Subjective The patient is a 87 y/o female with a pertinent history of HF with preserved ejection fraction, Atrial fibrillation (currently on warfarin), HTN, and T2DM presenting to the hospital due to syncopal episodes with subsequent bradycardia requiring pacing. Pt seen at bedside this AM. She continues feels some soreness in her chest from the procedure (pacemaker placement). Otherwise, pt feels ok. She has no lightheadedness, or SOB, no fever or chills, no constipation, dysuria, or hematuria. Review of Systems Review of Systems: All systems reviewed & are unremarkable except as noted in Subjective Physical Exam Constitutional: WD/WN, vitals as above Eyes: PERRL, conjunctivae normal, anicteric sclerae Respiratory: normal respiratory effort, lungs clear to auscultation Cardiovascular: Rate/Rhythm: regular rate and + irregularly irregular Vessels: no JVD Psychiatric: A+Ox3, euthymic affect (Mild confusion at times but easily oriented.) Results & Data ([facility]) Vital Signs (Past 12 Hours) Vital Signs Temp Pulse Pulse Resp BP Pulse Ox O2 Del Method 12/08/22 15:58 36.5 C 60 18 168/68 H 94 Room Air 12/08/22 15:13 66 12/08/22 11:27 36.3 C L 65 16 160/83 H 95 Room Air 12/08/22 08:05 36.4 C L 63 14 147/82 H 97 Room Air 12/08/22 07:40 62
--- NOTE | 2022-12-08 20:00 | Billing Data ---
Date of Service December 08, 2022 Coding Level of Care Code 46825 SUB INP/OBS CARE
[2022-12-09] MEDS: ACETAMINOPHEN 500 MG TAB PO SCH ×2 (05:39→13:10)
[2022-12-09 06:10] LABS: Hematocrit (blood only) 29.6 % (37.0-47.0); Hemoglobin 9.6 g/dl (12.0-16.0); Mean Corpuscular Hemoglobin 31.2 pg (25.0-34.0); Mean Corpuscular Hgb Conc 32.4 g/dL (32.0-36.0); Mean Corpuscular Volume 96.1 fL (80.0-100.0); Mean Platelet Volume 9.8 fL (9.4-12.4); Platelet Count 134 K/uL (130-400); RDW Coefficient of Variation 14.8 % (11.5-14.5); RDW Standard Deviation 51.5 fL (36.4-46.3); Red Blood Count 3.08 M/uL (4.20-5.40); White Blood Count 6.82 K/ul (4.8-10.8)
[2022-12-09 06:19] LABS: BUN Creatinine Ratio 30.5 (10-20); Creatinine Clr Calc Pharmacy 18.1 ml/min; Est GFR (African American) 29.6 ml/min; Est GFR (Non-African American) 25.5 ml/min; Potassium 4.7 mmol/L (3.5-5.1)
[2022-12-09] MEDS: METOPROLOL TARTRATE 25 MG TAB PO SCH (07:45)
[2022-12-09] MEDS: PRAMIPEXOLE DIHYDROCHLO 0.25 MG TAB PO SCH (07:45)
[2022-12-09] MEDS: allopurinoL 100 MG TAB PO SCH (07:46)
[2022-12-09] MEDS: APIXABAN 2.5 MG TAB PO SCH (07:47)
[2022-12-09] MEDS: INSULIN ASPART PER UNIT SC SCH ×2 (07:49→13:06)
[2022-12-09] MEDS: LANTUS PER UNIT CHARGE SQ SCH (07:49)
[2022-12-09] MEDS: ACETAMINOPHEN W/CODEINE #3 1 TAB PO PRN (09:56)
--- NOTE | 2022-12-09 10:34 | Discharge Summary ---
Date of Service December 09, 2022 Admission HPI Per Admitting Provider Fiordaliza Woodard is an 87-year-old female with history of hypertension, diabetes, heart failure with preserved EF and atrial fibrillation on Coumadin anticoagulation presenting from home with concern for an asystolic event. Majority of history is obtained from the son who is at bedside. Son reports that over the last several days patient has been complaining of lot of leg pain. The pain is constant, aching and severe in nature. She was taking Tylenol fairly frequently. Approximately 5 days ago the son began alternating Tylenol with ibuprofen because he was concerned that the patient may be taking too much Tylenol. Today the patient's left most of the day and was feeling ill. Her son checked her INR and found it to be elevated at 4.2. Her Coumadin and ibuprofen were held today. This evening patient had an several eventspossible seizure, possible syncope. Son reports that patient was laying in bed when she became unresponsive. She was moving her arms and not responding to voice. The first episode lasted approximately 1 minute. Son reports that patient was confused upon waking which lasted less than 5 minutes. Approximately 10 minutes later she had a second episode of unresponsiveness with arms waving. This episode lasted approximately 1 minute as well. Son called 911. Upon arrival of EMS patient had a third episode of unresponsiveness. After the episode of bradycardia was noted on the monitor. Patient was given atropine and transcutaneous pacer pads were placed. Patient has been in rate controlled atrial fibrillation since with frequent PVCs.Denies Patient denies fever, chills, chest pain, cough, shortness of breath, abdominal pain, nausea, vomiting, diarrhea, constipation. She does admit to some dizziness with standing. Also complaining of ongoing bilateral leg pain as well as left hand numbness which is chronic and unchanged. In the ER patient is afebrile, remains in atrial fibrillationrate controlled, bradycardic at times. Frequent PVCs noted on monitor. Blood pressure has been stable. Patient has had no further episodes of syncope since her arrival to the ER. Admission Exam Per Admitting Provider General: patient resting comfortably, NAD, non-toxic in appearance, AA&O to self and hospital, answers questions appropriately and follows commands Skin: warm, dry, intact, no rashes or lesions, several bruises on arms HEENT: NC/AT, PERRL, EOMI, anicteric sclera, conjunctiva without injection, external ear normal to inspection and nontender, nares patent, moist mucus membranes, dentition intact, no oropharyngeal lesions, neck supple, trachea midline, no LAD, no thyromegaly, no JVD Heart: +S1/S2, irregularly irregular, no m/r/g Lungs: equal air entry bilaterally, no rales/rhonchi/wheezes, diminished breath sounds in bases Abd: +BS, soft, NT/ND, no masses/organomegaly/ascites Ext: warm, 2+ pulses in UE/LE bilaterally, no clubbing/cyanosis or edema, tenderness with palpation of bilateral legs Neuro: nonfocal, patient AA&O, speech intact, no facial droop, moving all extremities on command with equal strength 5/5, complaining of left hand numbness which is baseline Principal Diagnosis Syncopal episodes due to bradycardia Discharge Exam Constitutional WD/WN, vitals as above Eyes PERRL, conjunctivae normal, anicteric sclerae Respiratory normal respiratory effort, lungs clear to auscultation Cardiovascular Rate/Rhythm: regular rate and + irregularly irregular Vessels: no JVD Psychiatric A+Ox3, euthymic affect (Mild confusion at times but easily oriented.) Discharge Data Allergies Allergy/AdvReac Type Severity Reaction Status Date / Time acetaminophen [From [place]] AdvReac Intermediate Nausea Verified 12/03/22 23:28 atorvastatin [From Lipitor] AdvReac Intermediate NOT Verified 12/03/22 23:28 TOLERATED fluvastatin [From [place]] AdvReac Intermediate NOT Verified 12/03/22 23:28 TOLERATED gabapentin AdvReac Intermediate Nausea Verified 12/03/22 23:28 hydrocodone [From [place]] AdvReac Intermediate Nausea Verified 12/03/22 23:28 sulfamethoxazole AdvReac Intermediate Nausea Verified 12/03/22 23:28 [From Bactrim] trimethoprim [From Bactrim] AdvReac Intermediate Nausea Verified 12/03/22 23:28 Consultations 12/04/22 00:26 ED Decision to Admit Stat 12/05/22 10:24 Consult Cardiology Routine Procedures Performed Operation Date: 12/06/22 15:00 Actual Procedures p Pacer with Ventricular Lead - Bhaskar Story MD Ordered Studies 12/06/22 14:45 EP Lab Images for PACS ONCE Hospital Course (1) Syncope: (2) Atrial fibrillation: Plan Pt is a 87 yo female with PMH of HFpEF, afib on coumadin, HTN, and DM presenting to the hospital due to syncopal episodes with subsequent bradycardia/asystole requiring pacing and atropine x1. No chest compressions or shocks administered per chart review. Syncope/fall - possible syncopal episodes x3 followed by episode of bradycardia - orthostatics neg - echo showed EF 55-60%, moderate LVH, severe RVSP - troponin was elevated upon admission; has peaked and downtrended - pacemaker implanted 12/06- no complications - pt continues to have mild sternal discomfort most likely related to her procedure; tx w/ tylenol and voltaren gel Severe pulmonary HTN sec to HFpEF - may be contributor to the weakness/syncopal episodes - RSVP 71, worsened from previous echo PAMELA in the setting of CKD III- improved - baseline appears to be 1.3-1.7 - upon admission, Cr 2.39 - likely multifactorial including ibuprofen use and dehydration; FeNa 1.8% - pt is s/p 1L, increased PO intake - Cr today 1.74 Hyperkalemia - in the setting of PAMELA - given 10 units of insulin w/ dextrose and calcium upon admission - upon admission 5.7; has been WNL Hematuria - gross hematuria - now resolved - INR supratherapeutic at 3.9 upon admission (warfarin since d/c) - UA 3+ leuk esterase, 2+ bacteria; urine cx grew pansensitive e.coli - Completed 5 day course of ABx. Type 2 diabetes mellitus - A1c= 7.3%; no diabetic medications at home - During hostpital course, glucose was regulated using Lantus 5 units twice daily with insulin sliding scale - Goal blood sugar [id number] Hypertension - BP stable - no home BP meds Atrial fibrillation - s/p pacemaker - addition of metoprolol 25 mg BID - eliquis 2.5 mg BID; pt was admitted w/ warfarin which has since been discontinued Total Time Total Time Spent Total Time Spent (In Minutes): <30 Discharge Plan Discharge Items Patient Disposition: Home - Self-Care Reason For Visit: ?ASYSTOLIC EVENT Discharge Diagnosis: symptomatic bradycardia s/p pacemaker Activity: Per Instructions section Non-emergency contact: Primary Care Provider and Map Colorer Call non-emergency contact if: you have any medication questions and your symptoms worsen Follow-up/Referrals: Lalitha Benavides PA-C [Physician Project Management It Specialist] - 12/16/22 2:30 pm Bhaskar Story MD [Physician] - 12/09/22 10:30 am (f/u in 2 days s/p pacemaker) Diet: Carb Consistent or DM2 Diet Texture: Easy to Chew Addtl Attending Provider Instructions: You were admitted to the hospital for episodes of losing consciousness. It was found that your heart was beating very slowly which was likely the cause for these episodes. To remedy this, a pacemaker was implanted. This will pace your heart to make sure it is at the correct rate and it does not beat too slow. Otherwise, you were also treated with antibiotics for a urinary tract infection while hospitalized. Physical therapy saw and worked with you in the hospital and recommended that home health services help you get stronger once you get home. A discharge summary will be sent to your primary care physician to ensure continuity of care. Please bring this discharge summary with you to your next office appointment so that your provider can review it at that time. Medications: Your medication list has been reviewed and reconciled upon discharge to ensure accuracy and continuity of care. An updated list of all your medications is included with your hospital discharge paperwork. Please review this list closely and make note of any changes to your medications. - Upon discharge, your warfarin should be stopped. You are on a new blood thinning medication called Eliquis. You should take this twice per day. This medication does not need to be closely monitored like your warfarin. - To help with your chest/sternum pain, you may use tylenol and/or voltaren gel as needed. Avoid NSAIDs (like ibuprofen) because they will hurt your kidneys. - The freight air brake fitter also recommended that you start a new medication called metoprolol. This is to be taken twice per day. This will help with your blood pressure and keeps your heart rate from going too high. Follow up appointments: - Make a follow up appointment with your PCP within the next week. It is very important that you follow up with them shortly after discharge from the hospital. - You should make a follow up with your freight air brake fitter, Dr. Story, within a week after discharge. - Keep all of your follow up appointments as already scheduled. If you cannot make an appointment, notify your provider. CONTACT YOUR PRIMARY CARE PROVIDER if you experience any of the following: - Burning with urination - Difficulty following your treatment plan - Difficulty taking any of your medications CALL 911 OR GO TO THE EMERGENCY DEPARTMENT if you experience any of the following: - Repeat episodes of passing out - Sudden, severe abdominal pain or nausea/vomiting - Severe chest pain or chest pain that radiates to your jaw or arm - Sudden, severe shortness of breath or difficulty breathing ACTIVITY RECOMMENDATIONS: * Do not raise affected arm over head for 2 weeks. SPECIAL CARE INSTRUCTIONS: * If bleeding occurs, apply direct pressure to area for 5 minutes. * Call your doctor if you have severe pain, fever, drainage or bleeding at site. * Keep dressing on and dry for 48 hours then remove. * Keep any scheduled doctor's appointment. * Implant Card - hand held device with website information given. SKIN IRRITATION: * You may experience some redness and/or swelling in the area where radiation was administered. If any skin irritation occurs, please contact your family physician. FOLLOW UP VISIT: Keep any scheduled doctor appointments. Pending Studies at Discharge: No Stand-Alone Forms: [facility], Smoking Cessation Medications and DC Order Prescriptions: New metoprolol tartrate 25 mg Tablet 25 mg PO BID Qty: 60 1RF Eliquis 2.5 mg Tablet 2.5 mg PO BID Qty: 60 1RF Continued hydrocortisone 2.5 % cream with perineal applicator 1 applic [place] TID PRN (Reason: hemorrhoids) 14 Days Qty: 30 2RF simvastatin 40 mg tablet 40 mg PO QPM Qty: 90 3RF (DME) Accu-Chek Cheryl Plus test strp Strip See Rx Instructions .Route Qty: 50 5RF Rx Instructions: test once daily (DME) blood-glucose meter [Accu-Chek Cheryl Plus Meter] [facility] See Rx Instructions .Route Qty: 1 0RF Rx Instructions: test once daily (DME) lancets [Accu-Chek Softclix Lancets] Misc See Rx Instructions .Route Qty: 100 5RF Rx Instructions: test once daily diclofenac sodium [Arthritis Pain (diclofenac)] 1 % gel 2 g topical QID PRN (Reason: arthritis pain) Qty: 100 5RF furosemide [Lasix] 20 mg tablet 20 mg PO 2XWK Rx Instructions: 20 mg PO 2X weekly Monday and allopurinol 100 mg tablet 50 mg PO DAILY Cerovite Senior 0.4 mg-300 mcg- 250 mcg Tablet 1 tab PO QAM Qty: 30 0RF Rx Instructions: OTC acetaminophen [Tylenol Extra Strength] 500 mg Tablet 1,000 mg PO DIRECTED PRN (Reason: Pain) Discontinued warfarin 1 mg tablet 1 - 2 mg PO QPM Protocol: Dose Management Condition: Monday (Week One) Dose/Route: 1 mg Instruction: 1 x 1 mg tablet Condition: Monday Dose/Route: 2 mg Instruction: 2 x 1 mg tablets Condition: Monday Dose/Route: 1 mg Instruction: 1 x 1 mg tablet Condition: Monday Dose/Route: 2 mg Instruction: 2 x 1 mg tablets Condition: Dose/Route: 1 mg Instruction: 1 x 1 mg tablet Condition: Monday Dose/Route: 2 mg Instruction: 2 x 1 mg tablets Condition: Monday Dose/Route: 1 mg Instruction: 1 x 1 mg tablet Condition: Monday (Week Two) Dose/Route: 2 mg Instruction: 2 x 1 mg tablets Condition: Monday Dose/Route: 1 mg Instruction: 1 x 1 mg tablet Condition: Monday Dose/Route: 2 mg Instruction: 2 x 1 mg tablets Condition: Monday Dose/Route: 1 mg Instruction: 1 x 1 mg tablet Condition: Dose/Route: 2 mg Instruction: 2 x 1 mg tablets Condition: Monday Dose/Route: 1 mg Instruction: 1 x 1 mg tablet Condition: Monday Dose/Route: 2 mg Instruction: 2 x 1 mg tablets Protocol Text: Adjustment Start Date: Monday11/23/22 INR Value: 2.9 INR Date: 11/14/22 Recheck Date: 12/07/22 Rx Instructions: PER PT'S SON "DID NOT GIVE, INR 4". will check INR in 2wks. alternate 1mg and 2mg Discharge Orders: Discharge Order (Routine); Ordered 12/09/22 Ordered By: Isaura Zabala/Other Patient Handouts: Managing Type 2 Diabetes Admission Data Admit Date/Time: 12/04/22 01:14 Attending Provider: Junior Guzman Admit Provider: Santa Richardson Primary Care Provider: Ned Tomlin Other Providers: Santa Richardson ; Elif Melgar ; Glen Garsia ; Elieser Valverde ; Khurram Mcdaniels ; Manny Aguilera ; Bhaskar Story ; Hong Herman Jr ; Ferny Sousa ; Coral Castellanos ; Clara Urrutia ; Juan Bullock ; Ned Henry ; Ata Cobb ; Nimisha Vick ; Daisy Dave ; Bo Elizabeth ; Dylan Umana ; Garfield Watson ; Manny Fernandez V. ; [facility] Other Interventions: Discharge Summary Assessment (RN) Last Done: 12/09/22 13:14 Supervising Physician Co-Signing Physician Notes I personally examined the patient and verified all huntley points of history and exam, discussed case, and agree with decision making with Lisbet Herman and Dr Julio for home today Vitals noted, in general resting no distress. HEENT normocephalic atraumatic mucous membranes moist. Breathing unlabored no accessory muscle use good effort. Syncope/unresponsivenessseems as though arrhythmogenic syncope most likely. Appreciate cardiology inserting pacemaker. home today. otherwise as above
--- NOTE | 2022-12-09 15:55 | Billing Data ---
Date of Service December 09, 2022 Coding Level of Care Code HOSP INP/OBS DISCH 30 MIN/LESS
== END 2022-12-09 16:13 | disposition home health service (06) | DRG 243 ==
LOC: ED 22:44 → SUATTDRO 12-04 01:14 → 2E 12-04 01:14

== ENCOUNTER 2023-02-21 18:33 | Inpatient (IN) ==
--- NOTE | 2023-02-21 19:16 | Emergency Department Note ---
Impression & Plan Hypoxia, Acute dyspnea ED Provider Note NAME: ELIZABETH GILBERT AGE: 87 SEX: F : 1935 ARRIVES VIA: Walk-In INFORMANT: Patient, ED PROVIDER(S): Ritesh Bradshaw MD CHIEF COMPLAINT: Shortness of breath MEDICAL DECISION MAKING: Patient presents for shortness of breath. IV was established blood work was obtained along with an EKG troponin BNP and x- ray. Patient did have supplemental oxygen applied. The patient's blood work shows a normal white count hemoglobin of 10.7 which is relatively chronic and stable. Platelet count is unremarkable. Patient's kidney function at 1.84. This around the patient's baseline. Potassium 5.3. The patient was ordered Lasix. I did review the patient's chest x-ray which appeared volume overloaded. COVID-negative. I did speak the on-call hospitalist service Dr. Richardson and the patient was admitted to the medicine service. Critical Care: I have personally spent 35 minutes of critical care time in direct management of this patient. This includes bedside care, interpretation of diagnostic studies, and testing, discussion with consultants, patient, and family members, and other require inpatient management activities. This 35 minutes is in excess of all separately billable procedures. Prior /Outside records reviewed: I did review the patient's most recent EP visit from Clara Lobato. Patient has a known history of V. tach A-fib heart failure Differential diagnosis: Reactive airway disease, pneumonia, pneumothorax, COPD, CHF, infections, cardiac ischemia, pulmonary embolism, musculoskeletal, gastrointestinal, as well as other pathologies. Diagnostics, as interpreted by me: ECG: V paced rhythm, rate of 60, wide QRS, left bundle branch block pattern, right axis deviation. The patient's EKG looks grossly unchanged for comparison December 07, 2022 Cardiac monitoring: An order was placed for continuous cardiac monitoring. The monitor shows a rate of 62 with paced rhythm. Patient was placed on pulse oximetry Medical decision rules: None Imaging studies: See below I informally reviewed the patient's chest x-ray which shows bilateral pleural effusions. HPI: Patient presents due to concern for shortness of breath. The patient has struggled shortness of breath for some time but has gotten progressively worse. The patient was noted to be 70% on room air today and thus presented here for further evaluation treatment. Son at bedside states that he does tend to change her diapers on a regular basis as the patient is on a diuretic and initially they used to be saturated but now not so much. Patient reportedly has been compliant with her medications. She does take Eliquis. She does follow with Dr. Tomlin. Patient [place] any cough or fever. No smoking history. The patient is not typically on oxygen. They have not noticed any significant leg swelling but they were concerned as they were told that she has fluid "on her." The patient initially had only been on diuretics twice a week but given this concern for the fluid retention the patient is now on diuretics daily. Patient does not currently walk but even gets tired if they moved here from place to place. The patient has complained of some right leg discomfort more in the thigh and no recent falls or trauma. The patient does take Eliquis. No recent surgeries or procedures in the last month with the patient did have a pacemaker placed several months ago. PAST MEDICAL HISTORY: See Below PAST SURGICAL HISTORY: See Below SOCIAL HISTORY: See Below HOME MEDICATIONS: See Below ALLERGIES: See Below VITALS: See Below PHYSICAL EXAMINATION: GENERAL: NAD, nasal cannula in place non-toxic. EYE EXAM: Normal conjunctiva. PERRL, no anisocoria and EOM's grossly intact w/o pain. NECK: Supple, no nuchal rigidity, no adenopathy, non-tender. No signs of meningismus. FROM of the neck with good chin to chest and neck extension. No stridor. LUNGS: Decreased breath sounds bilaterally normal chest wall mechanics. HEART: NSR, no MRG. ABDOMEN: Abdomen soft, non-tender, no masses, no rebound or guarding. BACK: No CVA TTP. SKIN: No rashes and no bruising. UPPER EXTREMITIES: Upper extremities are grossly normal. LOWER EXTREMITIES: Grossly normal, trace pretibial edema without any calf pain. NEURO EXAM: A&O x3, cranial nerves II-XII grossly intact, normal speech, moves all 4 extremities. Past Med/Surg History Medical History (HFpEF) heart failure with preserved ejection fraction Atrial fibrillation, permanent Cloudy urine COVID-19 Hypertension Loss of consciousness Mitral regurgitation Pulmonary hypertension Rectal bleeding Second degree uterine prolapse Syncope Tricuspid regurgitation Type 2 diabetes mellitus Vaginal bleeding Ventricular tachycardia Surgical History S/P cataract surgery Family History Mother Diabetes Breast cancer Brother Stroke Denies family history of Ovarian cancer Prostate cancer Myocardial infarction Colorectal cancer Social History Smoking Status: Never smoker Second Hand Exposure: No; Do You Dip or Chew Tobacco: No; Hx Alcohol Use: No Hx Substance Use: No Preferred Language: Telugu Communication Ability: Effective Visual Impairment: No Limitations Hearing Ability: Normal Community Health Advocate Required: No Beliefs That Will Affect Care: None marital status: / Current Living Situation: Alone Current Living Situation Comment: lives at home but family lives nearby current occupational status: retired current occupation: retired from working at [employer] How many Children do You have: 5 How many Children do You have Comment: 1 Feels Safe at Home: Yes Childhood Exposure to Second-Hand Smoke: Yes Diet: regular during the past year weight has: remained stable Dental Care, Regularly: No Physical Activity Frequency: Does not Exercise Seatbelt Use: never Sunscreen Use: No Assistive Devices: Cane, Walker and Wheelchair Allergies Allergies Allergy/AdvReac Type Severity Reaction Status Date / Time acetaminophen [From [employer]] AdvReac Intermediate Nausea Verified 02/21/23 20:58 atorvastatin [From Lipitor] AdvReac Intermediate NOT Verified 02/21/23 20:58 TOLERATED fluvastatin [From [place]] AdvReac Intermediate NOT Verified 02/21/23 20:58 TOLERATED gabapentin AdvReac Intermediate Nausea Verified 02/21/23 20:58 hydrocodone [From [employer]] AdvReac Intermediate Nausea Verified 02/21/23 20:58 sulfamethoxazole AdvReac Intermediate Nausea Verified 02/21/23 20:58 [From Bactrim] trimethoprim [From Bactrim] AdvReac Intermediate Nausea Verified 02/21/23 20:58 Home Meds Home Medications Medication Instructions Recorded Confirmed furosemide 20 mg tablet (Lasix) 20 mg PO DAILY 06/29/22 02/21/23 acetaminophen 500 mg tablet 1,000 mg PO DIRECTED PRN Pain 12/03/22 02/21/23 (Tylenol Extra Strength) glipizide 2.5 mg tablet, extended 2.5 mg PO QAM 02/21/23 02/21/23 release 24 hr Previous Rx's Medication Instructions Recorded hydrocortisone 2.5 % topical cream 1 applic VA TID PRN hemorrhoids 2 12/28/20 with perineal applicator weeks #30 grams blood sugar diagnostic (Accu-Chek #50 ea 02/23/22 Cheryl Plus test strips) blood-glucose meter (Accu-Chek #1 ea 02/23/22 Cheryl Plus Meter) lancets (Accu-Chek Softclix #100 ea 02/23/22 Lancets) klgifojl-[id number] acid 0.4 1 tab PO QAM #30 tabs 03/13/22 mg-lycopene 300 mcg-lutein 250 mcg tablet (Cerovite Senior) diclofenac sodium 1 % topical gel 2 g topical QID PRN arthritis pain 06/13/22 (Arthritis Pain (diclofenac)) #100 grams apixaban 2.5 mg tablet (Eliquis) 2.5 mg PO BID #60 tabs 12/07/22 allopurinol 100 mg tablet 50 mg PO DAILY #45 tabs 12/13/22 simvastatin 40 mg tablet 40 mg PO QPM #90 tabs 12/13/22 metoprolol tartrate 25 mg tablet 25 mg PO BID #180 tabs 01/05/23 nystatin 100,000 unit/gram topical 1 applic topical DAILY PRN rash 01/13/23 powder #30 grams Transport Chair #1 ea 02/01/23 Results & Data (ED) Vital Signs Vital Signs - 24 hr 02/21/23 18:36 02/21/23 19:06 02/21/23 19:06 Temperature 36.0 C L Temperature Source Temporal Artery Scan Pulse Rate 65 Pulse Rate [Finger] Pulse Rhythm Regular Pulse Strength Normal Respiratory Rate 22 Respiratory Effort / Characteristics Non-Labored Spontaneous Respiratory Depth Normal Respiratory Pattern Regular Blood Pressure 142/83 H Blood Pressure [Right Arm] Blood Pressure Mean 102 Blood Pressure Mean [Right Arm] Blood Pressure Position Sitting Pulse Oximetry 90 92 89 L Oxygen Delivery Method Room Air Nasal Cannula Nasal Cannula Oxygen Flow Rate 3 0 Sepsis Recent Fever Within 48 Hours No Sepsis New/Unexplained Change in Mental Status No Sepsis Action Taken by Nursing No Action Required Oxygen Flow Rate - Titration 3 Pulse Oximetry Post Tiitration 92 02/21/23 19:09 02/21/23 21:24 02/21/23 23:07 Temperature Temperature Source Pulse Rate 60 60 Pulse Rate [Finger] 60 Pulse Rhythm Pulse Strength Respiratory Rate 24 Respiratory Effort / Characteristics Respiratory Depth Respiratory Pattern Blood Pressure Blood Pressure [Right Arm] 124/60 Blood Pressure Mean Blood Pressure Mean [Right Arm] 81 Blood Pressure Position Pulse Oximetry 92 Oxygen Delivery Method Room Air Oxygen Flow Rate 4 Sepsis Recent Fever Within 48 Hours Sepsis New/Unexplained Change in Mental Status Sepsis Action Taken by Nursing Oxygen Flow Rate - Titration Pulse Oximetry Post Tiitration Home Medications Current Medication List: was personally reviewed by me Laboratory Data Attestation: I reviewed the patient's lab results. 02/21/23 18:47 02/21/23 18:47 Lab Results 02/21/23 02/21/23 02/21/23 Range/Units 18:47 18:47 18:47 WBC 6.71 (4.8-10.8) K/ul RBC 3.63 L (4.20-5.40) M/uL Hgb 10.7 L (12.0-16.0) g/dl Hct 33.8 L (37.0-47.0) % MCV 93.1 (80.0-100.0) fL MCH 29.5 (25.0-34.0) pg MCHC 31.7 L (32.0-36.0) g/dL RDW Std Deviation 55.7 H (36.4-46.3) fL RDW Coeff of Benjamin 16.4 H (11.5-14.5) % Plt Count 135 (130-400) K/uL MPV 12.4 (9.4-12.4) fL Immature Gran % (Auto) 0.4 % Neut % (Auto) 77.2 % Lymph % (Auto) 13.6 % Beadle % (Auto) 7.7 % Eos % (Auto) 0.7 % Baso % (Auto) 0.4 % Neut # (Auto) 5.17 (1.40-6.50) K/uL Lymph # (Auto) 0.91 L (1.2-3.4) K/uL Beadle # (Auto) 0.52 (0.11-0.59) K/uL Eos # (Auto) 0.05 (0-0.50) K/uL Baso # (Auto) 0.03 (0-0.2) K/uL Immature Gran # (Auto) 0.03 (0.01-0.20) K/uL PT Cancelled INR Cancelled APTT Cancelled PTT Ratio Cancelled Sodium TNP Potassium TNP Chloride 109 H (98-107) mmol/L Carbon Dioxide 18 L (21-32) mmol/L Anion Gap TNP BUN 41 H (6-23) mg/dl Creatinine 1.84 H (0.6-1.2) mg/dl Est Cr Clr Drug Dosing Not Reportable Est GFR ( Amer) 27.7 ml/min Est GFR (Non-Af Amer) 23.9 ml/min BUN/Creatinine Ratio 22.3 H (10-20) Glucose 177 H (70-99(Fasting)) mg/dl Calcium 9.4 (8.6-10.3) mg/dl Total Bilirubin 1.1 H (0.2-1.0) mg/dl AST TNP ALT 19 (7-52) U/L Alkaline Phosphatase 134 H (34-104) U/L Troponin I High Sens 14.6 H (0-14) pg/ml B-Natriuretic Peptide (0-100) pg/ml Total Protein 7.7 (6.0-8.3) gm/dl Albumin 4.1 (3.4-5.0) gm/dl Globulin 3.6 (2.5-4.0) gm/dl Albumin/Globulin Ratio 1.1 (0.9-2) SARS-CoV-2, RNA, NAAT (NEGATIVE) 02/21/23 02/21/23 02/21/23 Range/Units 19:35 19:40 20:06 WBC (4.8-10.8) K/ul RBC (4.20-5.40) M/uL Hgb (12.0-16.0) g/dl Hct (37.0-47.0) % MCV (80.0-100.0) fL MCH (25.0-34.0) pg MCHC (32.0-36.0) g/dL RDW Std Deviation (36.4-46.3) fL RDW Coeff of Benjamin (11.5-14.5) % Plt Count (130-400) K/uL MPV (9.4-12.4) fL Immature Gran % (Auto) % Neut % (Auto) % Lymph % (Auto) % Beadle % (Auto) % Eos % (Auto) % Baso % (Auto) % Neut # (Auto) (1.40-6.50) K/uL Lymph # (Auto) (1.2-3.4) K/uL Beadle # (Auto) (0.11-0.59) K/uL Eos # (Auto) (0-0.50) K/uL Baso # (Auto) (0-0.2) K/uL Immature Gran # (Auto) (0.01-0.20) K/uL PT INR APTT PTT Ratio Sodium 137 Potassium 5.3 H Chloride (98-107) mmol/L Carbon Dioxide (21-32) mmol/L Anion Gap BUN (6-23) mg/dl Creatinine (0.6-1.2) mg/dl Est Cr Clr Drug Dosing Est GFR ( Amer) ml/min Est GFR (Non-Af Amer) ml/min BUN/Creatinine Ratio (10-20) Glucose (70-99(Fasting)) mg/dl Calcium (8.6-10.3) mg/dl Total Bilirubin (0.2-1.0) mg/dl AST 22 ALT (7-52) U/L Alkaline Phosphatase (34-104) U/L Troponin I High Sens (0-14) pg/ml B-Natriuretic Peptide 1782 H (0-100) pg/ml Total Protein (6.0-8.3) gm/dl Albumin (3.4-5.0) gm/dl Globulin (2.5-4.0) gm/dl Albumin/Globulin Ratio (0.9-2) SARS-CoV-2, RNA, NAAT NEGATIVE (NEGATIVE) 02/21/23 02/21/23 Range/Units 20:06 23:57 WBC (4.8-10.8) K/ul RBC (4.20-5.40) M/uL Hgb (12.0-16.0) g/dl Hct (37.0-47.0) % MCV (80.0-100.0) fL MCH (25.0-34.0) pg MCHC (32.0-36.0) g/dL RDW Std Deviation (36.4-46.3) fL RDW Coeff of Benjamin (11.5-14.5) % Plt Count (130-400) K/uL MPV (9.4-12.4) fL Immature Gran % (Auto) % Neut % (Auto) % Lymph % (Auto) % Beadle % (Auto) % Eos % (Auto) % Baso % (Auto) % Neut # (Auto) (1.40-6.50) K/uL Lymph # (Auto) (1.2-3.4) K/uL Beadle # (Auto) (0.11-0.59) K/uL Eos # (Auto) (0-0.50) K/uL Baso # (Auto) (0-0.2) K/uL Immature Gran # (Auto) (0.01-0.20) K/uL PT 14.4 H INR 1.3 H APTT 31.3 H PTT Ratio 1.1 Sodium Potassium Chloride (98-107) mmol/L Carbon Dioxide (21-32) mmol/L Anion Gap BUN (6-23) mg/dl Creatinine (0.6-1.2) mg/dl Est Cr Clr Drug Dosing Est GFR ( Amer) ml/min Est GFR (Non-Af Amer) ml/min BUN/Creatinine Ratio (10-20) Glucose (70-99(Fasting)) mg/dl Calcium (8.6-10.3) mg/dl Total Bilirubin (0.2-1.0) mg/dl AST ALT (7-52) U/L Alkaline Phosphatase (34-104) U/L Troponin I High Sens 16.3 H (0-14) pg/ml B-Natriuretic Peptide (0-100) pg/ml Total Protein (6.0-8.3) gm/dl Albumin (3.4-5.0) gm/dl Globulin (2.5-4.0) gm/dl Albumin/Globulin Ratio (0.9-2) SARS-CoV-2, RNA, NAAT (NEGATIVE) Administered Medications Discontinued Medications Acetaminophen (Acetaminophen 325 Mg Tab) 650 mg PO NOW STA Stop: 02/21/23 20:28 Last Admin: 02/21/23 20:34 Dose: 650 mg Documented By: HUNG Furosemide (Furosemide 40 Mg/4 Ml Vial) 40 mg IV ONE ONE Stop: 02/21/23 20:19 Last Admin: 02/21/23 20:34 Dose: 40 mg Documented By: Imaging Data Radiologist's Impression: Abdomen/Pelvis CT 02/21/23 21:46 Exam(s): CT ABDOMEN + PELVIS Without Contrast EXAM: CT Abdomen and Pelvis Without Intravenous Contrast CLINICAL HISTORY: Reason for exam: distended abd with pain. TECHNIQUE: Axial computed tomography images of the abdomen and pelvis without intravenous contrast. CTDI is 7.84 mGy and DLP is 377.37 mGy-cm. Automated exposure control was utilized for the study. A dose lowering technique was utilized adhering to the principles of ALARA. COMPARISON: March 04, 2022 FINDINGS: Lung bases: See below. Pleural space: Small bilateral pleural effusions and mild bibasilar atelectasis. Consider mild CHF. Heart: Moderate cardiomegaly and severe coronary calcification. There is a pacing device in place. ABDOMEN: Liver: Unremarkable. Gallbladder and bile ducts: The gallbladder is completely filled with numerous calcified stones but nondilated. No surrounding inflammation, biliary duct dilation, or choledocholithiasis is seen. Pancreas: Unremarkable. No ductal dilation. Spleen: Unremarkable. No splenomegaly. Adrenals: Unremarkable. No mass. Kidneys and ureters: Unremarkable. No obstructing stones. No hydronephrosis. Stomach and bowel: Bowel loops are nondilated. There is diverticulosis throughout the colon. The appendix is normal. No pneumoperitoneum or abscess is seen. There is a small amount of free fluid in the pelvis. No mucosal thickening. PELVIS: Appendix: See above. Bladder: Unremarkable. No stones. Reproductive: Unremarkable as visualized. ABDOMEN and PELVIS: Intraperitoneal space: See above. Bones/joints: Moderate multilevel degenerative changes throughout the spine. No acute fracture or subluxation is seen. Soft tissues: Unremarkable. 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 The abdominal aorta is mildly calcified but nondilated. Lymph nodes: Unremarkable. No enlarged lymph nodes. IMPRESSION: 1. Small bilateral pleural effusions and mild bibasilar atelectasis. Consider mild CHF. 2. 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 3. The gallbladder is completely filled with numerous calcified stones but nondilated. No surrounding inflammation, biliary duct dilation, or choledocholithiasis is seen. 4. Bowel loops are nondilated. There is diverticulosis throughout the colon. The appendix is normal. No pneumoperitoneum or abscess is seen. There is a small amount of free fluid in the pelvis. Electronically signed by: Antony Richardson MD 02/21/23 23:06 PM Discharge Plan Visit Data Chief Complaint: Shortness of Breath/Dyspnea Stated Complaint: SOB, LOW OXYGEN ED Provider: Ritesh Bradshaw Discharge Problem: Hypoxia, Acute dyspnea Patient Disposition: Admitted As Inpatient Forms Stand Alone Forms: [facility] Prescriptions Prescriptions: No Action hydrocortisone 2.5 % cream with perineal applicator 1 applic VA TID PRN (Reason: hemorrhoids) 14 Days Qty: 30 2RF (DME) Accu-Chek Cheryl Plus test strp Strip See Rx Instructions .Route Qty: 50 5RF Rx Instructions: test once daily (DME) blood-glucose meter [Accu-Chek Cheryl Plus Meter] Misc See Rx Instructions .Route Qty: 1 0RF Rx Instructions: test once daily (DME) lancets [Accu-Chek Softclix Lancets] Misc See Rx Instructions .Route Qty: 100 5RF Rx Instructions: test once daily diclofenac sodium [Arthritis Pain (diclofenac)] 1 % gel 2 g topical QID PRN (Reason: arthritis pain) Qty: 100 5RF allopurinol 100 mg tablet 50 mg PO DAILY Qty: 45 3RF simvastatin 40 mg tablet 40 mg PO QPM Qty: 90 3RF metoprolol tartrate 25 mg tablet 25 mg PO BID Qty: 180 3RF nystatin 100,000 unit/gram powder 1 applic topical DAILY PRN (Reason: rash) Qty: 30 2RF (DME) Transport Chair See Rx Instructions .Route .MEDSUPPLY Qty: 1 0RF Rx Instructions: For use by caregiver to safely assist patient with mobility issues. furosemide [Lasix] 20 mg tablet 20 mg PO DAILY Cerovite Senior 0.4 mg-300 mcg- 250 mcg Tablet 1 tab PO QAM Qty: 30 0RF Rx Instructions: OTC acetaminophen [Tylenol Extra Strength] 500 mg Tablet 1,000 mg PO DIRECTED PRN (Reason: Pain) Eliquis 2.5 mg Tablet 2.5 mg PO BID Qty: 60 1RF glipizide 2.5 mg tablet extended release 24hr 2.5 mg PO QAM Rx Instructions: with breakfast Referrals Referrals: Ned Tomlin MD [Primary Care Provider] -
[2023-02-21 19:26] LABS: Basophils # (auto) 0.03 K/uL (0-0.2); Basophils % (auto) 0.4 %; Eosinophils # (auto) 0.05 K/uL (0-0.50); Eosinophils % (auto) 0.7 %; Hematocrit (blood only) 33.8 % (37.0-47.0); Hemoglobin 10.7 g/dl (12.0-16.0); Immature Granulocytes # (auto) 0.03 K/uL (0.01-0.20); Immature Granulocytes % (auto) 0.4 %; Lymphocytes # (auto) 0.91 K/uL (1.2-3.4); Lymphocytes % (auto) 13.6 %; Mean Corpuscular Hemoglobin 29.5 pg (25.0-34.0); Mean Corpuscular Hgb Conc 31.7 g/dL (32.0-36.0); Mean Corpuscular Volume 93.1 fL (80.0-100.0); Mean Platelet Volume 12.4 fL (9.4-12.4); Monocytes # (auto) 0.52 K/uL (0.11-0.59); Monocytes % (auto) 7.7 %; Neutrophils # (auto) 5.17 K/uL (1.40-6.50); Neutrophils % (auto) 77.2 %; Platelet Count 135 K/uL (130-400); RDW Coefficient of Variation 16.4 % (11.5-14.5); RDW Standard Deviation 55.7 fL (36.4-46.3); Red Blood Count 3.63 M/uL (4.20-5.40); White Blood Count 6.71 K/ul (4.8-10.8)
[2023-02-21 19:56] LABS: Alanine Aminotransferase 19 U/L (7-52); Albumin Globulin Ratio 1.1 (0.9-2); Albumin Level 4.1 gm/dl (3.4-5.0); Alkaline Phosphatase 134 U/L (34-104); BUN Creatinine Ratio 22.3 (10-20); Bilirubin,Total 1.1 mg/dl (0.2-1.0); Blood Urea Nitrogen 41 mg/dl (6-23); Calcium 9.4 mg/dl (8.6-10.3); Carbon Dioxide 18 mmol/L (21-32); Chloride 109 mmol/L (98-107); Est GFR (African American) 27.7 ml/min; Est GFR (Non-African American) 23.9 ml/min; Globulin 3.6 gm/dl (2.5-4.0); Glucose 177 mg/dl (70-99(Fasting)); Total Protein 7.7 gm/dl (6.0-8.3); Troponin I High Sensitivity 14.6 pg/ml (0-14)
[2023-02-21] MEDS ORDERED: FUROSEMIDE 40 MG/4 ML VIAL IV ONE (20:18)
[2023-02-21] MEDS ORDERED: ACETAMINOPHEN 325 MG TAB PO STA (20:27)
[2023-02-21 20:48] LABS: Potassium 5.3 mmol/L (3.5-5.1)
[2023-02-21 21:01] LABS: INR 1.3 (0.9-1.1); Partial Thromboplastin Ratio 1.1; Partial Thromboplastin Time 31.3 Seconds (21.0-31.0); Prothrombin Time 14.4 Seconds (9.0-12.0)
--- NOTE | 2023-02-21 21:20 | History & Physical Report ---
Date of Service February 21, 2023 Assessment & Plan (1) Shortness of breath: Plan: 87yo Female with PMH HFpEF, DM2, HTN, CKD4, atrial fibrillation, s/p pacer here for worsened shortness of breath hypoxia. Hypoxia 2/2 Acute on Chronic Heart Failure Exacerbation -89% on room air, currently at 92% tolerating 4LNC -CXR: trace pleural effusion noted b/l -no wheeze noted on exam -BNP elevated 1782 -weight increased noted 67.9kg from 63.5 -received lasix 40mg IV in ED -noted distended abd possible constipation v ascites, concern contribution to SOB CT A/P pending -will continue lasix 40mg IV daily -trend daily weights, I&Os -continue oxygen via NC, wean as tolerated -monitor BMP BID Abd distention with Constipation -continue miralax daily -noted distended abd possible constipation v ascites, concern contribution to SOB CT A/P pending Elevated Troponin -noted at 14.6 -last echo 12/04/22 EF 55-60%, severe biatrial dilation, 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 Gout -continue allopurinol Elevated Potassium -K 5.3, recheck in AM FENa: heart healthy DM2 Code Status: DNR/DNI, POA is son DVT PPX: eliquis 2.5mg BID Dispo: med/tele Samira Shafer D.O. PGY 2, FCM (2) Hypoxia: (3) Type 2 diabetes mellitus: (4) Hypertension: (5) Gout, joint: (6) Chronic kidney disease, stage IV (severe): (7) (HFpEF) heart failure with preserved ejection fraction: (8) Atrial fibrillation, permanent: History of Present Illness Chief Complaint: SOB Primary Care Provider: Ned Tomlin MD 87yo Female with PMH HFpEF, DM2, HTN, CKD4, atrial fibrillation, s/p pacer here for worsened shortness of breath hypoxia. She states she 'don't feel good', has difficulty establishing a timeline of her symptoms but states she hasn't felt well for a few weeks, complains of pain in her right thigh and groin secondary to external suction catheter. Denies any SOB on oxygen at this time, denies any chest pain or abd pain. She is AAOx3. Here today with son who is POA. Per son, today they noticed her lips were blue, checked her oxygen was in the 80's blood pressure lower systolic 100's, brought her to ED. Patient denies nausea at this time, son states she has been complaining of nausea on and off throughout the last 2 weeks. No noted fevers at home though family has noted occasional elevated temperatures. Per son she has had a low appetite in the past week. They had noted an increase of weight at home. She has had increased constipation with small hard stool, family gave her miralax yesterday and she had a decent sized BM this morning. She has had a firm abdomen for at least the past week, also noted by her PCP. She has seen her PCP twice in the past on 01/30 and 02/10 for UTI, treated with cefdinir BID 7 days for increased urinary frequency and 'not feeling well' and later keflex BID for 5 days for concern UTI on UA. On 02/10 she was started on glipizide 2.5mg daily given patient's concern over diabetes, there was concern she was not eating due to concern about her blood sugar. She was originally on lasix 20mg PO twice a week, in the past week was increased to lasix 20mg PO daily for concern fluid overload. Patient does not walk at baseline. She is baseline incontinent of urine uses diapers. Lives with family supervision available 15/05. She does not use home oxygen. Typically has an ok appetite. When asked about code status, patient states 'I want to be with the lord', son PODavid clarified she would not want resuscitation or intubation if needed. Allergies Allergy/AdvReac Type Severity Reaction Status Date / Time acetaminophen [From Garrison] AdvReac Intermediate Nausea Verified 02/21/23 20:58 atorvastatin [From Lipitor] AdvReac Intermediate NOT Verified 02/21/23 20:58 TOLERATED fluvastatin [From Lescol] AdvReac Intermediate NOT Verified 02/21/23 20:58 TOLERATED gabapentin AdvReac Intermediate Nausea Verified 02/21/23 20:58 hydrocodone [From Garrison] AdvReac Intermediate Nausea Verified 02/21/23 20:58 sulfamethoxazole AdvReac Intermediate Nausea Verified 02/21/23 20:58 [From Bactrim] trimethoprim [From Bactrim] AdvReac Intermediate Nausea Verified 02/21/23 20:58 Home Medications Medication Instructions Recorded Confirmed Type hydrocortisone 2.5 % topical cream [address] TID PRN hemorrhoids 2 12/28/20 02/21/23 Rx with perineal applicator weeks #30 grams blood sugar diagnostic (Accu-Chek #50 ea 02/23/22 02/21/23 Rx Cheryl Plus test strips) blood-glucose meter (Accu-Chek #1 ea 02/23/22 02/21/23 Rx Cheryl Plus Meter) lancets (Accu-Chek Softclix #100 ea 02/23/22 02/21/23 Rx Lancets) [id number]-btt-[id number] acid 0.4 1 tab PO QAM #30 tabs 03/13/22 02/21/23 Rx mg-lycopene 300 mcg-lutein 250 mcg tablet (Cerovite Senior) diclofenac sodium 1 % topical gel 2 g topical QID PRN arthritis pain 06/13/22 02/21/23 Rx (Arthritis Pain (diclofenac)) #100 grams furosemide 20 mg tablet (Lasix) 20 mg PO DAILY 06/29/22 02/21/23 History acetaminophen 500 mg tablet 1,000 mg PO DIRECTED PRN Pain 12/03/22 02/21/23 History (Tylenol Extra Strength) apixaban 2.5 mg tablet (Eliquis) 2.5 mg PO BID #60 tabs 12/07/22 02/21/23 Rx allopurinol 100 mg tablet 50 mg PO DAILY #45 tabs 12/13/22 02/21/23 Rx simvastatin 40 mg tablet 40 mg PO QPM #90 tabs 12/13/22 02/21/23 Rx metoprolol tartrate 25 mg tablet 25 mg PO BID #180 tabs 01/05/23 02/21/23 Rx nystatin 100,000 unit/gram topical 1 applic topical DAILY PRN rash 03/24/23 05/02/23 Rx powder #30 grams Transport Chair #1 ea 02/01/23 02/21/23 Rx glipizide 2.5 mg tablet, extended 2.5 mg PO QAM 02/21/23 02/21/23 History release 24 hr Past Med/Surg History Medical History (HFpEF) heart failure with preserved ejection fraction Atrial fibrillation, permanent Cloudy urine COVID-19 Hypertension Loss of consciousness Mitral regurgitation Pulmonary hypertension Rectal bleeding Second degree uterine prolapse Syncope Tricuspid regurgitation Type 2 diabetes mellitus Vaginal bleeding Ventricular tachycardia Surgical History S/P cataract surgery Family History Mother Diabetes Breast cancer Brother Stroke Denies family history of Ovarian cancer Prostate cancer Myocardial infarction Colorectal cancer Social History Smoking Status: Never smoker Second Hand Exposure: No; Do You Dip or Chew Tobacco: No; Hx Alcohol Use: No Hx Substance Use: No Preferred Language: Frisian Communication Ability: Effective Visual Impairment: No Limitations Hearing Ability: Normal Bobbin Winder Tender Required: No Beliefs That Will Affect Care: None marital status: / Current Living Situation: Alone Current Living Situation Comment: lives at home but family lives nearby current occupational status: retired current occupation: retired from working at [employer] How many Children do You have: 5 How many Children do You have Comment: 1 Feels Safe at Home: Yes Childhood Exposure to Second-Hand Smoke: Yes Diet: regular during the past year weight has: remained stable Dental Care, Regularly: No Physical Activity Frequency: Does not Exercise Seatbelt Use: never Sunscreen Use: No Assistive Devices: Cane, Walker and Wheelchair Physical Exam Constitutional: + ill appearing, + thin and cooperative Eyes: PERRL, conjunctivae normal, anicteric sclerae ENMT: Mouth: + lip abnormality (blue tint noted on lower lip) Neck: trachea midline, no thyromegaly Respiratory: normal respiratory effort Cardiovascular: Rate/Rhythm: regular rate and regular rhythm Extremities: + edema (b/l +1 pitting) Gastrointestinal (Abdomen): Inspection/Auscultation: + abdomen distended and + visible herniation (at umbilicus) Percussion/Palpation: + abdomen tender (mild on palpation to LLQ) and + abdomen firm Skin: bruising noted on b/l lower extremities with weeping wounds on left calf Psychiatric: Orientation: alert and oriented x 3 Results & Data Results & Data Vital Signs (Past 12 Hours) Vital Signs Temp Pulse Resp BP Pulse Ox O2 Del Method O2 Flow Rate 02/21/23 19:09 60 02/21/23 19:06 89 L Nasal Cannula 0 02/21/23 19:06 92 Nasal Cannula 3 02/21/23 18:36 36.0 C L 65 22 142/83 H 90 Room Air Diagnostic Findings Exam(s): CT ABDOMEN + PELVIS Without Contrast EXAM: CT Abdomen and Pelvis Without Intravenous Contrast CLINICAL HISTORY: Reason for exam: distended abd with pain. TECHNIQUE: Axial computed tomography images of the abdomen and pelvis without intravenous contrast. CTDI is 7.84 mGy and DLP is 377.37 mGy-cm. Automated exposure control was utilized for the study. A dose lowering technique was utilized adhering to the principles of ALARA. COMPARISON: March 04, 2022 FINDINGS: Lung bases: See below. Pleural space: Small bilateral pleural effusions and mild bibasilar atelectasis. Consider mild CHF. Heart: Moderate cardiomegaly and severe coronary calcification. There is a pacing device in place. ABDOMEN: Liver: Unremarkable. Gallbladder and bile ducts: The gallbladder is completely filled with numerous calcified stones but nondilated. No surrounding inflammation, biliary duct dilation, or choledocholithiasis is seen. Pancreas: Unremarkable. No ductal dilation. Spleen: Unremarkable. No splenomegaly. Adrenals: Unremarkable. No mass. Kidneys and ureters: Unremarkable. No obstructing stones. No hydronephrosis. Stomach and bowel: Bowel loops are nondilated. There is diverticulosis throughout the colon. The appendix is normal. No pneumoperitoneum or abscess is seen. There is a small amount of free fluid in the pelvis. No mucosal thickening. PELVIS: Appendix: See above. Bladder: Unremarkable. No stones. Reproductive: Unremarkable as visualized. ABDOMEN and PELVIS: Intraperitoneal space: See above. Bones/joints: Moderate multilevel degenerative changes throughout the spine. No acute fracture or subluxation is seen. Soft tissues: Unremarkable. 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 The abdominal aorta is mildly calcified but nondilated. Lymph nodes: Unremarkable. No enlarged lymph nodes. IMPRESSION: 1. Small bilateral pleural effusions and mild bibasilar atelectasis. Consider mild CHF. 2. 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 3. The gallbladder is completely filled with numerous calcified stones but nondilated. No surrounding inflammation, biliary duct dilation, or choledocholithiasis is seen. 4. Bowel loops are nondilated. There is diverticulosis throughout the colon. The appendix is normal. No pneumoperitoneum or abscess is seen. There is a small amount of free fluid in the pelvis. Electronically signed by: Antony Richardson MD 02/21/23 23:06 PM Dictated:02/21/232305 Transcribed: 02/21/232305 Supervising Physician Co-Signing Physician Notes Patient seen and examined, chart reviewed, case discussed with Dr. Shafer at the time of admission and I agree with the assessment and plan as documented above. In brief, patient is an 80yo female with history of HFpEF, DM, HTN, CKD, AF s/p pacer presenting with generalized illness. Noted by family to have some perioral cyanosis prior to arrival. Saturation in the 80's measured at home. No home O2 Patient recently had her Lasix increased from 20mg po twice weekly to 20mg po daily due to concern for volume overload. Has had some weight increase per chart review - 63.5kg on 02/10/21 --> 67.9 today. Last echo 12/04/22 - RV pressure overload, severe PH On exam she is afebrile, HD stable. On supplemental O2 - 4L/min saturating 92% Skin - intact, no rash HEENT - MMM, Neck supple, no JVD Heart - +S1/S2, irregularly irregular Lungs - diminished in bases, no rhonchi/wheezes Abd - soft, distended, umbilical hernia - nontender and reducible Ext - 2+ LE edema Assessment/Plan Suspect some degree of volume overload - acute on chronic CHF exacerbation. She has been given Lasix 40mg IV in the ER - monitor output and symptoms Lasix 40mg IV daily Montior renal function and electrolytes. BUN, Cr and HCO3 near baseline at present Remainder as above Resident Activity Tracking Resident Involvement: Resident Care Provided Care Provided: Adult [facility]
--- NOTE | 2023-02-21 23:08 | CT Scan Report ---
Exam(s): CT ABDOMEN + PELVIS Without Contrast EXAM: CT Abdomen and Pelvis Without Intravenous Contrast CLINICAL HISTORY: Reason for exam: distended abd with pain. TECHNIQUE: Axial computed tomography images of the abdomen and pelvis without intravenous contrast. CTDI is 7.84 mGy and DLP is 377.37 mGy-cm. Automated exposure control was utilized for the study. A dose lowering technique was utilized adhering to the principles of ALARA. COMPARISON: March 04, 2022 FINDINGS: Lung bases: See below. Pleural space: Small bilateral pleural effusions and mild bibasilar atelectasis. Consider mild CHF. Heart: Moderate cardiomegaly and severe coronary calcification. There is a pacing device in place. ABDOMEN: Liver: Unremarkable. Gallbladder and bile ducts: The gallbladder is completely filled with numerous calcified stones but nondilated. No surrounding inflammation, biliary duct dilation, or choledocholithiasis is seen. Pancreas: Unremarkable. No ductal dilation. Spleen: Unremarkable. No splenomegaly. Adrenals: Unremarkable. No mass. Kidneys and ureters: Unremarkable. No obstructing stones. No hydronephrosis. Stomach and bowel: Bowel loops are nondilated. There is diverticulosis throughout the colon. The appendix is normal. No pneumoperitoneum or abscess is seen. There is a small amount of free fluid in the pelvis. No mucosal thickening. PELVIS: Appendix: See above. Bladder: Unremarkable. No stones. Reproductive: Unremarkable as visualized. ABDOMEN and PELVIS: Intraperitoneal space: See above. Bones/joints: Moderate multilevel degenerative changes throughout the spine. No acute fracture or subluxation is seen. Soft tissues: Unremarkable. 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 The abdominal aorta is mildly calcified but nondilated. Lymph nodes: Unremarkable. No enlarged lymph nodes. IMPRESSION: 1. Small bilateral pleural effusions and mild bibasilar atelectasis. Consider mild CHF. 2. 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 3. The gallbladder is completely filled with numerous calcified stones but nondilated. No surrounding inflammation, biliary duct dilation, or choledocholithiasis is seen. 4. Bowel loops are nondilated. There is diverticulosis throughout the colon. The appendix is normal. No pneumoperitoneum or abscess is seen. There is a small amount of free fluid in the pelvis. Electronically signed by: Antony Richardson MD 02/21/23 23:06 PM
--- NOTE | 2023-02-22 01:20 | Billing Data ---
Date of Service February 21, 2023 Coding Level of Care Code 27192 INT INP/OBS CARE
[2023-02-22] MEDS ORDERED: GLUCOSE 10 TAB/TUBE PO PRN (02:15)
[2023-02-22] MEDS ORDERED: GLUCAGON FOR INJ 1 MG VIAL SQ PRN (02:15)
[2023-02-22] MEDS ORDERED: CARBOHYDRATES FOR HYPOGLYCEMIA PO PRN (02:15)
[2023-02-22] MEDS ORDERED: DEXTROSE 50% 50 ML SYRINGE IV PRN (02:15)
[2023-02-22] MEDS ORDERED: GLUCOSE 40% GEL 15 GM TUBE PO PRN (02:15)
[2023-02-22] MEDS ORDERED: MICONAZOLE NITRATE POWDER 85 GM EXT PRN (03:37)
[2023-02-22] MEDS: ACETAMINOPHEN 325 MG TAB PO PRN ×3 (07:41→21:51)
[2023-02-22 07:45] LABS: Hematocrit (blood only) 31.9 % (37.0-47.0); Mean Corpuscular Hemoglobin 29.2 pg (25.0-34.0); Mean Corpuscular Hgb Conc 31.3 g/dL (32.0-36.0); Mean Platelet Volume 11.1 fL (9.4-12.4); Platelet Count 102 K/uL (130-400); RDW Coefficient of Variation 16.3 % (11.5-14.5); RDW Standard Deviation 55.6 fL (36.4-46.3); Red Blood Count 3.43 M/uL (4.20-5.40); White Blood Count 6.28 K/ul (4.8-10.8)
--- NOTE | 2023-02-22 07:53 | Hospitalist Progress Note ---
Date of Service February 22, 2023 Assessment & Plan (1) Shortness of breath: Plan: Pt is an 87 yo female with PMH of HFpEF, DM2, HTN, CKD4, atrial fibrillation, and s/p pacer presenting for worsened shortness of breath. 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1 - continue to monitor Atrial Fibrillation - continue eliquis 2.5mg BID DM2 - SSI ordered; hold home glipizide - A1c 8.3%; considering comorbidities and age, would consider this A1c controlled - given patient's age, would consider stopping glipizide and switching to different med as outpatient (if medications necessary) HTN - will continue holding metoprolol tartrate 25mg BID in the setting of acute heart failure exacerbation Hx of gout -continue allopurinol Diet: heart healthy, DM2 Code: DNR/DNI (son is POA) DVT ppx: eliquis 2.5mg BID Dispo: med/tele, continue diuresis and once medically stable, plan for d/c home (2) Hypoxia: (3) Type 2 diabetes mellitus: (4) Hypertension: (5) Gout, joint: (6) Chronic kidney disease, stage IV (severe): (7) (HFpEF) heart failure with preserved ejection fraction: (8) Atrial fibrillation, permanent: Admission and Anticipated Discharge Date Admission Date: February 21, 2023 Supervising Physician Co-Signing Physician Notes Resident Physician Supervision Note: I independently interviewed and examined the patient and verified the huntley history and physical, reviewed labs and image studies and agree with resident findings and care plan. Subjective Pt seen at bedside this AM. She states her breathing is better. She ate all her breakfast as she says she hasn't eaten for the last two days. She denies chest pain, breathing difficulty, and leg pain/swelling. Review of Systems Review of Systems: As per HPI Physical Exam Physical Exam: Constitutional: well appearing, no acute distress HEENT: normocephalic, no conjunctival injection CV: RRR, no murmur, no LE edema Respiratory: CTA bilaterally. No rhonchi or wheezes. Minimal crackles heard in bilateral lung bases. No increased work of breathing MSK: no gross deformities noted Skin: warm, dry, no rashes Neuro: alert, oriented, no FND noted Psych: mood and affect congruent Results & Data Results & Data Vital Signs (Past 12 Hours) Vital Signs Temp Pulse Pulse Resp BP Pulse Ox O2 Del Method 02/22/23 03:06 36.4 C L 61 18 143/71 H 91 Nasal Cannula 02/22/23 03:39 Nasal Cannula 02/22/23 02:30 60 02/22/23 02:23 36.5 C 62 22 151/95 H 93 Nasal Cannula 02/22/23 02:15 36.5 C 62 20 151/95 H 93 Nasal Cannula 02/21/23 23:07 60 02/21/23 21:24 60 24 124/60 92 Room Air O2 Flow Rate 02/22/23 03:06 4 02/22/23 03:39 4 02/22/23 02:30 02/22/23 02:23 4 02/22/23 02:15 4 02/21/23 23:07 02/21/23 21:24 4 Resident Activity Tracking Resident Involvement: Resident Care Provided Care Provided: Adult Hospital Medicine
--- NOTE | 2023-02-22 07:58 | XRay Report ---
XR chest 1V not portable HISTORY: Chest pain, nonspecific COMPARISON: Chest 02/10/2023. FINDINGS: No pneumothorax. The cardiac silhouette is enlarged. There is mild central pulmonary vascul ar congestion without overt edema.. Small bilateral pleural effusions persist. Bibasilar linear densi ties favor subsegmental atelectasis. This is also similar to the prior study. Left-sided single lead pacemaker. IMPRESSION: Cardiomegaly with mild pulmonary vascular congestion and small bilateral pleural effusions. This is s imilar to the prior study. ACT 112: Negative or not required by law. Electronically signed by: Justino Sanchez M.D. 02/22/2023 7:56 AM
[2023-02-22 08:04] LABS: Albumin Globulin Ratio 1.3 (0.9-2); Albumin Level 3.9 gm/dl (3.4-5.0); BUN Creatinine Ratio 21.3 (10-20); Bilirubin,Total 1.4 mg/dl (0.2-1.0); Calcium 9.3 mg/dl (8.6-10.3); Creatinine Clr Calc Pharmacy 18.5 ml/min; Est GFR (Non-African American) 23.3 ml/min; Globulin 3.1 gm/dl (2.5-4.0); Potassium 5.1 mmol/L (3.5-5.1)
[2023-02-22 08:23] LABS: Estimated Average Glucose 192 mg/dl; Hemoglobin A1C 8.3 % (4.5-5.6)
[2023-02-22] MEDS: INSULIN ASPART PER UNIT CHARGE SC SCH ×4 (08:25→22:04)
[2023-02-22] MEDS: LANTUS PER UNIT CHARGE SQ SCH ×2 (08:27→21:51)
[2023-02-22] MEDS: DICLOFENAC SOD 1% GEL 100 GM TUBE EXT SCH ×4 (08:28→21:51)
[2023-02-22] MEDS: allopurinoL 100 MG TAB PO SCH (08:29)
[2023-02-22] MEDS: APIXABAN 2.5 MG TAB PO SCH ×2 (08:30→21:51)
[2023-02-22] MEDS: DOCUSATE SODIUM/SENNA 50/8.6MG TAB PO SCH (08:30)
[2023-02-22] MEDS: FUROSEMIDE 40 MG/4 ML VIAL IV SCH (08:31)
--- NOTE | 2023-02-22 13:17 | Electrocardiogram Report ---
Test Reason : Blood Pressure : / mmHG Vent. Rate : 060 BPM Atrial Rate : 080 BPM P-R Int : 000 ms QRS Dur : 144 ms QT Int : 510 ms P-R-T Axes : 000 110 -74 degrees QTc Int : 510 ms Poor data quality, interpretation may be adversely affected Ventricular-paced rhythm Abnormal ECG When compared with ECG of 07-DEC-2022 16:03, Premature ventricular complexes are no longer Present Vent. rate has decreased BY 5 BPM Confirmed by Bhaskar Story ([id number]) on 02/22/2023 1:16:57 PM Referred By: REFERRED SELF Confirmed By:Bhaskar Story
[2023-02-22] MEDS: POLYETHYLENE (MIRALAX) 17 GM PACK PO SCH (13:47)
[2023-02-22] MEDS: SIMVASTATIN 40 MG TAB PO SCH (21:51)
[2023-02-23] MEDS: ACETAMINOPHEN 325 MG TAB PO PRN ×3 (05:27→21:30)
[2023-02-23 08:16] LABS: Hematocrit (blood only) 31.8 % (37.0-47.0); Hemoglobin 9.6 g/dl (12.0-16.0); Mean Corpuscular Hemoglobin 28.8 pg (25.0-34.0); Mean Corpuscular Hgb Conc 30.2 g/dL (32.0-36.0); Mean Corpuscular Volume 95.5 fL (80.0-100.0); Mean Platelet Volume 10.8 fL (9.4-12.4); Platelet Count 105 K/uL (130-400); RDW Coefficient of Variation 16.3 % (11.5-14.5); RDW Standard Deviation 57.1 fL (36.4-46.3); Red Blood Count 3.33 M/uL (4.20-5.40); White Blood Count 5.57 K/ul (4.8-10.8)
[2023-02-23] MEDS: APIXABAN 2.5 MG TAB PO SCH ×2 (08:23→21:31)
[2023-02-23] MEDS: DICLOFENAC SOD 1% GEL 100 GM TUBE EXT SCH ×4 (08:23→21:31)
[2023-02-23] MEDS: DOCUSATE SODIUM/SENNA 50/8.6MG TAB PO SCH (08:23)
[2023-02-23] MEDS: allopurinoL 100 MG TAB PO SCH (08:23)
[2023-02-23] MEDS: FUROSEMIDE 40 MG/4 ML VIAL IV SCH (08:23)
[2023-02-23] MEDS: POLYETHYLENE (MIRALAX) 17 GM PACK PO SCH (08:24)
[2023-02-23] MEDS: LANTUS PER UNIT CHARGE SQ SCH ×2 (08:25→21:31)
[2023-02-23 08:46] LABS: BUN Creatinine Ratio 22.5 (10-20); Creatinine Clr Calc Pharmacy 16.6 ml/min; Est GFR (African American) 23.7 ml/min; Est GFR (Non-African American) 20.5 ml/min; Potassium 4.8 mmol/L (3.5-5.1)
[2023-02-23] MEDS: INSULIN ASPART PER UNIT CHARGE SC SCH ×4 (09:22→21:31)
--- NOTE | 2023-02-23 14:46 | Hospitalist Progress Note ---
Date of Service February 23, 2023 Assessment & Plan (1) Shortness of breath: Plan: Pt is an 87 yo female with PMH of HFpEF, DM2, HTN, CKD4, atrial fibrillation, and s/p pacer presenting for worsened shortness of breath. 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 - pt satting well w/o oxygen Constipation - CTAP showed minimal stool burden, no signs of obstruction - continue miralax daily Elevated troponin - noted at 14.6 increased to 16.3 - most likely chronic mild elevation in the setting of increased heart strain Hyperkalemia - 5.3 upon admission, repeat WNL Atrial Fibrillation - continue eliquis 2.5mg BID DM2 - SSI ordered; hold home glipizide - A1c 8.3%; considering comorbidities and age, would consider this A1c controlled - given patient's age, would consider stopping glipizide and switching to different med as outpatient (if medications necessary) HTN - resume metoprolol since euvolemic Hx of gout -continue allopurinol Diet: heart healthy, DM2 Code: DNR/DNI (son is POA) DVT ppx: eliquis 2.5mg BID Dispo: med/tele; pt medically stable. Awaiting PT eval for d/c recommendations (2) Hypoxia: (3) Type 2 diabetes mellitus: (4) Hypertension: (5) Gout, joint: (6) Chronic kidney disease, stage IV (severe): (7) (HFpEF) heart failure with preserved ejection fraction: (8) Atrial fibrillation, permanent: Admission and Anticipated Discharge Date Admission Date: February 21, 2023 Supervising Physician Co-Signing Physician Notes Resident Physician Supervision Note: I independently interviewed and examined the patient and verified the huntley history and physical, reviewed labs and image studies and agree with resident findings and care plan. Subjective Pt seen at bedside this AM. She was upset because she couldn't reach her breakfast. Otherwise, she states she is feeling fine. Denies chest pain, increased SOB, or leg pains. Review of Systems Review of Systems: As per HPI Physical Exam Physical Exam: Constitutional: well appearing, no acute distress HEENT: normocephalic, no conjunctival injection CV: RRR, no murmur, no LE edema Respiratory: CTA bilaterally. No rhonchi, wheezes, or crackles. No increased work of breathing MSK: no gross deformities noted Skin: warm, dry, no rashes Neuro: alert, oriented, no FND noted Psych: mood and affect congruent Results & Data Results & Data Vital Signs (Past 12 Hours) Vital Signs Temp Pulse Pulse Resp BP Pulse Ox O2 Del Method 02/23/23 11:56 36.5 C 61 18 145/77 H 93 Room Air 02/23/23 09:32 97 Room Air 02/23/23 09:15 02/23/23 08:18 36.6 C 100 H 17 145/96 H 95 Room Air 02/23/23 07:25 60 02/23/23 03:33 36.6 C 60 18 118/68 96 Nasal Cannula O2 Flow Rate 02/23/23 11:56 02/23/23 09:32 02/23/23 09:15 2 02/23/23 08:18 02/23/23 07:25 02/23/23 03:33 1.5 Resident Activity Tracking Resident Involvement: Resident Care Provided Care Provided: Adult Hospital Medicine
--- NOTE | 2023-02-23 16:12 | XRay Report ---
[facility]UB CLINICAL HISTORY: Left lower quadrant abdominal pain. COMPARISON STUDY: CT of the abdomen and pelvis February 21, 2023. FINDINGS: Multiple peripherally calcified splenic artery aneurysms are again noted. These are similar to earlier CT of October 19, 2020. The bowel gas pattern is normal. There is no evidence for a ying l obstruction. Amount of stool is within normal limits. IMPRESSION: No evidence for a bowel obstruction. ACT 112: Negative or not required by law. Electronically signed by: Michael Isaacs M.D. 02/23/2023 4:10 PM
[2023-02-23] MEDS: ADVANCED PROBIOTIC 1250 MG CAPSULE PO SCH (17:50)
[2023-02-23] MEDS ORDERED: SIMETHICONE 80 MG CHEW PO ONE (20:29)
[2023-02-23] MEDS: SIMVASTATIN 40 MG TAB PO SCH (21:32)
[2023-02-23] MEDS: METOPROLOL TARTRATE 25 MG TAB PO SCH (21:32)
[2023-02-24 06:52] LABS: Mean Corpuscular Hemoglobin 29.2 pg (25.0-34.0); Mean Corpuscular Hgb Conc 31.3 g/dL (32.0-36.0); Mean Corpuscular Volume 93.6 fL (80.0-100.0); Mean Platelet Volume 10.5 fL (9.4-12.4); Platelet Count 106 K/uL (130-400); RDW Coefficient of Variation 16.3 % (11.5-14.5); RDW Standard Deviation 55.5 fL (36.4-46.3); Red Blood Count 3.42 M/uL (4.20-5.40); White Blood Count 5.06 K/ul (4.8-10.8)
[2023-02-24 07:15] LABS: BUN Creatinine Ratio 24.9 (10-20); Calcium 9.1 mg/dl (8.6-10.3); Creatinine Clr Calc Pharmacy 16.6 ml/min; Est GFR (African American) 23.7 ml/min; Est GFR (Non-African American) 20.5 ml/min
[2023-02-24] MEDS: allopurinoL 100 MG TAB PO SCH (08:36)
[2023-02-24] MEDS: ADVANCED PROBIOTIC 1250 MG CAPSULE PO SCH (08:36)
[2023-02-24] MEDS: FUROSEMIDE 20 MG TAB PO SCH (08:36)
[2023-02-24] MEDS: APIXABAN 2.5 MG TAB PO SCH ×2 (08:37→20:18)
[2023-02-24] MEDS: METOPROLOL TARTRATE 25 MG TAB PO SCH ×2 (08:37→20:18)
[2023-02-24] MEDS: POLYETHYLENE (MIRALAX) 17 GM PACK PO SCH (08:37)
[2023-02-24] MEDS: INSULIN ASPART PER UNIT CHARGE SC SCH ×4 (08:38→21:12)
[2023-02-24] MEDS: DICLOFENAC SOD 1% GEL 100 GM TUBE EXT SCH ×4 (08:38→20:18)
[2023-02-24] MEDS: LANTUS PER UNIT CHARGE SQ SCH ×2 (08:46→21:19)
--- NOTE | 2023-02-24 09:33 | Hospitalist Progress Note ---
Date of Service February 24, 2023 Assessment & Plan (1) Shortness of breath: Plan: Pt is an 87 yo female with PMH of HFpEF, DM2, HTN, CKD4, atrial fibrillation, and s/p pacer presenting for worsened shortness of breath. 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, severe TR, and severe pul HTN - weight down ~2.5kg since admission, total out since admission ~3L; continue to trend daily weights, strict I&Os - continue home regimen of 20 mg lasix PO daily - exacerbation possibly sec to increased salt intake and missing med dose - pt satting well w/o oxygen Constipation - CTAP showed minimal stool burden, no signs of obstruction - d/c senna, continue miralax daily Elevated troponin - noted at 14.6 increased to 16.3 - most likely chronic mild elevation in the setting of increased heart strain Hyperkalemia - 5.3 upon admission, repeat WNL Atrial Fibrillation - continue eliquis 2.5mg BID DM2 - SSI ordered; hold home glipizide - A1c 8.3%; considering comorbidities and age, would consider this A1c controlled - given patient's age, would consider stopping glipizide and switching to different med as outpatient (if medications necessary) HTN - continue home metoprolol 25 mg BID Hx of gout -continue allopurinol Diet: heart healthy, DM2 Code: DNR/DNI (son is POA) DVT ppx: eliquis 2.5mg BID Dispo: med/tele; pt medically stable. OT recommending rehab, awaiting PT eval (2) Hypoxia: (3) Type 2 diabetes mellitus: (4) Hypertension: (5) Gout, joint: (6) Chronic kidney disease, stage IV (severe): (7) (HFpEF) heart failure with preserved ejection fraction: (8) Atrial fibrillation, permanent: Admission and Anticipated Discharge Date Admission Date: February 21, 2023 Supervising Physician Co-Signing Physician Notes Resident Physician Supervision Note: I independently interviewed and examined the patient and verified the huntley history and physical, reviewed labs and image studies and agree with resident findings and care plan. Subjective Pt states she is doing well this AM. No complaints of SOB or chest pain. Review of Systems Review of Systems: As per HPI Physical Exam Physical Exam: Constitutional: well appearing, no acute distress HEENT: normocephalic, no conjunctival injection CV: RRR, no murmur, no LE edema Respiratory: CTA bilaterally. No rhonchi, wheezes, or crackles. No increased work of breathing MSK: no gross deformities noted Skin: warm, dry, no rashes Neuro: alert, oriented, no FND noted Psych: mood and affect congruent Results & Data Results & Data Vital Signs (Past 12 Hours) Vital Signs Temp Pulse Pulse Pulse Resp BP Pulse Ox 02/24/23 07:45 36.4 C L 61 16 165/75 H 93 02/24/23 07:21 62 02/24/23 02:37 37.0 C 59 L 18 133/82 92 02/23/23 23:24 60 02/23/23 22:48 36.9 C 61 18 121/65 91 02/23/23 22:06 O2 Del Method 02/24/23 07:45 Room Air 02/24/23 07:21 02/24/23 02:37 Room Air 02/23/23 23:24 02/23/23 22:48 Room Air 02/23/23 22:06 Room Air Resident Activity Tracking Resident Involvement: Resident Care Provided Care Provided: Adult Hospital Medicine
[2023-02-24] MEDS: ACETAMINOPHEN 325 MG TAB PO PRN ×2 (10:31→20:18)
[2023-02-24] MEDS: SIMVASTATIN 40 MG TAB PO SCH (20:18)
--- NOTE | 2023-02-25 06:36 | Hospitalist Progress Note ---
Date of Service February 25, 2023 Assessment & Plan (1) Shortness of breath: Plan: Pt is an 87 yo female with PMH of HFpEF, DM2, HTN, CKD4, atrial fibrillation, and s/p pacer presenting for worsened shortness of breath. 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, severe TR, and severe pul HTN - urinary output adequate (~1500 mL yesterday); continue home regimen of 20 mg lasix PO daily - continue to trend daily weights, strict I&Os - exacerbation possibly sec to increased salt intake and missing med dose - pt w/o oxygen and sats >90 Elevated troponin - noted at 14.6 increased to 16.3 - most likely chronic mild elevation in the setting of increased heart strain Hyperkalemia - 5.3 upon admission, repeat WNL Atrial Fibrillation - continue eliquis 2.5mg BID DM2 - SSI ordered; hold home glipizide - A1c 8.3%; considering comorbidities and age, would consider this A1c controlled - given patient's age, would consider stopping glipizide and switching to different med as outpatient (if medications necessary) HTN - continue home metoprolol 25 mg BID Hx of gout -continue allopurinol Diet: heart healthy, DM2 Code: DNR/DNI (son is POA) DVT ppx: eliquis 2.5mg BID Dispo: med/tele; pt medically stable. OT/PT recommending rehab; [facility] referral placed (2) Hypoxia: (3) Type 2 diabetes mellitus: (4) Hypertension: (5) Gout, joint: (6) Chronic kidney disease, stage IV (severe): (7) (HFpEF) heart failure with preserved ejection fraction: (8) Atrial fibrillation, permanent: Admission and Anticipated Discharge Date Admission Date: February 21, 2023 Supervising Physician Co-Signing Physician Notes Resident Physician Supervision Note: I independently interviewed and examined the patient and verified the huntley history and physical, reviewed labs and image studies and agree with resident findings and care plan. Subjective Pt states she is doing ok this morning. She denies pain anywhere (chest, abdominal, legs) and states her breathing is good. She is eating breakfast. No new concerns. Review of Systems Review of Systems: As per HPI Physical Exam Physical Exam: Constitutional: well appearing, no acute distress HEENT: normocephalic, no conjunctival injection CV: RRR, no murmur, no LE edema Respiratory: CTA bilaterally. No rhonchi, wheezes, or crackles. No increased work of breathing MSK: no gross deformities noted Skin: warm, dry, pressure protective covering on lower left leg Neuro: alert, oriented, no FND noted Psych: mood and affect congruent Results & Data Results & Data Vital Signs (Past 12 Hours) Vital Signs Temp Pulse Pulse Resp BP Pulse Ox Pulse Ox 02/25/23 02:42 36.7 C 60 16 134/77 94 02/25/23 01:35 93 02/24/23 22:01 61 02/24/23 22:50 36.6 C 64 20 133/73 92 02/24/23 20:31 02/24/23 19:14 36.5 C 62 18 139/78 90 O2 Del Method O2 Del Method O2 Flow Rate 02/25/23 02:42 Room Air 02/25/23 01:35 Room Air 02/24/23 22:01 02/24/23 22:50 Room Air 02/24/23 20:31 Nasal Cannula 2 02/24/23 19:14 Room Air Resident Activity Tracking Resident Involvement: Resident Care Provided Care Provided: Adult Hospital Medicine
[2023-02-25 07:44] LABS: Hematocrit (blood only) 33.3 % (37.0-47.0); Hemoglobin 10.3 g/dl (12.0-16.0); Mean Corpuscular Hemoglobin 28.8 pg (25.0-34.0); Mean Corpuscular Hgb Conc 30.9 g/dL (32.0-36.0); Platelet Count 113 K/uL (130-400); RDW Coefficient of Variation 16.4 % (11.5-14.5); Red Blood Count 3.58 M/uL (4.20-5.40); White Blood Count 4.85 K/ul (4.8-10.8)
[2023-02-25 08:05] LABS: BUN Creatinine Ratio 26.9 (10-20); Calcium 9.2 mg/dl (8.6-10.3); Creatinine Clr Calc Pharmacy 17.3 ml/min; Est GFR (African American) 24.9 ml/min; Est GFR (Non-African American) 21.5 ml/min; Potassium 4.8 mmol/L (3.5-5.1)
[2023-02-25] MEDS: METOPROLOL TARTRATE 25 MG TAB PO SCH ×2 (08:44→19:51)
[2023-02-25] MEDS: FUROSEMIDE 20 MG TAB PO SCH (08:44)
[2023-02-25] MEDS: APIXABAN 2.5 MG TAB PO SCH ×2 (08:44→19:50)
[2023-02-25] MEDS: allopurinoL 100 MG TAB PO SCH (08:44)
[2023-02-25] MEDS: ADVANCED PROBIOTIC 1250 MG CAPSULE PO SCH (08:45)
[2023-02-25] MEDS: DICLOFENAC SOD 1% GEL 100 GM TUBE EXT SCH ×4 (08:45→20:37)
[2023-02-25] MEDS: LANTUS PER UNIT CHARGE SQ SCH ×2 (08:52→20:33)
[2023-02-25] MEDS: INSULIN ASPART PER UNIT CHARGE SC SCH ×4 (08:52→20:34)
[2023-02-25] MEDS: ACETAMINOPHEN 325 MG TAB PO PRN ×2 (16:14→19:50)
[2023-02-25] MEDS: SIMVASTATIN 40 MG TAB PO SCH (19:50)
[2023-02-26 06:14] LABS: Hematocrit (blood only) 32.5 % (37.0-47.0); Hemoglobin 10.1 g/dl (12.0-16.0); Mean Corpuscular Hemoglobin 29.3 pg (25.0-34.0); Mean Corpuscular Hgb Conc 31.1 g/dL (32.0-36.0); Mean Corpuscular Volume 94.2 fL (80.0-100.0); Mean Platelet Volume 10.7 fL (9.4-12.4); Platelet Count 115 K/uL (130-400); RDW Coefficient of Variation 16.3 % (11.5-14.5); RDW Standard Deviation 55.5 fL (36.4-46.3); Red Blood Count 3.45 M/uL (4.20-5.40); White Blood Count 4.69 K/ul (4.8-10.8)
[2023-02-26 06:29] LABS: BUN Creatinine Ratio 32.6 (10-20); Calcium 8.8 mg/dl (8.6-10.3); Creatinine Clr Calc Pharmacy 18.7 ml/min; Est GFR (African American) 27.1 ml/min; Est GFR (Non-African American) 23.4 ml/min; Magnesium 2.2 mg/dl (1.7-2.4); Potassium 4.9 mmol/L (3.5-5.1)
--- NOTE | 2023-02-26 06:39 | Hospitalist Progress Note ---
Date of Service February 26, 2023 Assessment & Plan (1) Shortness of breath: Plan: Pt is an 87 yo female with PMH of HFpEF, DM2, HTN, CKD4, atrial fibrillation, and s/p pacer presenting for worsened shortness of breath. 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, severe TR, and severe pul HTN - urinary output lessened yesterday (~300 mL documented); continue home regimen of 20 mg lasix PO daily - continue to trend daily weights, strict I&Os - exacerbation possibly sec to increased salt intake and missing med dose - pt continuing w/o oxygen and breathing w/o issue Elevated troponin - noted at 14.6 increased to 16.3 - most likely chronic mild elevation in the setting of increased heart strain Hyperkalemia - 5.3 upon admission, repeat WNL Atrial Fibrillation - continue eliquis 2.5mg BID DM2 - SSI ordered; hold home glipizide - A1c 8.3%; considering comorbidities and age, would consider this A1c controlled - given patient's age, would consider stopping glipizide and switching to different med as outpatient (if medications necessary) HTN - continue home metoprolol 25 mg BID Hx of gout -continue allopurinol Diet: heart healthy, DM2 Code: DNR/DNI (son is POA) DVT ppx: eliquis 2.5mg BID Dispo: med/tele; pt continues to be medically stable. OT/PT recommending rehab; [facility] referral placed, expect update tomorrow (2) Hypoxia: (3) Type 2 diabetes mellitus: (4) Hypertension: (5) Gout, joint: (6) Chronic kidney disease, stage IV (severe): (7) (HFpEF) heart failure with preserved ejection fraction: (8) Atrial fibrillation, permanent: Admission and Anticipated Discharge Date Admission Date: February 21, 2023 Supervising Physician Co-Signing Physician Notes Resident Physician Supervision Note: I independently interviewed and examined the patient and verified the huntley history and physical, reviewed labs and image studies and agree with resident findings and care plan. Subjective Pt seen this AM. She states she has no pain. She explains that she has right hip pain that comes and goes every since her daughter was helping her transfer to/from the bathroom at home. She asked for some pain medications yesterday and had the nurse put a pillow under it which relieved the pain. She denies SOB, chest pain, lower leg pains. Review of Systems Review of Systems: As per HPI Physical Exam Physical Exam: Constitutional: well appearing, no acute distress HEENT: normocephalic, no conjunctival injection CV: RRR, no murmur, no LE edema Respiratory: CTA bilaterally. No rhonchi, wheezes, or crackles. No increased work of breathing MSK: no gross deformities noted Skin: warm, dry, pressure protective covering on lower left leg and bilateral heels Neuro: alert, oriented, no FND noted Psych: mood and affect congruent Results & Data Results & Data Vital Signs (Past 12 Hours) Vital Signs Temp Pulse Pulse Resp BP Pulse Ox Pulse Ox 02/26/23 02:55 36.9 C 57 L 18 123/75 95 02/26/23 01:28 94 02/25/23 22:06 61 02/25/23 22:30 36.9 C 60 16 146/75 H 97 02/25/23 20:45 02/25/23 19:56 36.6 C 61 18 130/66 97 O2 Del Method O2 Del Method 02/26/23 02:55 Room Air 02/26/23 01:28 Room Air 02/25/23 22:06 02/25/23 22:30 Room Air 02/25/23 20:45 Room Air 02/25/23 19:56 Room Air Resident Activity Tracking Resident Involvement: Resident Care Provided Care Provided: Adult Hospital Medicine
[2023-02-26] MEDS: FUROSEMIDE 20 MG TAB PO SCH (08:21)
[2023-02-26] MEDS: APIXABAN 2.5 MG TAB PO SCH ×2 (08:21→20:00)
[2023-02-26] MEDS: allopurinoL 100 MG TAB PO SCH (08:22)
[2023-02-26] MEDS: ADVANCED PROBIOTIC 1250 MG CAPSULE PO SCH (08:22)
[2023-02-26] MEDS: DICLOFENAC SOD 1% GEL 100 GM TUBE EXT SCH ×4 (08:23→19:59)
[2023-02-26] MEDS: METOPROLOL TARTRATE 25 MG TAB PO SCH ×2 (08:23→19:59)
[2023-02-26] MEDS: INSULIN ASPART PER UNIT CHARGE SC SCH ×4 (08:26→20:00)
[2023-02-26] MEDS: LANTUS PER UNIT CHARGE SQ SCH ×2 (08:29→20:00)
[2023-02-26] MEDS: ACETAMINOPHEN 325 MG TAB PO PRN (17:06)
[2023-02-26] MEDS: SIMVASTATIN 40 MG TAB PO SCH (20:00)
[2023-02-27 07:17] LABS: Hematocrit (blood only) 32.3 % (37.0-47.0); Hemoglobin 9.8 g/dl (12.0-16.0); Mean Corpuscular Hemoglobin 29.2 pg (25.0-34.0); Mean Corpuscular Hgb Conc 30.3 g/dL (32.0-36.0); Mean Corpuscular Volume 96.1 fL (80.0-100.0); Mean Platelet Volume 10.2 fL (9.4-12.4); Platelet Count 111 K/uL (130-400); RDW Coefficient of Variation 16.4 % (11.5-14.5); RDW Standard Deviation 57.3 fL (36.4-46.3); Red Blood Count 3.36 M/uL (4.20-5.40); White Blood Count 3.62 K/ul (4.8-10.8)
[2023-02-27 07:31] LABS: BUN Creatinine Ratio 32.1 (10-20); Calcium 8.7 mg/dl (8.6-10.3); Creatinine Clr Calc Pharmacy 18.3 ml/min; Est GFR (African American) 26.6 ml/min; Magnesium 2.2 mg/dl (1.7-2.4); Potassium 4.9 mmol/L (3.5-5.1)
[2023-02-27] MEDS: FUROSEMIDE 20 MG TAB PO SCH (08:11)
[2023-02-27] MEDS: allopurinoL 100 MG TAB PO SCH (08:12)
[2023-02-27] MEDS: METOPROLOL TARTRATE 25 MG TAB PO SCH ×2 (08:12→20:18)
[2023-02-27] MEDS: ADVANCED PROBIOTIC 1250 MG CAPSULE PO SCH (08:12)
[2023-02-27] MEDS: APIXABAN 2.5 MG TAB PO SCH ×2 (08:12→20:18)
[2023-02-27] MEDS: DICLOFENAC SOD 1% GEL 100 GM TUBE EXT SCH ×4 (08:13→20:18)
[2023-02-27] MEDS: LANTUS PER UNIT CHARGE SQ SCH ×2 (08:15→20:18)
[2023-02-27] MEDS: INSULIN ASPART PER UNIT CHARGE SC SCH ×4 (08:17→20:10)
--- NOTE | 2023-02-27 12:58 | Hospitalist Progress Note ---
Date of Service February 27, 2023 Assessment & Plan (1) Shortness of breath: Plan: Pt is an 87 yo female with PMH of HFpEF, DM2, HTN, CKD4, atrial fibrillation, and s/p pacer presenting for worsened shortness of breath. 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, severe TR, and severe pul HTN - urinary output stable (~500 mL documented); continue home regimen of 20 mg lasix PO daily - continue to trend daily weights, strict I&Os - exacerbation most likely secondary to increased salt intake and missing med dose - pt continuing w/o oxygen and breathing w/o issue Elevated troponin - noted at 14.6 increased to 16.3 - most likely chronic mild elevation in the setting of increased heart strain Hyperkalemia - 5.3 upon admission, repeat WNL Atrial Fibrillation - continue eliquis 2.5mg BID DM2 - SSI ordered; hold home glipizide - A1c 8.3%; considering comorbidities and age, would consider this A1c controlled - given patient's age, would consider stopping glipizide and switching to different med as outpatient (if medications necessary) HTN - continue home metoprolol 25 mg BID Hx of gout -continue allopurinol Diet: heart healthy, DM2 Code: DNR/DNI (son is POA) DVT ppx: eliquis 2.5mg BID Dispo: med/tele; pt continues to be medically stable. OT/PT recommending rehab; [facility] referral placed, CM waiting for update (2) Hypoxia: (3) Type 2 diabetes mellitus: (4) Hypertension: (5) Gout, joint: (6) Chronic kidney disease, stage IV (severe): (7) (HFpEF) heart failure with preserved ejection fraction: (8) Atrial fibrillation, permanent: Admission and Anticipated Discharge Date Admission Date: February 21, 2023 Supervising Physician Co-Signing Physician Notes I personally examined the patient and verified all huntley points of history and exam, discussed case, and agree with decision making with Dr Julio feeling ok just waiting on rehab Vitals noted, in general she is awake and alert pleasant no distress. HEENT normocephalic atraumatic mucous membranes moist. Breathing unlabored no accessory muscle use good effort. Skin shows no rashes no pallor or icterus. HFpEFresolved. Deconditioning/weakness for rehab. Otherwise as above. Anticoagulated Subjective Pt seen at bedside this AM. No new complaints. She feels well. Denies SOB, chest pain, leg pains. Review of Systems Review of Systems: As per HPI Physical Exam Physical Exam: Constitutional: well appearing, no acute distress HEENT: normocephalic, no conjunctival injection CV: RRR, no murmur, no LE edema Respiratory: CTA bilaterally. No rhonchi, wheezes, or crackles. No increased work of breathing MSK: no gross deformities noted Skin: warm, dry, pressure protective covering on lower left leg and bilateral heels Neuro: alert, oriented, no FND noted Psych: mood and affect congruent Results & Data Results & Data Vital Signs (Past 12 Hours) Vital Signs Temp Pulse Pulse Pulse Resp BP Pulse Ox 02/27/23 11:20 36.9 C 60 16 120/70 95 02/27/23 07:45 36.4 C L 60 16 130/75 93 02/27/23 07:38 36.5 C 60 18 118/67 94 02/27/23 07:23 60 02/27/23 03:33 36.5 C 60 16 107/64 98 02/27/23 01:13 Pulse Ox O2 Del Method O2 Del Method 02/27/23 11:20 Room Air 02/27/23 07:45 Room Air 02/27/23 07:38 Room Air 02/27/23 07:23 02/27/23 03:33 Room Air 02/27/23 01:13 94 Room Air Resident Activity Tracking Resident Involvement: Resident Care Provided Care Provided: Adult Hospital Medicine
--- NOTE | 2023-02-27 17:19 | Billing Data ---
Date of Service February 27, 2023 Coding Level of Care Code 63839 SUB INP/OBS CARE
[2023-02-27] MEDS: SIMVASTATIN 40 MG TAB PO SCH (20:18)
[2023-02-27] MEDS: ACETAMINOPHEN 325 MG TAB PO PRN (22:40)
[2023-02-28] MEDS: METOPROLOL TARTRATE 25 MG TAB PO SCH ×2 (08:51→21:00)
[2023-02-28] MEDS: ADVANCED PROBIOTIC 1250 MG CAPSULE PO SCH (08:52)
[2023-02-28] MEDS: allopurinoL 100 MG TAB PO SCH (08:52)
[2023-02-28] MEDS: APIXABAN 2.5 MG TAB PO SCH ×2 (08:52→21:49)
[2023-02-28] MEDS: FUROSEMIDE 20 MG TAB PO SCH (08:52)
[2023-02-28] MEDS: DICLOFENAC SOD 1% GEL 100 GM TUBE EXT SCH ×4 (08:53→21:50)
[2023-02-28] MEDS: INSULIN ASPART PER UNIT CHARGE SC SCH ×4 (08:56→21:50)
[2023-02-28] MEDS: LANTUS PER UNIT CHARGE SQ SCH ×2 (08:58→21:50)
--- NOTE | 2023-02-28 15:25 | Hospitalist Progress Note ---
Date of Service February 28, 2023 Assessment & Plan (1) Shortness of breath: Plan: Pt is an 87 yo female with PMH of HFpEF, DM2, HTN, CKD4, atrial fibrillation, and s/p pacer presenting for worsened shortness of breath. Update 02/28: placement pending peer to peer. 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, severe TR, and severe pul HTN - urinary output stable (~500 mL documented); continue home regimen of 20 mg lasix PO daily - continue to trend daily weights, strict I&Os - exacerbation most likely secondary to increased salt intake and missing med dose - pt continuing w/o oxygen and breathing w/o issue Elevated troponin - noted at 14.6 increased to 16.3 - most likely chronic mild elevation in the setting of increased heart strain Hyperkalemia - 5.3 upon admission, repeat WNL Atrial Fibrillation - continue eliquis 2.5mg BID DM2 - SSI ordered; hold home glipizide - A1c 8.3%; considering comorbidities and age, would consider this A1c controlled - given patient's age, would consider stopping glipizide and switching to different med as outpatient (if medications necessary) HTN - continue home metoprolol 25 mg BID Hx of gout -continue allopurinol Diet: heart healthy, DM2 Code: DNR/DNI (son is POA) DVT ppx: eliquis 2.5mg BID Dispo: med/tele; pt continues to be medically stable. OT/PT recommending rehab; [facility] referral placed, pending peer to peer (2) Hypoxia: (3) Type 2 diabetes mellitus: (4) Hypertension: (5) Gout, joint: (6) Chronic kidney disease, stage IV (severe): (7) (HFpEF) heart failure with preserved ejection fraction: (8) Atrial fibrillation, permanent: Admission and Anticipated Discharge Date Admission Date: February 21, 2023 Supervising Physician Co-Signing Physician Notes I personally examined the patient and verified all huntley points of history and exam, discussed case, and agree with decision making with Dr Julio sleeping Vitals noted, in general sleeping comfortably distress. HEENT normocephalic atraumatic mucous membranes moist. Breathing unlabored no accessory muscle use good effort. Skin shows no rashes no pallor or icterus. HFpEFresolved. Deconditioning/weakness for rehab - insurance asked for peer to peer but unfathomable to me that they would not approve given her functional status. Otherwise as above. Anticoagulated Subjective Pt seen this AM at bedside. She is doing well overall. No troubles breathing. Appetite remains good. No new chest pains, SOB, or leg pains. Review of Systems Review of Systems: As per HPI Physical Exam Physical Exam: Constitutional: well appearing, no acute distress HEENT: normocephalic, no conjunctival injection CV: RRR, no murmur, no LE edema Respiratory: CTA bilaterally. No rhonchi, wheezes, or crackles. No increased work of breathing MSK: no gross deformities noted Skin: warm, dry Neuro: alert, oriented, no FND noted Psych: mood and affect congruent Results & Data Results & Data Vital Signs (Past 12 Hours) Vital Signs Temp Pulse Pulse Resp BP Pulse Ox O2 Del Method 02/28/23 15:11 61 02/28/23 10:59 36.6 C 61 18 123/70 95 Room Air 02/28/23 07:40 35.9 C L 63 18 130/76 95 Room Air 02/28/23 07:14 60 Resident Activity Tracking Resident Involvement: Resident Care Provided Care Provided: Adult Hospital Medicine
--- NOTE | 2023-02-28 15:37 | Billing Data ---
Date of Service February 28, 2023 Coding Level of Care Code 87329 SUB INP/OBS CARE
[2023-02-28] MEDS: SIMVASTATIN 40 MG TAB PO SCH (21:56)
--- NOTE | 2023-03-01 07:06 | Hospitalist Progress Note ---
Date of Service March 01, 2023 Assessment & Plan (1) Shortness of breath: Plan: Pt is an 87 yo female with PMH of HFpEF, DM2, HTN, CKD4, atrial fibrillation, and s/p pacer presenting for worsened shortness of breath. Update 03/01: P2P unsuccessful. CM to discuss with family. Plan for continuation of physical therapy to help strengthen patient while hospitalized. 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, severe TR, and severe pul HTN - urinary output stable (~500 mL documented); continue home regimen of 20 mg lasix PO daily - continue to trend daily weights, strict I&Os - exacerbation most likely secondary to increased salt intake and missing med dose - pt continuing w/o oxygen and breathing w/o issue Elevated troponin - noted at 14.6 increased to 16.3 - most likely chronic mild elevation in the setting of increased heart strain Hyperkalemia - 5.3 upon admission, repeat WNL Atrial Fibrillation - continue eliquis 2.5mg BID DM2 - SSI ordered; hold home glipizide - A1c 8.3%; considering comorbidities and age, would consider this A1c controlled - given patient's age, would consider stopping glipizide and switching to different med as outpatient (if medications necessary) HTN - continue home metoprolol 25 mg BID Hx of gout -continue allopurinol Diet: heart healthy, DM2 Code: DNR/DNI (son is POA) DVT ppx: eliquis 2.5mg BID Dispo: med/tele; pt continues to be medically stable. OT/PT recommended rehab but SNF denied. (2) Hypoxia: (3) Type 2 diabetes mellitus: (4) Hypertension: (5) Gout, joint: (6) Chronic kidney disease, stage IV (severe): (7) (HFpEF) heart failure with preserved ejection fraction: (8) Atrial fibrillation, permanent: Admission and Anticipated Discharge Date Admission Date: February 21, 2023 Supervising Physician Co-Signing Physician Notes I personally examined the patient and verified all huntley points of history and exam, discussed case, and agree with decision making with Dr Julio peer to peer denied - insurance doc basically trying to say that she's at her baseline. Discussed with multiple family membersafter they discussed, they will plan to appeal. Daughter Ana noted patient is also been having some knee issuespatient had not mentioned this to me in the 3 days I have been taking care of her. Vitals noted, in general pleasant and in no distress. HEENT normocephalic atraumatic mucous membranes moist. Breathing unlabored no accessory muscle use good effort. Skin shows no rashes no pallor or icterus. HFpEFresolved. Knee painwill assess Deconditioningher disposition really should be to SNF with rehab emphasis. Insurance company is on ethically denying this, claiming that she is at her baseline functional status and therefore has no rehab potential. This is neglectfully inaccurate at best (her functional status at home according to the family was that she is able to get around the house on her own, and her PT assessments over her hospital stays during this year show variation in her functional statusand even from this admission she has shown progressmaking there assessment that she is at her baseline inaccurate at best and fraudulent/nefarious at worst)and their denial to allow her to go to SNF with rehab emphasis puts her in a terrible position of they are makinggoing home seems unsafe to all of us, and puts her at risk for further falls/fractures/etc., and at the same time given that it does not appear safe to send her home in her current state, keep her in the hospital exposes her to nosocomial/iatrogenic risk as well as further deconditioning. Because of this, her insurance company has put her in a terrible spot with no clear recourse. The family is appealing the denialbut of course given that insurance companies take days to make a determination on appeals, even their delay in the appeal will cause her harm by delaying any chance to for improvement (and keeping her in the hospital)and of course insurance companies generally have no motivation or interest in overturning a decision that they have already made given the conflict of interest in the situation. Subjective Pt states she feels fine this AM. No trouble breathing or pain. Appetite adequate. She denies chest pain, SOB, and leg pains. Review of Systems Review of Systems: As per HPI Physical Exam Physical Exam: Constitutional: well appearing, no acute distress HEENT: normocephalic, no conjunctival injection CV: RRR, no murmur, no LE edema Respiratory: CTA bilaterally. No rhonchi, wheezes, or crackles. No increased work of breathing MSK: no gross deformities noted Skin: warm, dry Neuro: alert, oriented, no FND noted Psych: mood and affect congruent Results & Data Results & Data Vital Signs (Past 12 Hours) Vital Signs Temp Pulse Pulse Resp BP BP Pulse Ox 03/01/23 03:31 36.5 C 60 18 145/83 H 95 03/01/23 01:44 02/28/23 22:00 64 02/28/23 23:10 36.6 C 89 18 122/63 93 02/28/23 22:12 02/28/23 19:39 36.8 C 62 20 124/80 93 Pulse Ox O2 Del Method O2 Del Method 03/01/23 03:31 Room Air 03/01/23 01:44 95 Room Air 02/28/23 22:00 02/28/23 23:10 Room Air 02/28/23 22:12 Room Air 02/28/23 19:39 Room Air Resident Activity Tracking Resident Involvement: Resident Care Provided Care Provided: Adult Hospital Medicine
[2023-03-01] MEDS: INSULIN ASPART PER UNIT CHARGE SC SCH ×4 (08:43→20:05)
[2023-03-01] MEDS: FUROSEMIDE 20 MG TAB PO SCH (08:44)
[2023-03-01] MEDS: allopurinoL 100 MG TAB PO SCH (08:44)
[2023-03-01] MEDS: METOPROLOL TARTRATE 25 MG TAB PO SCH ×2 (08:45→20:06)
[2023-03-01] MEDS: APIXABAN 2.5 MG TAB PO SCH ×2 (08:45→20:06)
[2023-03-01] MEDS: DICLOFENAC SOD 1% GEL 100 GM TUBE EXT SCH ×4 (08:45→20:06)
[2023-03-01] MEDS: ADVANCED PROBIOTIC 1250 MG CAPSULE PO SCH (08:45)
[2023-03-01] MEDS: LANTUS PER UNIT CHARGE SQ SCH ×2 (09:29→20:05)
--- NOTE | 2023-03-01 11:53 | Discharge Summary ---
Date of Service March 01, 2023 Admission HPI Per Admitting Provider 87yo Female with PMH HFpEF, DM2, HTN, CKD4, atrial fibrillation, s/p pacer here for worsened shortness of breath hypoxia. She states she 'don't feel good', has difficulty establishing a timeline of her symptoms but states she hasn't felt well for a few weeks, complains of pain in her right thigh and groin secondary to external suction catheter. Denies any SOB on oxygen at this time, denies any chest pain or abd pain. She is AAOx3. Here today with son who is POA. Per son, today they noticed her lips were blue, checked her oxygen was in the 80's blood pressure lower systolic 100's, brought her to ED. Patient denies nausea at this time, son states she has been complaining of nausea on and off throughout the last 2 weeks. No noted fevers at home though family has noted occasional elevated temperatures. Per son she has had a low appetite in the past week. They had noted an increase of weight at home. She has had increased constipation with small hard stool, family gave her miralax yesterday and she had a decent sized BM this morning. She has had a firm abdomen for at least the past week, also noted by her PCP. She has seen her PCP twice in the past on 01/30 and 02/10 for UTI, treated with cefdinir BID 7 days for increased urinary frequency and 'not feeling well' and later keflex BID for 5 days for concern UTI on UA. On 02/10 she was started on glipizide 2.5mg daily given patient's concern over diabetes, there was concern she was not eating due to concern about her blood sugar. She was originally on lasix 20mg PO twice a week, in the past week was increased to lasix 20mg PO daily for concern fluid overload. Patient does not walk at baseline. She is baseline incontinent of urine uses diapers. Lives with family supervision available 15/05. She does not use home oxygen. Typically has an ok appetite. When asked about code status, patient states 'I want to be with the lord', son EMERSON clarified she would not want resuscitation or intubation if needed. Admission Exam Per Admitting Provider Constitutional: + ill appearing, + thin and cooperative Eyes: PERRL, conjunctivae normal, anicteric sclerae ENMT: Mouth: + lip abnormality (blue tint noted on lower lip) Neck: trachea midline, no thyromegaly Respiratory: normal respiratory effort Cardiovascular: Rate/Rhythm: regular rate and regular rhythm Extremities: + edema (b/l +1 pitting) Gastrointestinal (Abdomen): Inspection/Auscultation: + abdomen distended and + visible herniation (at umbilicus) Percussion/Palpation: + abdomen tender (mild on palpation to LLQ) and + abdomen firm Skin: bruising noted on b/l lower extremities with weeping wounds on left calf Psychiatric: Orientation: alert and oriented x 3 Principal Diagnosis acute on chronic heart failure Discharge Exam Constitutional: well appearing, no acute distress HEENT: normocephalic, no conjunctival injection CV: regular rhythm, no murmur, no LE edema Respiratory: Clear to auscultation bilaterally. No rhonchi, wheezes, or crackles. No increased work of breathing MSK: no gross deformities noted Skin: warm, dry, no rashes Neuro: alert, oriented, no FND noted Discharge Data Allergies Allergy/AdvReac Type Severity Reaction Status Date / Time acetaminophen [From [place]] AdvReac Intermediate Nausea Verified 02/21/23 20:58 atorvastatin [From Lipitor] AdvReac Intermediate NOT Verified 02/21/23 20:58 TOLERATED fluvastatin [From [place]col] AdvReac Intermediate NOT Verified 02/21/23 20:58 TOLERATED gabapentin AdvReac Intermediate Nausea Verified 02/21/23 20:58 hydrocodone [From [place]] AdvReac Intermediate Nausea Verified 02/21/23 20:58 sulfamethoxazole AdvReac Intermediate Nausea Verified 02/21/23 20:58 [From Bactrim] trimethoprim [From Bactrim] AdvReac Intermediate Nausea Verified 02/21/23 20:58 Consultations 02/21/23 20:44 ED Decision to Admit Stat Ordered Studies 02/21/23 21:46 CT Abd and Pelvis [CT abd pelvis wo con] Urgent IMPRESSION: 1. Small bilateral pleural effusions and mild bibasilar atelectasis. Consider mild CHF. 2. 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 3. The gallbladder is completely filled with numerous calcified stones but nondilated. No surrounding inflammation, biliary duct dilation, or choledocholithiasis is seen. 4. Bowel loops are nondilated. There is diverticulosis throughout the colon. The appendix is normal. No pneumoperitoneum or abscess is seen. There is a small amount of free fluid in the pelvis. Hospital Course (1) Shortness of breath: Pt is an 87 yo female with PMH of HFpEF, DM2, HTN, CKD4, atrial fibrillation, and s/p pacer presenting for worsened shortness of breath. Update 03/01: P2P unsuccessful. CM discussed with family. Plan for discharge home with home health and family help. 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, severe TR, and severe pul HTN - urinary output stable (~500 mL documented); continue home regimen of 20 mg lasix PO daily - continue to trend daily weights, strict I&Os - exacerbation most likely secondary to increased salt intake and missing med dose - pt continuing w/o oxygen and breathing w/o issue Elevated troponin - noted at 14.6 increased to 16.3 - most likely chronic mild elevation in the setting of increased heart strain Hyperkalemia - 5.3 upon admission, repeat WNL Atrial Fibrillation - continue eliquis 2.5mg BID DM2 - SSI ordered; hold home glipizide - A1c 8.3%; considering comorbidities and age, would consider this A1c controlled - given patient's age, would consider stopping glipizide and switching to different med as outpatient (if medications necessary) HTN - continue home metoprolol 25 mg BID Hx of gout -continue allopurinol Diet: heart healthy, DM2 Code: DNR/DNI (son is POA) DVT ppx: eliquis 2.5mg BID Dispo: med/tele; pt continues to be medically stable. OT/PT recommended rehab but SNF denied. Discussed with family and they wish for her to go home with home health. (2) Hypoxia: (3) Type 2 diabetes mellitus: (4) Hypertension: (5) Gout, joint: (6) Chronic kidney disease, stage IV (severe): (7) (HFpEF) heart failure with preserved ejection fraction: (8) Atrial fibrillation, permanent: Total Time Total Time Spent Total Time Spent (In Minutes): as per attending attestation Discharge Plan Discharge Items Patient Disposition: Home - Home Health Services Reason For Visit: SOB Discharge Diagnosis: acute on chronic heart failure Activity: Per Instructions section Non-emergency contact: Primary Care Provider Call non-emergency contact if: you have any medication questions and your symptoms worsen Follow-up/Referrals: Ned Tomlin MD [Primary Care Provider] - Nimisha Vick PA-C [Physician Bioprocessing Manufacturing Technician] - 03/07/23 11:00 am (Congestive Heart Failure Program Appointment Information Early follow up is essential to managing your heart failure. An appointment has been scheduled for you with the [facility] Heart Failure Program within 7 days of discharge. Anticipate this visit to be 30-60 minutes long. Please expect a chocolate finisher phone call from one of our nurses approximately 48 hours from discharge. They will also be placing an order for lab work to be completed 1-2 days prior to your heart failure follow up appointment. Please be sure to have this done so we can go over the results when you come in. Office Location The cardiology office building is located in front of the hospital at [address]. Bring the following with you to your follow-up doctor appointments: Please bring your daily weight log any discharge paperwork all of your medication bottles with you to this visit. ) Diet: Heart Healthy and Low Sodium (2gm) Addtl Attending Provider Instructions: You were admitted to the hospital for an acute exacerbation of your chronic heart failure. You were treated with additional doses of the diuretic lasix in addition to supplemental oxygen. By discharge, your breathing was back to baseline. A discharge summary will be sent to your primary care physician to ensure continuity of care. Please bring this discharge summary with you to your next office appointment so that your provider can review it at that time. Medications: Your medication list has been reviewed and reconciled upon discharge to ensure accuracy and continuity of care. An updated list of all your medications is included with your hospital discharge paperwork. Please review this list closely and make note of any changes to your medications. - No changes were made to your medications. Follow up appointments: - Make a follow up appointment with your PCP within the next week. It is very important that you follow up with them shortly after discharge from the hospital. - Keep all of your follow up appointments as already scheduled. If you cannot make an appointment, notify your provider. CONTACT YOUR PRIMARY CARE PROVIDER if you experience any of the following: - Difficulty following your treatment plan - Difficulty taking any of your medications CALL 911 OR GO TO THE EMERGENCY DEPARTMENT if you experience any of the following: - Sudden, severe abdominal pain or nausea/vomiting - Severe chest pain or chest pain that radiates to your jaw or arm - Sudden, severe shortness of breath or difficulty breathing Pending Studies at Discharge: No Stand-Alone Forms: My [facility], Smoking Cessation Medications and DC Order Prescriptions: Continued hydrocortisone 2.5 % cream with perineal applicator 1 applic IL TID PRN (Reason: hemorrhoids) 14 Days Qty: 30 2RF (DME) Accu-Chek Cheryl Plus test strp Strip See Rx Instructions .Route Qty: 50 5RF Rx Instructions: test once daily (DME) blood-glucose meter [Accu-Chek Cheryl Plus Meter] Misc See Rx Instructions .Route Qty: 1 0RF Rx Instructions: test once daily (DME) lancets [Accu-Chek Softclix Lancets] Misc See Rx Instructions .Route Qty: 100 5RF Rx Instructions: test once daily diclofenac sodium [Arthritis Pain (diclofenac)] 1 % gel 2 g topical QID PRN (Reason: arthritis pain) Qty: 100 5RF allopurinol 100 mg tablet 50 mg PO DAILY Qty: 45 3RF simvastatin 40 mg tablet 40 mg PO QPM Qty: 90 3RF metoprolol tartrate 25 mg tablet 25 mg PO BID Qty: 180 3RF nystatin 100,000 unit/gram powder 1 applic topical DAILY PRN (Reason: rash) Qty: 30 2RF (DME) Transport Chair See Rx Instructions .Route .MEDSUPPLY Qty: 1 0RF Rx Instructions: For use by caregiver to safely assist patient with mobility issues. furosemide [Lasix] 20 mg tablet 20 mg PO DAILY Cerovite Senior 0.4 mg-300 mcg- 250 mcg Tablet 1 tab PO QAM Qty: 30 0RF Rx Instructions: OTC acetaminophen [Tylenol Extra Strength] 500 mg Tablet 1,000 mg PO DIRECTED PRN (Reason: Pain) Eliquis 2.5 mg Tablet 2.5 mg PO BID Qty: 60 1RF glipizide 2.5 mg tablet extended release 24hr 2.5 mg PO QAM Rx Instructions: with breakfast Discharge Orders: Discharge Order (Routine); Ordered 03/01/23 Ordered By: Isaura Zabala/Other Patient Handouts: Managing Type 2 Diabetes Admission Data Admit Date/Time: 02/21/23 21:53 Attending Provider: Junior Guzman Admit Provider: Samira Shafer Primary Care Provider: Ned Tomlin Other Providers: Santa Richardson ; [place],[facility] [place] ; [facility] Resident Activity Tracking Resident Involvement: Resident Care Provided Care Provided: Adult Hospital Medicine
--- NOTE | 2023-03-01 12:36 | Billing Data ---
Date of Service March 01, 2023 Coding Level of Care Code 52175 SUB INP/OBS CARE MIN
[2023-03-01] MEDS: SIMVASTATIN 40 MG TAB PO SCH (20:07)
[2023-03-02] MEDS: ACETAMINOPHEN 325 MG TAB PO PRN ×2 (01:06→21:14)
--- NOTE | 2023-03-02 08:02 | Hospitalist Progress Note ---
Date of Service March 02, 2023 Assessment & Plan (1) Shortness of breath: Plan: Pt is an 87 yo female with PMH of HFpEF, DM2, HTN, CKD4, atrial fibrillation, and s/p pacer presenting for worsened shortness of breath. Update 03/02: P2P unsuccessful on 03/01, family choosing to appeal this decision. Pt will continue to work with PT while hospitalized. 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, severe TR, and severe pul HTN - continue home regimen of 20 mg lasix PO daily - exacerbation most likely secondary to increased salt intake and missing med dose - pt continuing w/o oxygen and breathing w/o issue Elevated troponin - noted at 14.6 increased to 16.3 - most likely chronic mild elevation in the setting of increased heart strain Hyperkalemia - 5.3 upon admission, repeat WNL Atrial Fibrillation - continue eliquis 2.5mg BID DM2 - SSI ordered; hold home glipizide - A1c 8.3%; considering comorbidities and age, would consider this A1c controlled - given patient's age, would consider stopping glipizide and switching to differ ent med as outpatient (if medications necessary) HTN - continue home metoprolol 25 mg BID Hx of gout -continue allopurinol Diet: heart healthy, DM2 Code: DNR/DNI (son is POA) DVT ppx: eliquis 2.5mg BID Dispo: med/tele; Pt continues to be medically stable. Updates as above. (2) Hypoxia: (3) Type 2 diabetes mellitus: (4) Hypertension: (5) Gout, joint: (6) Chronic kidney disease, stage IV (severe): (7) (HFpEF) heart failure with preserved ejection fraction: (8) Atrial fibrillation, permanent: Admission and Anticipated Discharge Date Admission Date: February 21, 2023 Supervising Physician Co-Signing Physician Notes I personally examined the patient and verified all huntley points of history and exam, discussed case, and agree with decision making with Dr Julio Family has placed appeal. No acute complaints per patient today. When asked specifically about her knee she notes that it has not been bothering her for a while. Vitals noted, in general pleasant and in no distress. HEENT normocephalic atraumatic mucous membranes moist. Breathing unlabored no accessory muscle use good effort. Skin shows no rashes no pallor or icterus. Bilateral knees with arthritic type changessmaller joint space and hypertrophied boneas well as right knee seeming to have a very mild effusion. Bilateral findings show no joint line tenderness, no ligamentous laxity, no erythema/crepitus. HFpEFresolved. Knee painsuspect was an arthritis flare, plus or minus some degree of patellar tendinitis. Deconditioningher disposition really should be to SNF with rehab emphasis. Insurance company is on ethically denying this, claiming that she is at her baseline functional status and therefore has no rehab potential. This is neglectfully inaccurate at best (her functional status at home according to the family was that she is able to get around the house on her own, and her PT assessments over her hospital stays during this year show variation in her functional statusand even from this admission she has shown progressmaking there assessment that she is at her baseline inaccurate at best and fraudulent/nefarious at worst)and their denial to allow her to go to SNF with rehab emphasis puts her in a terrible position of they are makinggoing home seems unsafe to all of us, and puts her at risk for further falls/fractures/etc., and at the same time given that it does not appear safe to send her home in her current state, keep her in the hospital exposes her to nosocomial/iatrogenic risk as well as further deconditioning. Because of this, her insurance company has put her in a terrible spot with no clear recourse. The family is appealing the denialbut of course given that insurance companies take days to make a determination on appeals, even their delay in the appeal will cause her harm by delaying any chance to for improvement (and keeping her in the hospital)and of course insurance companies generally have no motivation or interest in overturning a decision that they have already made given the conflict of interest in the situation. Subjective Pt seen at bedside this AM. She is overall doing well. She does make note of her bottom hurting in certain positions. Encouraged out of bed and sitting in the chair. Otherwise, she denies other pains, chest pain, SOB. Review of Systems Review of Systems: as per HPI Physical Exam Physical Exam: Constitutional: well appearing, no acute distress HEENT: normocephalic, no conjunctival injection CV: RRR, no murmur, no LE edema Respiratory: CTA bilaterally. No rhonchi, wheezes, or crackles. No increased work of breathing MSK: no gross deformities noted Skin: warm, dry, no rashes Neuro: alert, oriented, no FND noted Psych: mood and affect congruent Results & Data Results & Data Vital Signs (Past 12 Hours) Vital Signs Temp Pulse Pulse Pulse Resp BP Pulse Ox 03/02/23 03:00 36.8 C 60 18 135/75 96 03/01/23 22:00 61 03/01/23 22:28 37.5 C 67 18 137/66 93 O2 Del Method 03/02/23 03:00 Room Air 03/01/23 22:00 03/01/23 22:28 Room Air Resident Activity Tracking Resident Involvement: Resident Care Provided Care Provided: Adult Hospital Medicine
[2023-03-02] MEDS: INSULIN ASPART PER UNIT CHARGE SC SCH ×4 (09:11→20:59)
[2023-03-02] MEDS: APIXABAN 2.5 MG TAB PO SCH ×2 (09:15→21:14)
[2023-03-02] MEDS: allopurinoL 100 MG TAB PO SCH (09:15)
[2023-03-02] MEDS: FUROSEMIDE 20 MG TAB PO SCH (09:15)
[2023-03-02] MEDS: METOPROLOL TARTRATE 25 MG TAB PO SCH ×2 (09:16→21:14)
[2023-03-02] MEDS: ADVANCED PROBIOTIC 1250 MG CAPSULE PO SCH (09:16)
[2023-03-02] MEDS: DICLOFENAC SOD 1% GEL 100 GM TUBE EXT SCH ×4 (09:16→21:14)
[2023-03-02] MEDS: LANTUS PER UNIT CHARGE SQ SCH ×2 (09:21→21:14)
--- NOTE | 2023-03-02 17:12 | Billing Data ---
Date of Service March 02, 2023 Coding Level of Care Code 92381 SUB INP/OBS CARE
[2023-03-02] MEDS: SIMVASTATIN 40 MG TAB PO SCH (21:14)
--- NOTE | 2023-03-03 07:49 | Hospitalist Progress Note ---
Date of Service March 03, 2023 Assessment & Plan (1) Shortness of breath: Plan: Pt is an 87 yo female with PMH of HFpEF, DM2, HTN, CKD4, atrial fibrillation, and s/p pacer presenting for worsened shortness of breath. Update 03/03: P2P unsuccessful on 03/01, family choosing to appeal this decision. Appeal still pending. Pt continuing to work with PT while hospitalized. 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, severe TR, and severe pul HTN - continue home regimen of 20 mg lasix PO daily - exacerbation most likely secondary to increased salt intake and missing med dose - pt continuing w/o oxygen and breathing w/o issue Elevated troponin - noted at 14.6 increased to 16.3 - most likely chronic mild elevation in the setting of increased heart strain Hyperkalemia - 5.3 upon admission, repeat WNL Atrial Fibrillation - continue eliquis 2.5mg BID DM2 - SSI ordered; hold home glipizide - A1c 8.3%; considering comorbidities and age, would consider this A1c controlled - given patient's age, would consider stopping glipizide and switching to different med as outpatient (if medications necessary) HTN - continue home metoprolol 25 mg BID Hx of gout -continue allopurinol Diet: heart healthy, DM2 Code: DNR/DNI (son is POA) DVT ppx: eliquis 2.5mg BID Dispo: med/tele; Pt continues to be medically stable. Updates as above. (2) Hypoxia: (3) Type 2 diabetes mellitus: (4) Hypertension: (5) Gout, joint: (6) Chronic kidney disease, stage IV (severe): (7) (HFpEF) heart failure with preserved ejection fraction: (8) Atrial fibrillation, permanent: Admission and Anticipated Discharge Date Admission Date: February 21, 2023 Supervising Physician Co-Signing Physician Notes I personally examined the patient and verified all huntley points of history and exam, discussed case, and agree with decision making with Dr Julio no new complaints. Vitals noted, in general pleasant and in no distress. HEENT normocephalic atraumatic mucous membranes moist. Breathing unlabored no accessory muscle use good effort. Skin shows no rashes no pallor or icterus. HFpEFresolved. Knee painsuspect was an arthritis flare, plus or minus some degree of patellar tendinitis. Deconditioningfamily appeal succeeded! centre care (snf, rehab emphasis) tomorrow Subjective Pt doing well this AM. No new complaints. Her breathing is still at baseline. Review of Systems Review of Systems: As per HPI Physical Exam Physical Exam: Constitutional: well appearing, no acute distress HEENT: normocephalic, no conjunctival injection CV: RRR, no murmur, no LE edema Respiratory: CTA bilaterally. No rhonchi, wheezes, or crackles. No increased work of breathing MSK: no gross deformities noted Skin: warm, dry, no rashes Neuro: alert, oriented, no FND noted Psych: mood and affect congruent Results & Data Results & Data Vital Signs (Past 12 Hours) Vital Signs Temp Pulse Resp BP Pulse Ox O2 Del Method 03/03/23 02:26 36.8 C 58 L 16 119/78 95 Room Air 03/02/23 22:50 37.1 C 58 L 18 126/69 95 Room Air 03/02/23 20:03 36.7 C 60 18 134/65 93 Room Air Resident Activity Tracking Resident Involvement: Resident Care Provided Care Provided: Adult Hospital Medicine
[2023-03-03] MEDS: METOPROLOL TARTRATE 25 MG TAB PO SCH ×2 (07:56→22:03)
[2023-03-03] MEDS: FUROSEMIDE 20 MG TAB PO SCH (07:56)
[2023-03-03] MEDS: ADVANCED PROBIOTIC 1250 MG CAPSULE PO SCH (07:57)
[2023-03-03] MEDS: allopurinoL 100 MG TAB PO SCH (07:57)
[2023-03-03] MEDS: APIXABAN 2.5 MG TAB PO SCH ×2 (07:57→22:03)
[2023-03-03] MEDS: DICLOFENAC SOD 1% GEL 100 GM TUBE EXT SCH ×4 (07:58→22:03)
[2023-03-03] MEDS: INSULIN ASPART PER UNIT CHARGE SC SCH ×4 (08:06→22:03)
[2023-03-03] MEDS: LANTUS PER UNIT CHARGE SQ SCH ×2 (08:07→22:04)
[2023-03-03 09:29] LABS: BUN Creatinine Ratio 31.1 (10-20); Calcium 9.1 mg/dl (8.6-10.3); Creatinine Clr Calc Pharmacy 19.3 ml/min; Potassium 4.9 mmol/L (3.5-5.1)
--- NOTE | 2023-03-03 15:52 | Billing Data ---
Date of Service March 03, 2023 Coding Level of Care Code 90976 SUB INP/OBS CARE
[2023-03-03] MEDS: SIMVASTATIN 40 MG TAB PO SCH (22:03)
[2023-03-03] MEDS: ACETAMINOPHEN 325 MG TAB PO PRN (22:04)
--- NOTE | 2023-03-04 07:10 | Hospitalist Progress Note ---
Date of Service March 04, 2023 Assessment & Plan (1) Shortness of breath: Plan: Pt is an 87 yo female with PMH of HFpEF, DM2, HTN, CKD4, atrial fibrillation, and s/p pacer presenting for worsened shortness of breath. Update 03/03: P2P unsuccessful on 03/01, family choosing to appeal this decision. Appeal still pending. Pt continuing to work with PT while hospitalized. 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, severe TR, and severe pul HTN - continue home regimen of 20 mg lasix PO daily - exacerbation most likely secondary to increased salt intake and missing med dose - pt continuing w/o oxygen and breathing w/o issue Elevated troponin - noted at 14.6 increased to 16.3 - most likely chronic mild elevation in the setting of increased heart strain Hyperkalemia - 5.3 upon admission, repeat WNL Atrial Fibrillation - continue eliquis 2.5mg BID DM2 - SSI ordered; hold home glipizide - A1c 8.3%; considering comorbidities and age, would consider this A1c controlled - given patient's age, would consider stopping glipizide and switching to different med as outpatient (if medications necessary) HTN - continue home metoprolol 25 mg BID Hx of gout -continue allopurinol Diet: heart healthy, DM2 Code: DNR/DNI (son is POA) DVT ppx: eliquis 2.5mg BID Dispo: med/tele; Pt continues to be medically stable. Updates as above. (2) Hypoxia: (3) Type 2 diabetes mellitus: (4) Hypertension: (5) Gout, joint: (6) Chronic kidney disease, stage IV (severe): (7) (HFpEF) heart failure with preserved ejection fraction: (8) Atrial fibrillation, permanent: Admission and Anticipated Discharge Date Admission Date: February 21, 2023 Subjective Patient seen at the bedside today Review of Systems Review of Systems: As per HPI Results & Data Results & Data Vital Signs (Past 12 Hours) Vital Signs Temp Pulse Pulse Pulse Resp BP Pulse Ox 03/04/23 03:34 36.8 C 58 L 16 138/71 95 03/04/23 01:25 64 03/03/23 21:59 36.7 C 61 18 131/67 95 03/03/23 19:27 36.8 C 62 16 138/72 97 O2 Del Method 03/04/23 03:34 Room Air 03/04/23 01:25 03/03/23 21:59 Room Air 03/03/23 19:27 Room Air
[2023-03-04] MEDS: ADVANCED PROBIOTIC 1250 MG CAPSULE PO SCH (09:14)
[2023-03-04] MEDS: METOPROLOL TARTRATE 25 MG TAB PO SCH (09:15)
[2023-03-04] MEDS: APIXABAN 2.5 MG TAB PO SCH (09:15)
[2023-03-04] MEDS: FUROSEMIDE 20 MG TAB PO SCH (09:15)
[2023-03-04] MEDS: allopurinoL 100 MG TAB PO SCH (09:15)
[2023-03-04] MEDS: DICLOFENAC SOD 1% GEL 100 GM TUBE EXT SCH ×2 (09:18→12:19)
[2023-03-04] MEDS: INSULIN ASPART PER UNIT CHARGE SC SCH ×2 (09:27→12:19)
[2023-03-04] MEDS: LANTUS PER UNIT CHARGE SQ SCH (10:28)
--- NOTE | 2023-03-04 11:37 | Discharge Summary ---
Date of Service March 04, 2023 Admission HPI Per Admitting Provider 87yo Female with PMH HFpEF, DM2, HTN, CKD4, atrial fibrillation, s/p pacer here for worsened shortness of breath hypoxia. She states she 'don't feel good', has difficulty establishing a timeline of her symptoms but states she hasn't felt well for a few weeks, complains of pain in her right thigh and groin secondary to external suction catheter. Denies any SOB on oxygen at this time, denies any chest pain or abd pain. She is AAOx3. Here today with son who is POA. Per son, today they noticed her lips were blue, checked her oxygen was in the 80's blood pressure lower systolic 100's, brought her to ED. Patient denies nausea at this time, son states she has been complaining of nausea on and off throughout the last 2 weeks. No noted fevers at home though family has noted occasional elevated temperatures. Per son she has had a low appetite in the past week. They had noted an increase of weight at home. She has had increased constipation with small hard stool, family gave her miralax yesterday and she had a decent sized BM this morning. She has had a firm abdomen for at least the past week, also noted by her PCP. She has seen her PCP twice in the past on 01/30 and 02/10 for UTI, treated with cefdinir BID 7 days for increased urinary frequency and 'not feeling well' and later keflex BID for 5 days for concern UTI on UA. On 02/10 she was started on glipizide 2.5mg daily given patient's concern over diabetes, there was concern she was not eating due to concern about her blood sugar. She was originally on lasix 20mg PO twice a week, in the past week was increased to lasix 20mg PO daily for concern fluid overload. Patient does not walk at baseline. She is baseline incontinent of urine uses diapers. Lives with family supervision available 15/05. She does not use home oxygen. Typically has an ok appetite. When asked about code status, patient states 'I want to be with the lord', son EMERSON clarified she would not want resuscitation or intubation if needed. Admission Exam Per Admitting Provider Constitutional: + ill appearing, + thin and cooperative Eyes: PERRL, conjunctivae normal, anicteric sclerae ENMT: Mouth: + lip abnormality (blue tint noted on lower lip) Neck: trachea midline, no thyromegaly Respiratory: normal respiratory effort Cardiovascular: Rate/Rhythm: regular rate and regular rhythm Extremities: + edema (b/l +1 pitting) Gastrointestinal (Abdomen): Inspection/Auscultation: + abdomen distended and + visible herniation (at umbilicus) Percussion/Palpation: + abdomen tender (mild on palpation to LLQ) and + abdomen firm Skin: bruising noted on b/l lower extremities with weeping wounds on left calf Psychiatric: Orientation: alert and oriented x 3 Principal Diagnosis CHF exacerbation Discharge Exam Constitutional WD/WN, vitals as above Eyes PERRL, conjunctivae normal, anicteric sclerae Respiratory normal respiratory effort, lungs clear to auscultation Cardiovascular RRR, no murmur, no edema Gastrointestinal (Abdomen) normal bowel sounds, soft, nontender, no hepatosplenomegaly Psychiatric A+Ox3, euthymic affect Discharge Data Allergies Allergy/AdvReac Type Severity Reaction Status Date / Time acetaminophen [From Mayodan] AdvReac Intermediate Nausea Verified 02/21/23 20:58 atorvastatin [From Lipitor] AdvReac Intermediate NOT Verified 02/21/23 20:58 TOLERATED fluvastatin [From Lescol] AdvReac Intermediate NOT Verified 02/21/23 20:58 TOLERATED gabapentin AdvReac Intermediate Nausea Verified 02/21/23 20:58 hydrocodone [From Mayodan] AdvReac Intermediate Nausea Verified 02/21/23 20:58 sulfamethoxazole AdvReac Intermediate Nausea Verified 02/21/23 20:58 [From Bactrim] trimethoprim [From Bactrim] AdvReac Intermediate Nausea Verified 02/21/23 20:58 Consultations 02/21/23 20:44 ED Decision to Admit Stat Ordered Studies 02/21/23 21:46 CT Abd and Pelvis [CT abd pelvis wo con] Urgent Hospital Course (1) Shortness of breath: Pt is an 87 yo female with PMH of HFpEF, DM2, HTN, CKD4, atrial fibrillation, and s/p pacer presenting for worsened shortness of breath. Update 03/03: P2P unsuccessful on 03/01, family choosing to appeal this decision. Appeal still pending. Pt continuing to work with PT while hospitalized. 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 Elevated troponin - noted at 14.6 increased to 16.3 - most likely chronic mild elevation in the setting of increased heart strain Hyperkalemia - 5.3 upon admission, repeat WNL DM2 - A1c 8.3%; considering comorbidities and age, would consider this A1c controlled - given patient's age, would consider stopping glipizide and switching to different med as outpatient (if medications necessary) (2) Hypoxia: (3) Type 2 diabetes mellitus: (4) Hypertension: (5) Gout, joint: (6) Chronic kidney disease, stage IV (severe): (7) (HFpEF) heart failure with preserved ejection fraction: (8) Atrial fibrillation, permanent: Total Time Total Time Spent Total Time Spent (In Minutes): <30 Discharge Plan Discharge Items Patient Disposition: Transfer [facility] Reason For Visit: SOB Discharge Diagnosis: acute on chronic heart failure Activity: Per Instructions section Non-emergency contact: Primary Care Provider Call non-emergency contact if: you have any medication questions and your symptoms worsen Follow-up/Referrals: Ned Tomlin MD [Primary Care Provider] - 03/07/23 2:00 pm Nimisha Vick PA-C [Physician Field Account Director] - 03/07/23 11:00 am (Congestive Heart Failure Program Appointment Information Early follow up is essential to managing your heart failure. An appointment has been scheduled for you with the [facility] Heart Failure Program within 7 days of discharge. Anticipate this visit to be 30-60 minutes long. Please expect a criminal court judge phone call from one of our nurses approximately 48 hours from discharge. They will also be placing an order for lab work to be completed 1-2 days prior to your heart failure follow up appointment. Please be sure to have this done so we can go over the results when you come in. Office Location The cardiology office building is located in front of the hospital at [address] [facility]. Bring the following with you to your follow-up doctor appointments: Please bring your daily weight log any discharge paperwork all of your medication bottles with you to this visit. ) Diet: Heart Healthy and Low Sodium (2gm) Addtl Attending Provider Instructions: Pt is an 87 yo female with PMH of HFpEF, DM2, HTN, CKD4, atrial fibrillation, and s/p pacer presenting for worsened shortness of breath. 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, severe TR, and severe pul HTN - continue home regimen of 20 mg lasix PO daily - exacerbation most likely secondary to increased salt intake and missing med dose - pt continuing w/o oxygen and breathing w/o issue Elevated troponin - noted at 14.6 increased to 16.3 - most likely chronic mild elevation in the setting of increased heart strain Hyperkalemia - 5.3 upon admission, repeat WNL Atrial Fibrillation - continue eliquis 2.5mg BID DM2 - SSI ordered; hold home glipizide - A1c 8.3%; considering comorbidities and age, would consider this A1c con trolled - given patient's age, would consider stopping glipizide and switching to different med as outpatient (if medications necessary) HTN - continue home metoprolol 25 mg BID Hx of gout -continue allopurinol Diet: heart healthy, DM2 Code: DNR/DNI (son is POA) DVT ppx: eliquis 2.5mg BID Dispo: Pt is medically stable. [facility] for [facility] Pending Studies at Discharge: No Stand-Alone Forms: My [employer], Smoking Cessation Skilled Items Patient informed of condition?: Yes DNR: Yes Discharge Level of Care: Skilled Communicable Disease: No Discharge Prognosis: Stable Lines: None Urinary Catheter: No Medications and DC Order Prescriptions: Continued hydrocortisone 2.5 % cream with perineal applicator 1 applic NH TID PRN (Reason: hemorrhoids) 14 Days Qty: 30 2RF (DME) Accu-Chek Cheryl Plus test strp Strip See Rx Instructions .Route Qty: 50 5RF Rx Instructions: test once daily (DME) blood-glucose meter [Accu-Chek Cheryl Plus Meter] Misc See Rx Instructions .Route Qty: 1 0RF Rx Instructions: test once daily (DME) lancets [Accu-Chek Softclix Lancets] Misc See Rx Instructions .Route Qty: 100 5RF Rx Instructions: test once daily diclofenac sodium [Arthritis Pain (diclofenac)] 1 % gel 2 g topical QID PRN (Reason: arthritis pain) Qty: 100 5RF allopurinol 100 mg tablet 50 mg PO DAILY Qty: 45 3RF simvastatin 40 mg tablet 40 mg PO QPM Qty: 90 3RF metoprolol tartrate 25 mg tablet 25 mg PO BID Qty: 180 3RF nystatin 100,000 unit/gram powder 1 applic topical DAILY PRN (Reason: rash) Qty: 30 2RF (DME) Transport Chair See Rx Instructions .Route .MEDSUPPLY Qty: 1 0RF Rx Instructions: For use by caregiver to safely assist patient with mobility issues. furosemide [Lasix] 20 mg tablet 20 mg PO DAILY Cerovite Senior 0.4 mg-300 mcg- 250 mcg Tablet 1 tab PO QAM Qty: 30 0RF Rx Instructions: OTC acetaminophen [Tylenol Extra Strength] 500 mg Tablet 1,000 mg PO DIRECTED PRN (Reason: Pain) Eliquis 2.5 mg Tablet 2.5 mg PO BID Qty: 60 1RF glipizide 2.5 mg tablet extended release 24hr 2.5 mg PO QAM Rx Instructions: with breakfast Discharge Orders: Discharge Order (Routine); Ordered 03/04/23 Ordered By: Tanner Zabala/Other Patient Handouts: Managing Type 2 Diabetes Admission Data Admit Date/Time: 02/21/23 21:53 Attending Provider: Junior Guzman Admit Provider: Samira Shafer Primary Care Provider: Ned Tomlin Other Providers: Santa Richardson ; [facility] ; [facility] Other Interventions: Discharge Summary Assessment (RN) Last Done: 03/04/23 12:38 Supervising Physician Co-Signing Physician Notes I personally examined the patient and verified all huntley points of history and exam, discussed case, and agree with decision making with Dr Marquez no new complaints. for centre care Vitals noted, in general pleasant and in no distress. HEENT normocephalic atraumatic mucous membranes moist. Breathing unlabored no accessory muscle use good effort. Skin shows no rashes no pallor or icterus. HFpEFresolved. Knee painsuspect was an arthritis flare, plus or minus some degree of patellar tendinitis. Deconditioningfamily appeal succeeded! centre care (snf, rehab emphasis) today Resident Activity Tracking Resident Involvement: Resident Care Provided Care Provided: Adult Hospital Medicine
--- NOTE | 2023-03-04 15:09 | Billing Data ---
Date of Service March 04, 2023 Coding Level of Care Code 63079 IN/OBS DISCH 30 MIN/LESS
== END 2023-03-04 13:14 | DRG 291 ==
LOC: ED 18:33 → 2N 21:53 → SUATTDRO 21:53 → 2N 02-22 00:53